=== PATIENT | female | born 1960 | race Caucasian/White ===

== ENCOUNTER 2021-04-21 05:10 | Observation (INO) | payer OTHER, SELFPAY ==
[2021-04-21] VITALS (18 sets, daily range): BP systolic 93–129; BP diastolic 54–92; PULSE 52–100; RESP 9–22; TEMP 36.4–37; O2SAT 72–100; BMI 26.4
--- NOTE | ~2021-04-21 | CT_ITS ---
EXAMINATION: CT brain wo con DATE: 04/21/2021 06:59 INDICATION: Confusion. TECHNIQUE: Computed tomography (CT) of the head was performed without intravenous contrast. The mA wa s adjusted according to patient size. Iterative reconstruction technique was employed. The dose-lengt h product was 605.33 mGy-cm. COMPARISON: None FINDINGS: There is no intracranial hemorrhage, acute infarction, or abnormal intracranial mass lesion . The ventricles are normal in size. There is mild mucosal thickening in the paranasal sinuses. The o rbits are normal. There is a trace left mastoid effusion. C1 ring is ununited posteriorly, which is a normal variant. IMPRESSION: 1. Normal brain. Reviewed, dictated and finalized at location A. ERIZER IMPRESSION: 1. Normal brain.
--- NOTE | ~2021-04-21 | XR_ITS ---
EXAMINATION: XR chest 1V DATE: 04/21/2021 07:01 INDICATION: Confusion. TECHNIQUE: A single frontal view of the chest was obtained. COMPARISON: None. FINDINGS: There is no pneumonia, pleural effusion, or pneumothorax. Cardiomegaly is noted. There is a left chest wall pacer with leads in the right atrium and right ventricle. There is a right subclavia n port with tip in right atrium. IMPRESSION: 1. Cardiomegaly. Reviewed, dictated and finalized at location A. [employer] IMPRESSION: 1. Cardiomegaly.
--- NOTE | 2021-04-21 06:39 | ECG_ITS ---
Rate 69 MD 281 QRSd 125 QT 467 QTc 502 --[place]-- P -81 QRS 53 T 50 ELECTRONIC ATRIAL PACEMAKER BORDERLINE ST ABNORMALITY- ANTERIOR LEADS PROLONGED QT INTERVAL BASELINE WANDER- AVR, AVL, AVF, V5-V6 ABNORMAL ECG Electronically Signed On 04-21-2021 16:16:51 CHILD SUPPORT OFFICER by [place]
[2021-04-21 06:57] LABS: Hematocrit 32.7 % (37.0-47.0); Hemoglobin 10.9 g/dL (12.0-15.0); Mean Corpuscular HGB Conc 33.3 g/dl (32-36); Mean Corpuscular Hemoglobin 33.9 pg (26-34); Mean Corpuscular Volume 101.6 fl (80-100); Platelet Count Result 152 k/mm3 (150-375); Red Blood Count 3.22 M/mm3 (4.2-5.4); Red Cell Distribution Width 12.3 % (11.5-14.5)
[2021-04-21] MEDS: SODIUM CHLORIDE 0.9% IV 1,000 ML 999 ML IV CONT ×2 (07:05→09:08)
--- NOTE | 2021-04-21 07:07 | ED.AMS ---
HPI - Altered Mental Status General Chief Complaint: Altered Mental Status <Rosi Curry MD - Last Filed: 04/21/21 08:27> Stated Complaint: AMS <Rosi Curry MD - Last Filed: 04/21/21 08:27> Time Seen by Provider: 04/21/21 07:03 <Rosi Curry MD - Last Filed: 04/21/21 08:27> Source: patient and family <Rosi Curry MD - Last Filed: 04/21/21 08:27> Mode of arrival: wheelchair <Rosi Curry MD - Last Filed: 04/21/21 08:27> Limitations: altered mental status <Rosi Curry MD - Last Filed: 04/21/21 08:27> History of Present Illness HPI narrative: This is a 60 year old female with history of seizure disorder, myasthenia gravis, and lupus who presents for evaluation of altered mental status. Her is at bedside to give history. He states he woke up around midnight to patient mumbling something. He tried to take patient to restroom but she was weak and he had to take her in wheelchair. He states her weakness seemed to improve but patient continued to not act right. He was thinking patient may have had a seizure but she normally only takes 1-2 hours to return to baseline. He also notes patient had her seizure medication clobazam increased 4 days ago . This increased in medication has been making patient weak so they were told to decrease dose. They have not had opportunity to decrease her medication yet. He also states patient had diarrhea a day or two ago. Patient is unable to give history. She knows her name and place. Otherwise she repetitive says yes I am in pain. <Rosi Curry MD - Last Filed: 04/21/21 08:27> Related Data Home Medications: Home Medications Medication Instructions Recorded Confirmed Lopressor 04/21/21 azathioprine 50 mg PO DAILY 04/21/21 baclofen 20 mg PO DAILY 04/21/21 calcitriol 04/21/21 calcium carbonate-vitamin D3 1 tablet PO BID 04/21/21 [Calcium + D] clobazam 20 mg PO DAILY 04/21/21 d-mannose mg PO 04/21/21 doxycycline hyclate 100 mg PO DAILY 04/21/21 eslicarbazepine [Aptiom] 800 mg PO DAILY 04/21/21 furosemide [Lasix] 20 mg PO BID 04/21/21 hydroxychloroquine [Plaquenil] 200 mg PO BID 04/21/21 levetiracetam [Keppra] 1,000 mg PO BID 04/21/21 lorazepam [Ativan] 1 mg PO BID PRN 04/21/21 magnesium carb,citrate,oxide mg PO 04/21/21 [Magnesium Complex] pantoprazole [Protonix] 40 mg PO HS 04/21/21 potassium mg PO 04/21/21 pravastatin 04/21/21 prednisone 5 mg PO DAILY 04/21/21 promethazine 25 mg PO TID 04/21/21 pyridostigmine bromide [Mestinon] 04/21/21 vitamin B complex [B Complex 1 tablet PO DAILY 04/21/21 Vitamin] <Rosi Curry MD - Last Filed: 04/21/21 08:27> Allergies/Adverse Reactions: Allergies Allergy/AdvReac Type Severity Reaction Status Date / Time carbamazepine Allergy Unknown Verified 04/21/21 06:05 ciprofloxacin Allergy Unknown Verified 04/21/21 06:05 erythromycin base Allergy Rash Verified 04/21/21 06:05 nitrofurantoin Allergy Hives Verified 04/21/21 06:05 Penicillins Allergy Anaphylaxis Verified 04/21/21 06:05 phenytoin Allergy Unknown Verified 04/21/21 06:05 Sulfa (Sulfonamide Allergy Rash Verified 04/21/21 05:55 Antibiotics) codeine AdvReac Nausea Verified 04/21/21 06:05 levodropropizine AdvReac Other Verified 04/21/21 06:05 pregabalin AdvReac Dizziness Verified 04/21/21 06:05 zolpidem AdvReac Other Verified 04/21/21 06:05 <Rosi Curry MD - Last Filed: 04/21/21 08:27> Review of Systems Review of Systems: ROS unobtainable: Yes unobtainable due to mental status <Rosi Curry MD - Last Filed: 04/21/21 08:27> [facility] Past Medical History Medical History: Medical History (Updated 04/21/21 @ 13:04 by Austin Starkey MD) Lupus Myasthenia gravis Port-A-Cath in place Seizure disorder <Rosi Curry MD - Last Filed: 04/21/21 08:27> Social History Social History: Social History (Updated
[2021-04-21 07:11] LABS: Alanine Aminotransferase 16 U/L (4-35); Albumin Level 3.5 g/dL (3.5-5.1); Alkaline Phosphatase 78 U/L (38-126); Anion Gap 1 mmol/L (8-16); Aspartate Amino Transferase 36 U/L (14-36); Bilirubin,Total 0.4 mg/dL (0.2-1.3); Blood Urea Nitrogen 49 mg/dL (7-17); Calcium 8.5 mg/dL (8.4-10.2); Carbon Dioxide 27 mmol/L (22-30); Chloride 108 mmol/L (98-107); Estimated CRCL calculation 28 ml/min; Estimated Glomerular Filt Rate 30; Glucose 118 mg/dL (65-110); Lactic Acid Reflex 0.8 mmol/L (0.7-2.1); Potassium 3.3 mmol/L (3.4-5.0); Sodium 136 mmol/L (137-145)
[2021-04-21 07:23] LABS: Troponin I < 0.012 ng/mL (0.000-0.034)
[2021-04-21 07:30] LABS: Ammonia < 9 umol/L (9-30); Ethanol < 10 mg/dL (<10)
[2021-04-21 07:43] LABS: Basophils Absolute Manual 0.08 K/mm3 (0.0-0.1); Basophils Percent Manual 1 % (0-1); Eosinophils Absolute Manual 0.08 K/mm3 (0.02-0.5); Eosinophils Percent Manual 1 % (0-4); Lymphocytes Absolute Manual 2.72 K/mm3 (1.1-4.5); Lymphocytes Percent Manual 34 % (18-44); Monocytes Percent Manual 10 % (3-9); Neutrophils Percent Manual 54 % (46-73); Total Cells Counted 100
[2021-04-21 07:44] LABS: Platelet Estimate Adequate (Adequate)
[2021-04-21 08:04] LABS: Amphetamine Screen Urine Negative (Negative); Barbiturate Screen Urine Negative (Negative); Benzodiazepines Screen Urine Positive (Negative); Cannabinoid Screen Urine Negative (Negative); Cocaine Screen Urine Negative (Negative); Methadone Screen Urine Negative (Negative); Opiate Screen Urine Negative (Negative); Phencyclidine Screen Urine Negative (Negative)
[2021-04-21 08:43] LABS: Add Urine Microscopic? NO; Appearance Urine Clear (Clear); Bilirubin Urine Negative (Negative); Blood Urine Negative (Negative); Color Urine Yellow (Yellow); Glucose Urine UA Negative (Negative); Ketones Urine Negative (Negative); Leukocyte Esterase Ur Negative LEU/UL (Negative); Nitrate Urine Negative (Negative); Protein Urine Negative (Negative); Specific Grav Ur 1.017 (1.001-1.035); Urobilinogen Urine Negative mg/dL (<2.0)
--- NOTE | 2021-04-21 14:15 | PM.IMHP ---
H&P: HPI History of Present Illness Date/Time: 04/21/21 14:15 Chief Complaint: Altered mental status. Narrative: This is a 60-year-old female with multiple medical problems including epilepsy, myasthenia gravis, systemic lupus erythematosus, chronic kidney disease, and sick sinus syndrome status post permanent pacemaker insertion who presented to the emergency department earlier today from home for evaluation of altered mental status. She is alert and oriented and at her baseline at the time of my evaluation but she does not really recall exactly what happened this morning and as such some of the following is supplemented via a review of her electronic medical records as well as from her . She was in her usual state of health last night when she went to bed and sometime around midnight the patient's heard her mumbling incoherently. He assumes that perhaps she had to go to the bathroom and he attempted to help her however she was extraordinarily weak so he had to take her there in her wheelchair. Once he got her back in bed she seemed a little confused but her weakness had improved and he thought that perhaps she had had a seizure as this is similar to her postictal state. This morning she remained a bit ?out of it?, not steady on her feet and seemingly staring off with repetitive conversation. Her workup in the ER was pretty unremarkable aside from chronic findings and her brain CT was normal. With further questioning she did have an increase in her clobazam within the last for 5 days however the patient her felt that she seemed to be more weak on that drug and she was instructed to decrease the dose. Currently she has no complaints and specifically denies headache, neck ache, diplopia, dysarthria, dysphagia, shortness of breath, chest pain, palpitations, and paresthesias. Review of Systems Review of Systems: Twelve systems were reviewed. No fever, chills, or sweats. No recent cold or flu symptoms. She occasionally has dysphagia, mainly with pills. No recent issues or concerns for aspiration. With her myasthenia it is not uncommon for her to have intermittent diplopia throughout the day and she also has weakness on her right side which fluctuates in severity. Additionally she will have occasional slurred speech as well. She has not required intubation for myasthenia crises though she was hospitalized as within the past 1 year with respiratory failure on BiPAP. In fact she used to trilogy unit for several months thereafter but she has not needed at recently and it was sent back approximately 3 months ago. She also suffers from gastroparesis and neurogenic bladder. Except as documented, all other systems were reviewed and are negative. [facility] Past Medical History Medical History (Updated 04/21/21 @ 23:00 by Eileen Nuñez PA-C) Adrenal insufficiency On low-dose prednisone. Cardiomegaly A chronic finding per patient report. Followed by a interstate planner associated with [facility]. Chronic renal failure Frequent urinary tract infections Gastroparesis Hypertension Myasthenia gravis Neurogenic bladder Seizure disorder Sick sinus syndrome Systemic lupus erythematosus Surgical History Surgical History (Updated 04/21/21 @ 22:50 by Eileen Nuñez PA-C) History of 2 sections History of appendectomy History of hysterectomy History of laparoscopic cholecystectomy History of partial colectomy Secondary to obstruction from adhesions. History of permanent cardiac pacemaker placement Port-A-Cath in place Family History Family History (Updated 04/21/21 @ 22:50 by Eileen Nuñez PA-C) Other Hypertension Social History Social History (Updated 04/21/21 @ 23:15 by Eileen Nuñez PA-C) Social History: Surrogate decision maker: Dann Anderson, spouse. Code status: Full code. Smoking status: Never smoker Alcohol intake: current Drinks per week: 1 Substance use: never Additional living arrangements comments:
[2021-04-21] MEDS: SODIUM CHLORIDE 0.9% IV 1,000 ML 125 ML IV CONT (15:29)
--- NOTE | 2021-04-21 17:30 | ADMGEN ---
This patient, Aysha Anderson, was admitted to Medical Room 347-. Patient/family oriented to hospital policies and general routines including ID bracelet, bed and alarms, visiting hours, pain management, procedures, bathroom and other care routines, personal items, smoking policy, room service/diet, and visiting hours. Information on how to activate the Rapid Response Team has been discussed. Patient/Family are encouraged to report perceived risks to care and to ask questions if they do not understand what they are told or what they should do.
[2021-04-21 21:24] LABS: Glucose Point of Care 93 mg/dl (65-105)
[2021-04-21] MEDS: SODIUM CHLORIDE 0.9% IV 1,000 ML 75 ML IV CONT (23:31)
[2021-04-22] VITALS: PULSE 70
[2021-04-22] MEDS: LORazepam (*CRX) 1 MG TABLET PO ×2 (00:42→08:56)
[2021-04-22] MEDS: TOPIRAMATE 25 MG TABLET 50 MG PO ×2 (00:43→08:51)
[2021-04-22] MEDS: PYRIDOSTIGMINE BROMIDE 60 MG TABLET PO ×3 (00:44→11:28)
[2021-04-22] MEDS: levETIRAcetam ORAL SOL 500 MG/5 ML UDC 2000 MG PO ×2 (00:44→08:52)
[2021-04-22 01:28] LABS: Anion Gap 2 mmol/L (8-16); Blood Urea Nitrogen 26 mg/dL (7-17); Calcium 6.9 mg/dL (8.4-10.2); Carbon Dioxide 20 mmol/L (22-30); Chloride 113 mmol/L (98-107); Estimated CRCL calculation 42 ml/min; Estimated Glomerular Filt Rate 50; Glucose 89 mg/dL (65-110); Magnesium 2.1 mg/dL (1.6-2.3); Potassium 3.4 mmol/L (3.4-5.0); Sodium 135 mmol/L (137-145)
[2021-04-22 01:36] LABS: Iron 94 ug/dL (37-170)
[2021-04-22 01:46] LABS: Percent Iron Saturation 48 % (20-50)
[2021-04-22 04:09] VITALS: PULSE 70
[2021-04-22 05:17] VITALS: BP 112/68; PULSE 70; RESP 18; TEMP 36.6; O2SAT 96
[2021-04-22 05:34] LABS: Hematocrit 31.2 % (37.0-47.0); Hemoglobin 10.4 g/dL (12.0-15.0); Mean Corpuscular HGB Conc 33.3 g/dl (32-36); Mean Platelet Volume 11.9 fl (7.4-10.4); Platelet Count Result 131 k/mm3 (150-375); Red Blood Count 3.15 M/mm3 (4.2-5.4); Red Cell Distribution Width 12.4 % (11.5-14.5); White Blood Count 5.8 K/mm3 (4.5-10.0)
[2021-04-22 05:48] LABS: Alanine Aminotransferase 14 U/L (4-35); Albumin Level 2.8 g/dL (3.5-5.1); Alkaline Phosphatase 75 U/L (38-126); Anion Gap 0 mmol/L (8-16); Aspartate Amino Transferase 35 U/L (14-36); Bilirubin,Total 0.3 mg/dL (0.2-1.3); Blood Urea Nitrogen 22 mg/dL (7-17); Calcium 6.9 mg/dL (8.4-10.2); Carbon Dioxide 21 mmol/L (22-30); Chloride 117 mmol/L (98-107); Estimated CRCL calculation 50 ml/min; Estimated Glomerular Filt Rate 50; Glucose 86 mg/dL (65-110); Magnesium 2.2 mg/dL (1.6-2.3); Phosphorus 1.9 mg/dL (2.5-4.5); Potassium 3.4 mmol/L (3.4-5.0); Sodium 138 mmol/L (137-145)
[2021-04-22 06:45] LABS: Cortisol Random 4.61 ug/dL
[2021-04-22 08:00] VITALS: PULSE 93
[2021-04-22] MEDS: DOXYCYCLINE HYCLATE 100 MG TABLET PO (08:49)
[2021-04-22] MEDS: predniSONE 5 MG TABLET PO (08:49)
[2021-04-22] MEDS: calcitrioL 0.25 MCG CAPSULE PO (08:50)
[2021-04-22] MEDS: POTASSIUM CHLORIDE 20 MEQ TABLET.ER PO (08:50)
[2021-04-22] MEDS: PRAVASTATIN SODIUM 10 MG TABLET PO (08:50)
[2021-04-22] MEDS: FERROUS SULFATE DRIED 142 MG TABCR PO (08:51)
[2021-04-22] MEDS: VITAMIN B COMPLEX CAPSULE 1 CAP PO (08:51)
[2021-04-22] MEDS: HYDROXYCHLOROQUINE SULFATE 200 MG TABLET PO (08:51)
[2021-04-22] MEDS: SUMAtriptan SUCCINATE 25 MG TABLET 100 MG PO (08:51)
[2021-04-22] MEDS: azaTHIOprine 50 MG TABLET PO (08:51)
[2021-04-22] MEDS: PANTOPRAZOLE 40 MG TABLET PO (11:29)
[2021-04-22] MEDS: MAGNESIUM OXIDE 200 MG TABLET PO (11:29)
[2021-04-22 12:00] VITALS: PULSE 72
[2021-04-22 12:32] LABS: Vitamin B12 > 1000.0 pg/mL (239-931)
--- NOTE | 2021-04-22 13:27 | PM.DS ---
DS: Admitting Diagnosis Discharge Date 04/22/2021 Admitting Diagnosis AMS DS: Discharge Diagnosis Discharge Diagnosis (1) Altered mental status: Code(s): R41.82 - Altered mental status, unspecified Status: Acute Assessment and Plan: Resolved. Etiology not entirely clear but given her history I suspect she may very well have had a seizure. Could be related to increase in clobazam dose although the patient does not think is related to that. There are no significant lab abnormalities from her reported baseline and imaging was unremarkable. (2) Macrocytic anemia: Code(s): D53.9 - Nutritional anemia, unspecified Status: Acute Assessment and Plan: Check iron studies as well as B12 and folates. (3) Chronic renal failure: Code(s): N18.9 - Chronic kidney disease, unspecified Status: Acute Assessment and Plan: Patient does have chronic renal failure for which she is seen by a physician/internist associated with [facility]. She is being cautiously hydrated given her soft blood pressures and increase in BUN. (4) Myasthenia gravis: Code(s): G70.00 - Myasthenia gravis without (acute) exacerbation Status: Inactive Assessment and Plan: No acute issues. Patient frequently has episodes of intermittent diplopia, slurred speech, and weakness, especially on the right side. Continue Mestinon. (5) Hypokalemia: Code(s): E87.6 - Hypokalemia Status: Acute Assessment and Plan: Potassium will be replaced and monitored. (6) Epilepsy: Code(s): G40.909 - Epilepsy, unspecified, not intractable, without status epilepticus Status: Acute Assessment and Plan: Continue anti seizure medication. (7) Cardiomegaly: Code(s): I51.7 - Cardiomegaly Status: Acute Assessment and Plan: A known finding per patient report. She is followed by a shipping and receiving clerk at [facility]. (8) Hypertension: Code(s): I10 - Essential (primary) hypertension Status: Acute Assessment and Plan: Blood pressures were reviewed and they have been on the softer side of normal. She has received IV fluid rehydration with improvement. Continue to hold metoprolol and furosemide for now. (9) Adrenal insufficiency: Code(s): E27.40 - Unspecified adrenocortical insufficiency Status: Acute Assessment and Plan: She has mild electrolyte abnormalities with softer blood pressures as detailed above. Blood pressures have improved with IV fluids however thus I do not think we need to stress dose her at this time. Check cortisol level in a.m. and monitor electrolytes and blood pressures closely. DS: Summary Hospital Course Reason for hospitalization: Chief Complaint: Altered mental status. Narrative: This is a 60-year-old female with multiple medical problems including epilepsy, myasthenia gravis, systemic lupus erythematosus, chronic kidney disease, and sick sinus syndrome status post permanent pacemaker insertion who presented to the emergency department earlier today from home for evaluation of altered mental status. She is alert and oriented and at her baseline at the time of my evaluation but she does not really recall exactly what happened this morning and as such some of the following is supplemented via a review of her electronic medical records as well as from her . She was in her usual state of health last night when she went to bed and sometime around midnight the patient's heard her mumbling incoherently. He assumes that perhaps she had to go to the bathroom and he attempted to help her however she was extraordinarily weak so he had to take her there in her wheelchair. Once he got her back in bed she seemed a little confused but her weakness had improved and he thought that perhaps she had had a seizure as this is similar to her postictal state. This morning she remained a bit ?out of it?, not steady on her feet and seem
[2021-04-22] MEDS: HEPARIN SODIUM LOCK FLUSH 500 UNITS/5 ML VIAL IV PUSH (13:45)
[2021-04-29 09:53] LABS: Folic Acid 3.6 ng/mL (2.76->20)
== END 2021-04-22 14:00 | disposition home or self-care (01) ==
LOC: ANHED 08:27 → ANH2MED 13:04 → ANH3MED 04-22 13:27 → ANH2MED 04-25 11:02 → ANH3MED 04-25 11:02
PROVIDERS: General Practice; Physician Assistant; Admitting Provider Internal Medicine; Emergency Provider Emergency Medicine; Visit Provider Family Medicine
DX: R41.82 Altered mental status, unspecified (principal); D53.9 Nutritional anemia, unspecified; M32.9 Systemic lupus erythematosus, unspecified; I12.9 Hypertensive chronic kidney disease with stage 1 through stage 4 chronic kidney disease, or unspecified chronic kidney disease; N18.9 Chronic kidney disease, unspecified; G70.00 Myasthenia gravis without (acute) exacerbation; E87.6 Hypokalemia; E86.0 Dehydration; G40.909 Epilepsy, unspecified, not intractable, without status epilepticus; E27.40 Unspecified adrenocortical insufficiency; K31.84 Gastroparesis; N31.9 Neuromuscular dysfunction of bladder, unspecified; I49.5 Sick sinus syndrome; I51.7 Cardiomegaly; Z79.899 Other long term (current) drug therapy
CPT/HCPCS: 36415; 51701; 70450; 71045; 80048; 80053; 80307; 81003; 82140; 82533; 82607; 82728; 82746; 82948; 83540; 83550; 83605; 83735; 84100; 84443; 84484; 85025; 85027; 93005; 96360; 96361; 97161; 99285; A9270; G0378; J1642; J7030; J7512

== ENCOUNTER 2021-05-10 06:49 | Observation (INO) | payer OTHER, SELFPAY ==
[2021-05-10] VITALS (9 sets, daily range): BP systolic 100–141; BP diastolic 62–92; PULSE 70–121; RESP 12–20; TEMP 36.1–36.6; O2SAT 97–100
--- NOTE | ~2021-05-10 | US_ITS ---
EXAMINATION: US renal BI DATE: 05/11/2021 14:18 INDICATION: Left costovertebral angle tenderness. TECHNIQUE: Multiple ultrasound grayscale images of the kidneys were obtained. COMPARISON: None. FINDINGS: The right kidney measures 10.5 x 4.5 x 4.6 cm. The left kidney measures 9.8 x 4.3 x 5.5 cm. The kidne ys demonstrate normal parenchymal echogenicity. There is no hydronephrosis. The bladder is normal. IMPRESSION: 1. Normal kidney sizes. No hydronephrosis. Reviewed, dictated and finalized at location B. MACHINE OPERATOR
--- NOTE | ~2021-05-10 | CT_ITS ---
EXAMINATION: CT brain wo [facility] EXAM DATE: 05/10/2021 08:09 INDICATION: Altered mental status , weakness. Kidney infection. History of epilepsy. TECHNIQUE: Spiral CT of the head was performed without contrast. Axial, coronal and sagittal images were reviewed. The dose-length product (DLP) for this examination was 681.00 mGy-cm. The exposure w as tailored according to patient size, and iterative reconstruction (ASIR) was used as additional dos e reduction technique. Comparison is made to prior examination from 04/21/2021. FINDINGS: There is no acute intraparenchymal hemorrhage. No evidence of intraparenchymal brain mass lesion. No evidence of acute infarction. Mild microangiopathy and atrophy. There is no mass effect o r midline shift. The ventricles are normal in size. There are no extra-axial collections. There ar e no acute calvarial fractures. The orbits are unremarkable. Soft tissue is unremarkable. The visua lized sinuses and mastoid air cells are well aerated. IMPRESSION: 1. No acute intracranial findings. 2. Mild age-related intracranial findings. Reviewed, dictated and finalized at location A. GIOUS EDUCATION COORDINATOR
--- NOTE | ~2021-05-10 | XR_ITS ---
EXAMINATION: XR chest 1V portable EXAM DATE: 05/10/2021 10:06 INDICATION: Mid chest pain. TECHNIQUE: Portable AP frontal chest x-ray was obtained. Comparison is made to prior examination from 04/21/2021. FINDINGS: The lungs are clear. There are no pleural effusions. There is a dual lead pacemaker/AICD seen with leads projecting over the expected locations of the right atrial appendage and right ventri chadd. The cardiomediastinal silhouette is prominent but magnified on this AP technique. Right-sided po rtacatheter. There is no pneumothorax suspected. The bones and soft tissues are unremarkable. IMPRESSION: No acute cardiopulmonary findings. Reviewed, dictated and finalized at location A. SHING AREA OPERATOR
--- NOTE | 2021-05-10 07:05 | ECG_ITS ---
Measurements Intervals [place] Rate: 70 P: 265 MT: 259 QRS: -14 QRSD: 97 T: 29 QT: 439 QTc: 474 Interpretive Statements ELECTRONIC ATRIAL PACEMAKER BASELINE ARTIFACT- II, III, AVR, AVF, V1, V3-V6 ATYPICAL ECG Electronically Signed On 05-10-2021 7:28:48 CONDOMINIUM ASSOCIATION MANAGER by [place] D.O.
--- NOTE | 2021-05-10 07:21 | ED.GENADULT ---
HPI - General Adult General Chief complaint: Unspecified Stated complaint: weakness Time Seen by Provider: 05/10/21 07:08 Source: family Limitations: altered mental status History of Present Illness HPI narrative: Patient is a 58-year-old female brought in by due to altered mental status, described as somnolent, difficult to arouse. states that she usually is in the morning groggy and usually takes her 30 minutes until she fully wakes up but this morning she continued to be sleepy . states that patient supposed to have an IgG infusion this morning. Patient has history of seizure, lupus and myasthenia gravis. states that the patient is currently being treated for urinary tract infection, taking Cipro. states that patient had a couple bouts of nausea and vomiting last night. Denies any diarrhea, fever or chills. Related Data Home Medications Medication Instructions Recorded Confirmed Aptiom 800 mg PO DAILY 04/21/21 04/21/21 Lopressor 12.5 mg PO BID 04/21/21 04/21/21 Magnesium Complex 250 mg PO DAILY 04/21/21 04/21/21 azathioprine 50 mg PO DAILY 04/21/21 04/21/21 baclofen 20 mg PO TID 04/21/21 04/21/21 calcitriol 0.25 mcg PO DAILY 04/21/21 04/21/21 calcium carbonate-vitamin D3 1 tablet PO BID 04/21/21 04/21/21 clobazam 40 mg PO HS 04/21/21 04/21/21 d-mannose 1,000 mg PO DAILY 04/21/21 04/21/21 doxycycline hyclate 100 mg PO DAILY 04/21/21 04/21/21 ferrous sulfate 143 mg PO DAILY 04/21/21 04/21/21 furosemide [Lasix] 20 mg PO BID 04/21/21 04/21/21 hydroxychloroquine [Plaquenil] 200 mg PO BID 04/21/21 04/21/21 levetiracetam 2,000 mg PO BID 04/21/21 04/21/21 lorazepam [Ativan] 1 mg PO BID 04/21/21 04/21/21 pantoprazole [Protonix] 40 mg PO DAILY 04/21/21 04/21/21 potassium chloride 20 meq PO DAILY 04/21/21 04/21/21 pravastatin 10 mg PO DAILY 04/21/21 04/21/21 prednisone 5 mg PO DAILY 04/21/21 04/21/21 promethazine 25 mg PO Q6H PRN 04/21/21 04/21/21 pyridostigmine bromide 60 mg PO HS 04/21/21 04/21/21 pyridostigmine bromide 60 mg PO QACDINNER 04/21/21 04/21/21 pyridostigmine bromide 90 mg PO QAM 04/21/21 04/21/21 pyridostigmine bromide 90 mg PO QNOON 04/21/21 04/21/21 sumatriptan succinate 100 mg PO Q2H PRN 04/21/21 04/21/21 topiramate 50 mg PO BID 04/21/21 04/21/21 vitamin B complex 1 tablet PO DAILY 04/21/21 04/21/21 Allergies Allergy/AdvReac Type Severity Reaction Status Date / Time carbamazepine Allergy Unknown Verified 04/21/21 17:57 ciprofloxacin Allergy Unknown Verified 04/21/21 17:57 erythromycin base Allergy Rash Verified 04/21/21 17:57 nitrofurantoin Allergy Hives Verified 04/21/21 17:57 Penicillins Allergy Anaphylaxis Verified 04/21/21 17:57 phenytoin Allergy Unknown Verified 04/21/21 17:57 Sulfa (Sulfonamide Allergy Rash Verified 04/21/21 17:57 Antibiotics) codeine AdvReac Nausea Verified 04/21/21 17:57 levodropropizine AdvReac Other Verified 04/21/21 17:57 pregabalin AdvReac Dizziness Verified 04/21/21 17:57 zolpidem AdvReac Other Verified 04/21/21 17:57 Review of Systems Review of Systems: ROS unobtainable: Yes unobtainable due to mental status PMFSH Past Medical History Medical History Adrenal insufficiency On low-dose prednisone. Cardiomegaly A chronic finding per patient report. Followed by a industrial pipefitter journeyman associated with [facility]. Chronic renal failure Frequent urinary tract infections Gastroparesis Hypertension Myasthenia gravis Neurogenic bladder Seizure disorder Sick sinus syndrome Systemic lupus erythematosus Surgical History Surgical History History of 2 sections History of appendectomy History of hysterectomy History of laparoscopic cholecystectomy History of partial colectomy Secondary to obstruction from adhesions. History of permanent cardiac pacemaker placement Port-A-Cath in place Family History Family History (Review
[2021-05-10 08:07] LABS: Basophils Absolute Auto 0.1 K/mm3 (0.0-0.1); Basophils Percent Auto 1.8 % (0.2-1.2); Eosinophils Absolute Auto 0.3 K/mm3 (0-0.3); Eosinophils Percent Auto 3.7 % (0-4.4); Hematocrit 39.6 % (37.0-47.0); Hemoglobin 12.9 g/dL (12.0-15.0); Immature Granulocyte Absolute 0.02 K/mm3 (0.00-0.031); Immature Granulocyte Percent A 0.3 % (0-0.5); Lymphocytes Absolute Auto 1.44 K/mm3 (0.9-3.2); Lymphocytes Percent Auto 20.2 % (18.3-44.2); Mean Corpuscular HGB Conc 32.6 g/dl (32-36); Mean Corpuscular Hemoglobin 33.4 pg (26-34); Mean Corpuscular Volume 102.6 fl (80-100); Mean Platelet Volume 11.3 fl (7.4-10.4); Monocytes Absolute Auto 0.5 K/mm3 (0.1-0.6); Monocytes Percent Auto 6.6 % (2.6-8.5); Neutrophils Absolute Auto 4.8 K/mm3 (1.3-6.7); Neutrophils Percent Auto 67.4 % (45.5-73.1); Platelet Count Result 265 k/mm3 (150-375); Red Blood Count 3.86 M/mm3 (4.2-5.4); Red Cell Distribution Width 13.2 % (11.5-14.5); White Blood Count 7.1 K/mm3 (4.5-10.0)
[2021-05-10 08:16] LABS: Add Urine Microscopic? NO; Appearance Urine Clear (Clear); Bilirubin Urine Negative (Negative); Blood Urine Negative (Negative); Color Urine Yellow (Yellow); Glucose Urine UA Negative (Negative); Ketones Urine Negative (Negative); Leukocyte Esterase Ur Negative LEU/UL (Negative); Nitrate Urine Negative (Negative); Protein Urine Negative (Negative); Specific Grav Ur 1.019 (1.001-1.035); Urobilinogen Urine Negative mg/dL (<2.0)
[2021-05-10 08:20] LABS: Alanine Aminotransferase 36 U/L (4-35); Alkaline Phosphatase 80 U/L (38-126); Anion Gap 6 mmol/L (8-16); Aspartate Amino Transferase 83 U/L (14-36); Bilirubin,Total 0.7 mg/dL (0.2-1.3); Blood Urea Nitrogen 32 mg/dL (7-17); Carbon Dioxide 23 mmol/L (22-30); Chloride 111 mmol/L (98-107); Estimated CRCL calculation 28 ml/min; Estimated Glomerular Filt Rate 29; Glucose 107 mg/dL (65-110); Potassium 4.9 mmol/L (3.4-5.0); Sodium 140 mmol/L (137-145)
[2021-05-10 08:21] LABS: Lactic Acid Reflex 1.1 mmol/L (0.7-2.1)
[2021-05-10] MEDS: SODIUM CHLORIDE 0.9% IV 1,000 ML 999 ML IV CONT (08:24)
[2021-05-10 08:39] LABS: Prothrombin Time 13.3 Seconds (11.1-14.7)
[2021-05-10 08:40] LABS: Partial Thromboplastin Time 29.3 SECONDS (22.3-36.8)
[2021-05-10] MEDS: LACTATED RINGERS 1,000 ML 125 ML IV CONT ×2 (12:21→17:29)
--- NOTE | 2021-05-10 13:00 | PM.IMHP ---
H&P: HPI History of Present Illness Date/Time: 05/10/21 13:00 <Eileen Nuñez PA-C - Last Filed: 05/10/21 23:01> Chief Complaint: Altered mental status. <Eileen Nuñez PA-C - Last Filed: 05/10/21 23:01> Narrative: This is a pleasant 60-year-old female with multiple medical problems including epilepsy, myasthenia gravis, lupus, chronic kidney disease, hypogammaglobulinemia, sick sinus syndrome status post permanent pacemaker insertion, and other comorbidities who presented to the emergency department earlier today from home for evaluation of altered mental status. The patient and her agree that she is typically ?groggy? in the morning for approximately 30 minutes until she is fully awake. The patient goes on to say that she suffers from insomnia is unusual for her to wake up for a couple of hours between sleeping in our here or there overnight thus it seems like she is very sleepy in the morning times when it is time to get up due to lack of sleep. She takes duplicated benzodiazepine therapy and a muscle relaxer before going to bed but tells me that her doses have not changed for many years and she does not believe that this is the cause. With further questioning she does admit that sometimes she wakes up at night with shortness of breath and in fact she used a trilogy unit for several months earlier this year due to diaphragmatic weakness related to her myasthenia gravis. She does not think that she had a seizure overnight. She gives no history to suggest active infection although recently finished ciprofloxacin for urinary tract infection. At the time my evaluation she is at baseline and has no complaints. Of note, I admitted the patient under similar circumstances on 04/21/2021 at which time it was thought that perhaps she had had a seizure or her symptoms may have been due to an increase in clobazam. She returned to baseline later on day of admission she was discharged home the following day. <Eileen Nuñez PA-C - Last Filed: 05/10/21 23:01> Review of Systems Review of Systems: Twelve systems were reviewed. It sounds like she has frequent symptoms from her myasthenia including intermittent diplopia throughout today and occasional dysarthria. She has not had any recent dysphagia. No fever, chills, or sweats. No cold or flu symptoms. She denies chest pain and pleuritic pain. No cough. No nausea, vomiting, or diarrhea. No dysuria. Except as documented, all other systems were reviewed and are negative. <Eileen Nuñez PA-C - Last Filed: 05/10/21 23:01> [facility] Past Medical History Medical History: Medical History (Updated 05/11/21 @ 14:51 by Josue Soto MD) Adrenal insufficiency On low-dose prednisone. Cardiomegaly A chronic finding per patient report. Followed by a network/telecom engineer associated with [facility]. Chronic renal failure Frequent urinary tract infections Gastroparesis Hypertension Hypogammaglobulinemia Myasthenia gravis Neurogenic bladder Seizure Seizure disorder Sick sinus syndrome Systemic lupus erythematosus <Eileen Nuñez PA-C - Last Filed: 05/10/21 23:01> Surgical History Surgical History: Surgical History History of 2 sections History of appendectomy History of hysterectomy History of laparoscopic cholecystectomy History of partial colectomy Secondary to obstruction from adhesions. History of permanent cardiac pacemaker placement Port-A-Cath in place <Eileen Nuñez PA-C - Last Filed: 05/10/21 23:01> Family History Family History: Family History Other Hypertension <Eileen Nuñez PA-C - Last Filed: 05/10/21 23:01> Social History Social History: Social History Social History: Surrogate decision maker: Dann Anderson, spouse. Code status: Full code.
--- NOTE | 2021-05-10 13:24 | ADMGEN ---
This patient, Aysha Anderson, was admitted to Medical Room 343-01. Patient/family oriented to hospital policies and general routines including ID bracelet, bed and alarms, visiting hours, pain management, procedures, bathroom and other care routines, personal items, smoking policy, room service/diet, and visiting hours. Information on how to activate the Rapid Response Team has been discussed. Patient/Family are encouraged to report perceived risks to care and to ask questions if they do not understand what they are told or what they should do.
--- NOTE | 2021-05-10 16:16 | WPDNEURCNPN ---
Consult date: 05/10/21 HPI: Aysha Anderson is a 60 year old female Admitted to the hospital through the emergency room where she was brought by for the complaints of change in the mental status with difficulties in arousing ,as per the information available from the , she is usually in the morning groggy and takes about 30 minutes until she fully wakes but today she continued to be sleepy she was supposed to have an IgG infusion additionally she has ongoing history of 1. Seizure disorder 2. Lupus 3. Myasthenia gravis 4. Urinary tract infection for which she was taking Cipro her other medications were multiple but that included aptiom, 800 mg daily clobazam am 40 mg at night, levetiracetam 2000 mg twice a day, lorazepam 1 mg b.i.d.,prednisone 5 mg daily, [id number] mg at night 60 mg at dinner and 90 mg in the morning and 90 mg at noon in addition to topiramate 50 mg b.i.d. she is reportedly allergic to multiple medications as outlined and a past history is consistent with the adrenal insufficiency, cardiomegaly, chronic renal failure, and as mentioned above myasthenia gravis, seizure disorder, and sick sinus disorder, systemic lupus erythematosus, evaluation up until now includes the MCV of 102.6 chemistry with BUN 32 and creatinine 1.80 and GFR 29 normal UA, negative chest x-ray, active CT scan of the head PMFSH Past Medical History Medical History Adrenal insufficiency On low-dose prednisone. Cardiomegaly A chronic finding per patient report. Followed by a college teacher associated with [facility]. Chronic renal failure Frequent urinary tract infections Gastroparesis Hypertension Myasthenia gravis Neurogenic bladder Seizure disorder Sick sinus syndrome Systemic lupus erythematosus Surgical History Surgical History History of 2 sections History of appendectomy History of hysterectomy History of laparoscopic cholecystectomy History of partial colectomy Secondary to obstruction from adhesions. History of permanent cardiac pacemaker placement Port-A-Cath in place Family History Family History Other Hypertension Social History Social History Social History: Surrogate decision maker: Dann Anderson, spouse. Code status: Full code. Smoking status: Never smoker Alcohol intake: current Drinks per week: 1 Substance use: never Additional living arrangements comments: The patient lives with her in [place]. She has a cane, walker, and wheelchair available to her for use when needed. 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 Spiritual care concerns: No Meds Home Medications and Allergies Home Medications Medication Instructions Recorded Confirmed Type Aptiom 800 mg PO DAILY 04/21/21 05/10/21 History Magnesium Complex 250 mg PO DAILY 04/21/21 05/10/21 History azathioprine 50 mg PO DAILY 04/21/21 05/10/21 History baclofen 20 mg PO TID 04/21/21 05/10/21 History calcitriol 0.25 mcg PO DAILY 04/21/21 05/10/21 History calcium carbonate-vitamin D3 1 tablet PO BID 04/21/21 05/10/21 History clobazam 40 mg PO HS 04/21/21 05/10/21 History d-mannose 1,000 mg PO DAILY 04/21/21 05/10/21 History doxycycline hyclate 100 mg PO DAILY 04/21/21 05/10/21 History ferrous sulfate 143 mg PO DAILY 04/21/21 05/10/21 History furosemide [Lasix] 20 mg PO BID 04/21/21 05/10/21 History hydroxychloroquine [Plaquenil] 200 mg PO BID 04/21/21 05/10/21 History levetiracetam 2,000 mg PO BID 04/21/21 05/10/21 History lorazepam [Ativan] 1 mg PO BID 04/21/21 05/10/21 History potassium chloride 20 meq PO DAILY 04/21/21 05/10/21 History pravastatin 10 mg PO DAILY 04/21/21 05/10/21 History prednisone 5 mg PO DAILY 04/21/21 05/10/21 History promethazine 25 mg PO Q6H PRN 04/21/21 05/10/21 History pyridostigmine bromi
[2021-05-10] MEDS: BACLOFEN 10 MG TABLET PO (17:30)
[2021-05-10] MEDS: HYDROXYCHLOROQUINE SULFATE 200 MG TABLET PO (17:35)
[2021-05-10] MEDS: PYRIDOSTIGMINE BROMIDE 60 MG TABLET PO ×2 (17:36→21:12)
[2021-05-10] MEDS: levETIRAcetam ORAL SOL 500 MG/5 ML UDC 2000 MG PO (21:12)
[2021-05-10] MEDS: TOPIRAMATE 25 MG TABLET 50 MG PO (21:13)
--- NOTE | 2021-05-11 00:09 | PC.NURSE ---
NOTIFIED RESPIRATORY OF [facility] LINK ORDER. STATES WILL BE UNABLE TTO COMPLETE THIS EVENING DUE TO ALL LINKS ARE CURRENTLY IN USE.
[2021-05-11 06:00] VITALS: BP 124/76; PULSE 70; RESP 20; TEMP 35.8; O2SAT 99
[2021-05-11 06:24] LABS: Hematocrit 33.3 % (37.0-47.0); Hemoglobin 10.7 g/dL (12.0-15.0); Mean Corpuscular HGB Conc 32.1 g/dl (32-36); Mean Corpuscular Hemoglobin 32.7 pg (26-34); Mean Corpuscular Volume 101.8 fl (80-100); Mean Platelet Volume 10.9 fl (7.4-10.4); Platelet Count Result 198 k/mm3 (150-375); Red Blood Count 3.27 M/mm3 (4.2-5.4); Red Cell Distribution Width 12.9 % (11.5-14.5); White Blood Count 8.4 K/mm3 (4.5-10.0)
[2021-05-11] MEDS: LACTATED RINGERS 1,000 ML 75 ML IV CONT (06:25)
[2021-05-11 06:40] LABS: Anion Gap 2 mmol/L (8-16); Blood Urea Nitrogen 16 mg/dL (7-17); Calcium 7.8 mg/dL (8.4-10.2); Carbon Dioxide 22 mmol/L (22-30); Chloride 114 mmol/L (98-107); Estimated CRCL calculation 54 ml/min; Estimated Glomerular Filt Rate 56; Glucose 110 mg/dL (65-110); Magnesium 2.5 mg/dL (1.6-2.3); Potassium 3.9 mmol/L (3.4-5.0); Sodium 138 mmol/L (137-145)
[2021-05-11 08:08] LABS: Alveolar/Arterial O2 Gradient 21.4 mmHg; Base Excess ABG -3.6 mEq/l (+/-2.0); Device ROOM AIR; Fractional Inspired Oxygen 21 %; HCO3 ABG 20.5 mEq/l (22.0-26.0); Modified Allen's Test Pass; Oxygen Content ABG 16.1 %vol (16.0-22.0); Oxygen Saturation ABG 96.7 % (95.0-100.0); Oxyhemoglobin 94.9 % THb (90.0-100.0); PO2 ABG 87.6 mmHg (80.0-100.0); PO2 FiO2 Ratio Arterial Blood 4.17 %; Site Drawn LEFT RADIAL; pH ABG 7.398 (7.350-7.450)
[2021-05-11 08:15] VITALS: O2SAT 99
[2021-05-11] MEDS: FERROUS SULFATE DRIED 142 MG TABCR PO (09:50)
[2021-05-11] MEDS: MAGNESIUM OXIDE 400 MG TABLET PO (09:50)
[2021-05-11] MEDS: DOXYCYCLINE HYCLATE 100 MG TABLET PO (09:51)
[2021-05-11] MEDS: HYDROXYCHLOROQUINE SULFATE 200 MG TABLET PO (09:51)
[2021-05-11] MEDS: TOPIRAMATE 25 MG TABLET 50 MG PO (09:51)
[2021-05-11] MEDS: BACLOFEN 10 MG TABLET PO ×2 (09:51→12:39)
[2021-05-11] MEDS: calcitrioL 0.25 MCG CAPSULE PO (09:51)
[2021-05-11] MEDS: predniSONE 5 MG TABLET PO (09:51)
[2021-05-11] MEDS: levETIRAcetam ORAL SOL 500 MG/5 ML UDC 2000 MG PO (09:52)
[2021-05-11] MEDS: azaTHIOprine 50 MG TABLET PO (09:52)
[2021-05-11] MEDS: VITAMIN B COMPLEX CAPSULE 1 CAP PO (09:52)
[2021-05-11] MEDS: PRAVASTATIN SODIUM 10 MG TABLET PO (09:54)
[2021-05-11] MEDS: LORazepam (*CRX) 1 MG TABLET PO (09:54)
[2021-05-11] MEDS: PROMETHAZINE HCL 25 MG TABLET PO (11:23)
[2021-05-11] MEDS: PYRIDOSTIGMINE BROMIDE 60 MG TABLET PO (12:38)
[2021-05-11 14:22] VITALS: BP 116/60; PULSE 73; RESP 22; TEMP 36.5; O2SAT 100
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
[2021-05-11] MEDS: HEPARIN SODIUM LOCK FLUSH 500 UNITS/5 ML VIAL IV PUSH (16:15)
--- NOTE | 2021-05-18 13:10 | PC.NURSE ---
Blood cx are negative. Dr. Brittany bee.
== END 2021-05-11 16:30 | disposition home or self-care (01) ==
LOC: ANHED 09:47 → ANH3MED 12:17
PROVIDERS: Emergency Medicine; Physician Assistant; Admitting Provider Internal Medicine; Emergency Provider Emergency Medicine; PCP Internal Medicine; Visit Provider Internal Medicine
DX: R41.82 Altered mental status, unspecified (principal); E86.0 Dehydration; N17.9 Acute kidney failure, unspecified; R53.1 Weakness; E27.40 Unspecified adrenocortical insufficiency; I12.9 Hypertensive chronic kidney disease with stage 1 through stage 4 chronic kidney disease, or unspecified chronic kidney disease; N18.9 Chronic kidney disease, unspecified; M32.9 Systemic lupus erythematosus, unspecified; G40.909 Epilepsy, unspecified, not intractable, without status epilepticus; K31.84 Gastroparesis; Z95.0 Presence of cardiac pacemaker; Z79.52 Long term (current) use of systemic steroids; D80.1 Nonfamilial hypogammaglobulinemia; G70.00 Myasthenia gravis without (acute) exacerbation; Z79.899 Other long term (current) drug therapy; Z90.49 Acquired absence of other specified parts of digestive tract
CPT/HCPCS: 36415; 36600; 51702; 70450; 71045; 76775; 80048; 80053; 81003; 82805; 83605; 83735; 85025; 85027; 85610; 85730; 87040; 93005; 96360; 96361; 99285; A9270; G0378; J1642; J7030; J7120; J7512

== ENCOUNTER 2021-06-24 10:17 | Inpatient (IN) | payer OTHER, SELFPAY ==
[2021-06-24] VITALS (122 sets, daily range): BP systolic 65–141; BP diastolic 36–110; PULSE 53–105; RESP 5–33; TEMP 33.2–37; O2SAT 88–100; BMI 29.7
--- NOTE | ~2021-06-24 | CT_ITS ---
EXAMINATION: CT brain wo con INDICATION: Right hand weakness, fall COMPARISON: 05/10/2021 TECHNIQUE: Standard unenhanced head CT. The dose-length product (DLP) was 605.33 mGy-cm. The mA was a djusted according to patient size. Iterative reconstruction technique was employed. FINDINGS: There is no acute intraparenchymal hemorrhage. No evidence of mass lesion. No evidence of a cute infarction. There is mild periventricular and subcortical hypodensity probably related to small vessel ischemic disease. There is mild prominence of the sulci and ventricles related to cerebral atr ophy. Intracranial calcified cerebral atherosclerosis is noted. There are no extra-axial collections. There is no mass effect or midline shift. The orbits and soft tissues are unremarkable. The visualiz ed sinuses and mastoid air cells are well aerated. IMPRESSION: 1. No acute intracranial abnormality. 2. Age related findings. Reviewed, dictated and finalized at location A. TAL PHOTOGRAPHER
--- NOTE | ~2021-06-24 | US_ITS ---
EXAMINATION: US renal BI DATE: 06/25/2021 10:41 INDICATION: Acute kidney injury. TECHNIQUE: Multiple ultrasound grayscale images of the kidneys were obtained. COMPARISON: CT abdomen and pelvis 06/24/2021 FINDINGS: The right kidney measures 11.2 x 4.9 x 4.1 cm. The left kidney measures 10.1 x 4.5 x 4.5 cm. The kidn eys demonstrate normal parenchymal echogenicity. There is no hydronephrosis. The bladder is decompres sed by a Krause catheter. IMPRESSION: 1. Normal kidneys. No hydronephrosis. Reviewed, dictated and finalized at location A. RVOIR ENGINEERING CONSULTANT
--- NOTE | ~2021-06-24 | XR_ITS ---
EXAMINATION: XR chest 1V portable INDICATION: Altered mental status TECHNIQUE: Portable AP chest at 1109 hours COMPARISON: 05/10/2021 FINDINGS: The lungs are free of acute opacities. There is no pleural effusion or pneumothorax. Cardio megaly is noted. A dual-lead cardiac pacemaker of the left chest wall ends with leads in expected loc ations. A right subclavian Port-A-Cath ends with its tip in the proximal right atrium. IMPRESSION: 1. Cardiomegaly. Reviewed, dictated and finalized at location A. ECUTTER IMPRESSION: 1. Cardiomegaly.
--- NOTE | ~2021-06-24 | XR_ITS ---
EXAMINATION: XR chest 1V portable DATE: 06/26/2021 03:31 INDICATION: Shortness of breath. TECHNIQUE: A single frontal view of the chest was obtained. COMPARISON: Chest single view 06/24/2021, CT abdomen and pelvis 06/24/2021 FINDINGS: There is a diffuse interstitial pattern in the lungs. There are airspace opacities in right lower lung zone and left mid and lower lung zones. No pleural effusion or pneumothorax. The heart si ze is normal. There is a left chest wall pacer with leads in the right atrium and right ventricle. Th ere is a right subclavian port with tip in right atrium. IMPRESSION: 1. Worsened diffuse lung disease, consistent with pulmonary edema or less likely pneumonia. Reviewed, dictated and finalized at location A. GRATED LOGISTICS SUPPORT MANAGER IMPRESSION: 1. Worsened diffuse lung disease, consistent with pulmonary edema or less likel y pneumonia.
--- NOTE | ~2021-06-24 | CT_ITS ---
EXAMINATION: CT abdomen pelvis wo con DATE: 06/24/2021 12:56 INDICATION: Abdominal pain TECHNIQUE: Computed tomography (CT) of the abdomen and pelvis was performed without intravenous contr ast. The dose-length product (DLP) was 723.47 mGy-cm. Automated exposure control and iterative recons truction technique were employed. COMPARISON: None FINDINGS: Cardiomegaly is noted. There is mild atelectasis of the lung bases. The gallbladder is surg ically absent. There is mild enlargement of the common bile duct and central intrahepatic ducts which is likely due to post cholecystectomy state. The liver, spleen, pancreas, and adrenal glands are nor mal. The kidneys are unremarkable. There is calcified atherosclerosis of the aorta and many of the ot her arteries. No pathologically enlarged abdominal or pelvic lymph nodes are identified. The bladder is nearly completely decompressed by Krause catheter. There are surgical changes of the distal small b owel. IMPRESSION: 1. No CT correlate for the patient's symptoms. Reviewed, dictated and finalized at location A. N RESOURCES BENEFITS COORDINATOR
--- NOTE | ~2021-06-24 | CT_ITS ---
EXAMINATION: CT cervical spine wo con DATE: 06/24/2021 10:52 INDICATION: Right-sided weakness and fall TECHNIQUE: Computed tomography (CT) of the cervical spine was performed without intravenous contrast. The dose-length product (DLP) was 395.43 mGy-cm. Automated exposure control and iterative reconstruc tion technique were employed. COMPARISON: None FINDINGS: There is no fracture. The odontoid is intact. There are 2 mm of retrolisthesis of C4 on C5. There is moderate loss of intervertebral disc space height from C4-5 through C6-7. The vertebral bod y heights are maintained. The prevertebral soft tissues are normal. Small degenerative osteophytes pr oject from the anterior endplates of multiple vertebral bodies. There is fibrous union of the posteri or C1 ring. IMPRESSION: 1. Moderate cervical spondylosis without acute findings. Reviewed, dictated and finalized at location A. INE CERAMIC COATER
--- NOTE | 2021-06-24 10:18 | PC.NURSE ---
PT. Last Known Well [id number]
--- NOTE | 2021-06-24 10:28 | ECG_ITS ---
Measurements Intervals [place] Rate: 59 P: 55 UT: 190 QRS: 20 QRSD: 97 T: 121 QT: 429 QTc: 425 Interpretive Statements ELECTRONIC ATRIAL PACEMAKER PACEMAKER MALFUNCTION: LOSS OF ATRIAL SENSING ST-T WAVE ABNORMALITY IN HIGH LATERAL LEADS- CONSIDER ISCHEMIA BASELINE ARTIFACT- II, III, AVL, AVF, V2 ABNORMAL ECG Electronically Signed On 06-24-2021 16:53:05 SKID WORKER by [place] D.O.
--- NOTE | 2021-06-24 10:33 | ED.WEAKNESS ---
HPI - Weakness General Chief complaint: Weakness Stated complaint: weakness, low bp Source: RN notes reviewed History of Present Illness HPI Narrative: Patient presents emergency department from home via EMS for weakness. History is per the patient as well as was present patient azithromycin gravis she is followed by a neurologist for the myasthenia gravis and a different neurologist for history of seizure disorder family is unsure of name of neurologist see the patient received IV Ig infusion 8 days ago since that time has been having diarrhea patient states he is having approximately 2 bowel movements a day states the patient has been dehydrated at home this morning the patient gotten up after sleeping last night she had walked to the kitchen and back told her she is going back to bed he then had heard a thud in the bathroom he found her she was too weak to get up patient currently is laying in bed with hypotension speech is slurred and she able to tell me her name unable to give any definitive history per spouse other than the diarrhea and weakness since getting IVIG she has had no known fevers no cough or other definitive symptoms patient states she did take all of her morning medicines Related Data Home Medications Medication Instructions Recorded Confirmed Aptiom 800 mg PO DAILY 04/21/21 06/23/21 Magnesium Complex 250 mg PO DAILY 04/21/21 06/23/21 azathioprine 50 mg PO DAILY 04/21/21 06/23/21 baclofen 20 mg PO TID 04/21/21 06/23/21 calcitriol 0.25 mcg PO DAILY 04/21/21 06/23/21 calcium carbonate-vitamin D3 1 tablet PO BID 04/21/21 06/23/21 d-mannose 1,000 mg PO DAILY 04/21/21 06/23/21 doxycycline hyclate 100 mg PO DAILY 04/21/21 06/23/21 ferrous sulfate 143 mg PO DAILY 04/21/21 06/23/21 hydroxychloroquine [Plaquenil] 200 mg PO BID 04/21/21 06/23/21 levetiracetam 2,000 mg PO BID 04/21/21 06/23/21 lorazepam [Ativan] 1 mg PO BID 04/21/21 06/23/21 pravastatin 10 mg PO DAILY #0 04/21/21 06/23/21 prednisone 5 mg PO DAILY 04/21/21 06/23/21 promethazine 25 mg PO Q6H PRN 04/21/21 06/23/21 pyridostigmine bromide 60 mg PO HS 04/21/21 06/23/21 pyridostigmine bromide 60 mg PO QACDINNER 04/21/21 06/23/21 pyridostigmine bromide 90 mg PO QAM 04/21/21 06/23/21 pyridostigmine bromide 90 mg PO QNOON 04/21/21 06/23/21 topiramate 50 mg PO BID 04/21/21 06/23/21 vitamin B complex 1 tablet PO DAILY 04/21/21 06/23/21 Allergies Allergy/AdvReac Type Severity Reaction Status Date / Time carbamazepine Allergy Other Verified 06/19/21 14:49 ciprofloxacin Allergy Other Verified 06/19/21 14:49 erythromycin base Allergy Rash Verified 06/24/21 11:06 nitrofurantoin Allergy Hives Verified 06/24/21 11:06 Penicillins Allergy Swelling Verified 06/24/21 11:06 of Lip/Tongue/Throat phenytoin Allergy Other Verified 06/24/21 11:06 Sulfa (Sulfonamide Allergy Anaphylaxis Verified 06/24/21 11:06 Antibiotics) sulfasalazine Allergy Anaphylaxis Verified 06/24/21 11:06 codeine AdvReac Nausea Verified 06/24/21 11:06 levodropropizine AdvReac Unknown Verified 06/24/21 11:06 pregabalin AdvReac Dizziness Verified 06/24/21 11:06 zolpidem AdvReac Other Verified 06/24/21 11:06 Review of Systems Review of Systems: Gen.: Denies fevers or chills ENT: Denies congestion Respiratory: Denies shortness of breath or cough CV: Denies chest pain or palpitations GI: Denies abdominal pain nausea, emesis. Musculoskeletal: Reports chronic low back pain Neuro: See HPI Skin: Denies rash Except as documented, all other systems reviewed and negative [facility] Past Medical History Medical History Adrenal insufficiency On low-dose prednisone. Cardiomegaly A chronic finding per patient report. Followed by a warp tier associated with [facility]. Chronic renal failure Frequent urinary tract infections Gastroparesis Hypertension Hypogammaglobulinemia Myasthenia gravis Neurogenic bladder Seizure Seizure disor
[2021-06-24 10:35] LABS: Glucose Point of Care 80 mg/dl (65-105)
[2021-06-24] MEDS: SODIUM CHLORIDE 0.9% IV 1,000 ML 999 ML IV CONT ×3 (10:40→11:57)
[2021-06-24 10:55] LABS: Alveolar/Arterial O2 Gradient 23.1 mmHg; Base Excess ABG -6.3 mEq/l (+/-2.0); Fractional Inspired Oxygen 21 %; Oxygen Content ABG 15.2 %vol (16.0-22.0); Oxygen Saturation ABG 95.5 % (95.0-100.0); Oxyhemoglobin 92.6 % THb (90.0-100.0); PO2 ABG 82.3 mmHg (80.0-100.0); PO2 FiO2 Ratio Arterial Blood 3.92 %; Total Hemoglobin 11.6 g/dL (12.0-18.0); pH ABG 7.329 (7.350-7.450)
[2021-06-24 10:55] LABS: Basophils Absolute Auto 0.1 K/mm3 (0.0-0.1); Basophils Percent Auto 1.7 % (0.2-1.2); Eosinophils Absolute Auto 0.2 K/mm3 (0-0.3); Eosinophils Percent Auto 2.1 % (0-4.4); Hematocrit 34.2 % (37.0-47.0); Hemoglobin 11.3 g/dL (12.0-15.0); Immature Granulocyte Absolute 0.01 K/mm3 (0.00-0.031); Immature Granulocyte Percent A 0.1 % (0-0.5); Lymphocytes Absolute Auto 1.49 K/mm3 (0.9-3.2); Lymphocytes Percent Auto 20.7 % (18.3-44.2); Mean Corpuscular Hemoglobin 32.1 pg (26-34); Mean Corpuscular Volume 97.2 fl (80-100); Mean Platelet Volume 11.6 fl (7.4-10.4); Monocytes Absolute Auto 0.5 K/mm3 (0.1-0.6); Monocytes Percent Auto 6.7 % (2.6-8.5); Neutrophils Percent Auto 68.7 % (45.5-73.1); Platelet Count Result 270 k/mm3 (150-375); Red Blood Count 3.52 M/mm3 (4.2-5.4); Red Cell Distribution Width 13.2 % (11.5-14.5); White Blood Count 7.2 K/mm3 (4.5-10.0)
[2021-06-24 10:56] LABS: Device ROOM AIR; Modified Allen's Test Pass; Site Drawn LEFT RADIAL
[2021-06-24 11:07] LABS: Prothrombin Time 13.2 Seconds (11.1-14.7)
[2021-06-24 11:11] LABS: Alanine Aminotransferase 14 U/L (4-35); Albumin Level 3.6 g/dL (3.5-5.1); Alkaline Phosphatase 69 U/L (38-126); Anion Gap 12 mmol/L (8-16); Aspartate Amino Transferase 30 U/L (14-36); Bilirubin,Total 0.4 mg/dL (0.2-1.3); Blood Urea Nitrogen 45 mg/dL (7-17); Calcium 8.5 mg/dL (8.4-10.2); Carbon Dioxide 19 mmol/L (22-30); Chloride 109 mmol/L (98-107); Estimated Glomerular Filt Rate 33; Glucose 86 mg/dL (65-110); Lactic Acid Reflex 5.3 mmol/L (0.7-2.1); Magnesium 2.5 mg/dL (1.6-2.3); Sodium 140 mmol/L (137-145)
[2021-06-24 11:19] LABS: Troponin I 0.025 ng/mL (0.000-0.034)
[2021-06-24 11:37] LABS: Bilirubin Urine 1+ (Negative); Blood Urine Negative (Negative); Color Urine Yellow (Yellow); Glucose Urine UA Negative (Negative); Ketones Urine Negative (Negative); Leukocyte Esterase Ur Negative LEU/UL (Negative); Nitrate Urine Negative (Negative); Protein Urine Negative (Negative); Specific Grav Ur >= 1.030 (1.001-1.035); Urobilinogen Urine 0.2 mg/dL (<2.0)
[2021-06-24 11:39] LABS: Add Urine Microscopic? YES; Appearance Urine Sl Cloudy (Clear)
[2021-06-24 11:48] LABS: Hyaline Casts Urine 50+ /lpf; Mucus Urine Rare /lpf; RBC Urine 0-2 /hpf (0-2); Squamous Epithelial Cell Urine Rare /hpf (Few); WBC Urine 0-3 /hpf
[2021-06-24] MEDS: KCL 40 MEQ/WATER 100 ML 100 ML 25 ML IVPB (11:52)
--- NOTE | 2021-06-24 11:55 | PC.NURSE ---
PT. pacemaker interrogated via [employer].
[2021-06-24 11:57] LABS: Creatine Kinase 131 U/L (30-135)
[2021-06-24] MEDS: NOREPINEPHRINE 8 MG/D5W 250 ML 8 MG/250 ML BAG 9.38 MG IV CONT (12:12)
--- NOTE | 2021-06-24 12:26 | PC.NURSE ---
pt. reports pt. is a full code.
[2021-06-24 13:25] LABS: Ammonia 18 umol/L (9-30)
[2021-06-24 13:51] LABS: SARS-CoV-2 RNA PCR Negative
[2021-06-24 13:56] LABS: Reflex Lactic Acid Yes or No Add Lactic
--- NOTE | 2021-06-24 13:57 | PC.NURSE ---
Report received by PLACIDO Paiz with the E.D. department at [id number]. All questions answered and plan of care reviewed. Patient to go to ICU 7.
--- NOTE | 2021-06-24 14:05 | ADMGEN ---
This patient, Aysha Anderson, was admitted to Intensive Care Unit-7 at 1407. Patient/family oriented to hospital policies and general routines including ID bracelet, bed and alarms, visiting hours, pain management, procedures, bathroom and other care routines, personal items, smoking policy, room service/diet, and visiting hours. Information on how to activate the Rapid Response Team has been discussed. Patient/Family are encouraged to report perceived risks to care and to ask questions if they do not understand what they are told or what they should do.
--- NOTE | 2021-06-24 14:21 | ADMGEN ---
This patient, Aysha Anderson, was admitted to Intensive Care Unit-7 at 1404 from the ED. Patient/family oriented to hospital policies and general routines including ID bracelet, bed and alarms, visiting hours, pain management, procedures, bathroom and other care routines, personal items, smoking policy, room service/diet, and visiting hours. Information on how to activate the Rapid Response Team has been discussed. Patient/Family are encouraged to report perceived risks to care and to ask questions if they do not understand what they are told or what they should do.
--- NOTE | 2021-06-24 14:34 | WPDCNINT ---
Assessment and Plan Assessment and plan (1) Shock: Code(s): R57.9 - Shock, unspecified Status: Acute Assessment and Plan: Patient presented with altered mental status, fall, hypotension with systolic blood pressures in the 70s. -likely source urine, blood stream infection -patient was given 3 L IV fluid bolus in the ER, despite which her blood pressure is low and was started on Levophed -currently on Levophed at 15 mcg/min, continue to maintain MAP > 65 mmHg -continue maintenance IV fluids -patient has been started on vancomycin and ceftriaxone (06/24) -will obtain blood and urine cultures (2) Acute kidney injury: Code(s): N17.9 - Acute kidney failure, unspecified Status: Acute Assessment and Plan: Acute kidney injury likely related to hypovolemia secondary to decreased p.o. intake, patient also on Lasix at home, septic shock -will obtain urine lytes and renal ultrasound -will obtain urine eosinophils and CK level -patient has been adequately fluid-resuscitated -continue to monitor urine output, renal function electrolytes (3) Acute metabolic encephalopathy: Code(s): G93.41 - Metabolic encephalopathy Status: Acute Assessment and Plan: Acute metabolic encephalopathy could be related septic shock, infection, hypovolemia -patient has been admitted previously in April 2021 and February 2021 with similar complaints -polypharmacy could be playing a role in it (4) Systemic lupus erythematosus: Code(s): M32.9 - Systemic lupus erythematosus, unspecified Status: Acute Assessment and Plan: Will hold azathioprine (5) Adrenal insufficiency: Code(s): E27.40 - Unspecified adrenocortical insufficiency Status: Acute Assessment and Plan: Patient on low-dose prednisone at home, -will start stress dose steroids and will patient is able to take p.o. will switch to prednisone (6) Epilepsy: Code(s): G40.909 - Epilepsy, unspecified, not intractable, without status epilepticus Status: Acute Assessment and Plan: Patient on Keppra and Aptiom, will restart (7) DVT prophylaxis: Code(s): Z29.9 - Encounter for prophylactic measures, unspecified Status: Acute Assessment and Plan: Prophylactic lower Additional Plan Stress ulcer prophylaxis: Protonix IV Nutrition: NPO due to encephalopathy Code status: Full code Critical care time spent: 45 minutes This dictation may have been done utilizing a voice recognition system. Attempts have been made to correct errors. However, there may be uncorrected grammatical, spelling, and recognition errors present. Due to a high probability of clinically significant, life threatening deterioration, the patient required my highest level of preparedness to intervene emergently and I personally spent this critical care time directly and personally managing the patient. This critical care time included obtaining a history; examining the patient; pulse oximetry; ordering and review of studies; arranging urgent treatment with development of a management plan; evaluation of patient's response to treatment; frequent reassessment; and discussions with other providers. It was exclusive of separately billable procedures and treating other patients and teaching time. Please see Assessment and Plan section and the rest of the note for further information on patient assessment and treatment Direct Support Worker Consult Note Consult date: 06/24/21 HPI: Aysha Anderson is a 60 year old female with significant past medical history of myasthenia gravis, hypogammaglobinemia, adrenal insufficiency on low-dose prednisone, cardiomegaly, chronic renal failure, gastroparesis, essential hypertension, neurogenic bladder, seizures, history of sick sinus syndrome, status post permanent pacemaker, systemic lupus erythematosus, partial colectomy secondary to obstruction from adhesions presented the ED from home via EMS for weakness. Patient
[2021-06-24 15:02] LABS: Troponin I 0.143 ng/mL (0.000-0.034)
[2021-06-24] MEDS: SODIUM BICARBONATE 8.4% 50 MEQ/50 ML SYRINGE IV PUSH (15:19)
[2021-06-24] MEDS: SODIUM CHLORIDE 0.9% IV 1,000 ML 100 ML IV CONT (15:19)
[2021-06-24] MEDS: NOREPINEPHRINE 8 MG/D5W 250 ML 8 MG/250 ML BAG 26.25 MG IV CONT (15:23)
[2021-06-24 15:43] LABS: Glucose Point of Care 101 mg/dl (65-105)
[2021-06-24 15:50] LABS: Creatine Kinase 169 U/L (30-135)
[2021-06-24] MEDS: hetaSTARCH 6%/NACL 500 ML 250 ML IV CONT (15:58)
[2021-06-24 16:25] LABS: Creatinine Urine 75.5 mg/dL
[2021-06-24 16:26] LABS: Potassium Urine Random 25.7 meq/L; Sodium Urine Random 39 meq/L
[2021-06-24 16:42] LABS: Eosinophil Urine None Seen % (None Seen)
--- NOTE | 2021-06-24 17:11 | PM.IMHP ---
H&P: HPI History of Present Illness Date/Time: 06/24/21 17:11 this is a 60-year-old female patient who has a history of myasthenia gravis and came to the emergency room from home today with complaints of weakness. The patient also has a history of seizure disorder. Patient recently had an IVIG infusion per her neurologist. The patient has not been drinking very much at home and had been having approximately 2 bowel movements a day and feels dehydrated. Today the patient was walking to the bathroom and her heard a thud in the bathroom and found her on the floor and she was too weak to get up. The patient was found to be hypotensive with slurred speech. Now the patient is more active in the ICU. She denies any fever or chills. Her spouse was at the bedside in the emergency room but is no longer here. According to the she is been having diarrhea weakness since she received her IVIG. H&H is 11.3 and 34.2. ABGs pH 7.329. Potassium 3.0. Chloride 109. BUN 45. Creatinine 1.6. GFR 33. Lactic was 5.3 now 3.0. Troponin initial 0.025 and now was 0.143. Total creatinine kinase is 169. COVID was negative and urine was negative. Abdominal pelvis CT no CT correlate for the patient's symptoms. Chest x-ray was read as cardiomegaly. Cervical spine CT was read as moderate cervical spondylosis without acute findings. Head CT was read as no acute intracranial abnormality. Age-related findings. Patient was started on IV fluids, IV potassium, and she was hypotensive and started on Levophed via her Port-A-Cath, vancomycin, and Rocephin. The patient was initially admitted to observation and then changed to inpatient status in the ICU on the date of service 06/24/2021. Chief Complaint: Weakness Review of Systems Review of Systems: ROS unobtainable: Yes unobtainable due to mental status PMFSH Past Medical History Medical History Adrenal insufficiency On low-dose prednisone. Cardiomegaly A chronic finding per patient report. Followed by a short range air defense artillery associated with [facility]. Chronic renal failure Frequent urinary tract infections Gastroparesis Hypertension Hypogammaglobulinemia Myasthenia gravis Neurogenic bladder Seizure Seizure disorder Sick sinus syndrome Systemic lupus erythematosus Surgical History Surgical History History of 2 sections History of appendectomy History of hysterectomy History of laparoscopic cholecystectomy History of partial colectomy Secondary to obstruction from adhesions. History of permanent cardiac pacemaker placement Port-A-Cath in place Family History Family History Other Hypertension Social History Social History Social History: Surrogate decision maker: Dann Anderson, spouse. Code status: Full code. Smoking status: Never smoker Alcohol intake: never Drinks per week: 1 Substance use: never Substance use type: does not use Additional living arrangements comments: The patient lives with her in [place]. She has a cane, walker, and wheelchair available to her for use when needed. 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 Spiritual care concerns: No Meds Home Medications and Allergies Home Medications Medication Instructions Recorded Confirmed Type Aptiom 800 mg PO DAILY 04/21/21 06/23/21 History Magnesium Complex 250 mg PO DAILY 04/21/21 06/23/21 History azathioprine 50 mg PO DAILY 04/21/21 06/23/21 History baclofen 20 mg PO TID 04/21/21 06/23/21 History calcitriol 0.25 mcg PO DAILY 04/21/21 06/23/21 History calcium carbonate-vitamin D3 1 tablet PO BID 04/21/21 06/23/21 History d-mannose 1,000 mg PO DAILY 04/21/21 06/23/21 History doxycycline hyclate 100 mg PO DAILY 04/21/21 06/23/21 History ferrous sulfa
[2021-06-24 20:06] LABS: Troponin I 0.153 ng/mL (0.000-0.034)
[2021-06-24 20:29] LABS: Potassium 3.9 mmol/L (3.4-5.0)
[2021-06-24 20:38] LABS: Glucose Point of Care 105 mg/dl (65-105)
[2021-06-24] MEDS: HYDROCORTISONE SODIUM SUCCINATE 100 MG/2 ML VIAL IV PUSH (21:00)
[2021-06-25] VITALS (38 sets, daily range): BP systolic 76–139; BP diastolic 53–88; PULSE 65–110; RESP 12–31; TEMP 36.4–37.2; O2SAT 89–98
[2021-06-25] MEDS: SODIUM CHLORIDE 0.9% IV 1,000 ML 100 ML IV CONT (03:47)
[2021-06-25 05:06] LABS: Basophils Absolute Auto 0.1 K/mm3 (0.0-0.1); Basophils Percent Auto 0.8 % (0.2-1.2); Hematocrit 29.7 % (37.0-47.0); Hemoglobin 9.9 g/dL (12.0-15.0); Immature Granulocyte Absolute 0.03 K/mm3 (0.00-0.031); Immature Granulocyte Percent A 0.3 % (0-0.5); Lymphocytes Absolute Auto 0.48 K/mm3 (0.9-3.2); Lymphocytes Percent Auto 5.5 % (18.3-44.2); Mean Corpuscular HGB Conc 33.3 g/dl (32-36); Mean Corpuscular Hemoglobin 32.9 pg (26-34); Mean Corpuscular Volume 98.7 fl (80-100); Mean Platelet Volume 11.3 fl (7.4-10.4); Monocytes Absolute Auto 0.3 K/mm3 (0.1-0.6); Neutrophils Absolute Auto 7.8 K/mm3 (1.3-6.7); Neutrophils Percent Auto 90.4 % (45.5-73.1); Platelet Count Result 227 k/mm3 (150-375); Red Blood Count 3.01 M/mm3 (4.2-5.4); Red Cell Distribution Width 13.3 % (11.5-14.5); White Blood Count 8.7 K/mm3 (4.5-10.0)
[2021-06-25 05:34] LABS: Lactic Acid Reflex 0.6 mmol/L (0.7-2.1)
[2021-06-25 05:41] LABS: Alanine Aminotransferase 14 U/L (4-35); Albumin Level 2.5 g/dL (3.5-5.1); Alkaline Phosphatase 55 U/L (38-126); Anion Gap 1 mmol/L (8-16); Aspartate Amino Transferase 31 U/L (14-36); Bilirubin,Total 0.2 mg/dL (0.2-1.3); Blood Urea Nitrogen 32 mg/dL (7-17); CRP 1.3 mg/dL (<1.0); Carbon Dioxide 21 mmol/L (22-30); Chloride 120 mmol/L (98-107); Estimated CRCL calculation 53 ml/min; Estimated Glomerular Filt Rate 56; Glucose 115 mg/dL (65-110); Phosphorus 3.3 mg/dL (2.5-4.5); Potassium 3.5 mmol/L (3.4-5.0); Sodium 142 mmol/L (137-145)
[2021-06-25] MEDS: HYDROCORTISONE SODIUM SUCCINATE 100 MG/2 ML VIAL IV PUSH ×2 (06:30→13:06)
[2021-06-25] MEDS: ENOXAPARIN 40 MG/0.4 ML SYRINGE SUB-Q (08:51)
[2021-06-25] MEDS: PANTOPRAZOLE SODIUM IV 40 MG VIAL IV PUSH (08:51)
--- NOTE | 2021-06-25 09:25 | PCSTNOTE ---
Spoke with treating PLACIDO Dinero regarding the patient's status. Discussed diagnosis of Myasthenia Gravis and currently clear chest x-ray. Nursing agreed to observe for signs and symptoms of dysphagia and aspiration at bedside, and/or changes in chest imaging. Consult ST should concern arise. No evaluation requested to be ordered at this time.
--- NOTE | 2021-06-25 11:20 | WPDINTPN ---
Progress Note: A&P Assessment and Plan (1) Shock: Code(s): R57.9 - Shock, unspecified Status: Acute Assessment and Plan: Resolved: Most likely due to hypovolemia, patient was briefly on Levophed which is currently off Patient presented with altered mental status, fall, hypotension with systolic blood pressures in the 70s. -likely source urine, blood stream infection or hypovolemia secondary to decreased p.o. intake -patient was given 3 L IV fluid bolus in the ER, despite which her blood pressure is low and was started on Levophed - currently OFF -patient started on p.o. diet, turn off IV fluids Continue vancomycin and ceftriaxone (06/24) - blood and urine cultures obtained and pending, will deescalate antibiotics if blood cultures and urine cultures are negative (2) Acute kidney injury: Code(s): N17.9 - Acute kidney failure, unspecified Status: Acute Assessment and Plan: Acute kidney injury likely related to hypovolemia secondary to decreased p.o. intake, patient also on Lasix at home, septic shock -renal ultrasound shows normal kidneys with no hydronephrosis -no urine eosinophils were noted -normal creatinine kinase level of 14 -patient has been adequately fluid-resuscitated -continue to monitor urine output, renal function electrolytes -urine output has improved, creatinine has normalized (3) Acute metabolic encephalopathy: Code(s): G93.41 - Metabolic encephalopathy Status: Acute Assessment and Plan: -RESOLVED Acute metabolic encephalopathy could be related septic shock, infection, hypovolemia -patient has been admitted previously in April 2021 and February 2021 with similar complaints -polypharmacy could be playing a role in it (4) Systemic lupus erythematosus: Code(s): M32.9 - Systemic lupus erythematosus, unspecified Status: Acute Assessment and Plan: Will hold azathioprine (5) Adrenal insufficiency: Code(s): E27.40 - Unspecified adrenocortical insufficiency Status: Acute Assessment and Plan: Patient on low-dose prednisone at home, Continue stress dose steroids and will patient is able to take p.o. will switch to prednisone (6) Epilepsy: Code(s): G40.909 - Epilepsy, unspecified, not intractable, without status epilepticus Status: Acute Assessment and Plan: Patient on Keppra and Aptiom, (7) DVT prophylaxis: Code(s): Z29.9 - Encounter for prophylactic measures, unspecified Status: Acute Assessment and Plan: Prophylactic lower Additional Plan Stress ulcer prophylaxis: Protonix IV Nutrition: Start heart healthy diet Code status: Full code Critical care time spent: 32 minutes This dictation may have been done utilizing a voice recognition system. Attempts have been made to correct errors. However, there may be uncorrected grammatical, spelling, and recognition errors present. Due to a high probability of clinically significant, life threatening deterioration, the patient required my highest level of preparedness to intervene emergently and I personally spent this critical care time directly and personally managing the patient. This critical care time included obtaining a history; examining the patient; pulse oximetry; ordering and review of studies; arranging urgent treatment with development of a management plan; evaluation of patient's response to treatment; frequent reassessment; and discussions with other providers. It was exclusive of separately billable procedures and treating other patients and teaching time. Please see Assessment and Plan section and the rest of the note for further information on patient assessment and treatment Subjective Date/time seen: 06/25/21 11:20 Interval history: 60 year old female with significant past medical history of myasthenia gravis, hypogammaglobinemia, adrenal insufficiency on low-dose prednisone, cardiomegaly, chronic renal failure, gastroparesis
--- NOTE | 2021-06-25 11:41 | PM.CNCAR ---
Assessment and Plan Assessment and plan (1) Pacemaker lead malfunction: Code(s): T82.110A - Breakdown (mechanical) of cardiac electrode, initial encounter Status: Acute Assessment and Plan: On admission the patient's pacemaker showed problems with ventricular lead not sensing; not enough information to determine if there is problems with pacing as well. This may have been because she was acidotic but I have asked [employer] to interrogate the pacemaker to make sure the lead is still functioning normally now that she is no longer acidotic. In addition, the right ventricular lead has had elevated thresholds although this is chronic. Will have to decide whether to do a right ventricular lead revision or not. Probably not since the patient rarely uses the right ventricular lead, and the threshold has been stable. (2) Pacemaker battery depletion: Code(s): Z45.010 - Encounter for checking and testing of cardiac pacemaker pulse generator [battery] Status: Acute Assessment and Plan: Patient's pacemaker went to elective replacement interval last month; we have 90 days to change the pulse generator. This is entirely elective procedure and we do not want to change the pulse generator if there is any possibility of ongoing infection. In view of the patient's recent life-threatening illness and concerned that she may have an underlying infection I think it is prudent to reschedule the generator change for another time. (3) History of permanent cardiac pacemaker placement: Code(s): Z95.0 - Presence of cardiac pacemaker Status: Inactive Assessment and Plan: [employer] dual-chamber place maker implanted in 2012, in [place]. History of sick sinus syndrome. (4) Elevated troponin: Code(s): R77.8 - Other specified abnormalities of plasma proteins Status: Acute Assessment and Plan: Patient has no history of coronary disease but did have elevated troponins up to 0.4 9. Some nonspecific changes on her EKG. I think this was due to nonischemic cardiac injury, due to her shock and acidosis, not and ACS. Repeat EKG in a.m. (5) Shock: Code(s): R57.9 - Shock, unspecified Status: Acute Assessment and Plan: Septic shock versus hypovolemic shock, with lactic acidosis, requiring pressors and fluid resuscitation. improved. Still on antibiotics History of Present Illness History of Present Illness Consult date/time: 06/25/21 11:41 Requesting physician: Jarod Valdovinos MD Consult reason: Other (pacemaker, elevated troponins) Reason For Visit: AMS, Lactic Acid Acidosis, Hypothermia Narrative: Aysha Anderson is a 60-year-old female whom we were asked to see because of her pacemaker pulse generator having reached TUSHAR and elevated troponins. The patient is followed by Dr. Mace for her history of [employer] pacemaker in 2011, history of cardiomyopathy, remote history of endocarditis. She on 05/20/2021. The device changes programming from DDD pacing to VVIR rate 60 which has caused some symptoms. The plan was to replace her pulse generator tomorrow. She paces in the atrium 9% and rarely ventricularly paces. She does have an elevated right ventricular lead threshold. Ms. Anderson was admitted on June 24 with near syncope and found to be hypotensive. She was dehydrated and thought to perhaps have septic shock. She was transiently on Levophed and given IV fluids. She had acute kidney injury and metabolic encephalopathy. She has recovered quickly and has been transferred to IMU. She remains on antibiotics. She is feeling much better. Review of Systems Constitutional: Constitutional: Reports weakness Eyes: Eyes: Reports no additional eye complaints ENT: Denies epistaxis Cardiovascular: Cardiovascular: Denies chest pain, Denies pedal edema, Denies leg edema and Denies lightheadedness Respiratory: Respiratory: Denies cough and Reports dyspnea Gastroi
[2021-06-25 12:19] LABS: Glucose Point of Care 105 mg/dl (65-105)
[2021-06-25] MEDS: LOPERAMIDE HCL 2 MG CAPSULE 4 MG PO (13:06)
[2021-06-25] MEDS: CENTRAL LINE FLUSH 10 ML IV PUSH (13:07)
--- NOTE | 2021-06-25 15:04 | PC.NURSE ---
Report given to PLACIDO Perez at 1503. All questions answered and plan of care reviewed. Patient to go to [facility] jessica [address].
[2021-06-25 16:29] LABS: Glucose Point of Care 120 mg/dl (65-105)
--- NOTE | 2021-06-25 17:27 | PM.IMPN ---
Progress Note: A&P Assessment and Plan (1) Shock: Code(s): R57.9 - Shock, unspecified Status: Acute (2) Acute metabolic encephalopathy: Code(s): G93.41 - Metabolic encephalopathy Status: Acute (3) Acute hypotension: Code(s): I95.9 - Hypotension, unspecified Status: Acute (4) Acute renal insufficiency: Code(s): N28.9 - Disorder of kidney and ureter, unspecified Status: Acute (5) Acute hypokalemia: Code(s): E87.6 - Hypokalemia Status: Acute (6) DVT prophylaxis: Code(s): Z29.9 - Encounter for prophylactic measures, unspecified Status: Acute (7) Shock: Code(s): R57.9 - Shock, unspecified Status: Acute (8) Seizure: Code(s): R56.9 - Unspecified convulsions Status: Acute (9) Polypharmacy: Code(s): Z79.899 - Other longterm (current) drug therapy Status: Acute (10) Mild dehydration: Code(s): E86.0 - Dehydration Status: Acute (11) Acute metabolic encephalopathy: Code(s): G93.41 - Metabolic encephalopathy Status: Acute (12) Acute kidney injury: Code(s): N17.9 - Acute kidney failure, unspecified Status: Acute (13) Adrenal insufficiency: Code(s): E27.40 - Unspecified adrenocortical insufficiency Status: Acute (14) Epilepsy: Code(s): G40.909 - Epilepsy, unspecified, not intractable, without status epilepticus Status: Acute (15) Hypokalemia: Code(s): E87.6 - Hypokalemia Status: Acute (16) Chronic renal failure: Code(s): N18.9 - Chronic kidney disease, unspecified Status: Acute (17) Macrocytic anemia: Code(s): D53.9 - Nutritional anemia, unspecified Status: Acute (18) Altered mental status: Code(s): R41.82 - Altered mental status, unspecified Status: Acute (19) Systemic lupus erythematosus: Code(s): M32.9 - Systemic lupus erythematosus, unspecified Status: Acute (20) Hypertension: Code(s): I10 - Essential (primary) hypertension Status: Acute (21) Dehydration: Code(s): E86.0 - Dehydration Status: Acute (22) Delirium: Code(s): R41.0 - Disorientation, unspecified Status: Acute (23) Cardiomegaly: Code(s): I51.7 - Cardiomegaly Status: Acute Assessment and Plan: 06/24/21 The patient is in ICU. The patient was given IV fluids 3 L in the emergency room. The patient was started on Levophed the her Port-A-Cath and admitted to ICU. The patient was started on vancomycin Rocephin. Obtain blood in urine cultures. Recheck labs in the a.m.. Continue with IV fluids. Patient is on a stress dose steroid Continue with home medications when able. The patient is currently on IV Keppra. 06/25/21 pt doing ok off pressors off fluids transferred to step down Continue vancomycin and ceftriaxone (06/24) blood and urine cultures obtained and pending will deescalate antibiotics if blood cultures and urine cultures are negative cardiology following for elevated trop Subjective Date/time seen: 06/25/21 17:27 states that she is feeling better knows where she is and what happened. suspects that she had a seizure denies missing medication doses. Currently not on home meds. requests to see Dr Soto. will ask him to see Aysha in the am Exam Narrative: General: Patient is resting comfortably in bed, in no acute distress, sitting in bed watching superbowl and knitting HEENT: Moist mucous membranes, sclera is clear Neck: Supple, no lymphadenopathy Respiratory: Clear to auscultation bilaterally. Right-sided Port-A-Cath Lungs: CTL b/l Abdomen: Soft, nontender, nondistended Extremities: Trace edema Neuro: Patient is awake, alert, oriented x3. no focal acute neuro deficits appreciated Skin: Intact, warm Psych: Mentation is intact, normal affect Objective Data Vital Signs Vital Signs: Vital Signs - 24 hr 06/24/21 17:30 02
[2021-06-25 20:19] LABS: Glucose Point of Care 138 mg/dl (65-105)
[2021-06-25] MEDS: BACLOFEN 10 MG TABLET 20 MG PO (20:21)
[2021-06-25] MEDS: LORazepam (*CRX) 1 MG TABLET PO (20:21)
[2021-06-25] MEDS: levETIRAcetam ORAL SOL 500 MG/5 ML UDC 2000 MG PO (20:22)
[2021-06-25] MEDS: TOPIRAMATE 25 MG TABLET 50 MG PO (20:23)
[2021-06-26] VITALS (16 sets, daily range): BP systolic 96–130; BP diastolic 67–85; PULSE 90–119; RESP 18–28; TEMP 36.5–38.1; O2SAT 91–99
[2021-06-26] MEDS: PYRIDOSTIGMINE BROMIDE 60 MG TABLET PO ×3 (01:52→20:47)
[2021-06-26] MEDS: CENTRAL LINE FLUSH 10 ML IV PUSH ×4 (01:53→20:47)
[2021-06-26] MEDS: ALBUTEROL SULFATE NEB 2.5 MG/0.5 ML INH INHALATION (03:01)
--- NOTE | 2021-06-26 03:15 | PCRCNOTE ---
Pt reported feeling short of breath and wheezy. Pt was audibly wheezing, tachypneic, and was now requiring supplemental O2. A PRN albuterol treatment was given with slight improvement in symptoms. Discussed with nurse the possibility that the pt might be fluid overloaded. Pt is following up with physician.
[2021-06-26] MEDS: FUROSEMIDE INJ 40 MG/4 ML VIAL 20 MG IV PUSH (04:12)
[2021-06-26 05:07] LABS: Basophils Absolute Auto 0.1 K/mm3 (0.0-0.1); Basophils Percent Auto 0.7 % (0.2-1.2); Eosinophils Percent Auto 0.2 % (0-4.4); Hematocrit 34.6 % (37.0-47.0); Hemoglobin 11.3 g/dL (12.0-15.0); Immature Granulocyte Absolute 0.04 K/mm3 (0.00-0.031); Immature Granulocyte Percent A 0.4 % (0-0.5); Lymphocytes Absolute Auto 1.64 K/mm3 (0.9-3.2); Lymphocytes Percent Auto 14.4 % (18.3-44.2); Mean Corpuscular HGB Conc 32.7 g/dl (32-36); Mean Platelet Volume 12.3 fl (7.4-10.4); Monocytes Absolute Auto 0.7 K/mm3 (0.1-0.6); Neutrophils Percent Auto 78.3 % (45.5-73.1); Platelet Count Result 275 k/mm3 (150-375); Red Blood Count 3.53 M/mm3 (4.2-5.4); Red Cell Distribution Width 13.9 % (11.5-14.5); White Blood Count 11.4 K/mm3 (4.5-10.0)
[2021-06-26 05:31] LABS: Alanine Aminotransferase 16 U/L (4-35); Albumin Level 3.1 g/dL (3.5-5.1); Alkaline Phosphatase 71 U/L (38-126); Anion Gap 6 mmol/L (8-16); Aspartate Amino Transferase 38 U/L (14-36); Bilirubin,Total 0.4 mg/dL (0.2-1.3); Blood Urea Nitrogen 18 mg/dL (7-17); Calcium 7.1 mg/dL (8.4-10.2); Carbon Dioxide 19 mmol/L (22-30); Chloride 114 mmol/L (98-107); Estimated CRCL calculation 66 ml/min; Estimated Glomerular Filt Rate > 60; Glucose 141 mg/dL (65-110); Magnesium 2.1 mg/dL (1.6-2.3); Phosphorus 1.7 mg/dL (2.5-4.5); Sodium 139 mmol/L (137-145)
[2021-06-26] MEDS: POTASSIUM CHLORIDE 20 MEQ TABLET 40 MEQ PO (06:31)
[2021-06-26] MEDS: POTASSIUM PHOS/SODIUM PHOS 250 MG TABLET PO (06:48)
--- NOTE | 2021-06-26 07:51 | ECHO_ITS ---
Patient Info Name: Aysha Anderson Age: 60 years : 1960 Gender: Female Ht: 65 in Wt: 171 lbs BSA: 1.91 m2 HR: 117 bpm BP: 130 / 85 mmHg Heart Rhythm: Sinus Rhythm Technical Quality: Fair Exam Date: 06/26/2021 7:21 AM Exam Location: [facility] Pulmonary Patient Status: Inpatient Admit Date: 06/24/2021 Staff Ordering Physician: Jarod Valdovinos MD Combination Saw Operator: Damari Driscoll RDCS Attending Provider: Jess Santana MD Referring Physician: Aruna PATHAK; Exam Type: CA echo doppler color flow Study Info Indications - cardiac function and elevated troponin Complete two-dimensional, color flow and Doppler transthoracic echocardiogram is performed. Summary 1. Complete two-dimensional, color flow and Doppler transthoracic echocardiogram is performed. 2. Left ventricular chamber dimension is moderately enlarged. 3. Left ventricular systolic function is severely reduced, estimated at 25-30%. 4. Linear artifact in right ventricle suggestive of catheter(s), pacemaker lead(s), or ICD lead(s). 5. Left atrial chamber dimension is mildly enlarged. 6. There is mild aortic valve sclerosis. 7. The mitral valve has normal leaflets. 8. The basal segments of the LV contract better consider takotsubo cardiomyopathy. Left Ventricle Left ventricular chamber dimension is moderately enlarged. Left ventricular systolic function is severely reduced, estimated at 25-30%. The left ventricular diastolic function is grade I diastolic dysfunction. Right Ventricle Right ventricular chamber dimension is normal. Linear artifact in right ventricle suggestive of catheter(s), pacemaker lead(s), or ICD lead(s). Left Atria Left atrial chamber dimension is mildly enlarged. Right Atria Right atrial chamber dimension is normal. Aortic Valve The aortic valve is trileaflet. There is mild aortic valve sclerosis. Pulmonic Valve The pulmonic valve is not well visualized. Mitral Valve The mitral valve has normal leaflets. Tricuspid Valve The tricuspid valve leaflets are normal. There is trace tricuspid valve regurgitation. Pericardium/Pleural The pericardium appears normal. Aorta The aortic root size at the sinus of Valsalva is normal. Left Ventricular Outflow Tract Name Value Normal LVOT 2D LVOT Diameter 2.0 cm LVOT Doppler LVOT Peak Gradient 3 mmHg LVOT Mean Gradient 1 mmHg LVOT VTI 12 cm LVOT VTI/AV VTI Ratio 0.8 LVOT Stroke Volume 38 ml LVOT CO 3.9 l/min LVOT CI 2.0 l/min/m2 Pulmonic Valve Name Value Normal PV Doppler PV Peak Gradient 2 mmHg Mitral Valve
[2021-06-26 08:40] LABS: Glucose Point of Care 133 mg/dl (65-105)
--- NOTE | 2021-06-26 08:40 | ECG_ITS ---
Measurements Intervals [place] Rate: 96 P: 40 MS: 146 QRS: 15 QRSD: 82 T: 179 QT: 447 QTc: 568 Interpretive Statements SINUS RHYTHM LOW QRS VOLTAGE- DIFFUSE LEADS ST-T WAVE ABNORMALITY IN ANTEROLAT/HIGH LAT LEADS- CONSIDER ISCHEMIA BASELINE ARTIFACT- I, II, III, AVR, AVF, V1 ABNORMAL ECG Electronically Signed On 06-26-2021 13:35:43 MARKET RESEARCH INTERVIEWER by [place] D.O.
[2021-06-26] MEDS: levETIRAcetam ORAL SOL 500 MG/5 ML UDC 2000 MG PO ×2 (08:52→20:43)
[2021-06-26] MEDS: LORazepam (*CRX) 1 MG TABLET PO ×2 (08:52→17:59)
[2021-06-26] MEDS: BACLOFEN 10 MG TABLET 20 MG PO ×3 (08:52→17:59)
[2021-06-26] MEDS: ENOXAPARIN 40 MG/0.4 ML SYRINGE SUB-Q (08:53)
[2021-06-26] MEDS: VITAMIN B COMPLEX CAPSULE 1 CAP PO (08:53)
[2021-06-26] MEDS: PRAVASTATIN SODIUM 10 MG TABLET PO (08:53)
[2021-06-26] MEDS: predniSONE 5 MG TABLET PO (08:53)
[2021-06-26] MEDS: PANTOPRAZOLE 40 MG TABLET PO (08:53)
[2021-06-26] MEDS: METOPROLOL TARTRATE 25 MG TABLET PO (08:54)
[2021-06-26] MEDS: TOPIRAMATE 25 MG TABLET 50 MG PO ×2 (08:54→18:00)
[2021-06-26] MEDS: calcitrioL 0.25 MCG CAPSULE PO (08:55)
--- NOTE | 2021-06-26 10:19 | PM.PNCARD ---
Progress Note: A&P Additional Plan 60-year-old lady with: Sick sinus syndrome with chronically implanted dual-chamber Medtronic pacemaker. Detailed review of records today indicate that the ventricular lead threshold was elevated at the time of implant. The ventricular lead is in a mid septal position indicating that the recovery unit operator was probably testing several spots in the ventricle for optimal electrical performance. Fortunately the patient does not ventricularly paced as she has sick sinus syndrome with normal AV node conduction. For that reason she really does not need a ventricular lead revision. It is her preference not to stay in the hospital and have this done on Saturday. For some reason she has a personal scheduling preference to go home from the hospital and reschedule this on another date. I will have my office take care of that. Ben Yeung MD [facility] Subjective Date/time seen: Date of service: 06/26/21 10:19 Interval history: Follow-up visit in this 60-year-old woman with: Sick sinus syndrome and chronically implanted dual-chamber pacemaker. Device was sedated 9 years ago in [facility] and is at [facility]. She has a chronically elevated ventricular lead threshold and ventricular lead has been placed in the mid septal position. Fortunately she does not ventricularly pace. Her intrinsic rhythm is sinus with inhibition of her pacemaker and when her device is functioning normally her predominant rhythm is atrial pacing with ventricular sensing. She has not had a syncopal episode since the device was placed in 9 years ago. Patient was scheduled for pacemaker generator change today as an outpatient. She came in over the weekend problematically hypotensive. The likely diagnosis of this is volume depletion with dehydration and diarrhea. The possibility of septic shock is been entertained and she has had blood in urine cultures obtained. The patient feels fine today and offers no cardiovascular complaints of any kind. The pacemaker generator change has been taken off the schedule for today and discussed with the patient that when her cultures are finalized and negative we can get it back on the schedule. Soonest I could do that myself would be on Saturday. The patient does not wish to stay in the hospital and have this done on Saturday because she said this is the day that is not convenient for her to have a procedure. Of course the other option is to allow her to go home when she is stable from the primary team point of view and reschedule this generator change procedure on another date. This is what she would prefer. Exam Narrative: Pleasant middle-aged female crocheting a scarf, NAD Const: General: comfortable and no acute distress; No confusion Orientation/consciousness: No confusion HENMT: General nose exam: no epistaxis Eyes: EOM: EOMs intact bilaterally Neck: Neck: supple Thyroid: thyroid normal Lymphatic: lymphadenopathy not noted Resp: Effort & Inspection: normal respiratory effort Auscultation: clear to auscultation bilaterally Cardio: Rate: regular rate Rhythm: regular rhythm Heart sounds: no murmurs GI: Inspection: non-distended Skin: General skin exam: no rashes or lesions noted Other: Pacer incisin well-healed Neuro: General: No confusion Cognition (Neuro): normal cognition Speech: normal speech Motor exam (neuro): Normal motor muscle tone present throughout Extrem: General: no edema and no pedal edema Psych: Mental Status: mental status grossly normal Affect: normal affect Objective Data Vital Signs Vital Signs: Vital Signs - 24 hr 06/25/21 12:00 06/25/21 14:00 06/25/21 16:00 Temperature 37.1 C 36.8 C Pulse Rate 82 82 88 Respiratory Rate 20 14 Blood Pressure 112/87 123/67 Pulse Oximetry 97 98 06/25/21 20:00 06/25/21 20:09 06/25/21 23:28 Temperature 36.6 C 36.6 C Pulse Rate 101 H 101 H 110 H Respiratory Rate 18 20 Blood Pressure 111/80 139/88 Pulse Oximetry
--- NOTE | 2021-06-26 11:27 | PM.IMPN ---
Progress Note: A&P Assessment and Plan (1) Shock: Code(s): R57.9 - Shock, unspecified Status: Acute (2) Acute metabolic encephalopathy: Code(s): G93.41 - Metabolic encephalopathy Status: Acute (3) Acute hypotension: Code(s): I95.9 - Hypotension, unspecified Status: Acute (4) Acute renal insufficiency: Code(s): N28.9 - Disorder of kidney and ureter, unspecified Status: Acute (5) Acute hypokalemia: Code(s): E87.6 - Hypokalemia Status: Acute (6) DVT prophylaxis: Code(s): Z29.9 - Encounter for prophylactic measures, unspecified Status: Acute (7) Seizure: Code(s): R56.9 - Unspecified convulsions Status: Acute (8) Polypharmacy: Code(s): Z79.899 - Other intermediate (current) drug therapy Status: Acute (9) Mild dehydration: Code(s): E86.0 - Dehydration Status: Acute (10) Acute kidney injury: Code(s): N17.9 - Acute kidney failure, unspecified Status: Acute (11) Adrenal insufficiency: Code(s): E27.40 - Unspecified adrenocortical insufficiency Status: Acute (12) Epilepsy: Code(s): G40.909 - Epilepsy, unspecified, not intractable, without status epilepticus Status: Acute (13) Hypokalemia: Code(s): E87.6 - Hypokalemia Status: Acute (14) Chronic renal failure: Code(s): N18.9 - Chronic kidney disease, unspecified Status: Acute (15) Macrocytic anemia: Code(s): D53.9 - Nutritional anemia, unspecified Status: Acute (16) Altered mental status: Code(s): R41.82 - Altered mental status, unspecified Status: Acute (17) Systemic lupus erythematosus: Code(s): M32.9 - Systemic lupus erythematosus, unspecified Status: Acute (18) Hypertension: Code(s): I10 - Essential (primary) hypertension Status: Acute (19) Dehydration: Code(s): E86.0 - Dehydration Status: Acute (20) Delirium: Code(s): R41.0 - Disorientation, unspecified Status: Acute (21) Cardiomegaly: Code(s): I51.7 - Cardiomegaly Status: Acute Additional Plan 06/24/21 The patient is in ICU. The patient was given IV fluids 3 L in the emergency room. The patient was started on Levophed the her Port-A-Cath and admitted to ICU. The patient was started on vancomycin Rocephin. Obtain blood in urine cultures. Recheck labs in the a.m.. Continue with IV fluids. Patient is on a stress dose steroid Continue with home medications when able. The patient is currently on IV Keppra. 06/25/21 pt doing ok off pressors off fluids transferred to step down Continue vancomycin and ceftriaxone (06/24) blood and urine cultures obtained and pending will deescalate antibiotics if blood cultures and urine cultures are negative cardiology following for elevated trop 06/26/21 leukocytosis may be reactive on home meds will bring 2 q HS antiseizure meds that are not on hospital formulary today cont abx cont supportive care monitor resp status possible dc home tomorrow if remains stable and cultures remain negative Stress ulcer prophylaxis: Protonix IV Nutrition: Start heart healthy diet Subjective Date/time seen: 06/26/21 11:27 Patient reports that felt unwell overnight with audible wheezing she was given Lasix and DuoNebs and improved. She is aware that she had leukocytosis this morning and that we are still pending final cultures. She is in agreement to stay to make sure that she does not have any further issues with her breathing tonight flu tomorrow if her cultures are and she is feeling better she might be discharged. Patient agrees to follow-up with Dr. Yeung outpatient for generator exchange to her pacemaker. Exam Narrative: General: Patient is sitting up in bed, in no acute distress HEENT: Moist mucous membranes, sclera is clear Neck: Supple, no lymphadenopathy Lungs: CTL b/l Right-sided
[2021-06-26] MEDS: PROMETHAZINE HCL 25 MG TABLET PO ×2 (13:11→18:01)
--- NOTE | 2021-06-26 14:33 | PHAR ---
HOME MEDS VERIFIED APTIOM 800MG TABLET 1 TABLET HS HOME MED CLOBAZAM 20MG TABLET 2 TABLETS HS
[2021-06-26] MEDS: POTASSIUM PHOS,M-BASIC-D-BASIC 15 MMOL in SODIUM CHLORIDE 0.9% IV 250 ML 63.75 MMOL IVPB (14:56)
[2021-06-26 17:59] LABS: Glucose Point of Care 185 mg/dl (65-105)
[2021-06-26 18:00] LABS: Glucose Point of Care 134 mg/dl (65-105)
[2021-06-26 20:23] LABS: Glucose Point of Care 189 mg/dl (65-105)
[2021-06-26] MEDS: carvediloL 3.125 MG TABLET PO (20:45)
[2021-06-26] MEDS: SACUBITRIL/VALSARTAN 24-26 MG TABLET 1 TAB PO (20:47)
--- NOTE | 2021-06-26 21:32 | PC.NURSE ---
patient transferred from IMU as an overflow patient at 2120. report given by nayeli
[2021-06-27] VITALS (19 sets, daily range): BP systolic 92–129; BP diastolic 60–90; PULSE 72–153; RESP 17–28; TEMP 35.9–38.3; O2SAT 90–98
[2021-06-27] MEDS: ACETAMINOPHEN 325 MG TABLET 650 MG PO ×2 (00:28→04:50)
[2021-06-27] MEDS: CENTRAL LINE FLUSH 10 ML IV PUSH ×3 (05:00→21:18)
[2021-06-27 05:14] LABS: Basophils Absolute Auto 0.1 K/mm3 (0.0-0.1); Basophils Percent Auto 0.8 % (0.2-1.2); Eosinophils Percent Auto 0.1 % (0-4.4); Hematocrit 29.6 % (37.0-47.0); Hemoglobin 9.6 g/dL (12.0-15.0); Immature Granulocyte Absolute 0.03 K/mm3 (0.00-0.031); Immature Granulocyte Percent A 0.3 % (0-0.5); Lymphocytes Absolute Auto 1.51 K/mm3 (0.9-3.2); Lymphocytes Percent Auto 16.7 % (18.3-44.2); Mean Corpuscular HGB Conc 32.4 g/dl (32-36); Mean Corpuscular Hemoglobin 32.3 pg (26-34); Mean Corpuscular Volume 99.7 fl (80-100); Mean Platelet Volume 12.1 fl (7.4-10.4); Monocytes Absolute Auto 0.8 K/mm3 (0.1-0.6); Monocytes Percent Auto 8.4 % (2.6-8.5); Neutrophils Absolute Auto 6.7 K/mm3 (1.3-6.7); Neutrophils Percent Auto 73.7 % (45.5-73.1); Platelet Count Result 205 k/mm3 (150-375); Red Blood Count 2.97 M/mm3 (4.2-5.4); Red Cell Distribution Width 14.1 % (11.5-14.5); White Blood Count 9.1 K/mm3 (4.5-10.0)
[2021-06-27 05:41] LABS: Alanine Aminotransferase 13 U/L (4-35); Albumin Level 2.7 g/dL (3.5-5.1); Alkaline Phosphatase 58 U/L (38-126); Anion Gap 2 mmol/L (8-16); Aspartate Amino Transferase 23 U/L (14-36); Bilirubin,Total 0.5 mg/dL (0.2-1.3); Blood Urea Nitrogen 16 mg/dL (7-17); Calcium 7.1 mg/dL (8.4-10.2); Carbon Dioxide 23 mmol/L (22-30); Chloride 116 mmol/L (98-107); Creatine Kinase 158 U/L (30-135); Estimated CRCL calculation 66 ml/min; Estimated Glomerular Filt Rate > 60; Glucose 119 mg/dL (65-110); Magnesium 2.1 mg/dL (1.6-2.3); Potassium 3.5 mmol/L (3.4-5.0); Sodium 141 mmol/L (137-145)
[2021-06-27 08:07] LABS: Glucose Point of Care 130 mg/dl (65-105)
[2021-06-27] MEDS: BACLOFEN 10 MG TABLET 20 MG PO ×3 (08:45→17:15)
[2021-06-27] MEDS: ENOXAPARIN 40 MG/0.4 ML SYRINGE SUB-Q (08:46)
[2021-06-27] MEDS: LORazepam (*CRX) 1 MG TABLET PO ×2 (08:46→17:15)
[2021-06-27] MEDS: levETIRAcetam ORAL SOL 500 MG/5 ML UDC 2000 MG PO ×2 (08:46→21:14)
[2021-06-27] MEDS: VITAMIN B COMPLEX CAPSULE 1 CAP PO (08:47)
[2021-06-27] MEDS: SPIRONOLACTONE 25 MG TABLET PO (08:47)
[2021-06-27] MEDS: TOPIRAMATE 25 MG TABLET 50 MG PO ×2 (08:47→17:16)
[2021-06-27] MEDS: predniSONE 5 MG TABLET PO (08:47)
[2021-06-27] MEDS: PANTOPRAZOLE 40 MG TABLET PO (08:47)
[2021-06-27] MEDS: PRAVASTATIN SODIUM 10 MG TABLET PO (08:47)
[2021-06-27] MEDS: SACUBITRIL/VALSARTAN 24-26 MG TABLET 1 TAB PO ×2 (08:47→21:14)
[2021-06-27] MEDS: calcitrioL 0.25 MCG CAPSULE PO (08:55)
--- NOTE | 2021-06-27 12:09 | P.PNIM_ITS ---
Progress Note: A&P Assessment and Plan (1) Shock: Code(s): R57.9 - Shock, unspecified Status: Acute (2) Acute metabolic encephalopathy: Code(s): G93.41 - Metabolic encephalopathy Status: Acute (3) Acute hypotension: Code(s): I95.9 - Hypotension, unspecified Status: Acute (4) Acute renal insufficiency: Code(s): N28.9 - Disorder of kidney and ureter, unspecified Status: Acute (5) Acute hypokalemia: Code(s): E87.6 - Hypokalemia Status: Acute (6) DVT prophylaxis: Code(s): Z29.9 - Encounter for prophylactic measures, unspecified Status: Acute (7) Seizure: Code(s): R56.9 - Unspecified convulsions Status: Acute (8) Polypharmacy: Code(s): Z79.899 - Other correction (current) drug therapy Status: Acute (9) Mild dehydration: Code(s): E86.0 - Dehydration Status: Acute (10) Acute kidney injury: Code(s): N17.9 - Acute kidney failure, unspecified Status: Acute (11) Adrenal insufficiency: Code(s): E27.40 - Unspecified adrenocortical insufficiency Status: Acute (12) Epilepsy: Code(s): G40.909 - Epilepsy, unspecified, not intractable, without status epilepticus Status: Acute (13) Hypokalemia: Code(s): E87.6 - Hypokalemia Status: Acute (14) Chronic renal failure: Code(s): N18.9 - Chronic kidney disease, unspecified Status: Acute (15) Macrocytic anemia: Code(s): D53.9 - Nutritional anemia, unspecified Status: Acute (16) Altered mental status: Code(s): R41.82 - Altered mental status, unspecified Status: Acute (17) Systemic lupus erythematosus: Code(s): M32.9 - Systemic lupus erythematosus, unspecified Status: Acute (18) Hypertension: Code(s): I10 - Essential (primary) hypertension Status: Acute (19) Dehydration: Code(s): E86.0 - Dehydration Status: Acute (20) Delirium: Code(s): R41.0 - Disorientation, unspecified Status: Acute (21) Cardiomegaly: Code(s): I51.7 - Cardiomegaly Status: Acute Assessment and Plan: 06/24/21 The patient is in ICU. The patient was given IV fluids 3 L in the emergency room. The patient was started on Levophed the her Port-A-Cath and admitted to ICU. The patient was started on vancomycin Rocephin. Obtain blood in urine cultures. Recheck labs in the a.m.. Continue with IV fluids. Patient is on a stress dose steroid Continue with home medications when able. The patient is currently on IV Keppra. 06/25/21 pt doing ok off pressors off fluids transferred to step down Continue vancomycin and ceftriaxone (06/24) blood and urine cultures obtained and pending will deescalate antibiotics if blood cultures and urine cultures are negative cardiology following for elevated trop Additional Plan 06/24/21 The patient is in ICU. The patient was given IV fluids 3 L in the emergency room. The patient was started on Levophed the her Port-A-Cath and admitted to ICU. The patient was started on vancomycin Rocephin. Obtain blood in urine cultures. Recheck labs in the a.m.. Continue with IV fluids. Patient is on a stress dose steroid Continue with home medications when able. The patient is currently on IV Keppra. 06/25/21 pt doing ok off pressors off fluids transferred to step down Continue vancomycin and ceftriaxone (06/24) blood and urine cultures obtain
--- NOTE | 2021-06-27 12:34 | PM.PNCARD ---
Progress Note: A&P Assessment and Plan (1) Cardiomyopathy: Code(s): I42.9 - Cardiomyopathy, unspecified <PARVIZ Lizarraga - Last Filed: 06/27/21 13:41> Status: Acute <Tasha AbbasiMilagros PARVIZ Fuller - Last Filed: 06/27/21 13:41> Assessment and Plan: Echocardiogram yesterday revealed severe systolic dysfunction with an ejection fraction of 25 to 30%. This is a new diagnosis. GDMT with Entresto, spironolactone, carvedilol. Continue current doses. Plan for left heart catheterization when appropriate to establish if her cardiomyopathy is ischemic in etiology or not Eventual referral to electrophysiology for possible device upgrade to ICD. I did talk to her about the concept of a Life Vest in the interim. She is not interested in pursuing a LifeVest at this time but indicates that she will spend some more time thinking about it prior to discharge. I spent a great deal of time with the patient and her discussing her diagnosis, possible etiologies, plan for ischemic workup. We also discussed her medical therapy and rationale for the medications she has been started on thus far. Discussed heart failure signs and symptoms and self monitoring as an outpatient. Answered all questions to their satisfaction. <PARVIZ Lizarraga - Last Filed: 06/27/21 13:41> (2) Pacemaker lead malfunction: Code(s): T82.110A - Breakdown (mechanical) of cardiac electrode, initial encounter <PARVIZ Lizarraga - Last Filed: 06/27/21 13:41> Status: Acute <PARVIZ Lizarraga - Last Filed: 06/27/21 13:41> Assessment and Plan: On admission the patient's pacemaker showed problems with ventricular lead not sensing; not enough information to determine if there is problems with pacing as well. Chronic ventricular lead threshold elevation, present since time of implant. Patient does not ventricularly pace because she has sick sinus syndrome with normal AV node conduction. Therefore, she does not need a ventricular lead revision. <PARVIZ Lizarraga - Last Filed: 06/27/21 13:41> (3) Pacemaker battery depletion: Code(s): Z45.010 - Encounter for checking and testing of cardiac pacemaker pulse generator [battery] <PARVIZ Lizarraga - Last Filed: 06/27/21 13:41> Status: Acute <Tasha AbbasiMilagros PARVIZ Fuller - Last Filed: 06/27/21 13:41> Assessment and Plan: Patient's pacemaker went to elective replacement interval last month; we have 90 days to change the pulse generator. This is entirely elective procedure and we do not want to change the pulse generator if there is any possibility of ongoing infection. In view of the patient's recent life-threatening illness and concerned that she may have an underlying infection I think it is prudent to reschedule the generator change for another time. <PARVIZ Lizarraga - Last Filed: 06/27/21 13:41> (4) History of permanent cardiac pacemaker placement: Code(s): Z95.0 - Presence of cardiac pacemaker <PARVIZ Lizarraga - Last Filed: 06/27/21 13:41> Status: Inactive <PARVIZ Lizarraga - Last Filed: 06/27/21 13:41> Assessment and Plan: Medtronic dual-chamber place maker implanted in 2012, in [place]. History of sick sinus syndrome. <PARVIZ Lizarraga - Last Filed: 06/27/21 13:41> (5) Elevated troponin: Code(s): R77.8 - Other specified abnormalities of plasma proteins <PARVIZ Lizarraga - Last Filed: 06/27/21 13:41> Status: Acute <PARVIZ Lizarraga - Last Filed: 06/27/21 13:41> Assessment and Plan: Patient has no history of coronary disease but did have elevated troponins up to 0.4 9. Some nonspecific changes on her EKG. Probably due to nonischemic cardiac injury, due to her shock and acidosis, not and ACS. <PARVIZ Lizarraga - Last Filed: 06/27/21 13:41> (6) Shock: Code(s): R57.9 - Shock, unspecified <Tasha Abbasi
[2021-06-27 12:47] LABS: Vancomycin Trough 7.8 ug/mL (10.0-20.0)
[2021-06-27 13:02] LABS: Glucose Point of Care 114 mg/dl (65-105)
[2021-06-27] MEDS: PYRIDOSTIGMINE BROMIDE 60 MG TABLET PO ×2 (17:14→21:17)
[2021-06-27 17:23] LABS: Glucose Point of Care 138 mg/dl (65-105)
[2021-06-27] MEDS: carvediloL 3.125 MG TABLET PO (21:15)
[2021-06-27] MEDS: PROMETHAZINE HCL 25 MG TABLET PO (21:20)
[2021-06-27] MEDS: DIGOXIN INJ 250 MCG/ML 2 ML AMP (*BKC) 125 MCG IV PUSH (23:16)
[2021-06-28] VITALS (22 sets, daily range): BP systolic 94–116; BP diastolic 67–76; PULSE 67–82; RESP 13–27; TEMP 35.9–37.2; O2SAT 94–98
[2021-06-28] MEDS: ACETAMINOPHEN 325 MG TABLET 650 MG PO (05:05)
[2021-06-28] MEDS: ALBUTEROL SULFATE NEB 2.5 MG/0.5 ML INH INHALATION ×2 (05:09→22:35)
[2021-06-28] MEDS: CENTRAL LINE FLUSH 10 ML IV PUSH ×3 (06:07→21:35)
[2021-06-28 08:03] LABS: Glucose Point of Care 118 mg/dl (65-105)
[2021-06-28] MEDS: levETIRAcetam ORAL SOL 500 MG/5 ML UDC 2000 MG PO ×2 (10:31→21:21)
[2021-06-28] MEDS: PRAVASTATIN SODIUM 10 MG TABLET PO (10:32)
[2021-06-28] MEDS: SACUBITRIL/VALSARTAN 24-26 MG TABLET 1 TAB PO ×2 (10:32→21:23)
[2021-06-28] MEDS: SPIRONOLACTONE 25 MG TABLET PO (10:32)
[2021-06-28] MEDS: VITAMIN B COMPLEX CAPSULE 1 CAP PO (10:32)
[2021-06-28] MEDS: ENOXAPARIN 40 MG/0.4 ML SYRINGE SUB-Q (10:32)
[2021-06-28] MEDS: PROMETHAZINE HCL 25 MG TABLET PO (10:33)
[2021-06-28] MEDS: TOPIRAMATE 25 MG TABLET 50 MG PO ×2 (10:33→18:26)
[2021-06-28] MEDS: PANTOPRAZOLE 40 MG TABLET PO (10:33)
[2021-06-28] MEDS: predniSONE 5 MG TABLET PO (10:33)
[2021-06-28] MEDS: carvediloL 3.125 MG TABLET PO ×2 (10:34→21:23)
[2021-06-28] MEDS: calcitrioL 0.25 MCG CAPSULE PO (10:34)
[2021-06-28] MEDS: BACLOFEN 10 MG TABLET 20 MG PO ×3 (10:34→18:26)
[2021-06-28] MEDS: LORazepam (*CRX) 1 MG TABLET PO ×2 (11:00→18:27)
--- NOTE | 2021-06-28 11:07 | PM.PNCARD ---
Progress Note: A&P Assessment and Plan (1) Cardiomyopathy: Code(s): I42.9 - Cardiomyopathy, unspecified Status: Acute Assessment and Plan: Echocardiogram yesterday revealed severe systolic dysfunction with an ejection fraction of 25 to 30%. This is a new diagnosis. GDMT with Entresto, spironolactone. Continue current doses. Plan for left heart catheterization when appropriate to establish if her cardiomyopathy is ischemic in etiology or not possibly as an outpatient given underlying infection concerns. Discussed possibility of ischemic versus nonischemic etiology. Eventual referral to electrophysiology for possible device upgrade to ICD. We can talk to great length about life vest reduction sudden cardiac given EF less than 35%. She is now in agreement. I also discussed benefit of upgrade to ICD which she is also interested. Life vest order placed. All questions answered to her satisfaction. She must receive life vest prior to discharge. She understands and agrees. Spent 39 minutes in the care of this patient at bedside with extensive discussion, examination, chart review and medical decision making. (2) Atrial fibrillation and flutter: Code(s): I48.91 - Unspecified atrial fibrillation; I48.92 - Unspecified atrial flutter Status: Acute Assessment and Plan: This is a new problem not previously documented. We discussed the comorbidities length. Very rapid, symptomatic atrial fibrillation and intermittent atrial flutter. Given acute renal failure presentation and patient is concerned with regards to risk in the future will try to avoid digoxin if possible. Avoid calcium channel alex given LV dysfunction. Discussed alternative antiarrhythmic therapy such as amiodarone given her history she would also like to avoid as I feel would also be prudent. Discussed option of sotalol with regards to risks and benefits. Patient wished not to initiate this therapy at present. Given the options and the fact that she is maintaining sinus rhythm I will discontinue carvedilol in favor Toprol XL 50 mg daily for support of her cardiomyopathy and tachyarrhythmia to begin tomorrow morning. We discussed at length embolic stroke risk and bleeding risk with systemic anticoagulation. Need to monitor her anemia given decline in hemoglobin yesterday however I suspect partially artifactual. Repeat hemoglobin today 10.4 which return later after our interview this morning. Discussed options, will pursue Xarelto 20 mg at bedtime. CHADS2 Vasc score 3. All questions answered to her satisfaction. We discussed medical management rhythm control versus rate control. Rhythm management most appropriate given severe LV dysfunction and symptomatic status. (3) Pacemaker lead malfunction: Code(s): T82.110A - Breakdown (mechanical) of cardiac electrode, initial encounter Status: Acute Assessment and Plan: On admission the patient's pacemaker showed problems with ventricular lead not sensing; not enough information to determine if there is problems with pacing as well. Chronic ventricular lead threshold elevation, present since time of implant. Patient does not ventricularly pace because she has sick sinus syndrome with normal AV node conduction. However, given ICD she will require RV lead revision but will defer to EP in this regard. (4) Pacemaker battery depletion: Code(s): Z45.010 - Encounter for checking and testing of cardiac pacemaker pulse generator [battery] Status: Acute Assessment and Plan: Patient's pacemaker went to elective replacement interval last month; we have 90 days to change the pulse generator. This is entirely elective procedure and we do not want to change the pulse generator if there is any possibility of ongoing infection. In view of the patient's recent life-threatening illness and concerned that she may have an underlying infection unable to proceed with generator rashid
[2021-06-28 12:10] LABS: Glucose Point of Care 138 mg/dl (65-105)
--- NOTE | 2021-06-28 13:51 | PM.IMPN ---
Progress Note: A&P Assessment and Plan (1) Shock: Code(s): R57.9 - Shock, unspecified Status: Acute (2) Acute metabolic encephalopathy: Code(s): G93.41 - Metabolic encephalopathy Status: Acute (3) Acute hypotension: Code(s): I95.9 - Hypotension, unspecified Status: Acute (4) Acute renal insufficiency: Code(s): N28.9 - Disorder of kidney and ureter, unspecified Status: Acute (5) Acute hypokalemia: Code(s): E87.6 - Hypokalemia Status: Acute (6) DVT prophylaxis: Code(s): Z29.9 - Encounter for prophylactic measures, unspecified Status: Acute (7) Seizure: Code(s): R56.9 - Unspecified convulsions Status: Acute (8) Polypharmacy: Code(s): Z79.899 - Other long-term (current) drug therapy Status: Acute (9) Mild dehydration: Code(s): E86.0 - Dehydration Status: Acute (10) Acute kidney injury: Code(s): N17.9 - Acute kidney failure, unspecified Status: Acute (11) Adrenal insufficiency: Code(s): E27.40 - Unspecified adrenocortical insufficiency Status: Acute (12) Epilepsy: Code(s): G40.909 - Epilepsy, unspecified, not intractable, without status epilepticus Status: Acute (13) Hypokalemia: Code(s): E87.6 - Hypokalemia Status: Acute (14) Chronic renal failure: Code(s): N18.9 - Chronic kidney disease, unspecified Status: Acute (15) Macrocytic anemia: Code(s): D53.9 - Nutritional anemia, unspecified Status: Acute (16) Altered mental status: Code(s): R41.82 - Altered mental status, unspecified Status: Acute (17) Systemic lupus erythematosus: Code(s): M32.9 - Systemic lupus erythematosus, unspecified Status: Acute (18) Hypertension: Code(s): I10 - Essential (primary) hypertension Status: Acute (19) Dehydration: Code(s): E86.0 - Dehydration Status: Acute (20) Delirium: Code(s): R41.0 - Disorientation, unspecified Status: Acute (21) Cardiomegaly: Code(s): I51.7 - Cardiomegaly Status: Acute Assessment and Plan: 06/24/21 The patient is in ICU. The patient was given IV fluids 3 L in the emergency room. The patient was started on Levophed the her Port-A-Cath and admitted to ICU. The patient was started on vancomycin Rocephin. Obtain blood in urine cultures. Recheck labs in the a.m.. Continue with IV fluids. Patient is on a stress dose steroid Continue with home medications when able. The patient is currently on IV Keppra. 06/25/21 pt doing ok off pressors off fluids transferred to step down Continue vancomycin and ceftriaxone (06/24) blood and urine cultures obtained and pending will deescalate antibiotics if blood cultures and urine cultures are negative cardiology following for elevated trop Additional Plan 06/24/21 The patient is in ICU. The patient was given IV fluids 3 L in the emergency room. The patient was started on Levophed the her Port-A-Cath and admitted to ICU. The patient was started on vancomycin Rocephin. Obtain blood in urine cultures. Recheck labs in the a.m.. Continue with IV fluids. Patient is on a stress dose steroid Continue with home medications when able. The patient is currently on IV Keppra. 06/25/21 pt doing ok off pressors off fluids transferred to step down Continue vancomycin and ceftriaxone (06/24) blood and urine cultures obtained and pending will deescalate antibiotics if blood cultures and urine cultures are negative cardiology following for elevated trop 06/26/21 leukocytosis may be reactive on home meds will bring 2 q HS antiseizure meds that are not on hospital formulary today cont abx cont supportive care monitor resp status possible dc home tomorrow if remains stable and cultures remain negative 06/27/2021 Pt had spike of fever last night, pt can use tylenol for fever Dc cathete
[2021-06-28 13:52] LABS: Basophils Absolute Auto 0.1 K/mm3 (0.0-0.1); Basophils Percent Auto 0.9 % (0.2-1.2); Eosinophils Absolute Auto 0.4 K/mm3 (0-0.3); Eosinophils Percent Auto 5.2 % (0-4.4); Hematocrit 32.7 % (37.0-47.0); Hemoglobin 10.4 g/dL (12.0-15.0); Immature Granulocyte Absolute 0.02 K/mm3 (0.00-0.031); Immature Granulocyte Percent A 0.3 % (0-0.5); Lymphocytes Absolute Auto 1.37 K/mm3 (0.9-3.2); Lymphocytes Percent Auto 19.6 % (18.3-44.2); Mean Corpuscular HGB Conc 31.8 g/dl (32-36); Mean Corpuscular Hemoglobin 31.9 pg (26-34); Mean Corpuscular Volume 100.3 fl (80-100); Mean Platelet Volume 12.6 fl (7.4-10.4); Monocytes Absolute Auto 0.7 K/mm3 (0.1-0.6); Monocytes Percent Auto 9.3 % (2.6-8.5); Neutrophils Absolute Auto 4.5 K/mm3 (1.3-6.7); Neutrophils Percent Auto 64.7 % (45.5-73.1); Platelet Count Result 214 k/mm3 (150-375); Red Blood Count 3.26 M/mm3 (4.2-5.4); Red Cell Distribution Width 13.8 % (11.5-14.5)
[2021-06-28 16:40] LABS: Glucose Point of Care 145 mg/dl (65-105)
[2021-06-28] MEDS: RIVAROXABAN 20 MG TABLET PO (18:27)
[2021-06-28] MEDS: PYRIDOSTIGMINE BROMIDE 60 MG TABLET PO ×2 (18:32→21:35)
[2021-06-28 21:40] LABS: Glucose Point of Care 111 mg/dl (65-105)
[2021-06-29] VITALS (10 sets, daily range): BP systolic 86–113; BP diastolic 53–88; PULSE 65–75; RESP 16–18; TEMP 36.2–36.8; O2SAT 94–98
[2021-06-29 05:53] LABS: Hematocrit 28.4 % (37.0-47.0); Hemoglobin 9.3 g/dL (12.0-15.0); Mean Corpuscular HGB Conc 32.7 g/dl (32-36); Mean Corpuscular Hemoglobin 31.8 pg (26-34); Mean Corpuscular Volume 97.3 fl (80-100); Mean Platelet Volume 12.3 fl (7.4-10.4); Platelet Count Result 208 k/mm3 (150-375); Red Blood Count 2.92 M/mm3 (4.2-5.4); Red Cell Distribution Width 13.5 % (11.5-14.5); White Blood Count 6.4 K/mm3 (4.5-10.0)
[2021-06-29 06:20] LABS: Anion Gap -1 mmol/L (8-16); Blood Urea Nitrogen 11 mg/dL (7-17); Calcium 7.7 mg/dL (8.4-10.2); Carbon Dioxide 22 mmol/L (22-30); Chloride 113 mmol/L (98-107); Estimated CRCL calculation 67 ml/min; Estimated Glomerular Filt Rate > 60; Glucose 100 mg/dL (65-110); Potassium 3.1 mmol/L (3.4-5.0); Sodium 134 mmol/L (137-145)
[2021-06-29] MEDS: CENTRAL LINE FLUSH 10 ML IV PUSH ×3 (06:50→20:36)
--- NOTE | 2021-06-29 09:34 | PM.PNCARD ---
Progress Note: A&P Assessment and Plan (1) Cardiomyopathy: Code(s): I42.9 - Cardiomyopathy, unspecified Status: Acute Assessment and Plan: Echocardiogram yesterday revealed severe systolic dysfunction with an ejection fraction of 25 to 30%. This is a new diagnosis. GDMT with Entresto, spironolactone. Continue current doses. Plan for left heart catheterization when appropriate to establish if her cardiomyopathy is ischemic in etiology or not possibly as an outpatient given underlying infection concerns. Discussed possibility of ischemic versus nonischemic etiology. Outpatient referral to electrophysiology for upgrade to ICD. LifeVest fitted today. Provided potassium is replete she is stable from a cardiovascular perspective. Disposition per hospitalist service. IV antibiotics needs to be sorted out prior to discharge. Would like her to follow-up in the office within the next week or so and would anticipate proceeding with coronary angiography prior to ICD implantation. (2) Atrial fibrillation and flutter: Code(s): I48.91 - Unspecified atrial fibrillation; I48.92 - Unspecified atrial flutter Status: Acute Assessment and Plan: This is a new problem not previously documented. Maintaining sinus rhythm overnight. Toprol XL 50 mg to continue. Xarelto 20 mg began last night. Follow H&H stable thus far. No bleeding. He potassium 4.0. Check BMP as outpatient within the next week. CHADS2 Vasc score 3. All questions answered to her satisfaction. (3) Pacemaker lead malfunction: Code(s): T82.110A - Breakdown (mechanical) of cardiac electrode, initial encounter Status: Acute Assessment and Plan: On admission the patient's pacemaker showed problems with ventricular lead not sensing; not enough information to determine if there is problems with pacing as well. Chronic ventricular lead threshold elevation, present since time of implant. Patient does not ventricularly pace because she has sick sinus syndrome with normal AV node conduction. However, given ICD she will require RV lead revision but will defer to EP in this regard. (4) Pacemaker battery depletion: Code(s): Z45.010 - Encounter for checking and testing of cardiac pacemaker pulse generator [battery] Status: Acute Assessment and Plan: Patient's pacemaker went to elective replacement interval last month; we have 90 days to change the pulse generator. This is entirely elective procedure and we do not want to change the pulse generator if there is any possibility of ongoing infection. In view of the patient's recent life-threatening illness and concerned that she may have an underlying infection unable to proceed with generator change and now given new diagnosis cardiomyopathy ICD most appropriate which is not performed at this institution. Prompt outpatient referral to electrophysiology for ICD consideration. (5) History of permanent cardiac pacemaker placement: Code(s): Z95.0 - Presence of cardiac pacemaker Status: Inactive Assessment and Plan: Medtronic dual-chamber place maker implanted in 2012, in [place]. History of sick sinus syndrome. (6) Elevated troponin: Code(s): R77.8 - Other specified abnormalities of plasma proteins Status: Acute Assessment and Plan: Patient has no history of coronary disease but did have elevated troponins up to 0.4 9. Some nonspecific changes on her EKG. Probably due to nonischemic cardiac injury, due to her shock and acidosis, not and ACS. (7) Shock: Code(s): R57.9 - Shock, unspecified Status: Acute Assessment and Plan: Resolved. (8) Hypokalemia: Code(s): E87.6 - Hypokalemia Status: Acute Assessment and Plan: Replete potassium to keep around 4.0. 40 mEq p.o. x1 given. Caution with administration chronically due to new initiation of Entresto and spironolactone. However, given rec
[2021-06-29] MEDS: POTASSIUM CHLORIDE 20 MEQ TABLET 40 MEQ PO (10:11)
[2021-06-29] MEDS: levETIRAcetam ORAL SOL 500 MG/5 ML UDC 2000 MG PO ×2 (10:11→20:35)
[2021-06-29] MEDS: METOPROLOL SUCCINATE EXT REL 50 MG TABCR PO (10:12)
[2021-06-29] MEDS: VITAMIN B COMPLEX CAPSULE 1 CAP PO (10:12)
[2021-06-29] MEDS: LORazepam (*CRX) 1 MG TABLET PO ×2 (10:13→16:47)
[2021-06-29] MEDS: PANTOPRAZOLE 40 MG TABLET PO (10:13)
[2021-06-29] MEDS: ENOXAPARIN 40 MG/0.4 ML SYRINGE SUB-Q (10:13)
[2021-06-29] MEDS: PRAVASTATIN SODIUM 10 MG TABLET PO (10:13)
[2021-06-29] MEDS: calcitrioL 0.25 MCG CAPSULE PO (10:15)
[2021-06-29] MEDS: PROMETHAZINE HCL 25 MG TABLET PO (10:15)
[2021-06-29] MEDS: predniSONE 5 MG TABLET PO (10:16)
[2021-06-29] MEDS: BACLOFEN 10 MG TABLET 20 MG PO ×3 (10:16→16:48)
[2021-06-29] MEDS: SPIRONOLACTONE 25 MG TABLET PO (10:17)
[2021-06-29] MEDS: TOPIRAMATE 25 MG TABLET 50 MG PO ×2 (10:17→16:49)
[2021-06-29] MEDS: SACUBITRIL/VALSARTAN 24-26 MG TABLET 1 TAB PO ×2 (10:17→20:36)
[2021-06-29 10:28] LABS: Glucose Point of Care 106 mg/dl (65-105)
--- NOTE | 2021-06-29 12:41 | PM.IMPN ---
Progress Note: A&P Assessment and Plan (1) Shock: Code(s): R57.9 - Shock, unspecified Status: Acute (2) Acute metabolic encephalopathy: Code(s): G93.41 - Metabolic encephalopathy Status: Acute (3) Acute hypotension: Code(s): I95.9 - Hypotension, unspecified Status: Acute (4) Acute renal insufficiency: Code(s): N28.9 - Disorder of kidney and ureter, unspecified Status: Acute (5) Acute hypokalemia: Code(s): E87.6 - Hypokalemia Status: Acute (6) DVT prophylaxis: Code(s): Z29.9 - Encounter for prophylactic measures, unspecified Status: Acute (7) Seizure: Code(s): R56.9 - Unspecified convulsions Status: Acute (8) Polypharmacy: Code(s): Z79.899 - Other residential (current) drug therapy Status: Acute (9) Mild dehydration: Code(s): E86.0 - Dehydration Status: Acute (10) Acute kidney injury: Code(s): N17.9 - Acute kidney failure, unspecified Status: Acute (11) Adrenal insufficiency: Code(s): E27.40 - Unspecified adrenocortical insufficiency Status: Acute (12) Epilepsy: Code(s): G40.909 - Epilepsy, unspecified, not intractable, without status epilepticus Status: Acute (13) Hypokalemia: Code(s): E87.6 - Hypokalemia Status: Acute (14) Chronic renal failure: Code(s): N18.9 - Chronic kidney disease, unspecified Status: Acute (15) Macrocytic anemia: Code(s): D53.9 - Nutritional anemia, unspecified Status: Acute (16) Altered mental status: Code(s): R41.82 - Altered mental status, unspecified Status: Acute (17) Systemic lupus erythematosus: Code(s): M32.9 - Systemic lupus erythematosus, unspecified Status: Acute (18) Hypertension: Code(s): I10 - Essential (primary) hypertension Status: Acute (19) Dehydration: Code(s): E86.0 - Dehydration Status: Acute (20) Delirium: Code(s): R41.0 - Disorientation, unspecified Status: Acute (21) Cardiomegaly: Code(s): I51.7 - Cardiomegaly Status: Acute Assessment and Plan: 06/24/21 The patient is in ICU. The patient was given IV fluids 3 L in the emergency room. The patient was started on Levophed the her Port-A-Cath and admitted to ICU. The patient was started on vancomycin Rocephin. Obtain blood in urine cultures. Recheck labs in the a.m.. Continue with IV fluids. Patient is on a stress dose steroid Continue with home medications when able. The patient is currently on IV Keppra. 06/25/21 pt doing ok off pressors off fluids transferred to step down Continue vancomycin and ceftriaxone (06/24) blood and urine cultures obtained and pending will deescalate antibiotics if blood cultures and urine cultures are negative cardiology following for elevated trop Additional Plan 04/28/2022 Patient is getting a LifeVest placed today. Patient potassium is slightly low will replace it and monitor closely. Plan is to continue current treatment, monitor overnight, he stays okay discharge home in the morning with LifeVest. Subjective Date/time seen: 06/29/21 12:41 Interval history: 06/29/2001 Patient was seen during the morning rounds today. Patient is feeling much better. No shortness of breath or chest pain. No abdominal pain, nausea, vomiting. Mood stable. No overnight issues. Review of Systems Review of Systems: All systems reviewed & are unremarkable except as noted in HPI and below ROS unobtainable: Yes unobtainable due to mental status Exam Narrative: General: Patient is sitting up in bed alert awake talkative HEENT: Moist mucous membranes, sclera is clear Neck: Supple, no lymphadenopathy Lungs: CTL b/l Right-sided Port-A-Cath symmetric chest rise Extremities: no edema Neuro: Patient is awake, alert, oriented x3. no focal acute neuro deficits appreciated Skin: Intact, warm Psych: Good
[2021-06-29 12:49] LABS: Glucose Point of Care 138 mg/dl (65-105)
--- NOTE | 2021-06-29 13:43 | PCOTNOTE ---
Attempted to see patient, patient refused as she is too tired. Patient up in room Independently. Per patient, patient does not feel she requires OT. Patient agreeable to d/c.
[2021-06-29 14:38] LABS: Chloride Rand Ur 39 mmol/L (32-290); Chloride/Creatinine Rand Ur 57 (38-318); Creatinine Random Urine 68 mg/dL (20-275)
[2021-06-29] MEDS: POTASSIUM CHLORIDE 20 MEQ TABLET PO (16:47)
[2021-06-29] MEDS: PYRIDOSTIGMINE BROMIDE 60 MG TABLET PO ×2 (16:49→20:35)
[2021-06-29] MEDS: RIVAROXABAN 20 MG TABLET PO (16:50)
[2021-06-29 16:54] LABS: Glucose Point of Care 138 mg/dl (65-105)
[2021-06-29 18:52] LABS: Vancomycin Trough 12.3 ug/mL (10.0-20.0)
[2021-06-29] MEDS: PROMETHAZINE HCL 25 MG TABLET 50 MG PO (20:43)
[2021-06-30] VITALS: PULSE 73
[2021-06-30] MEDS: ACETAMINOPHEN 325 MG TABLET 650 MG PO (00:44)
[2021-06-30 04:00] VITALS: BP 95/76; PULSE 68; RESP 18; TEMP 36.4; O2SAT 98
[2021-06-30 05:36] LABS: Anion Gap 0 mmol/L (8-16); Blood Urea Nitrogen 9 mg/dL (7-17); Calcium 8.2 mg/dL (8.4-10.2); Carbon Dioxide 22 mmol/L (22-30); Chloride 117 mmol/L (98-107); Estimated CRCL calculation 67 ml/min; Estimated Glomerular Filt Rate > 60; Glucose 111 mg/dL (65-110); Potassium 3.6 mmol/L (3.4-5.0); Sodium 139 mmol/L (137-145)
[2021-06-30 08:00] VITALS: BP 96/55; PULSE 65; RESP 20; TEMP 36.7; O2SAT 99
[2021-06-30] MEDS: CENTRAL LINE FLUSH 10 ML IV PUSH ×2 (08:07→13:49)
[2021-06-30] MEDS: LORazepam (*CRX) 1 MG TABLET PO (08:07)
[2021-06-30] MEDS: BACLOFEN 10 MG TABLET 20 MG PO ×2 (08:07→12:17)
[2021-06-30] MEDS: SPIRONOLACTONE 25 MG TABLET PO (08:08)
[2021-06-30] MEDS: PANTOPRAZOLE 40 MG TABLET PO (08:08)
[2021-06-30] MEDS: PRAVASTATIN SODIUM 10 MG TABLET PO (08:09)
[2021-06-30] MEDS: VITAMIN B COMPLEX CAPSULE 1 CAP PO (08:09)
[2021-06-30] MEDS: calcitrioL 0.25 MCG CAPSULE PO (08:09)
[2021-06-30] MEDS: predniSONE 5 MG TABLET PO (08:09)
[2021-06-30] MEDS: TOPIRAMATE 25 MG TABLET 50 MG PO (08:09)
[2021-06-30] MEDS: SACUBITRIL/VALSARTAN 24-26 MG TABLET 1 TAB PO (08:10)
[2021-06-30] MEDS: levETIRAcetam ORAL SOL 500 MG/5 ML UDC 2000 MG PO (08:11)
[2021-06-30] MEDS: LOPERAMIDE HCL 2 MG CAPSULE 4 MG PO (09:02)
--- NOTE | 2021-06-30 09:30 | PM.DS ---
DS: Admitting Diagnosis Discharge Date 06/30/2021 Admitting Diagnosis Hypotension Shock DS: Discharge Diagnosis Discharge Diagnosis (1) Shock: Code(s): R57.9 - Shock, unspecified Status: Acute (2) Acute metabolic encephalopathy: Code(s): G93.41 - Metabolic encephalopathy Status: Acute (3) Acute hypotension: Code(s): I95.9 - Hypotension, unspecified Status: Acute (4) Acute renal insufficiency: Code(s): N28.9 - Disorder of kidney and ureter, unspecified Status: Acute (5) Acute hypokalemia: Code(s): E87.6 - Hypokalemia Status: Acute (6) DVT prophylaxis: Code(s): Z29.9 - Encounter for prophylactic measures, unspecified Status: Acute (7) Seizure: Code(s): R56.9 - Unspecified convulsions Status: Acute (8) Polypharmacy: Code(s): Z79.899 - Other intermediate (current) drug therapy Status: Acute (9) Mild dehydration: Code(s): E86.0 - Dehydration Status: Acute (10) Acute kidney injury: Code(s): N17.9 - Acute kidney failure, unspecified Status: Acute (11) Adrenal insufficiency: Code(s): E27.40 - Unspecified adrenocortical insufficiency Status: Acute (12) Epilepsy: Code(s): G40.909 - Epilepsy, unspecified, not intractable, without status epilepticus Status: Acute (13) Hypokalemia: Code(s): E87.6 - Hypokalemia Status: Acute (14) Chronic renal failure: Code(s): N18.9 - Chronic kidney disease, unspecified Status: Acute (15) Macrocytic anemia: Code(s): D53.9 - Nutritional anemia, unspecified Status: Acute (16) Altered mental status: Code(s): R41.82 - Altered mental status, unspecified Status: Acute (17) Systemic lupus erythematosus: Code(s): M32.9 - Systemic lupus erythematosus, unspecified Status: Acute (18) Hypertension: Code(s): I10 - Essential (primary) hypertension Status: Acute (19) Dehydration: Code(s): E86.0 - Dehydration Status: Acute (20) Delirium: Code(s): R41.0 - Disorientation, unspecified Status: Acute (21) Cardiomegaly: Code(s): I51.7 - Cardiomegaly Status: Acute Assessment and Plan: 06/24/21 The patient is in ICU. The patient was given IV fluids 3 L in the emergency room. The patient was started on Levophed the her Port-A-Cath and admitted to ICU. The patient was started on vancomycin Rocephin. Obtain blood in urine cultures. Recheck labs in the a.m.. Continue with IV fluids. Patient is on a stress dose steroid Continue with home medications when able. The patient is currently on IV Keppra. 06/25/21 pt doing ok off pressors off fluids transferred to step down Continue vancomycin and ceftriaxone (06/24) blood and urine cultures obtained and pending will deescalate antibiotics if blood cultures and urine cultures are negative cardiology following for elevated trop DS: Summary Hospital Course Reason for hospitalization: Hypotension, shock Hospital Course: 60 years old female was admitted with complaint of having generalized weakness. Patient is stable post. Patient was severely hypotensive and was in shock. Patient was found to have atrial fibrillation and severe systolic acute heart failure. Cardiology was consulted patient was stabilized. Patient did not have any complicating stay in the hospital. Patient also have UTI and antibiotics were given but culture was negative. Today patient is feeling better and patient discharged home stable condition no on p.o. medication and LifeVest. Patient is advised to follow with cardiology and primary care physician outpatient next week. Status at Discharge Cognitive/behavioral status at discharge: Stable Functional status at discharge: independent ambulation Overall status at discharge: patient is back to baseline Time Spent with Patient Time attestation: Total time spent providi
[2021-06-30 11:40] VITALS: BP 98/58
[2021-06-30 11:41] VITALS: PULSE 67
[2021-06-30] MEDS: METOPROLOL SUCCINATE EXT REL 50 MG TABCR PO (11:41)
[2021-06-30 11:48] LABS: Glucose Point of Care 117 mg/dl (65-105)
[2021-06-30] MEDS: HEPARIN SODIUM LOCK FLUSH 500 UNITS/5 ML VIAL IV PUSH (13:57)
== END 2021-06-30 14:25 | disposition home or self-care (01) | DRG 871 ==
LOC: ANHED 10:36 → ANHICU 13:21 → ANHIMU 06-26 11:03 → ANHCPC 06-28 15:48 → ANHICU 07-03 13:55 → ANHIMU 07-03 13:55
PROVIDERS: Family Medicine; Internal Medicine; Internal Medicine Cardiovascular Disease; Nurse Practitioner; Admitting Provider Hospitalist; Emergency Provider Emergency Medicine; PCP Internal Medicine; Visit Provider Internal Medicine
DX: R57.1 Hypovolemic shock (principal); G93.41 Metabolic encephalopathy; I50.21 Acute systolic (congestive) heart failure; N17.9 Acute kidney failure, unspecified; E27.40 Unspecified adrenocortical insufficiency; I42.9 Cardiomyopathy, unspecified; T82.110A Breakdown (mechanical) of cardiac electrode, initial encounter; E87.2 Acidosis; I48.92 Unspecified atrial flutter; I5A Non-ischemic myocardial injury (non-traumatic); I95.9 Hypotension, unspecified; Z20.822 Contact with and (suspected) exposure to COVID-19; M32.9 Systemic lupus erythematosus, unspecified; G40.909 Epilepsy, unspecified, not intractable, without status epilepticus; G70.00 Myasthenia gravis without (acute) exacerbation; I12.9 Hypertensive chronic kidney disease with stage 1 through stage 4 chronic kidney disease, or unspecified chronic kidney disease; N18.9 Chronic kidney disease, unspecified; I49.5 Sick sinus syndrome; D72.829 Elevated white blood cell count, unspecified; N31.9 Neuromuscular dysfunction of bladder, unspecified; E87.6 Hypokalemia; E86.0 Dehydration; I51.7 Cardiomegaly; I48.91 Unspecified atrial fibrillation; D53.9 Nutritional anemia, unspecified; Z95.0 Presence of cardiac pacemaker; Z90.49 Acquired absence of other specified parts of digestive tract; Z90.710 Acquired absence of both cervix and uterus
CPT/HCPCS: 36415; 36600; 51702; 70450; 71045; 72125; 74176; 76775; 80048; 80053; 80202; 81001; 82140; 82436; 82550; 82570; 82805; 82948; 83605; 83735; 84100; 84132; 84133; 84300; 84484; 85025; 85027; 85610; 85730; 85999; 86140; 87040; 87086; 93005; 93306; 94640; 96361; 96365; 96366; 96367; 96375; 97110; 97116; 97161; 97165; 97530; 97535; 99285; A9270; C9113; C9803; G0378; J0696; J1160; J1642; J1650; J1720; J1940; J1953; J3370; J3480; J7030; J7050; J7512; U0003; U0005

== ENCOUNTER 2021-07-26 00:18 | Day surgery (SDC) | payer OTHER, SELFPAY ==
[2021-06-23 17:04] VITALS: BMI 27.1
[2021-07-25 11:45] VITALS: BMI 29.5
[2021-07-25 13:24] VITALS: BMI 29.5
[2021-07-26 09:30] VITALS: BP 95/68; PULSE 63; RESP 12; TEMP 36.6; O2SAT 100; BMI 28.5
[2021-07-26 09:44] LABS: Basophils Absolute Auto 0.1 K/mm3 (0.0-0.1); Basophils Percent Auto 1.5 % (0.2-1.2); Eosinophils Absolute Auto 0.1 K/mm3 (0-0.3); Hematocrit 32.3 % (37.0-47.0); Hemoglobin 10.4 g/dL (12.0-15.0); Immature Granulocyte Absolute 0.01 K/mm3 (0.00-0.031); Immature Granulocyte Percent A 0.2 % (0-0.5); Lymphocytes Absolute Auto 1.31 K/mm3 (0.9-3.2); Lymphocytes Percent Auto 24.2 % (18.3-44.2); Mean Corpuscular HGB Conc 32.2 g/dl (32-36); Mean Corpuscular Volume 96.4 fl (80-100); Mean Platelet Volume 11.4 fl (7.4-10.4); Monocytes Absolute Auto 0.5 K/mm3 (0.1-0.6); Monocytes Percent Auto 8.3 % (2.6-8.5); Neutrophils Absolute Auto 3.5 K/mm3 (1.3-6.7); Neutrophils Percent Auto 63.8 % (45.5-73.1); Platelet Count Result 190 k/mm3 (150-375); Red Blood Count 3.35 M/mm3 (4.2-5.4); Red Cell Distribution Width 13.1 % (11.5-14.5); White Blood Count 5.4 K/mm3 (4.5-10.0)
--- NOTE | 2021-07-26 09:49 | SUR.PREOP ---
SUNI FROM [employer] HERE TO BEDSIDE TO EVALUATE PT'S PACEMAKER FUNCTION.
[2021-07-26 09:53] LABS: Prothrombin Time 13.2 Seconds (11.1-14.7)
[2021-07-26 09:54] LABS: Anion Gap 3 mmol/L (8-16); Blood Urea Nitrogen 25 mg/dL (7-17); Calcium 8.9 mg/dL (8.4-10.2); Carbon Dioxide 24 mmol/L (22-30); Chloride 110 mmol/L (98-107); Estimated CRCL calculation 41 ml/min; Estimated Glomerular Filt Rate 42; Glucose 95 mg/dL (65-110); Potassium 3.9 mmol/L (3.4-5.0); Sodium 137 mmol/L (137-145)
--- NOTE | 2021-07-26 10:25 | SUR.PREOP ---
PRE OP CHEST PREP COMPLETED.
--- NOTE | 2021-07-26 10:54 | SUR.PREOP ---
DR. ORELLANA AT BEDSIDE TO SPEAK TO PT PRE OP. AWARE OF ALLERGIES AND PREVIOUS EXPERIENCE WITH INADEQUATE ANXIOLYSIS DURING A PROCEDURE.
--- NOTE | 2021-07-26 10:58 | P.HPUP_ITS ---
History and Physical Update Update Date/Time: 07/26/21 10:58 Patient with a history of dual chamber Medtronic pacemaker placed in [place] and 2012 here for generator change as a device reached [facility] in May.. She has a complex history as noted in prior H&Ps Comment was hospitalized here for Shock in June.. she had a stress-induced cardiomyopathy, and paroxysmal atrial fibrillation. She has history of remote endocarditis, myasthenia gravis, epilepsy, lupus, CKD stage 3, immuno deficiency, depression, Ruben's disease and asthma. She recently was found have a cardiomyopathy, although echocardiogram done last week showed normalization of left ventricular function. She has a chronically elevated right ventricular threshold which has been stable. She rarely ventricularly paces. Our plan is to simply do a generator change. She notes that she has chronic low blood pressure and when she had a recent cardiac catheterization On July 11 which showed no coronary diseaseshe felt she was not sedated adequately because of concerns about her low blood pressure. She has multiple allergies. Last dose of Xarelto was Saturday. she is feeling well today, no cough or fevers, no evidence of infection. History and Physical has been reviewed, including an updated exam of the patient. Except as described above,There are NO changes in the patient's condition. Risks, benefits, and alternatives have been discussed and questions answered. risk include problems with sedation and breathing, low blood pressure, bleeding, infections, unanticipated but possibile lead revision and other issues. Patient agrees to proceed with procedure.
--- NOTE | 2021-07-26 11:04 | WPDMODSED ---
Moderate Sedation Note-Pt Data Patient Data Diagnosis: Medtronic dual-chamber pacemaker at [place] stress-induced cardiomyopathy, chronic low blood pressure, remote endocarditis, Medtronic pacemaker 2011, myasthenia gravis, epilepsy, lupus, CKD stage 3, immuno deficiency, depression, [place]'s disease on prednisone, asthma, multiple allergies. Recent cardiac catheterization showed no coronary disease and recent echo showed normalization of left ventricular function. History of paroxysmal AFib last doses Xarelto Saturday. chronically elevated right ventricular lead which has been stable. Rarely RV pace is. Planning to do a simple generator change and not proceed with RV lead revision. The RV lead is located on the septum sort may have been that there was difficulty finding a good area with low thresholds at the time of lead and pacemaker implantation in 2011; however we have not been able to receive findings records. The patient takes chronic benzodiazepines and is concerned that she may be habituated and have has a high threshold, and may need higher dose of medications. Present Complaint: Pulse generator at [place] Procedure to be performed/Plan: conscious sedation Generator change Allergies Allergy/AdvReac Type Severity Reaction Status Date / Time carbamazepine Allergy Other Verified 07/26/21 09:43 erythromycin base Allergy Rash Verified 07/26/21 09:43 nitrofurantoin Allergy Hives Verified 07/26/21 09:43 Penicillins Allergy Swelling Verified 07/26/21 09:43 of Lip/Tongue/Throat phenytoin Allergy Other Verified 07/26/21 09:43 Sulfa (Sulfonamide Allergy Anaphylaxis Verified 07/26/21 09:43 Antibiotics) sulfasalazine Allergy Anaphylaxis Verified 07/26/21 09:43 ciprofloxacin AdvReac counter Verified 07/26/21 09:43 indicaticated with MG - use cautiously per pt. codeine AdvReac Nausea Verified 07/26/21 09:43 levodropropizine AdvReac Unknown Verified 07/26/21 09:43 pregabalin AdvReac Dizziness Verified 07/26/21 09:43 zolpidem AdvReac Other Verified 07/26/21 09:43 Home Medications Medication Instructions Recorded Confirmed Type Aptiom 800 mg PO HS 04/21/21 07/26/21 History baclofen 20 mg PO TID 04/21/21 07/26/21 History calcitriol 0.25 mcg PO DAILY 04/21/21 07/26/21 History calcium carbonate-vitamin D3 1 tablet PO BID 04/21/21 07/25/21 History d-mannose 1,000 mg PO BID 04/21/21 07/25/21 History ferrous sulfate 45 mg PO DAILY 04/21/21 07/25/21 History hydroxychloroquine [Plaquenil] 200 mg PO BID 04/21/21 07/26/21 History levetiracetam [Keppra] 2,000 mg PO BID 04/21/21 07/26/21 History lorazepam [Ativan] 1 mg PO BID 04/21/21 07/25/21 History pravastatin 10 mg PO DAILY #0 04/21/21 07/25/21 History prednisone 5 mg PO DAILY 04/21/21 07/26/21 History promethazine 25 mg PO TID PRN 04/21/21 07/26/21 History pyridostigmine bromide 60 mg PO HS 04/21/21 07/25/21 History pyridostigmine bromide 60 mg PO QACDINNER 04/21/21 07/25/21 History pyridostigmine bromide 90 mg PO QAM 04/21/21 07/26/21 History pyridostigmine bromide 90 mg PO QNOON 04/21/21 07/25/21 History topiramate [Topamax] 50 mg PO BID 04/21/21 07/26/21 History vitamin B complex 1 tablet PO DAILY 04/21/21 07/25/21 History pantoprazole [Protonix] 40 mg PO DAILY 06/24/21 07/26/21 History albuterol sulfate 2.5 mg INHALATION Q6H PRN 06/26/21 07/26/21 History doxycycline hyclate 100 mg PO DAILY #7 cap 06/30/21 07/25/21 Rx clobazam [Onfi] 20 mg PO HS 07/25/21 07/25/21 History metoprolol succinate [Toprol XL] 50 mg PO QAM 07/25/21 07/26/21 History rivaroxaban [Xarelto] 20 mg PO DAILY 07/25/21 07/25/21 History sacubitril-valsartan [Entresto] 1 tablet PO BID 07/25/21 07/26/21 History spironolactone [Aldactone] 25 mg PO QAM 07/25/21 07/25/21 History Sedation/Anesthesia: No previous sedation/anesthesia problems (including family history). [facility] Past Medical History Medical History Adrenal insuff
--- NOTE | 2021-07-26 12:15 | P.OPB_ITS ---
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
--- NOTE | 2021-07-26 12:16 | W.PM.PROC2 ---
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 Recent cardiac catheterization showed no coronary disease and recent echo showed normalization of left ventricular function. History of paroxysmal AFib last dose of Xarelto Saturday. Chronically elevated right ventricular lead which has been stable. Rarely RV paces. I plan to do a simple generator change and not proceed with RV lead revision. The RV lead is located on the septum suggesting there may have been difficulty finding a good area with low thresholds at the time pacemaker implantation in 2011; however we have not been able to receive findings records. The patient takes chronic benzodiazepines and is concerned that she may be habituated and have has a high threshold, and may need higher dose of medications. Tends to run a low BP. Description of Procedure PROCEDURE: Conscious sedation Generator change UNDERLYING RHYTHM: CONSCIOUS SEDATION: Assessment: The patient has no history of anesthesia problems. The oropharynx is clear. The patient was deemed to be a good candidate for conscious sedation. The patient had continuous hemodynamic and oximetric monitoring during the procedure. Start time: 1132 Completion time: 12 10 Total conscious sedation time: 42 minutes Medications: Versed 4 mg, fentanyl 100 mcg IV push Trained observer: Bill Chris RN Outcome: The patient tolerated the procedure well with no complications. PROCEDURE: After informed consent, the patient is brought to the manager cardiac cath and the left prepectoral area was prepped and draped in usual fashion. The patient was given a prophylactic antibiotic intravenously. After conscious sedation as described above, the area was anesthetized with 1% lidocaine. A skin incision is made with the Plasma Blade and carried down to the pacing capsule which was also incised. Hemostasis is obtained using the Plasma Blade. The lead/s was/were freed from the underlying capsule and inspected and were found to be intact. The pulse generator was delivered from the pocket. The lead/s was/were disconnected from the existing device and reconnected to the new device. A gentle tug could not remove it/them. The device and lead/s was/were interrogated and found to be functioning appropriately. The area was copiously irrigated with antibiotic-containing solution. The device was replaced in the pocket. The subcutaneous tissues were closed in a two-layer fashion with interrupted 2 0 Vicryl sutures and the skin was closed in a continuous fashion using 4 0 Vicryl. The area was cleansed, an Aquacel dressing applied. The patient tolerated the procedure well with no complications. Estimated blood loss was negligible. DEVICE INFORMATION: New pulse generator: [id number] Nataly XT MRI, serial RNB [id number] Existing right atrial lead: Medtronic model 5086 MRI 45, serial LFP [id number] be implanted 07/05/2011 Existing right ventricular lead Medtronic 5086 MRI 52, serial LFP [id number], implanted 07/05/2011 new line explanted pulse generator: Medtronic [id number] 1, serial PT an [id number], implanted 07/05/2011 THRESHOLD INFORMATION: Right atrium: P-wave sensing 2.0 mV, impedance 380 Ohms, threshold 0.5 volts at 0.4 milliseconds Right ventricle: R-wave sensing 11.3 mV, impedance 589 Oh
[2021-07-26 12:25] VITALS: BP 89/56; PULSE 61; RESP 13; TEMP 36.2; O2SAT 98
[2021-07-26 12:40] VITALS: BP 92/54; PULSE 60; RESP 13; O2SAT 98
[2021-07-26 12:55] VITALS: BP 101/61; PULSE 60; RESP 15; O2SAT 100
[2021-07-26 13:15] VITALS: BP 122/68; PULSE 60; RESP 13; O2SAT 100
[2021-07-26 13:30] VITALS: BP 123/71; PULSE 60; RESP 19; O2SAT 100
[2021-07-26] MEDS: HEPARIN SODIUM LOCK FLUSH 500 UNITS/5 ML VIAL (13:35)
== END 2021-07-26 14:10 | disposition home or self-care (01) ==
PROVIDERS: Visit Provider Internal Medicine Cardiovascular Disease
PROC: 0JPT0PZ Removal of Cardiac Rhythm Related Device from Trunk Subcutaneous Tissue and Fascia, Open Approach (ICD-10-PCS; CPT 33228; principal; 2021-07-26 10:30)
DX: Z45.010 Encounter for checking and testing of cardiac pacemaker pulse generator [battery] (principal); I42.8 Other cardiomyopathies; I38 Endocarditis, valve unspecified; I95.9 Hypotension, unspecified; G40.909 Epilepsy, unspecified, not intractable, without status epilepticus; M32.9 Systemic lupus erythematosus, unspecified; E27.1 Primary adrenocortical insufficiency; J45.909 Unspecified asthma, uncomplicated; N18.30 Chronic kidney disease, stage 3 unspecified; Z79.51 Long term (current) use of inhaled steroids; Z79.01 Long term (current) use of anticoagulants; Z79.52 Long term (current) use of systemic steroids; Z90.49 Acquired absence of other specified parts of digestive tract; F17.210 Nicotine dependence, cigarettes, uncomplicated
CPT/HCPCS: 33228; 36415; 80048; 85025; 85610; C1785; J1642; J2250; J3010; J3370; J7040

== ENCOUNTER → 2021-08-02 14:43 | Outpatient (CLI) | payer OTHER, SELFPAY ==
--- NOTE | ~2021-08-02 | CT_ITS ---
EXAMINATION: CT chest high resolution wo tn DATE: 08/02/2021 15:12 INDICATION: Dyspnea on exertion TECHNIQUE: Computed tomography (CT) of the chest was performed without intravenous contrast. The dose -length product (DLP) was 222.35 mGy-cm. Automated exposure control and iterative reconstruction tech nique were employed. COMPARISON: None FINDINGS: A right subclavian Port-A-Cath ends with its tip in the distal superior vena cava. There is a dual-lead pacemaker of the left chest wall with its leads in expected positions. There is mild dep endent atelectasis. There is no pleural effusion or pneumothorax. No pathologically enlarged thoracic lymph nodes are identified. The heart size is normal. There is a trace pericardial effusion. The gal lbladder is surgically absent. There is moderate thoracic spondylosis. An unchanged L1 compression fr acture is noted. IMPRESSION: 1. No CT correlate for the patient's symptoms. Reviewed, dictated and finalized at location B.
== END ==
PROVIDERS: Visit Provider Internal Medicine Cardiovascular Disease
DX: R06.00 Dyspnea, unspecified (principal)
CPT/HCPCS: 71250

== ENCOUNTER 2021-08-11 04:30 | Emergency (ER) | payer OTHER, SELFPAY ==
--- NOTE | ~2021-08-11 | XR_ITS ---
EXAMINATION: XR chest 2V DATE: 08/11/2021 05:11 INDICATION: Weakness. Feels cold. TECHNIQUE: frontal and lateral views of the chest were obtained. COMPARISON: Chest radiograph dated 06/26/[address] dated 08/02/2021 FINDINGS: The lungs are now clear with no focal airspace opacities, pulmonary edema, pleural effusion or pneumo thorax. The cardiomediastinal silhouette is normal. Dual lead pacemaker seen with leads projecting ov er the expected locations of the right atrium and right ventricle. Right subclavian central venous po rt catheter with distal tip at the superior cavoatrial junction. Cholecystectomy clips in the right u pper quadrant. IMPRESSION: 1. No acute cardiopulmonary disease. Reviewed, dictated and finalized at location A.
[2021-08-11 04:39] VITALS: BP 102/61; PULSE 130; RESP 20; TEMP 36.5; O2SAT 95
--- NOTE | 2021-08-11 04:44 | ECG_ITS ---
Measurements Intervals [place] Rate: 60 P: -88 CA: 224 QRS: 25 QRSD: 91 T: 52 QT: 425 QTc: 425 Interpretive Statements ELECTRONIC ATRIAL PACEMAKER NONSPECIFIC T-WAVE ABNORMALITY ABNORMAL ECG COMPARED TO ECG 06/26/2021 10:01:02 ELECTRONIC ATRIAL PACED RHYTHM NOTED. Electronically Signed On 08-11-2021 17:10:46 CDT by Sean Silva M.D.
[2021-08-11 05:13] LABS: Basophils Absolute Auto 0.1 K/mm3 (0.0-0.1); Basophils Percent Auto 1.7 % (0.2-1.2); Eosinophils Absolute Auto 0.2 K/mm3 (0-0.3); Eosinophils Percent Auto 3.7 % (0-4.4); Hemoglobin 10.9 g/dL (12.0-15.0); Immature Granulocyte Absolute 0.01 K/mm3 (0.00-0.031); Immature Granulocyte Percent A 0.2 % (0-0.5); Lymphocytes Percent Auto 40.5 % (18.3-44.2); Mean Corpuscular Hemoglobin 31.4 pg (26-34); Mean Corpuscular Volume 95.1 fl (80-100); Mean Platelet Volume 11.6 fl (7.4-10.4); Monocytes Absolute Auto 0.4 K/mm3 (0.1-0.6); Monocytes Percent Auto 7.4 % (2.6-8.5); Neutrophils Absolute Auto 2.8 K/mm3 (1.3-6.7); Neutrophils Percent Auto 46.5 % (45.5-73.1); Platelet Count Result 206 k/mm3 (150-375); Red Blood Count 3.47 M/mm3 (4.2-5.4); Red Cell Distribution Width 12.9 % (11.5-14.5); White Blood Count 5.9 K/mm3 (4.5-10.0)
[2021-08-11 05:24] LABS: Alanine Aminotransferase 16 U/L (4-35); Albumin Level 3.7 g/dL (3.5-5.1); Alkaline Phosphatase 74 U/L (38-126); Anion Gap 4 mmol/L (8-16); Aspartate Amino Transferase 27 U/L (14-36); Bilirubin,Total 0.2 mg/dL (0.2-1.3); Blood Urea Nitrogen 35 mg/dL (7-17); Carbon Dioxide 21 mmol/L (22-30); Chloride 113 mmol/L (98-107); Estimated CRCL calculation 43 ml/min; Estimated Glomerular Filt Rate 45; Glucose 83 mg/dL (65-110); Potassium 4.2 mmol/L (3.4-5.0); Sodium 138 mmol/L (137-145)
--- NOTE | 2021-08-11 05:44 | ED.WEAKNESS ---
HPI - Weakness General Chief complaint: Weakness Stated complaint: cold , generalized weakness Time Seen by Provider: 08/11/21 05:43 Source: patient and family Mode of arrival: ambulatory Limitations: no limitations History of Present Illness HPI Narrative: Patient is a 61-year-old female with a history of lupus, myasthenia gravis, Raynaud's phenomenon, sick sinus syndrome, hypogammaglobulinemia, adrenal insufficiency, hypertension, chronic renal failure, pacemaker, presenting for evaluation of cold feeling in her hands. Patient states she awakened in the middle of the night with her hands feeling very cold. Patient states that her hands were painful at that time. She denies any numbness or tingling. Patient states that she felt slightly weak all over but denies any focal weakness. Patient was ambulatory at that time. Patient denied any concurrent headache, dizziness, vision changes, neck pain, chest pain, palpitations, shortness of breath, nausea, vomiting. No recent illness. No recent medication changes. Patient states with her Raynaud's she occasionally has the symptoms occur but states that this time both hands were painful hence why she decided to come to the ER. Patient denies any symptoms at this time. States that her hands now feel warm and normal. Related Data Home Medications Medication Instructions Recorded Confirmed Aptiom 800 mg PO HS 04/21/21 07/26/21 baclofen 20 mg PO TID 04/21/21 07/26/21 calcitriol 0.25 mcg PO DAILY 04/21/21 07/26/21 calcium carbonate-vitamin D3 1 tablet PO BID 04/21/21 07/25/21 d-mannose 1,000 mg PO BID 04/21/21 07/25/21 ferrous sulfate 45 mg PO DAILY 04/21/21 07/25/21 hydroxychloroquine [Plaquenil] 200 mg PO BID 04/21/21 07/26/21 levetiracetam [Keppra] 2,000 mg PO BID 04/21/21 07/26/21 lorazepam [Ativan] 1 mg PO BID 04/21/21 07/25/21 pravastatin 10 mg PO DAILY #0 04/21/21 07/25/21 prednisone 5 mg PO DAILY 04/21/21 07/26/21 promethazine 25 mg PO TID PRN 04/21/21 07/26/21 pyridostigmine bromide 60 mg PO HS 04/21/21 07/25/21 pyridostigmine bromide 60 mg PO QACDINNER 04/21/21 07/25/21 pyridostigmine bromide 90 mg PO QAM 04/21/21 07/26/21 pyridostigmine bromide 90 mg PO QNOON 04/21/21 07/25/21 topiramate [Topamax] 50 mg PO BID 04/21/21 07/26/21 vitamin B complex 1 tablet PO DAILY 04/21/21 07/25/21 pantoprazole [Protonix] 40 mg PO DAILY 06/24/21 07/26/21 albuterol sulfate 2.5 mg INHALATION Q6H PRN 06/26/21 07/26/21 Entresto 1 tablet PO BID 07/25/21 07/26/21 clobazam [Onfi] 20 mg PO HS 07/25/21 07/25/21 metoprolol succinate [Toprol XL] 50 mg PO QAM 07/25/21 07/26/21 spironolactone [Aldactone] 25 mg PO QAM 07/25/21 07/25/21 Allergies Allergy/AdvReac Type Severity Reaction Status Date / Time carbamazepine Allergy Other Verified 08/11/21 04:54 erythromycin base Allergy Rash Verified 08/11/21 04:54 nitrofurantoin Allergy Hives Verified 08/11/21 04:54 Penicillins Allergy Swelling Verified 08/11/21 04:54 of Lip/Tongue/Throat phenytoin Allergy Other Verified 08/11/21 04:54 Sulfa (Sulfonamide Allergy Anaphylaxis Verified 08/11/21 04:54 Antibiotics) sulfasalazine Allergy Anaphylaxis Verified 08/11/21 04:54 ciprofloxacin AdvReac counter Verified 08/11/21 04:54 indicaticated with MG - use cautiously per pt. codeine AdvReac Nausea Verified 08/11/21 04:54 levodropropizine AdvReac Unknown Verified 08/11/21 04:54 pregabalin AdvReac Dizziness Verified 08/11/21 04:54 zolpidem AdvReac Other Verified 08/11/21 04:54 Review of Systems Review of Systems: CONSTITUTIONAL: Denies fever, chills, or sweats. EYES: Denies visual changes, redness, or discharge. ENT: Denies rhinorrhea, congestion, sore throat, or otalgia. CARDIOVASCULAR: Denies chest pain, palpitations, or edema. RESPIRATORY: Denies cough or dyspnea. GASTROINTESTINAL: Denies abdominal pain, nausea, vomiting, or diarrhea. GENITOURINARY: Denies dysuria or hematuria. SKIN: Denies rash or itching. MUSCULOSKE
[2021-08-11 07:00] VITALS: BP 102/60; PULSE 60; RESP 14; O2SAT 99
[2021-08-11] MEDS: HEPARIN SODIUM LOCK FLUSH 500 UNITS/5 ML VIAL (07:03)
== END 2021-08-11 07:00 | disposition home or self-care (01) ==
PROVIDERS: Emergency Provider Emergency Medicine; PCP Internal Medicine
DX: R20.8 Other disturbances of skin sensation (principal); I73.00 Raynaud's syndrome without gangrene; G70.00 Myasthenia gravis without (acute) exacerbation; D80.1 Nonfamilial hypogammaglobulinemia; E27.40 Unspecified adrenocortical insufficiency; Z95.0 Presence of cardiac pacemaker; I12.9 Hypertensive chronic kidney disease with stage 1 through stage 4 chronic kidney disease, or unspecified chronic kidney disease; N18.9 Chronic kidney disease, unspecified; N31.9 Neuromuscular dysfunction of bladder, unspecified; G40.909 Epilepsy, unspecified, not intractable, without status epilepticus; M32.9 Systemic lupus erythematosus, unspecified; Z87.442 Personal history of urinary calculi; Z90.49 Acquired absence of other specified parts of digestive tract; F17.210 Nicotine dependence, cigarettes, uncomplicated; R94.31 Abnormal electrocardiogram [ECG] [EKG]
CPT/HCPCS: 36415; 71046; 80053; 85025; 93005; 99283; J1642

== ENCOUNTER 2021-08-18 06:59 | Observation (INO) | payer OTHER, SELFPAY ==
[2021-08-18] VITALS (10 sets, daily range): BP systolic 106–123; BP diastolic 42–83; PULSE 60–94; RESP 11–18; TEMP 36.1–37.1; O2SAT 92–100; BMI 27.6
--- NOTE | ~2021-08-18 | XR_ITS ---
EXAMINATION: XR chest 1V DATE: 08/18/2021 08:06 INDICATION: Transient alteration of awareness. TECHNIQUE: A single frontal view of the chest was obtained. COMPARISON: Chest 2 views 08/11/2021, chest CT 08/02/2021 FINDINGS: There is no pneumonia, pleural effusion, or pneumothorax. The heart size is normal. There i s a left chest wall pacer with leads in the right atrium and right ventricle. There is a right subcla vian port with tip in right atrium. IMPRESSION: 1. No acute cardiopulmonary disease. Reviewed, dictated and finalized at location A.
--- NOTE | ~2021-08-18 | CT_ITS ---
EXAMINATION: CT brain wo con DATE: 08/18/2021 08:03 INDICATION: Altered mental status. TECHNIQUE: Computed tomography (CT) of the head was performed without intravenous contrast. The mA wa s adjusted according to patient size. Iterative reconstruction technique was employed. The dose-lengt h product was 605.33 mGy-cm. COMPARISON: Head CT 06/24/2021 FINDINGS: There is no intracranial hemorrhage, acute infarction, or abnormal intracranial mass lesion . The ventricles are normal in size. The orbits are normal. There is minimal mucosal thickening in th e paranasal sinuses. The mastoid air cells are normal. IMPRESSION: 1. Normal brain. Reviewed, dictated and finalized at location A. IMPRESSION: 1. Normal brain.
--- NOTE | 2021-08-18 07:09 | ECG_ITS ---
Measurements Intervals [place] Rate: 73 P: -79 UT: 251 QRS: 63 QRSD: 98 T: 73 QT: 408 QTc: 451 Interpretive Statements ELECTRONIC ATRIAL PACEMAKER NONSPECIFIC T-WAVE ABNORMALITY ABNORMAL RHYTHM ECG COMPARED TO ECG 08/11/2021 04:51:07 NO SIGNIFICANT CHANGE Electronically Signed On 08-18-2021 11:15:00 CDT by Ben Yeung M.D.
--- NOTE | 2021-08-18 07:09 | PC.NURSE ---
Pt very restless on the bed at this time. Pt has a port which is being accessed at this time. Krause catheter also being initiated due to pt self catheterizes at home.
--- NOTE | 2021-08-18 07:18 | ED.AMS ---
HPI - Altered Mental Status General Chief Complaint: Altered Mental Status Stated Complaint: altered mental status Time Seen by Provider: 08/18/21 07:02 Source: RN notes reviewed History of Present Illness HPI narrative: Patient presents emergency department from home via EMS for altered mental status. History is per the as patient is unable to give any history patient is more sleepy yesterday and has been sleeping for most of the day she got up and taken a shower at approximately 8 PM last night and then went to bed he had gone to wake up this morning as she was scheduled to have an IVIG infusion this morning and the patient would only open her eyes but was not responsive and at that time he called EMS for further evaluation. does state the patient was recently diagnosed with pneumonia and is currently on 2 antibiotics that was started earlier this week. Denies the patient any fevers nausea vomiting or diarrhea. Per the patient's she is still on baclofen as well as tramadol as needed Related Data Home Medications Medication Instructions Recorded Confirmed Aptiom 800 mg PO HS 04/21/21 08/18/21 baclofen 20 mg PO TID 04/21/21 08/18/21 calcitriol 0.25 mcg PO DAILY 04/21/21 08/18/21 calcium carbonate-vitamin D3 1 tablet PO BID 04/21/21 08/18/21 d-mannose 1,000 mg PO BID 04/21/21 08/18/21 ferrous sulfate 45 mg PO DAILY 04/21/21 08/18/21 hydroxychloroquine [Plaquenil] 200 mg PO BID 04/21/21 08/18/21 levetiracetam [Keppra] 2,000 mg PO BID 04/21/21 08/18/21 lorazepam [Ativan] 1 mg PO BID 04/21/21 08/18/21 pravastatin 10 mg PO DAILY #0 04/21/21 08/18/21 prednisone 5 mg PO DAILY 04/21/21 08/18/21 promethazine 25 mg PO TID PRN 04/21/21 08/18/21 pyridostigmine bromide 60 mg PO HS 04/21/21 08/18/21 pyridostigmine bromide 60 mg PO QACDINNER 04/21/21 08/18/21 pyridostigmine bromide 90 mg PO QAM 04/21/21 08/18/21 pyridostigmine bromide 90 mg PO QNOON 04/21/21 08/18/21 topiramate [Topamax] 50 mg PO BID 04/21/21 08/18/21 vitamin B complex 1 tablet PO DAILY 04/21/21 08/18/21 pantoprazole [Protonix] 40 mg PO DAILY 06/24/21 08/18/21 albuterol sulfate 2.5 mg INHALATION Q6H PRN 06/26/21 08/18/21 Entresto 1 tablet PO BID 07/25/21 08/18/21 clobazam [Onfi] 20 mg PO HS 07/25/21 08/18/21 metoprolol succinate [Toprol XL] 50 mg PO QAM 07/25/21 08/18/21 spironolactone [Aldactone] 25 mg PO QAM 07/25/21 08/18/21 azathioprine 50 mg PO DAILY 08/18/21 08/18/21 furosemide 40 mg DAILY 08/18/21 08/18/21 potassium chloride [Klor-Con M20] 20 meq PO DAILY 08/18/21 08/18/21 tramadol 50 mg PO DAILY PRN 08/18/21 08/18/21 Allergies Allergy/AdvReac Type Severity Reaction Status Date / Time carbamazepine Allergy Other Verified 08/18/21 07:17 erythromycin base Allergy Rash Verified 08/18/21 07:17 nitrofurantoin Allergy Hives Verified 08/18/21 07:17 Penicillins Allergy Swelling Verified 08/18/21 07:17 of Lip/Tongue/Throat phenytoin Allergy Other Verified 08/18/21 07:17 Sulfa (Sulfonamide Allergy Anaphylaxis Verified 08/18/21 07:17 Antibiotics) sulfasalazine Allergy Anaphylaxis Verified 08/18/21 07:17 ciprofloxacin AdvReac counter Verified 08/18/21 07:17 indicaticated with MG - use cautiously per pt. codeine AdvReac Nausea Verified 08/18/21 07:17 levodropropizine AdvReac Unknown Verified 08/18/21 07:17 pregabalin AdvReac Dizziness Verified 08/18/21 07:17 zolpidem AdvReac Other Verified 08/18/21 07:17 Review of Systems Review of Systems: ROS unobtainable: Yes unobtainable due to medical condition (Patient with altered mental status) PMFSH Past Medical History Medical History Adrenal insufficiency On low-dose prednisone. Cardiomegaly A chronic finding per patient report. Followed by a manager service desk associated with [facility]. Chronic renal failure Frequent urinary tract infections Gastroparesis Hypertension Hypogammaglobulinemia Myasthenia gravis Ne
[2021-08-18 07:34] LABS: Add Urine Microscopic? NO; Appearance Urine Clear (Clear); Bilirubin Urine Negative (Negative); Blood Urine Negative (Negative); Color Urine Straw (Yellow); Glucose Urine UA Negative (Negative); Ketones Urine Negative (Negative); Leukocyte Esterase Ur Negative LEU/UL (Negative); Nitrate Urine Negative (Negative); Protein Urine Negative (Negative); Urobilinogen Urine Negative mg/dL (<2.0)
[2021-08-18 07:37] LABS: Alveolar/Arterial O2 Gradient 18.7 mmHg; Base Excess ABG -1.4 mEq/l (+/-2.0); Fractional Inspired Oxygen 21 %; HCO3 ABG 23.8 mEq/l (22.0-26.0); Oxygen Content ABG 15.9 %vol (16.0-22.0); Oxygen Saturation ABG 95.7 % (95.0-100.0); Oxyhemoglobin 93.7 % THb (90.0-100.0); PCO2 ABG 41.9 mmHg (35.0-45.0); PO2 ABG 80.9 mmHg (80.0-100.0); PO2 FiO2 Ratio Arterial Blood 3.85 %; pH ABG 7.373 (7.350-7.450)
[2021-08-18 07:38] LABS: Basophils Absolute Auto 0.1 K/mm3 (0.0-0.1); Basophils Percent Auto 1.2 % (0.2-1.2); Eosinophils Absolute Auto 0.3 K/mm3 (0-0.3); Eosinophils Percent Auto 3.8 % (0-4.4); Hematocrit 33.6 % (37.0-47.0); Hemoglobin 10.9 g/dL (12.0-15.0); Immature Granulocyte Absolute 0.01 K/mm3 (0.00-0.031); Immature Granulocyte Percent A 0.2 % (0-0.5); Lymphocytes Absolute Auto 1.64 K/mm3 (0.9-3.2); Lymphocytes Percent Auto 24.8 % (18.3-44.2); Mean Corpuscular HGB Conc 32.4 g/dl (32-36); Mean Corpuscular Hemoglobin 31.1 pg (26-34); Mean Platelet Volume 11.8 fl (7.4-10.4); Monocytes Absolute Auto 0.5 K/mm3 (0.1-0.6); Monocytes Percent Auto 7.9 % (2.6-8.5); Neutrophils Absolute Auto 4.1 K/mm3 (1.3-6.7); Neutrophils Percent Auto 62.1 % (45.5-73.1); Platelet Count Result 198 k/mm3 (150-375); Red Cell Distribution Width 13.1 % (11.5-14.5); White Blood Count 6.6 K/mm3 (4.5-10.0)
[2021-08-18 07:38] LABS: Device ROOM AIR; Site Drawn LEFT BRACHIAL
[2021-08-18 07:48] LABS: Lactic Acid Reflex 0.5 mmol/L (0.7-2.1)
[2021-08-18 07:49] LABS: Alanine Aminotransferase 24 U/L (4-35); Albumin Level 3.9 g/dL (3.5-5.1); Alkaline Phosphatase 88 U/L (38-126); Anion Gap 2 mmol/L (8-16); Aspartate Amino Transferase 36 U/L (14-36); Bilirubin,Total 0.3 mg/dL (0.2-1.3); Blood Urea Nitrogen 42 mg/dL (7-17); Carbon Dioxide 24 mmol/L (22-30); Chloride 114 mmol/L (98-107); Estimated CRCL calculation 25 ml/min; Estimated Glomerular Filt Rate 25; Glucose 98 mg/dL (65-110); Lipase 60 U/L (23-300); Magnesium 2.2 mg/dL (1.6-2.3); Potassium 4.1 mmol/L (3.4-5.0); Sodium 140 mmol/L (137-145)
[2021-08-18 07:55] LABS: Partial Thromboplastin Time 32.7 SECONDS (22.3-36.8)
[2021-08-18 08:00] LABS: INR 1.1; Prothrombin Time 14.1 Seconds (11.1-14.7); Troponin I < 0.012 ng/mL (0.000-0.034)
[2021-08-18 08:06] LABS: Influenza A QL RT-PCR Negative (Negative); Influenza B QL RT-PCR Negative (Negative); SARS-CoV-2 RNA PCR Negative
[2021-08-18] MEDS: SODIUM CHLORIDE 0.9% IV 500 ML 999 ML IV CONT (08:34)
--- NOTE | 2021-08-18 08:44 | PC.NURSE ---
Pt awake and looks at nurse but answers every question with either yes or juan francisco . At this time she is clenching her hands close to her chest. Not following direct commands.
[2021-08-18] MEDS: SODIUM CHLORIDE 0.9% IV 1,000 ML 100 ML IV CONT ×2 (09:08→19:47)
--- NOTE | 2021-08-18 10:09 | PC.NURSE ---
Called 3rd floor for report. RN in another room and will call me back.
--- NOTE | 2021-08-18 10:39 | ADMGEN ---
This patient, Aysha Anderson, was admitted to [facility] Surg Room 322-01 at 1030. Patient/family oriented to hospital policies and general routines including ID bracelet, bed and alarms, visiting hours, pain management, procedures, bathroom and other care routines, personal items, smoking policy, room service/diet, and visiting hours. Information on how to activate the Rapid Response Team has been discussed. Patient/Family are encouraged to report perceived risks to care and to ask questions if they do not understand what they are told or what they should do.
--- NOTE | 2021-08-18 16:14 | PM.IMHP ---
H&P: HPI History of Present Illness Date/Time: Patient was placed observation status for expected length of stay less than 23 hours for management, will plan to re-evaluate tomorrow for improvement. 08/18/21 16:14 Chief Complaint: Altered mental status Narrative: Ms. Anderson is a 61-year-old female who was brought to the emergency room for altered mental status. Patient remains confused and oriented to self only. There is no one at bedside so all history is coming from previous medical records and emergency room visit. Per emergency room physician patient's was not able to give much of a history for the patient. Per emergency records patient had been sleeping more than normal yesterday and at approximately 8:00 p.m. last evening she got up to take a shower and went to bed. Patient's spouse stated that patient got up this morning and was very confused and would not respond to him at times. Patient's spouse state he was attempting to wake her up so she can go have her IVIG infusion but she would not open her eyes and her called EMS for transportation to the emergency room. Upon evaluation in emergency room patient was noted to be altered alert oriented to self only. Patient's spouse did states the patient had recently been placed on 2 antibiotics for pneumonia that had been started earlier this week. Wound ask patient if she is having any pain she states no. When patient is asked how she is feeling she states fine. Patient is unable to tell me where she is at, what year it is, or who the president is. Patient will answer to her name and states that she is Aysha. Per emergency room records patient and spouse deny any fevers, nausea, vomiting, or diarrhea. Upon evaluation in emergency room patient had a urinalysis that was within normal limits, a CT of the head that showed normal CT of the head, and a chest x-ray that showed no cardiopulmonary process. Patient was noted to have an elevated BUN and creatinine. Patient has been admitted for this issue in the past. Patient typically has been placed on IV fluids and all pain medication and baclofen is held and patient begins to improve. Patient has also had multiple episodes of acute kidney injury on her chronic kidney disease. Review of Systems Review of Systems: Unable to obtain review of systems secondary to patient's clinical condition. [facility] Past Medical History Medical History Adrenal insufficiency On low-dose prednisone. Cardiomegaly A chronic finding per patient report. Followed by a product marketing manager associated with [facility]. Chronic renal failure Frequent urinary tract infections Gastroparesis Hypertension Hypogammaglobulinemia Myasthenia gravis Neurogenic bladder Seizure Seizure disorder Sick sinus syndrome Systemic lupus erythematosus Surgical History Surgical History History of 2 sections History of appendectomy History of hysterectomy History of laparoscopic cholecystectomy History of partial colectomy Secondary to obstruction from adhesions. History of permanent cardiac pacemaker placement Medtronic DDD pacemaker 07/05/11 in [place] in place Family History Family History Other Hypertension Social History Social History Social History: Surrogate decision maker: Dann Anderson, spouse. Code status: Full code. Smoking status: Never smoker Tobacco type: cigarettes Second hand tobacco smoke exposure: No Alcohol intake: never Drinks per week: 1 Substance use: never Substance use type: does not use Additional living arrangements comments: The patient lives with her in [place]. She has a cane, walker, and wheelchair available to her for use when needed. Additional occupation/education comments: [employer]
[2021-08-18 16:43] LABS: Amphetamine Screen Urine Negative (Negative); Barbiturate Screen Urine Negative (Negative); Benzodiazepines Screen Urine Positive (Negative); Cannabinoid Screen Urine Positive (Negative); Cocaine Screen Urine Negative (Negative); Methadone Screen Urine Negative (Negative); Opiate Screen Urine Negative (Negative); Phencyclidine Screen Urine Negative (Negative)
--- NOTE | 2021-08-18 17:21 | PHAR ---
HOME MEDS VERIFIED BY PHARMACY APTIOM (ESLICARBAZEPINE ACETATE) TABLETS 800MG 1 TABLET PO HS CLOBAZAM 20MG TABLET 2 TABLETS PO AT BEDTIME
[2021-08-18 17:23] LABS: Ammonia < 9 umol/L (9-30)
[2021-08-18] MEDS: levETIRAcetam ORAL SOL 500 MG/5 ML UDC 2000 MG PO (17:49)
[2021-08-18] MEDS: SACUBITRIL/VALSARTAN 24-26 MG TABLET 1 TAB PO (17:50)
[2021-08-18] MEDS: HYDROXYCHLOROQUINE SULFATE 200 MG TABLET PO (17:50)
[2021-08-18] MEDS: CEFUROXIME AXETIL 250 MG TABLET PO (17:50)
[2021-08-18] MEDS: TOPIRAMATE 25 MG TABLET 50 MG PO (17:50)
[2021-08-18] MEDS: PYRIDOSTIGMINE BROMIDE 60 MG TABLET PO ×2 (17:55→20:25)
[2021-08-18] MEDS: PROMETHAZINE HCL 25 MG TABLET PO (20:32)
[2021-08-19] VITALS: PULSE 71
[2021-08-19 04:00] VITALS: PULSE 71
[2021-08-19 05:48] VITALS: BP 118/53; PULSE 65; RESP 16; TEMP 36.3; O2SAT 99
[2021-08-19] MEDS: SODIUM CHLORIDE 0.9% IV 1,000 ML 100 ML IV CONT (05:57)
[2021-08-19 06:13] LABS: Basophils Absolute Auto 0.1 K/mm3 (0.0-0.1); Basophils Percent Auto 0.9 % (0.2-1.2); Eosinophils Absolute Auto 0.2 K/mm3 (0-0.3); Eosinophils Percent Auto 3.2 % (0-4.4); Hematocrit 28.8 % (37.0-47.0); Hemoglobin 9.6 g/dL (12.0-15.0); Immature Granulocyte Absolute 0.01 K/mm3 (0.00-0.031); Immature Granulocyte Percent A 0.2 % (0-0.5); Lymphocytes Absolute Auto 2.11 K/mm3 (0.9-3.2); Lymphocytes Percent Auto 38.1 % (18.3-44.2); Mean Corpuscular HGB Conc 33.3 g/dl (32-36); Mean Corpuscular Hemoglobin 31.3 pg (26-34); Mean Corpuscular Volume 93.8 fl (80-100); Mean Platelet Volume 11.5 fl (7.4-10.4); Monocytes Absolute Auto 0.4 K/mm3 (0.1-0.6); Monocytes Percent Auto 7.4 % (2.6-8.5); Neutrophils Absolute Auto 2.8 K/mm3 (1.3-6.7); Neutrophils Percent Auto 50.2 % (45.5-73.1); Platelet Count Result 173 k/mm3 (150-375); Red Blood Count 3.07 M/mm3 (4.2-5.4); Red Cell Distribution Width 12.8 % (11.5-14.5); White Blood Count 5.5 K/mm3 (4.5-10.0)
[2021-08-19 06:25] LABS: Anion Gap 1 mmol/L (8-16); Blood Urea Nitrogen 32 mg/dL (7-17); Calcium 8.7 mg/dL (8.4-10.2); Carbon Dioxide 24 mmol/L (22-30); Chloride 112 mmol/L (98-107); Estimated CRCL calculation 40 ml/min; Estimated Glomerular Filt Rate 41; Glucose 89 mg/dL (65-110); Sodium 137 mmol/L (137-145)
[2021-08-19 08:00] VITALS: PULSE 82
[2021-08-19] MEDS: levETIRAcetam ORAL SOL 500 MG/5 ML UDC 2000 MG PO (08:09)
[2021-08-19] MEDS: PANTOPRAZOLE 40 MG TABLET PO (08:09)
[2021-08-19] MEDS: PRAVASTATIN SODIUM 10 MG TABLET PO (08:10)
[2021-08-19] MEDS: VITAMIN B COMPLEX CAPSULE 1 CAP PO (08:10)
[2021-08-19] MEDS: TOPIRAMATE 25 MG TABLET 50 MG PO (08:10)
[2021-08-19] MEDS: CEFUROXIME AXETIL 250 MG TABLET PO (08:10)
[2021-08-19] MEDS: SACUBITRIL/VALSARTAN 24-26 MG TABLET 1 TAB PO (08:10)
[2021-08-19] MEDS: FERROUS SULFATE DRIED 142 MG TABCR PO (08:10)
[2021-08-19 08:11] VITALS: PULSE 68
[2021-08-19] MEDS: METOPROLOL SUCCINATE EXT REL 50 MG TABCR PO (08:11)
[2021-08-19] MEDS: SPIRONOLACTONE 25 MG TABLET PO (08:11)
[2021-08-19] MEDS: azaTHIOprine 50 MG TABLET PO (08:11)
[2021-08-19] MEDS: calcitrioL 0.25 MCG CAPSULE PO (08:11)
[2021-08-19] MEDS: HYDROXYCHLOROQUINE SULFATE 200 MG TABLET PO (08:11)
[2021-08-19] MEDS: DOXYCYCLINE HYCLATE 100 MG TABLET PO (08:11)
[2021-08-19] MEDS: predniSONE 5 MG TABLET PO (08:11)
--- NOTE | 2021-08-19 10:42 | PM.DS ---
DS: Admitting Diagnosis Discharge Date August 19, 2021 Admitting Diagnosis Altered mental status DS: Discharge Diagnosis Discharge Diagnosis (1) Acute metabolic encephalopathy: Code(s): G93.41 - Metabolic encephalopathy Status: Acute Assessment and Plan: Likely related to increase in creatinine from dehydration. Also complicated by polypharmacy and multiple sedated medications. Her kidney function has improved and is back to baseline. Her medicines have been continued with the exception of her tramadol. Patient reports she rarely takes this anyway. I discussed the patient in detail about the possibility of this returning if she gets dehydrated and develops renal insufficiency. She is going to follow up with her primary care physician and her specialists to discuss medications that might be contributing to this in the future. (2) Acute kidney injury superimposed on chronic kidney disease: Code(s): N17.9 - Acute kidney failure, unspecified; N18.9 - Chronic kidney disease, unspecified Status: Acute Assessment and Plan: Resolved, secondary dehydration. Follow-up primary care physician (3) Polypharmacy: Code(s): Z79.899 - Other fci (current) drug therapy Status: Acute Assessment and Plan: See plan above DS: Summary Hospital Course Hospital Course: C diagnosis and plan Time Spent with Patient Time attestation: Total time spent providing and/or coordinating discharge services: Exam Narrative: Constitutional: Patient is well-nourished in no acute distress. Patient is alert and oriented to self only HEENT: Moist mucous membranes. No scleral icterus. No lymphadenopathy. Neck: No carotid bruits noted no JVD noted Lungs: Lung sounds are clear to auscultation bilaterally. No accessory muscle use. No rhonchi, rales, or wheezes noted. Cardiovascular: Apical pulse is regular rate and rhythm. S1-S2 noted, no S3 or S4 noted. No gallops, murmurs, or rubs noted. Abdomen: Soft, round, and nontender. No palpable masses. Extremities: No edema. Nontender. Skin: No rashes or lesions. Warm and dry. Skin is intact. Neurological: No focal neurological deficits. Cranial nerves II-XII grossly intact. Psychiatric: Cooperative, appropriate mood, and affect DS: Data Data Completed and Pending Labs on day of discharge: Labs from last 24 hours 08/19/21 08/19/21 08/18/21 06:05 06:05 17:07 WBC 5.5 RBC 3.07 L Hgb 9.6 L Hct 28.8 L MCV 93.8 MCH 31.3 MCHC 33.3 RDW 12.8 Plt Count 173 MPV 11.5 H Immature Gran % (Auto) 0.2 Neut % (Auto) 50.2 Lymph % (Auto) 38.1 [place] % (Auto) 7.4 Eos % (Auto) 3.2 Baso % (Auto) 0.9 Lymph # (Auto) 2.11 [place] # (Auto) 0.4 Eos # (Auto) 0.2 Baso # (Auto) 0.1 Abs Immat Gran (auto) 0.01 Absolute Neuts (auto) 2.8 Absolute Nucleated RBC 0.0 Nucleated RBC % 0.0 Sodium 137 Potassium 4.0 Chloride 112 H Carbon Dioxide 24 Anion Gap 1 L BUN 32 H D Creatinine 1.30 H Estim Creat Clear Calc 40 Estimated GFR 41 L Glucose 89 Calcium 8.7 Ammonia < 9 L Urine Opiates Screen Urine Methadone Screen Ur Barbiturates Screen Ur Phencyclidine Scrn Ur Amphetamine Screen U Benzodiazepines Scrn Urine Cocaine Screen U Cannabinoids Screen 08/18/21 16:18 WBC RBC Hgb Hct MCV MCH MCHC RDW Plt Count MPV Immature Gran % (Auto) Neut % (Auto) Lymph % (Auto) [place] % (Auto) Eos % (Auto) Baso % (Auto) Lymph # (Auto) [place] # (Auto) Eos # (Auto) Baso # (Auto) Abs Immat Gran (auto) Absolute Neuts (auto) Absolute Nucleated RBC Nucleated RBC % Sodium Potassium Chloride Carbon Dioxide Anion Gap BUN Creatinine Estim Creat Clear Calc Estimated GFR Glucose Calcium Ammonia Urine Opiates Screen Negative Urine Methadone Screen Negative Ur Barbiturates Screen Negative Ur Phencycli
== END 2021-08-19 11:30 | disposition home or self-care (01) ==
LOC: ANHED 07:07 → ANH3MEDSUR 12:05
PROVIDERS: Nurse Practitioner Adult Health; Admitting Provider Hospitalist; Emergency Provider Emergency Medicine; PCP Internal Medicine; Visit Provider Chiropractor
DX: G93.41 Metabolic encephalopathy (principal); N17.9 Acute kidney failure, unspecified; J18.9 Pneumonia, unspecified organism; E27.40 Unspecified adrenocortical insufficiency; I12.9 Hypertensive chronic kidney disease with stage 1 through stage 4 chronic kidney disease, or unspecified chronic kidney disease; N18.9 Chronic kidney disease, unspecified; K31.84 Gastroparesis; D80.1 Nonfamilial hypogammaglobulinemia; G40.909 Epilepsy, unspecified, not intractable, without status epilepticus; M32.9 Systemic lupus erythematosus, unspecified; N31.9 Neuromuscular dysfunction of bladder, unspecified; I51.7 Cardiomegaly; Z90.49 Acquired absence of other specified parts of digestive tract; Z95.0 Presence of cardiac pacemaker; Z79.51 Long term (current) use of inhaled steroids; Z79.52 Long term (current) use of systemic steroids; Z79.899 Other long term (current) drug therapy; Z79.891 Long term (current) use of opiate analgesic
CPT/HCPCS: 36415; 36600; 51702; 70450; 71045; 80048; 80053; 80307; 81003; 82140; 82805; 83605; 83690; 83735; 84484; 85025; 85610; 85730; 87040; 87502; 93005; 96360; 96361; 99285; A9270; C9803; G0378; J7030; J7040; J7512; U0003; U0005

== ENCOUNTER 2021-09-08 14:33 | Inpatient (IN) | payer OTHER, SELFPAY ==
[2021-09-08] VITALS (32 sets, daily range): BP systolic 70–121; BP diastolic 31–77; PULSE 60–89; RESP 7–19; TEMP 36.4; O2SAT 94–100; BMI 25.7
--- NOTE | ~2021-09-08 | CT_ITS ---
EXAMINATION: CT brain wo con DATE: 09/08/2021 15:41 INDICATION: Confusion. History of seizures. TECHNIQUE: Computed tomography (CT) of the head was performed without intravenous contrast. The mA wa s adjusted according to patient size. Iterative reconstruction technique was employed. Exam dose: 60 5.33 mGy-cm total exam DLP. COMPARISON: 08/18/[address] brain FINDINGS: No intracranial mass lesion or hemorrhage or cerebrovascular accident. No midline shift or mass effect. Bilateral carotid siphon internal carotid artery calcifications are noted. There is mild nonspecific diminished attenuation cerebral white matter, likely due to chronic small vessel ischemic changes. Mi ld cerebral volume loss consistent with patient age. No subdural or epidural hematoma. No fracture or bone destruction of the cranial vault. IMPRESSION: Cerebral atherosclerosis and chronic small vessel ischemic changes of the cerebral white matter No acute intracranial finding Reviewed, dictated and finalized at [facility]. Reviewed, dictated and finalized at [facility].
--- NOTE | ~2021-09-08 | CT_ITS ---
EXAMINATION: CTA BRAIN/CAROTID DATE: 09/18/2021 16:56 INDICATION: Vasculitis with mental status changes. TECHNIQUE: Computed tomographic angiography (CTA) of the head and neck was performed with 100 mL Omni paque-300 intravenous contrast. Multiplanar reconstructions and maximum intensity projection 3D-recon structions of the carotid arteries and of the intracranial arteries were created by the technologist on a separate workstation. Precontrast CT of the head was also obtained. Automated exposure control and iterative reconstruction technique were employed.The dose-length product was 1639.94 mGy-cm. COMPARISON: Head CT dated 09/08/2021 FINDINGS: Carotid arteries: There is 0% stenosis of the right carotid bulb relative to normal distal artery lumen diameter (NASCE T criteria) with no evident atherosclerotic plaque. There is minimal atherosclerotic plaque with 0% s tenosis of the left carotid bulb relative to normal distal artery lumen diameter. Visualized aortic a rch and origin of the great vessels are unremarkable. The upper lungs are clear. Likely benign bilate ral subcentimeter thyroid nodules. Cervical soft tissues are otherwise unremarkable. Moderate cervica l spondylosis. Head: No acute intracranial hemorrhage, acute infarction or abnormal extra axial fluid collection. There is minimal scattered white matter hypoattenuation consistent with chronic small vessel ischemic disease . Ventricles are normal and symmetric. No mass/mass effect. No abnormally enhancing brain lesions. T he orbits, paranasal sinuses and mastoid air cells are normal. Intracranial arteries Small amount of nonhemodynamically significant atherosclerotic plaque at the bilateral carotid siphon s. There is no hemodynamically significant stenosis in the vertebral, basilar and internal carotid ar teries. Left vertebral artery is dominant. There is more prominent asymmetric decrease in caliber of the distal right vertebral artery between the takeoff of the right anterior inferior cerebellar arter y and its confluence with the distal left vertebral artery. There are similar asymmetry between the d iminutive right anterior inferior cerebellar artery and its branches in the contralateral left anteri or inferior cerebellar artery. There are no aneurysms identified. Bilateral A1 segments are patent. T he right A1 segment appears diminutive with likely collateral flow supplied via an anterior communica ting artery. Bilateral P1 segments are patent and symmetric. Cerebral arterial arborization appears s ymmetric. IMPRESSION: 1. 0% stenosis of the left and right carotid bulbs relative to normal distal artery lumen diameter (N ASCET criteria). 2. Segmental asymmetric decrease in caliber of the distalmost right vertebral artery as well as of th e right anterior inferior cerebellar artery relative to the contralateral left vertebral and anteroin ferior cerebellar arteries. This could be developmental but could also be related to reported history of vasculitis. 3. Stable appearance of minimal scattered white matter hypoattenuation consistent with chronic small vessel ischemic disease. Reviewed, dictated and finalized at location [facility]. IMPRESSION: 1. 0% stenosis of the left and right carotid bulbs relative to normal distal ar kathleen lumen diameter (NASCET criteria). 2. Segmental asymmetric decrease in caliber of the distalmost right vertebral a rtery as well as of the right anterior inferior cerebellar artery relative to t he contralateral left vertebral and anteroinferior cerebellar arteries. This co uld be developmental but could also be related to reported history of vasculiti s. 3. Stable appearance of minimal scattered white matter hypoattenuation consiste nt with chronic small vessel ischemic disease.
--- NOTE | 2021-09-08 14:39 | ECG_ITS ---
Measurements Intervals [place] Rate: 73 P: -78 MS: 272 QRS: 26 QRSD: 94 T: 43 QT: 399 QTc: 443 Interpretive Statements ELECTRONIC ATRIAL PACEMAKER LOW QRS VOLTAGE IN PRECORDIAL LEADS [QRS DEFLECTION < 1.0 mV IN CHEST LEADS] NONSPECIFIC T-WAVE ABNORMALITY ABNORMAL RHYTHM ECG COMPARED TO ECG 08/18/2021 07:06:17 NO SIGNIFICANT CHANGES Electronically Signed On 09-09-2021 13:36:25 CDT by Brianne Lynch M.D.
--- NOTE | 2021-09-08 15:18 | ED.AMS ---
HPI - Altered Mental Status General Chief Complaint: Altered Mental Status Stated Complaint: AMS Time Seen by Provider: 09/08/21 14:59 Source: family, EMS and RN notes reviewed Mode of arrival: EMS Limitations: altered mental status History of Present Illness HPI narrative: Patient 61 years old white female brought to the emergency room by ambulance with her who is telling me that patient usually wake up at 5:30 AM daily. Today had trouble to get up from bed because she was so sleepy, at 7 AM was able to get up and was confused, trying to put her cloths and her shoes backward.. Patient was a scheduled for IgG infusion for myasthenia gravis at [facility] today, after the told the infusion center that patient does not look good and probably have seizure, was told to reschedule her for next week. Then was not able to manage to bring the patient to the ED then called 911 to bring patient to our emergency room. Currently patient is awake, severely confused, answering Aysha to any question. Related Data Home Medications Medication Instructions Recorded Confirmed Aptiom 800 mg PO HS 04/21/21 08/18/21 baclofen 20 mg PO TID 04/21/21 08/18/21 calcitriol 0.25 mcg PO DAILY 04/21/21 08/18/21 calcium carbonate-vitamin D3 1 tablet PO BID 04/21/21 08/18/21 d-mannose 1,000 mg PO BID 04/21/21 08/18/21 ferrous sulfate 45 mg PO DAILY 04/21/21 08/18/21 hydroxychloroquine [Plaquenil] 200 mg PO BID 04/21/21 08/18/21 levetiracetam [Keppra] 2,000 mg PO BID 04/21/21 08/18/21 lorazepam [Ativan] 1 mg PO BID 04/21/21 08/18/21 pravastatin 10 mg PO DAILY #0 04/21/21 08/18/21 prednisone 5 mg PO DAILY 04/21/21 08/18/21 promethazine 25 mg PO TID PRN 04/21/21 08/18/21 pyridostigmine bromide 60 mg PO HS 04/21/21 08/18/21 pyridostigmine bromide 60 mg PO QACDINNER 04/21/21 08/18/21 pyridostigmine bromide 90 mg PO QAM 04/21/21 08/18/21 pyridostigmine bromide 90 mg PO QNOON 04/21/21 08/18/21 topiramate [Topamax] 50 mg PO BID 04/21/21 08/18/21 vitamin B complex 1 tablet PO DAILY 04/21/21 08/18/21 pantoprazole [Protonix] 40 mg PO DAILY 06/24/21 08/18/21 albuterol sulfate 2.5 mg INHALATION Q6H PRN 06/26/21 08/18/21 Entresto 1 tablet PO BID 07/25/21 08/18/21 clobazam [Onfi] 20 mg PO HS 07/25/21 08/18/21 metoprolol succinate [Toprol XL] 50 mg PO QAM 07/25/21 08/18/21 spironolactone [Aldactone] 25 mg PO QAM 07/25/21 08/18/21 azathioprine 50 mg PO DAILY 08/18/21 08/18/21 furosemide 40 mg DAILY 08/18/21 08/18/21 potassium chloride [Klor-Con M20] 20 meq PO DAILY 08/18/21 08/18/21 Allergies Allergy/AdvReac Type Severity Reaction Status Date / Time carbamazepine Allergy Other Verified 08/18/21 07:17 erythromycin base Allergy Rash Verified 08/18/21 07:17 nitrofurantoin Allergy Hives Verified 08/18/21 07:17 Penicillins Allergy Swelling Verified 08/18/21 07:17 of Lip/Tongue/Throat phenytoin Allergy Other Verified 08/18/21 07:17 Sulfa (Sulfonamide Allergy Anaphylaxis Verified 08/18/21 07:17 Antibiotics) sulfasalazine Allergy Anaphylaxis Verified 08/18/21 07:17 ciprofloxacin AdvReac counter Verified 08/18/21 07:17 indicaticated with MG - use cautiously per pt. codeine AdvReac Nausea Verified 08/18/21 07:17 levodropropizine AdvReac Unknown Verified 08/18/21 07:17 pregabalin AdvReac Dizziness Verified 08/18/21 07:17 zolpidem AdvReac Other Verified 08/18/21 07:17 Review of Systems Review of Systems: ROS unobtainable: Yes unobtainable due to mental status PMFSH Past Medical History Medical History Adrenal insufficiency On low-dose prednisone. Cardiomegaly A chronic finding per patient report. Followed by a camera supervisor associated with [facility]. Chronic renal failure Frequent urinary tract infections Gastroparesis Hypertension Hypogammaglobulinemia Myasthenia gravis Neurogenic bladder Seizure Seizure disorder Sick sinus syndrome Systemic lupus shannon
[2021-09-08] MEDS: SODIUM CHLORIDE 0.9% IV 1,000 ML 999 ML IV CONT ×2 (16:04→17:08)
[2021-09-08 16:13] LABS: Basophils Absolute Auto 0.1 K/mm3 (0.0-0.1); Basophils Percent Auto 0.9 % (0.2-1.2); Eosinophils Absolute Auto 0.2 K/mm3 (0-0.3); Eosinophils Percent Auto 1.9 % (0-4.4); Hematocrit 28.8 % (37.0-47.0); Hemoglobin 9.3 g/dL (12.0-15.0); Immature Granulocyte Absolute 0.02 K/mm3 (0.00-0.031); Immature Granulocyte Percent A 0.2 % (0-0.5); Lymphocytes Absolute Auto 1.49 K/mm3 (0.9-3.2); Lymphocytes Percent Auto 16.6 % (18.3-44.2); Mean Corpuscular HGB Conc 32.3 g/dl (32-36); Mean Corpuscular Hemoglobin 30.8 pg (26-34); Mean Corpuscular Volume 95.4 fl (80-100); Mean Platelet Volume 11.1 fl (7.4-10.4); Monocytes Absolute Auto 0.5 K/mm3 (0.1-0.6); Monocytes Percent Auto 5.2 % (2.6-8.5); Neutrophils Absolute Auto 6.8 K/mm3 (1.3-6.7); Neutrophils Percent Auto 75.2 % (45.5-73.1); Platelet Count Result 221 k/mm3 (150-375); Red Blood Count 3.02 M/mm3 (4.2-5.4)
[2021-09-08 16:20] LABS: INR 1.1; Prothrombin Time 13.8 Seconds (11.1-14.7)
[2021-09-08 16:21] LABS: Alanine Aminotransferase 17 U/L (4-35); Albumin Level 3.9 g/dL (3.5-5.1); Alkaline Phosphatase 79 U/L (38-126); Anion Gap 5 mmol/L (8-16); Aspartate Amino Transferase 33 U/L (14-36); Bilirubin,Total 0.3 mg/dL (0.2-1.3); Blood Urea Nitrogen 67 mg/dL (7-17); Calcium 9.1 mg/dL (8.4-10.2); Carbon Dioxide 26 mmol/L (22-30); Chloride 107 mmol/L (98-107); Estimated CRCL calculation 14 ml/min; Estimated Glomerular Filt Rate 14; Glucose 101 mg/dL (65-110); Sodium 138 mmol/L (137-145)
[2021-09-08 16:22] LABS: Partial Thromboplastin Time 50.2 SECONDS (22.3-36.8)
[2021-09-08 16:31] LABS: Amphetamine Screen Urine Negative (Negative); Barbiturate Screen Urine Negative (Negative); Benzodiazepines Screen Urine Positive (Negative); Cannabinoid Screen Urine Negative (Negative); Cocaine Screen Urine Negative (Negative); Methadone Screen Urine Negative (Negative); Opiate Screen Urine Negative (Negative); Phencyclidine Screen Urine Negative (Negative)
[2021-09-08 16:33] LABS: Add Urine Microscopic? YES; Appearance Urine Cloudy (Clear); Bacteria Urine Trace /hpf; Bilirubin Urine Negative (Negative); Blood Urine Negative (Negative); Color Urine Yellow (Yellow); Glucose Urine UA Negative (Negative); Ketones Urine Negative (Negative); Leukocyte Esterase Ur 2+ LEU/UL (Negative); Mucus Urine Rare /lpf; Nitrate Urine Positive (Negative); Protein Urine Negative (Negative); Specific Grav Ur 1.011 (1.001-1.035); Squamous Epithelial Cell Urine Many /hpf (Few); Urobilinogen Urine Negative mg/dL (<2.0)
--- NOTE | 2021-09-08 18:27 | PC.NURSE ---
per phone call with : pt is FULL CODE at this time.
--- NOTE | 2021-09-08 18:31 | PC.NURSE ---
Hospitalist coming to the ED to reassess the pt per dry house attendant request for possible admission for a higher acuity bed. charge nurse made aware of situation.
--- NOTE | 2021-09-08 19:00 | PM.IMHP ---
H&P: HPI History of Present Illness Date/Time: 09/08/21 19:00 Chief Complaint: Altered mental status. Narrative: This is a 61-year-old female with multiple medical problems including epilepsy, myasthenia gravis, lupus, chronic kidney disease, adrenal insufficiency, hypogammaglobulinemia, sick sinus syndrome status post permanent pacemaker insertion, and several other comorbidities who presented to the emergency department earlier today from home for evaluation of altered mental status. At the time of my evaluation she will open her eyes to stimuli and she attempts to answer questions though she is mumbling and is difficult to understand. As such some of the following history is supplemented via a review of her electronic medical records as well as discussions with her . The patient has been seen emergency department and admitted to the hospital under similar circumstances on several occasions. Most recently she was admitted overnight on 08/18/2021 for metabolic encephalopathy which was felt to be related to increasing creatinine from dehydration in addition to polypharmacy. With hydration she improved rapidly overnight and she was discharged home. In any event, the patient's had difficulties waking her from sleep at 05:30 this morning and she remained groggy and confused throughout the morning. She was supposed to have an IVIG infusion at [facility] this morning and while she was getting ready she was increasingly confused, for example she was attempting to put her clothes and shoes on backwards and after he called the infusion clinic who told him that she should probably go to the ER instead. On arrival to the emergency department she was alert but very confused and she consistently repeated her name ?Aysha? with every questioned ask of her. Blood pressures were soft on arrival to the emergency department however they have improved with IV fluid rehydration and an appropriate blood pressure cuff size. She was found to have an acute on chronic kidney injury with a BUN of 67 and creatinine of 3.30. She was unable to urinate and a Krause catheter was inserted which yielded nearly 1500 cc of yellow urine. Urine drug screen was positive for benzodiazepines though she is on those chronically. Brain CT did not show any acute findings. Due to her continued altered mental status, she is being admitted for further care. At the time my evaluation she has no complaints but she falls asleep quite quickly after being stimulated. Review of Systems Review of Systems: Review of systems was unable to be obtained accurately from the patient. She has not had any recent fever, cold, or flu symptoms according to the . [facility] Past Medical History Medical History (Updated 09/08/21 @ 21:45 by Eileen Nuñez PA-C) Adrenal insufficiency On low-dose prednisone. Cardiomyopathy Ejection fraction was 25 to 30% on echocardiogram in June 2021. Chronic renal failure Frequent urinary tract infections Gastroparesis Hypertension Hypogammaglobulinemia Myasthenia gravis Patient uses a trilogy unit at nighttime. Neurogenic bladder Paroxysmal atrial fibrillation Seizure disorder Sick sinus syndrome Systemic lupus erythematosus Surgical History Surgical History History of 2 sections History of appendectomy History of hysterectomy History of laparoscopic cholecystectomy History of partial colectomy Secondary to obstruction from adhesions. History of permanent cardiac pacemaker placement Medtronic DDD pacemaker 07/05/11 in [place] Port-A-Cath in place Family History Family History Other Hypertension Social History Social History Social History: Surrogate decision maker: Dann Anderson, spouse. Code status: Full code. Smoking status: Never smoker Tobacco type: ciga
[2021-09-08] MEDS: SODIUM CHLORIDE 0.9% IV 1,000 ML 150 ML IV CONT (19:29)
--- NOTE | 2021-09-08 20:03 | PC.NURSE ---
Eileen came down and stated that her BP is always low and she is not concerned. just send her to the floor. 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
--- NOTE | 2021-09-08 21:45 | PC.NURSE ---
This patient, Aysha Anderson, was admitted to [facility] Surg Room 332-01. Patient/family oriented to hospital policies and general routines including ID bracelet, bed and alarms, visiting hours, pain management, procedures, bathroom and other care routines, personal items, smoking policy, room service/diet, and visiting hours. Information on how to activate the Rapid Response Team has been discussed. Patient/Family are encouraged to report perceived risks to care and to ask questions if they do not understand what they are told or what they should do.
[2021-09-08] MEDS: CENTRAL LINE FLUSH 10 ML IV PUSH (22:16)
[2021-09-08 22:27] LABS: Alveolar/Arterial O2 Gradient 18.4 mmHg; Base Excess ABG -3.2 mEq/l (+/-2.0); Carboxyhemoglobin 0.3 % THb (0-2.0); Device ROOM AIR; Fractional Inspired Oxygen 21 %; HCO3 ABG 21.5 mEq/l (22.0-26.0); Methemoglobin ABG 0.1 %THb (0-1.5); Modified Allen's Test Pass; Oxygen Content ABG 19.6 %vol (16.0-22.0); Oxygen Saturation ABG 96.4 % (95.0-100.0); Oxyhemoglobin 94.5 % THb (90.0-100.0); PCO2 ABG 37.7 mmHg (35.0-45.0); PO2 ABG 86.2 mmHg (80.0-100.0); Reduced Hemoglobin 5.1 %THb (0-5.0); Site Drawn LEFT RADIAL; Total Hemoglobin 14.7 g/dL (12.0-18.0); pH ABG 7.374 (7.350-7.450)
[2021-09-09] VITALS (14 sets, daily range): BP systolic 101–120; BP diastolic 54–57; PULSE 60–84; RESP 14–20; TEMP 36.6–37.2; O2SAT 95–99
[2021-09-09] MEDS: levETIRAcetam ORAL SOL 500 MG/5 ML UDC 2000 MG PO ×3 (00:44→21:08)
[2021-09-09] MEDS: PYRIDOSTIGMINE BROMIDE 60 MG TABLET PO ×3 (00:45→21:10)
[2021-09-09] MEDS: TOPIRAMATE 25 MG TABLET 50 MG PO ×2 (00:45→08:17)
[2021-09-09] MEDS: SODIUM CHLORIDE 0.9% IV 1,000 ML 75 ML IV CONT ×2 (02:12→13:59)
[2021-09-09 04:52] LABS: Ammonia < 9 umol/L (9-30)
[2021-09-09 05:01] LABS: Alanine Aminotransferase 15 U/L (4-35); Albumin Level 3.1 g/dL (3.5-5.1); Alkaline Phosphatase 70 U/L (38-126); Anion Gap 1 mmol/L (8-16); Aspartate Amino Transferase 31 U/L (14-36); Bilirubin,Total 0.2 mg/dL (0.2-1.3); Blood Urea Nitrogen 46 mg/dL (7-17); Calcium 8.1 mg/dL (8.4-10.2); Carbon Dioxide 23 mmol/L (22-30); Chloride 116 mmol/L (98-107); Estimated CRCL calculation 25 ml/min; Estimated Glomerular Filt Rate 28; Glucose 99 mg/dL (65-110); Magnesium 2.3 mg/dL (1.6-2.3); Potassium 3.7 mmol/L (3.4-5.0); Sodium 140 mmol/L (137-145)
[2021-09-09] MEDS: CENTRAL LINE FLUSH 10 ML IV PUSH ×3 (05:59→21:10)
[2021-09-09] MEDS: PANTOPRAZOLE 40 MG TABLET PO (08:16)
[2021-09-09] MEDS: predniSONE 5 MG TABLET PO (08:16)
[2021-09-09] MEDS: HYDROXYCHLOROQUINE SULFATE 200 MG TABLET PO ×2 (08:16→16:25)
[2021-09-09] MEDS: DOXYCYCLINE HYCLATE 100 MG TABLET PO (08:16)
[2021-09-09] MEDS: METOPROLOL SUCCINATE EXT REL 50 MG TABCR PO (08:16)
[2021-09-09] MEDS: calcitrioL 0.25 MCG CAPSULE PO (08:16)
[2021-09-09] MEDS: azaTHIOprine 50 MG TABLET PO (08:16)
[2021-09-09] MEDS: PRAVASTATIN SODIUM 10 MG TABLET PO (08:17)
--- NOTE | 2021-09-09 08:56 | PC.NURSE ---
clarified with pharmacy if eslicarbazepine 800 mg Po Hs is available, pt home medication, is not available pt will have to bring from home. Informed pt this morning.
--- NOTE | 2021-09-09 10:17 | PC.NURSE ---
pharmacy communication ordered placed, pt to bring in medication from home, please hold until verified by pharmacy.
--- NOTE | 2021-09-09 10:35 | PCCCNOTE ---
On 09/09/21, the student, [Flower Chino], provided care and completed [facility] documentation on this patient. I have reviewed the student's documentation and agree with the findings.
[2021-09-09] MEDS: MAGNESIUM OXIDE 400 MG TABLET PO (12:47)
[2021-09-09] MEDS: FERROUS SULFATE DRIED 142 MG TABCR PO (12:47)
--- NOTE | 2021-09-09 13:20 | PC.NURSE ---
called MD Vásquez to clarify pt medication, pt states take clobazam for sz. On pt home medication list, but wasn't restarted, brought in from home. Pharmacy to verify if MD Vásquez ok's medication for pt. Eslincarbazepine 800 mg brought in from home pharmacy to verify medication. Eslicarbazepine 800 mg tablets = 38 tablets counted with Montserrat Gonzalez charge nurse, and clobazam 20 mg tablets counted with Montserrat Gonzalez =210 tablets.
--- NOTE | 2021-09-09 13:39 | PC.NURSE ---
MD Vásquez ok'd eslicarbazepine 800 mg po HS and clobazam 20 mg po hs, will bring down of pharmacy to verify, pt brought in from home
--- NOTE | 2021-09-09 13:59 | PHAR ---
HOME MEDICATIONS VERIFIED BY PHARMACY APTIOM 800MG TABLETS 1 TAB QHS [id number] CLOBAZAM 20MG TABLET TAKE 2 TABLETS PO AT BEDTIME RX#[id number]
[2021-09-09] MEDS: PHARMACIST COMMUNICATION ORDER 1 EACH XX (14:03)
--- NOTE | 2021-09-09 15:12 | PC.NURSE ---
imodium ordered for diarrhea this shift via MD Vásquez
[2021-09-09] MEDS: LOPERAMIDE HCL 2 MG CAPSULE PO (15:19)
--- NOTE | 2021-09-09 16:57 | PM.IMPN ---
Progress Note: A&P Assessment and Plan (1) Myasthenia gravis: Code(s): G70.00 - Myasthenia gravis without (acute) exacerbation Status: Acute Assessment and Plan: Stable, continue BiPAP support overnight (2) Paroxysmal atrial fibrillation: Code(s): I48.0 - Paroxysmal atrial fibrillation Status: Acute Assessment and Plan: Normal sinus rhythm at this time, continue Xarelto (3) Cardiomyopathy: Code(s): I42.9 - Cardiomyopathy, unspecified Status: Acute Assessment and Plan: Appears euvolemic, stable (4) Seizure disorder: Code(s): G40.909 - Epilepsy, unspecified, not intractable, without status epilepticus Status: Chronic Assessment and Plan: Continue AED, due to rapid resolution of symptoms, EEG canceled (5) Acute kidney injury: Code(s): N17.9 - Acute kidney failure, unspecified Status: Acute Assessment and Plan: Creatinine significantly improved down to 1.8 from 3.3 yesterday (6) Metabolic encephalopathy: Code(s): G93.41 - Metabolic encephalopathy Status: Acute Assessment and Plan: Appears completely resolved (7) Neurogenic bladder: Code(s): N31.9 - Neuromuscular dysfunction of bladder, unspecified Status: Acute Assessment and Plan: Discontinue Krause today, monitor urine output, patient does straight cath occasionally at home Subjective Date/time seen: 09/09/21 14:57 Patient states she is doing well, no complaints. No events noted overnight. She denies any confusion, headaches or vision changes. No chest pain or shortness of breath. No fevers or chills. She does admit to a little diarrhea, but attributes this to being on antibiotic and states this always seems to happen to her. She states she has had couple different UTIs over the years and she will occasionally get confused with them, but never this bad. Review of Systems Review of Systems: All systems reviewed & are unremarkable except as noted in HPI and below Constitutional: Constitutional: Reports as per HPI and Reports no additional constitutional complaints Exam Const: General: no acute distress HENMT: Mouth: Yes moist mucous membranes Eyes: General: appearance normal, both eyes and all related structures Neck: Neck: no JVD Carotids: no bruits Resp: Auscultation: clear to auscultation bilaterally and no wheezes Cardio: Rate: regular rate Rhythm: regular rhythm GI: Inspection: non-distended GI Palp: Yes Soft to palpation and No Tenderness to palpation present (GI) Urinary Catheter: Urinary Catheter: patent and draining Skin: General skin exam: no rashes or lesions noted Neuro: Cognition (Neuro): normal cognition Speech: normal speech Psych: Mental Status: mental status grossly normal Thought content: Yes Normal thought content present Objective Data Vital Signs Vital Signs: Vital Signs - 24 hr 09/08/21 18:05 09/08/21 18:08 09/08/21 18:23 Temperature Pulse Rate 67 61 60 Respiratory Rate 12 14 13 Blood Pressure 96/53 L Pulse Oximetry 100 96 09/08/21 18:30 09/08/21 18:38 09/08/21 18:45 Temperature Pulse Rate 60 60 60 Respiratory Rate 10 L 7 L 16 Blood Pressure 82/50 L Pulse Oximetry 100 100 97 09/08/21 18:46 09/08/21 18:51 09/08/21 18:52 Temperature Pulse Rate 60 89 85 Respiratory Rate 10 L 14 16 Blood Pressure 71/41 L 93/31 L 85/50 L Pulse Oximetry 94 09/08/21 19:00 09/08/21 19:01 09/08/21 19:15 Temperature Pulse Rate 61 60 60 Respiratory Rate 9 L 11 L 15 Blood Pressure 86/50 L Pulse Oximetry 100 09/08/21 19:16 09/08/21 19:29 09/08/21 19:30 Temperature Pulse Rate 60 61 61 Respiratory Rate 19 12 11 L Blood Pressure 98/39 L 98/77 L 121/68 Pulse Oximetry 100 100 100 09/08/21 19:31 09/08/21 19:45 09/08/21 19:46 Temperature Pulse Rate 61 60 60 Respiratory Rate 15 10 L 12 Blood Pressure 82/52 L Pulse Oximetry 97 97
[2021-09-09] MEDS: SACCHAROMYCES BOULARDII 250 MG CAPSULE PO (17:45)
[2021-09-09] MEDS: RIVAROXABAN 20 MG TABLET PO (21:10)
[2021-09-10] VITALS (14 sets, daily range): BP systolic 109–128; BP diastolic 43–59; PULSE 66–90; RESP 16–20; TEMP 36.1–36.8; O2SAT 97–100
[2021-09-10] MEDS: SODIUM CHLORIDE 0.9% IV 1,000 ML 75 ML IV CONT ×2 (01:39→15:02)
[2021-09-10] MEDS: CENTRAL LINE FLUSH 10 ML IV PUSH ×2 (06:38→14:39)
[2021-09-10] MEDS: FERROUS SULFATE DRIED 142 MG TABCR PO (07:33)
[2021-09-10] MEDS: MAGNESIUM OXIDE 400 MG TABLET PO (07:34)
--- NOTE | 2021-09-10 09:18 | PM.IMPN ---
Progress Note: A&P Assessment and Plan (1) Myasthenia gravis: Code(s): G70.00 - Myasthenia gravis without (acute) exacerbation Status: Acute Assessment and Plan: Stable, continue BiPAP support overnight (2) Paroxysmal atrial fibrillation: Code(s): I48.0 - Paroxysmal atrial fibrillation Status: Acute Assessment and Plan: Normal sinus rhythm at this time, continue Xarelto (3) Cardiomyopathy: Code(s): I42.9 - Cardiomyopathy, unspecified Status: Acute Assessment and Plan: Appears euvolemic, stable (4) Seizure disorder: Code(s): G40.909 - Epilepsy, unspecified, not intractable, without status epilepticus Status: Chronic Assessment and Plan: Continue AED, due to rapid resolution of symptoms, EEG canceled (5) Acute kidney injury: Code(s): N17.9 - Acute kidney failure, unspecified Status: Acute Assessment and Plan: Creatinine significantly improved down to 1.8 from 3.3 yesterday, will restart the patient's Entresto, if blood pressure continues to stabilize, we will restart Lasix and Aldactone tomorrow, consider discharge later in the day (6) Metabolic encephalopathy: Code(s): G93.41 - Metabolic encephalopathy Status: Acute Assessment and Plan: Appears completely resolved (7) Neurogenic bladder: Code(s): N31.9 - Neuromuscular dysfunction of bladder, unspecified Status: Acute Assessment and Plan: Discontinue Krause today, monitor urine output, patient does straight cath occasionally at home Subjective Date/time seen: 09/10/21 09:18 Patient states she feels well today, no complaints. No seizure activity, no nausea vomiting or diarrhea. No fevers or chills or other events noted. She states she is quite tired and sleeps well, but otherwise has no symptoms. Review of Systems Review of Systems: All systems reviewed & are unremarkable except as noted in HPI and below Constitutional: Constitutional: Reports as per HPI and Reports no additional constitutional complaints Exam Narrative: General: Chronically ill-appearing female HEENT: Normocephalic, atraumatic. Wearing glasses. Pupils are 2 to 3 mm and are reactive. Sclerae anicteric. Conjunctiva injected. Tacky mucous membranes. Oropharynx poorly visualized. Neck: Supple. No JVD, lymphadenopathy, or obvious thyromegaly. Respiratory: Respirations are even and nonlabored and lungs are clear to auscultation. Cardiovascular: Regular rate and rhythm with normal S1-S2. Pacemaker in left anterior chest per Gastrointestinal: Abdomen is slightly firm with a distended bladder. She is mildly tender to palpation over the bladder. Positive bowel sounds. No guarding or rebound tenderness. Skin: Warm and dry. Generalized pallor. Extremities: No cyanosis, clubbing, or edema. Radial and pedal pulses intact. Neurological: Somnolent though she will arouse to stimuli. She does track somewhat with her eyes. She follows basic commands but does not participate fully in the neurologic exam as she is somnolent falls asleep easily. Cranial nerves 2-12 are grossly intact. She mumbles when attempting to answer questions. Toes are downgoing bilaterally. Psychiatric: Somnolent and confused. Const: General: no acute distress HENMT: Mouth: Yes moist mucous membranes Eyes: General: appearance normal, both eyes and all related structures Neck: Neck: no JVD Carotids: no bruits Resp: Auscultation: clear to auscultation bilaterally and no wheezes Cardio: Rate: regular rate Rhythm: regular rhythm GI: Inspection: non-distended Urinary Catheter: Urinary Catheter: patent and draining Skin: General skin exam: no rashes or lesions noted Neuro: Cognition (Neuro): normal cognition Speech: normal speech Psych: Mental Status: mental status grossly normal Objective Data Vital Signs Vital Signs: Vital Signs - 24 hr 09/09/21 12:00 09/09/21 14:00 09/09/21 14:40 Temper
[2021-09-10] MEDS: levETIRAcetam ORAL SOL 500 MG/5 ML UDC 2000 MG PO ×2 (09:39→21:02)
[2021-09-10] MEDS: azaTHIOprine 50 MG TABLET PO (09:40)
[2021-09-10] MEDS: calcitrioL 0.25 MCG CAPSULE PO (09:40)
[2021-09-10] MEDS: PRAVASTATIN SODIUM 10 MG TABLET PO (09:41)
[2021-09-10] MEDS: TOPIRAMATE 25 MG TABLET 50 MG PO ×2 (09:41→21:02)
[2021-09-10] MEDS: SACUBITRIL/VALSARTAN 24-26 MG TABLET 1 TAB PO ×2 (09:41→17:21)
[2021-09-10] MEDS: predniSONE 5 MG TABLET PO (09:41)
[2021-09-10] MEDS: HYDROXYCHLOROQUINE SULFATE 200 MG TABLET PO ×2 (09:42→17:20)
[2021-09-10] MEDS: DOXYCYCLINE HYCLATE 100 MG TABLET PO (09:42)
[2021-09-10] MEDS: METOPROLOL SUCCINATE EXT REL 50 MG TABCR PO (09:43)
[2021-09-10] MEDS: PANTOPRAZOLE 40 MG TABLET PO (09:43)
[2021-09-10] MEDS: SACCHAROMYCES BOULARDII 250 MG CAPSULE PO ×2 (09:43→17:21)
[2021-09-10] MEDS: PYRIDOSTIGMINE BROMIDE 60 MG TABLET PO ×2 (17:21→21:02)
[2021-09-10] MEDS: RIVAROXABAN 20 MG TABLET PO (21:02)
[2021-09-10] MEDS: HOME MEDICATION 0.5 EACH PO (21:03)
[2021-09-11] VITALS (15 sets, daily range): BP systolic 120–130; BP diastolic 59–67; PULSE 62–90; RESP 14–20; TEMP 36.2–37; O2SAT 96–100
[2021-09-11] MEDS: SODIUM CHLORIDE 0.9% IV 1,000 ML 75 ML IV CONT (05:39)
[2021-09-11] MEDS: levETIRAcetam ORAL SOL 500 MG/5 ML UDC 2000 MG PO ×2 (08:56→20:47)
[2021-09-11] MEDS: SACUBITRIL/VALSARTAN 24-26 MG TABLET 1 TAB PO ×2 (08:58→17:17)
[2021-09-11] MEDS: HYDROXYCHLOROQUINE SULFATE 200 MG TABLET PO ×2 (08:58→17:17)
[2021-09-11] MEDS: calcitrioL 0.25 MCG CAPSULE PO (08:58)
[2021-09-11] MEDS: METOPROLOL SUCCINATE EXT REL 50 MG TABCR PO (08:58)
[2021-09-11] MEDS: TOPIRAMATE 25 MG TABLET 50 MG PO (08:59)
[2021-09-11] MEDS: predniSONE 5 MG TABLET PO (08:59)
[2021-09-11] MEDS: SACCHAROMYCES BOULARDII 250 MG CAPSULE PO ×2 (08:59→17:17)
[2021-09-11] MEDS: azaTHIOprine 50 MG TABLET PO (09:00)
[2021-09-11] MEDS: PANTOPRAZOLE 40 MG TABLET PO (09:00)
[2021-09-11] MEDS: PRAVASTATIN SODIUM 10 MG TABLET PO (09:00)
[2021-09-11 09:28] LABS: Hematocrit 28.5 % (37.0-47.0); Hemoglobin 9.3 g/dL (12.0-15.0); Mean Corpuscular HGB Conc 32.6 g/dl (32-36); Mean Corpuscular Hemoglobin 31.5 pg (26-34); Mean Corpuscular Volume 96.6 fl (80-100); Mean Platelet Volume 10.4 fl (7.4-10.4); Platelet Count Result 194 k/mm3 (150-375); Red Blood Count 2.95 M/mm3 (4.2-5.4); Red Cell Distribution Width 14.3 % (11.5-14.5); White Blood Count 5.2 K/mm3 (4.5-10.0)
[2021-09-11 09:41] LABS: Anion Gap 2 mmol/L (8-16); Blood Urea Nitrogen 10 mg/dL (7-17); Calcium 8.6 mg/dL (8.4-10.2); Carbon Dioxide 20 mmol/L (22-30); Chloride 114 mmol/L (98-107); Estimated CRCL calculation 64 ml/min; Estimated Glomerular Filt Rate > 60; Glucose 140 mg/dL (65-110); Potassium 3.7 mmol/L (3.4-5.0); Sodium 136 mmol/L (137-145)
[2021-09-11] MEDS: HYDROCORTISONE SODIUM SUCCINATE 100 MG/2 ML VIAL IV PUSH (10:42)
[2021-09-11] MEDS: FUROSEMIDE 40 MG TABLET PO (10:42)
[2021-09-11] MEDS: SPIRONOLACTONE 25 MG TABLET PO (10:42)
[2021-09-11] MEDS: FERROUS SULFATE DRIED 142 MG TABCR PO (10:44)
[2021-09-11] MEDS: MAGNESIUM OXIDE 400 MG TABLET PO (10:45)
--- NOTE | 2021-09-11 13:26 | PM.IMPN ---
Progress Note: A&P Assessment and Plan (1) Myasthenia gravis: Code(s): G70.00 - Myasthenia gravis without (acute) exacerbation Status: Acute Assessment and Plan: Stable, continue BiPAP support overnight (2) Paroxysmal atrial fibrillation: Code(s): I48.0 - Paroxysmal atrial fibrillation Status: Acute Assessment and Plan: Normal sinus rhythm at this time, continue Xarelto (3) Seizure disorder: Code(s): G40.909 - Epilepsy, unspecified, not intractable, without status epilepticus Status: Chronic Assessment and Plan: Continue AED, due to rapid resolution of symptoms, EEG canceled (4) Acute kidney injury: Code(s): N17.9 - Acute kidney failure, unspecified Status: Acute Assessment and Plan: Creatinine improved, all home meds restarted, including Lasix, Entresto and Aldactone (5) Metabolic encephalopathy: Code(s): G93.41 - Metabolic encephalopathy Status: Acute Assessment and Plan: Appears mostly improved, but not completely resolved (6) Neurogenic bladder: Code(s): N31.9 - Neuromuscular dysfunction of bladder, unspecified Status: Acute Assessment and Plan: Krause discontinued, monitor urination (7) 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 Spoke to the at length regarding the recurrent episodes of confusion. She has had several admissions for this and the differential included polypharmacy, postictal state, dehydration and UTI. No events noted overnight. No fevers or chills. No nausea vomiting or diarrhea. No chest pain or shortness of breath. Review of Systems Review of Systems: All systems reviewed & are unremarkable except as noted in HPI and below Exam Const: General: no acute distress HENMT: Mouth: Yes moist mucous membranes Eyes: General: appearance normal, both eyes and all related structures Neck: Neck: no JVD Resp: Auscultation: clear to auscultation bilaterally Cardio: Rate: regular rate Rhythm: regular rhythm GI: Inspection: non-distended GI Palp: Yes Soft to palpation and No Tenderness to palpation present (GI) Skin: General skin exam: no rashes or lesions noted Neuro: General: CN's II-XI intact bilaterally Psych: Speech and movement: Slowed speech present (Psych) Affect: Blunted affect present Attitude: cooperative Thought content: Yes Normal thought content present Insight: Fair insight present (Psych) Judgement: Fair judgement present (Psych) Objective Data Vital Signs Vital Signs: Vital Signs - 24 hr 09/10/21 13:50 09/10/21 14:00 09/10/21 16:00 Temperature 98.3 F Pulse Rate 84 81 90 Respiratory Rate 16 18 Blood Pressure 128/57 L Pulse Oximetry 97 100 09/10/21 20:00 09/10/21 21:43 09/10/21 23:17 Temperature 96.9 F L Pulse Rate 68 72 79 Respiratory Rate 16 20 Blood Pressure 125/59 L Pulse Oximetry 99 100 09/11/21 00:00 09/11/21 02:45 09/11/21 04:00 Temperature Pulse Rate 62 71 84 Respiratory Rate 14 Blood Pressure Pulse Oximetry 99 09/11/21 05:09 09/11/21 05:53 09/11/21 08:00 Temperature 97.1 F L Pulse Rate 76 80 80 Respiratory Rate 20 16 Blood Pressure 129/59 L Pulse Oximetry 99 100 09/11/21 08:58 Temperature Pulse Rate 74 Respiratory Rate Blood Pressure Pulse Oximetry Intake/Output Intake/Output: Intake & Output 09/08/21 09/09/21 09/10/21 09/11/21 23:59 23:59 23:59 23:59 Intake Total 7616 [id number]
[2021-09-11] MEDS: CENTRAL LINE FLUSH 10 ML IV PUSH ×2 (13:37→20:50)
[2021-09-11] MEDS: PYRIDOSTIGMINE BROMIDE 60 MG TABLET PO ×2 (17:17→20:47)
[2021-09-11] MEDS: TOPIRAMATE 25 MG TABLET PO (20:47)
[2021-09-11] MEDS: RIVAROXABAN 20 MG TABLET PO (20:47)
[2021-09-11] MEDS: HOME MEDICATION 0.5 EACH PO (20:50)
[2021-09-12] VITALS (13 sets, daily range): BP systolic 116–123; BP diastolic 50–64; PULSE 63–121; RESP 13–18; TEMP 36.4–37.9; O2SAT 97–99
[2021-09-12] MEDS: SACCHAROMYCES BOULARDII 250 MG CAPSULE PO ×2 (08:52→17:35)
[2021-09-12] MEDS: METOPROLOL SUCCINATE EXT REL 50 MG TABCR PO (08:53)
[2021-09-12] MEDS: levETIRAcetam ORAL SOL 500 MG/5 ML UDC 2000 MG PO ×2 (08:53→20:42)
[2021-09-12] MEDS: SPIRONOLACTONE 25 MG TABLET PO (08:53)
[2021-09-12] MEDS: TOPIRAMATE 25 MG TABLET PO ×2 (08:54→20:42)
[2021-09-12] MEDS: calcitrioL 0.25 MCG CAPSULE PO (08:54)
[2021-09-12] MEDS: predniSONE 5 MG TABLET PO (08:54)
[2021-09-12] MEDS: SACUBITRIL/VALSARTAN 24-26 MG TABLET 1 TAB PO ×2 (08:54→17:35)
[2021-09-12] MEDS: PANTOPRAZOLE 40 MG TABLET PO (08:55)
[2021-09-12] MEDS: PRAVASTATIN SODIUM 10 MG TABLET PO (08:55)
[2021-09-12] MEDS: azaTHIOprine 50 MG TABLET PO (08:55)
[2021-09-12] MEDS: HYDROXYCHLOROQUINE SULFATE 200 MG TABLET PO ×2 (08:55→17:36)
[2021-09-12] MEDS: FUROSEMIDE 40 MG TABLET PO (10:22)
[2021-09-12 10:26] LABS: Hematocrit 26.9 % (37.0-47.0); Hemoglobin 8.8 g/dL (12.0-15.0); Mean Corpuscular HGB Conc 32.7 g/dl (32-36); Mean Corpuscular Hemoglobin 31.2 pg (26-34); Mean Corpuscular Volume 95.4 fl (80-100); Mean Platelet Volume 10.4 fl (7.4-10.4); Platelet Count Result 214 k/mm3 (150-375); Red Blood Count 2.82 M/mm3 (4.2-5.4); Red Cell Distribution Width 14.4 % (11.5-14.5); White Blood Count 6.2 K/mm3 (4.5-10.0)
[2021-09-12 10:35] LABS: Anion Gap 2 mmol/L (8-16); Blood Urea Nitrogen 9 mg/dL (7-17); Calcium 8.5 mg/dL (8.4-10.2); Carbon Dioxide 22 mmol/L (22-30); Chloride 111 mmol/L (98-107); Estimated CRCL calculation 57 ml/min; Estimated Glomerular Filt Rate > 60; Glucose 115 mg/dL (65-110); Potassium 2.9 mmol/L (3.4-5.0); Sodium 135 mmol/L (137-145)
--- NOTE | 2021-09-12 10:53 | WPDNEUROLOGY ---
Neurology EEG Report General Information Date of Study: 09/11/21 TEST eeg DIAGNOSIS altered mental status CONDITION OF RECORDING awake drowsy and sleep EEG NUMBER [id number] CLINICAL HISTORY patient has been having intermittent confusion for the last couple of months EEG DESCRIPTION old record consists of low-voltage 15 to 21 hertz per 2nd beta activity during wakefulness. Bilateral symmetrical sleep activity seen during sleep. Hyperventilation not done. Photic stimulation not done. Non paroxysmal. Nonfocal. Nonlateralizing. IMPRESSION No significant abnormalities noted
--- NOTE | 2021-09-12 11:40 | PM.IMPN ---
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 Status: Acute (2) Neurogenic bladder: Code(s): N31.9 - Neuromuscular dysfunction of bladder, unspecified Status: Acute (3) Myasthenia gravis: Code(s): G70.00 - Myasthenia gravis without (acute) exacerbation Status: Acute (4) Paroxysmal atrial fibrillation: Code(s): I48.0 - Paroxysmal atrial fibrillation Status: Acute (5) Seizure disorder: Code(s): G40.909 - Epilepsy, unspecified, not intractable, without status epilepticus Status: Chronic (6) Hx of systemic lupus erythematosus (SLE): Code(s): M32.9 - Systemic lupus erythematosus, unspecified Status: Acute (7) Cardiomyopathy: Code(s): I42.9 - Cardiomyopathy, unspecified Status: Acute (8) Hypertension: Code(s): I10 - Essential (primary) hypertension Status: Acute (9) Acute hypokalemia: Code(s): E87.6 - Hypokalemia Status: Acute Assessment and Plan: 09/12/21 RE resolved 40mEq x 1 BP at goal (10) Acute kidney injury superimposed on chronic kidney disease: Code(s): N17.9 - Acute kidney failure, unspecified; N18.9 - Chronic kidney disease, unspecified Status: Acute (11) Acute metabolic encephalopathy: Code(s): G93.41 - Metabolic encephalopathy Status: Acute Additional Plan 09/09/21 The patient has been hospitalized under similar circumstances on several occasions, most recently just a few weeks ago. Most likely this is related to toxic metabolic encephalopathy with acute on chronic kidney injury and uremia. Cannot rule out some component of polypharmacy however has accounted for her medications and he does not think that she has overmedicated. Seizure is considered but denies obvious seizure activity however I am wondering if she may be having subclinical seizures thus an EEG may be prudent. She will be monitor on telemetry overnight with frequent neurologic checks. Secondary to urinary retention and probably some component of dehydration. Krause catheter has been inserted and that has yielded 1500 cc of urine thus far. She will be cautiously hydrated with close monitoring of volume status and renal function. For now we will hold her furosemide, spironolactone, and Entresto. Patient has history of neurogenic bladder and it is unclear if or how often she straight caths at home. While she is still a bit altered, we will bladder scan every 4 to 6 hours and straight catheterize as needed. Patient was started on ceftriaxone in the emergency department which we will continue though urine looks contaminated, pending urine culture. Continue antiseizure medications. EEG ordered for tomorrow. Monitor volume status closely while cautiously hydrating. Blood pressures were soft on arrival but have improved with IV fluids and appropriate cuff size. Continue low-dose prednisone. Currently in a sinus rhythm. Continue metoprolol and Xarelto for stroke prophylaxis. No acute issues. She reportedly uses a trilogy unit at nighttime thus will order BiPAP for use while hospitalized. Continue hydroxychloroquine. 09/12/21 40mEq BID x 2 doses BP at goal RE resolved cont home meds c/s Neuro (pt w multiple admissions for confusion) Subjective Date/time seen: 09/12/21 11:40 pt speaking to herself,tyring to understand what is happening, pt reassured Exam Narrative: General: Chronically ill-appearing female HEENT: Normocephalic, atraumatic. Wearing glasses. Sclerae anicteric. Neck: Supple. No JVD, lymphadenopathy Respiratory: Respirations are even and nonlabored and lungs are clear to auscultation. Cardiovascular: Regular rate and rhythm S1-S2. Pacemaker in left anterior chest Gastrointestinal: soft nontender No guarding or rebound tenderness. Skin: Warm and dry. Generalized pallor. Extremities: No cyanosis, clubbing, or edema.
[2021-09-12] MEDS: FERROUS SULFATE DRIED 142 MG TABCR PO (13:50)
[2021-09-12] MEDS: MAGNESIUM OXIDE 400 MG TABLET PO (13:50)
[2021-09-12] MEDS: CENTRAL LINE FLUSH 10 ML IV PUSH (13:51)
--- NOTE | 2021-09-12 14:40 | PCPTNOTE ---
Patient refused treatment this session. Patient reported I do not need therapy and that she wants to go home. Educated patient on the importance and benefits of therapy, patient continued to refuse and stated I'm ready to go home. RN notified.
[2021-09-12] MEDS: POTASSIUM CHLORIDE 20 MEQ TABLET 40 MEQ PO (15:44)
[2021-09-12] MEDS: PYRIDOSTIGMINE BROMIDE 60 MG TABLET PO ×2 (17:07→20:42)
[2021-09-12] MEDS: RIVAROXABAN 20 MG TABLET PO (20:42)
[2021-09-12] MEDS: HOME MEDICATION 0.5 EACH PO (20:45)
[2021-09-13] VITALS (14 sets, daily range): BP systolic 113–132; BP diastolic 56–78; PULSE 70–97; RESP 12–18; TEMP 36.2–37.3; O2SAT 97–100
[2021-09-13 04:39] LABS: Basophils Absolute Auto 0.1 K/mm3 (0.0-0.1); Basophils Percent Auto 1.2 % (0.2-1.2); Eosinophils Absolute Auto 0.2 K/mm3 (0-0.3); Eosinophils Percent Auto 3.1 % (0-4.4); Hematocrit 29.1 % (37.0-47.0); Hemoglobin 9.4 g/dL (12.0-15.0); Immature Granulocyte Absolute 0.02 K/mm3 (0.00-0.031); Immature Granulocyte Percent A 0.3 % (0-0.5); Lymphocytes Absolute Auto 1.59 K/mm3 (0.9-3.2); Lymphocytes Percent Auto 26.2 % (18.3-44.2); Mean Corpuscular HGB Conc 32.3 g/dl (32-36); Mean Corpuscular Hemoglobin 31.2 pg (26-34); Mean Corpuscular Volume 96.7 fl (80-100); Mean Platelet Volume 10.7 fl (7.4-10.4); Monocytes Absolute Auto 0.6 K/mm3 (0.1-0.6); Monocytes Percent Auto 9.1 % (2.6-8.5); Neutrophils Absolute Auto 3.6 K/mm3 (1.3-6.7); Neutrophils Percent Auto 60.1 % (45.5-73.1); Platelet Count Result 222 k/mm3 (150-375); Red Blood Count 3.01 M/mm3 (4.2-5.4); Red Cell Distribution Width 14.6 % (11.5-14.5); White Blood Count 6.1 K/mm3 (4.5-10.0)
[2021-09-13] MEDS: CENTRAL LINE FLUSH 10 ML IV PUSH ×3 (04:48→22:32)
[2021-09-13 04:52] LABS: Lactic Acid Reflex 0.6 mmol/L (0.7-2.0)
[2021-09-13 04:53] LABS: Alanine Aminotransferase 16 U/L (4-35); Albumin Level 3.9 g/dL (3.5-5.1); Alkaline Phosphatase 75 U/L (38-126); Anion Gap 0 mmol/L (8-16); Aspartate Amino Transferase 30 U/L (14-36); Bilirubin,Total 0.3 mg/dL (0.2-1.3); Blood Urea Nitrogen 10 mg/dL (7-17); CRP < 0.5 mg/dL (<1.0); Carbon Dioxide 24 mmol/L (22-30); Chloride 113 mmol/L (98-107); Creatine Kinase 215 U/L (30-135); Estimated CRCL calculation 57 ml/min; Estimated Glomerular Filt Rate > 60; Glucose 97 mg/dL (65-110); Lactate Dehydrogenase 566 U/L (313-618); Lipase 98 U/L (23-300); Potassium 3.4 mmol/L (3.4-5.0); Sodium 137 mmol/L (137-145)
[2021-09-13 04:56] LABS: D Dimer 0.61 ug/mL (<0.48)
[2021-09-13 05:15] LABS: SARS-CoV-2 RNA PCR Negative
[2021-09-13] MEDS: METOPROLOL SUCCINATE EXT REL 50 MG TABCR PO (08:58)
[2021-09-13] MEDS: SACUBITRIL/VALSARTAN 24-26 MG TABLET 1 TAB PO ×2 (08:59→17:47)
[2021-09-13] MEDS: SACCHAROMYCES BOULARDII 250 MG CAPSULE PO ×2 (08:59→17:46)
[2021-09-13] MEDS: PRAVASTATIN SODIUM 10 MG TABLET PO (08:59)
[2021-09-13] MEDS: TOPIRAMATE 25 MG TABLET PO ×2 (08:59→22:31)
[2021-09-13] MEDS: azaTHIOprine 50 MG TABLET PO (08:59)
[2021-09-13] MEDS: HYDROXYCHLOROQUINE SULFATE 200 MG TABLET PO ×2 (08:59→17:48)
[2021-09-13] MEDS: PANTOPRAZOLE 40 MG TABLET PO (08:59)
[2021-09-13] MEDS: predniSONE 5 MG TABLET PO (09:00)
[2021-09-13] MEDS: FUROSEMIDE 40 MG TABLET PO (09:00)
[2021-09-13] MEDS: SPIRONOLACTONE 25 MG TABLET PO (09:00)
[2021-09-13] MEDS: calcitrioL 0.25 MCG CAPSULE PO (09:00)
[2021-09-13] MEDS: levETIRAcetam ORAL SOL 500 MG/5 ML UDC 2000 MG PO ×2 (09:04→22:32)
--- NOTE | 2021-09-13 09:49 | PM.IMPN ---
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 Status: Acute (2) Neurogenic bladder: Code(s): N31.9 - Neuromuscular dysfunction of bladder, unspecified Status: Acute (3) Myasthenia gravis: Code(s): G70.00 - Myasthenia gravis without (acute) exacerbation Status: Acute (4) Paroxysmal atrial fibrillation: Code(s): I48.0 - Paroxysmal atrial fibrillation Status: Acute (5) Seizure disorder: Code(s): G40.909 - Epilepsy, unspecified, not intractable, without status epilepticus Status: Chronic (6) Hx of systemic lupus erythematosus (SLE): Code(s): M32.9 - Systemic lupus erythematosus, unspecified Status: Acute (7) Cardiomyopathy: Code(s): I42.9 - Cardiomyopathy, unspecified Status: Acute (8) Hypertension: Code(s): I10 - Essential (primary) hypertension Status: Acute (9) Acute hypokalemia: Code(s): E87.6 - Hypokalemia Status: Acute (10) Acute kidney injury superimposed on chronic kidney disease: Code(s): N17.9 - Acute kidney failure, unspecified; N18.9 - Chronic kidney disease, unspecified Status: Acute (11) Acute metabolic encephalopathy: Code(s): G93.41 - Metabolic encephalopathy Status: Acute Additional Plan 09/09/21 The patient has been hospitalized under similar circumstances on several occasions, most recently just a few weeks ago. Most likely this is related to toxic metabolic encephalopathy with acute on chronic kidney injury and uremia. Cannot rule out some component of polypharmacy however has accounted for her medications and he does not think that she has overmedicated. Seizure is considered but denies obvious seizure activity however I am wondering if she may be having subclinical seizures thus an EEG may be prudent. She will be monitor on telemetry overnight with frequent neurologic checks. Secondary to urinary retention and probably some component of dehydration. Krause catheter has been inserted and that has yielded 1500 cc of urine thus far. She will be cautiously hydrated with close monitoring of volume status and renal function. For now we will hold her furosemide, spironolactone, and Entresto. Patient has history of neurogenic bladder and it is unclear if or how often she straight caths at home. While she is still a bit altered, we will bladder scan every 4 to 6 hours and straight catheterize as needed. Patient was started on ceftriaxone in the emergency department which we will continue though urine looks contaminated, pending urine culture. Continue antiseizure medications. EEG ordered for tomorrow. Monitor volume status closely while cautiously hydrating. Blood pressures were soft on arrival but have improved with IV fluids and appropriate cuff size. Continue low-dose prednisone. Currently in a sinus rhythm. Continue metoprolol and Xarelto for stroke prophylaxis. No acute issues. She reportedly uses a trilogy unit at nighttime thus will order BiPAP for use while hospitalized. Continue hydroxychloroquine. 09/12/21 40mEq BID x 2 doses BP at goal RE resolved cont home meds c/s Neuro (pt w multiple admissions for confusion) 09/13/21 K < 4, 40mEq ordered consult w neuro appreciated AMS improving cont current care Subjective Date/time seen: 09/13/21 09:49 improving per but only minimally neurology present during my visit today recs appreciated Exam Narrative: General: Chronically ill-appearing confused HEENT: Normocephalic, atraumatic. Wearing glasses. Sclerae anicteric. Neck: Supple. No JVD Respiratory: Respirations are even and nonlabored Cardiovascular: Regular rate and rhythm S1-S2. Pacemaker in left anterior chest Gastrointestinal: soft nontender No guarding or rebound tenderness. Skin: Warm and dry. Generalized pallor. Extremities: No cyanosis, clubbing, or edema. Radi
[2021-09-13] MEDS: MAGNESIUM OXIDE 400 MG TABLET PO (12:00)
[2021-09-13] MEDS: POTASSIUM CHLORIDE 20 MEQ TABLET.ER 40 MEQ PO (12:00)
[2021-09-13] MEDS: FERROUS SULFATE DRIED 142 MG TABCR PO (12:00)
[2021-09-13] MEDS: PYRIDOSTIGMINE BROMIDE 60 MG TABLET PO ×2 (17:48→22:31)
[2021-09-13] MEDS: ONDANSETRON INJ 4 MG/2 ML VIAL IV PUSH (18:28)
[2021-09-13] MEDS: RIVAROXABAN 20 MG TABLET PO (22:31)
[2021-09-13] MEDS: HOME MEDICATION 0.5 EACH PO (22:32)
[2021-09-14] VITALS (12 sets, daily range): BP systolic 100–126; BP diastolic 57–78; PULSE 67–94; RESP 12–20; TEMP 36.9–37.4; O2SAT 96–100
[2021-09-14] MEDS: CENTRAL LINE FLUSH 10 ML IV PUSH ×3 (06:08→22:15)
[2021-09-14 06:34] LABS: Basophils Absolute Auto 0.1 K/mm3 (0.0-0.1); Basophils Percent Auto 1.5 % (0.2-1.2); Eosinophils Absolute Auto 0.3 K/mm3 (0-0.3); Eosinophils Percent Auto 4.1 % (0-4.4); Hematocrit 29.3 % (37.0-47.0); Hemoglobin 9.9 g/dL (12.0-15.0); Immature Granulocyte Absolute 0.01 K/mm3 (0.00-0.031); Immature Granulocyte Percent A 0.2 % (0-0.5); Lymphocytes Absolute Auto 1.72 K/mm3 (0.9-3.2); Lymphocytes Percent Auto 26.4 % (18.3-44.2); Mean Corpuscular HGB Conc 33.8 g/dl (32-36); Mean Corpuscular Hemoglobin 31.7 pg (26-34); Mean Corpuscular Volume 93.9 fl (80-100); Mean Platelet Volume 10.8 fl (7.4-10.4); Monocytes Absolute Auto 0.7 K/mm3 (0.1-0.6); Monocytes Percent Auto 10.9 % (2.6-8.5); Neutrophils Absolute Auto 3.7 K/mm3 (1.3-6.7); Neutrophils Percent Auto 56.9 % (45.5-73.1); Platelet Count Result 281 k/mm3 (150-375); Red Blood Count 3.12 M/mm3 (4.2-5.4); White Blood Count 6.5 K/mm3 (4.5-10.0)
[2021-09-14 06:51] LABS: Alanine Aminotransferase 18 U/L (4-35); Alkaline Phosphatase 71 U/L (38-126); Anion Gap 5 mmol/L (8-16); Aspartate Amino Transferase 30 U/L (14-36); Bilirubin,Total 0.2 mg/dL (0.2-1.3); Blood Urea Nitrogen 14 mg/dL (7-17); Calcium 9.2 mg/dL (8.4-10.2); Carbon Dioxide 26 mmol/L (22-30); Chloride 109 mmol/L (98-107); Estimated CRCL calculation 50 ml/min; Estimated Glomerular Filt Rate 56; Glucose 121 mg/dL (65-110); Lipase 108 U/L (23-300); Potassium 3.4 mmol/L (3.4-5.0); Sodium 140 mmol/L (137-145)
[2021-09-14] MEDS: azaTHIOprine 50 MG TABLET PO (09:57)
[2021-09-14] MEDS: POTASSIUM CHLORIDE 20 MEQ TABLET.ER 40 MEQ PO (09:57)
[2021-09-14] MEDS: SACUBITRIL/VALSARTAN 24-26 MG TABLET 1 TAB PO ×2 (09:57→16:20)
[2021-09-14] MEDS: predniSONE 5 MG TABLET PO (09:58)
[2021-09-14] MEDS: SACCHAROMYCES BOULARDII 250 MG CAPSULE PO ×2 (09:58→16:20)
[2021-09-14] MEDS: HYDROXYCHLOROQUINE SULFATE 200 MG TABLET PO ×2 (09:58→16:20)
[2021-09-14] MEDS: PANTOPRAZOLE 40 MG TABLET PO (09:58)
[2021-09-14] MEDS: calcitrioL 0.25 MCG CAPSULE PO (09:59)
[2021-09-14] MEDS: SPIRONOLACTONE 25 MG TABLET PO (09:59)
[2021-09-14] MEDS: FUROSEMIDE 40 MG TABLET PO (09:59)
[2021-09-14] MEDS: PRAVASTATIN SODIUM 10 MG TABLET PO (09:59)
[2021-09-14] MEDS: TOPIRAMATE 25 MG TABLET PO ×2 (09:59→22:13)
[2021-09-14] MEDS: METOPROLOL SUCCINATE EXT REL 50 MG TABCR PO (09:59)
[2021-09-14] MEDS: levETIRAcetam ORAL SOL 500 MG/5 ML UDC 2000 MG PO ×2 (10:00→22:12)
[2021-09-14 11:23] LABS: Vitamin D 1,25 (OH)2 Total 20 pg/mL (18-72); Vitamin D2 1,25 (OH)2 <8 pg/mL; Vitamin D3 1,25 (OH)2 20 pg/mL
[2021-09-14] MEDS: MAGNESIUM OXIDE 400 MG TABLET PO (12:35)
[2021-09-14] MEDS: FERROUS SULFATE DRIED 142 MG TABCR PO (12:35)
[2021-09-14] MEDS: PYRIDOSTIGMINE BROMIDE 60 MG TABLET PO ×2 (16:20→22:15)
--- NOTE | 2021-09-14 18:02 | PM.IMPN ---
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 Status: Acute (2) Neurogenic bladder: Code(s): N31.9 - Neuromuscular dysfunction of bladder, unspecified Status: Acute (3) Myasthenia gravis: Code(s): G70.00 - Myasthenia gravis without (acute) exacerbation Status: Acute (4) Paroxysmal atrial fibrillation: Code(s): I48.0 - Paroxysmal atrial fibrillation Status: Acute (5) Seizure disorder: Code(s): G40.909 - Epilepsy, unspecified, not intractable, without status epilepticus Status: Chronic (6) Hx of systemic lupus erythematosus (SLE): Code(s): M32.9 - Systemic lupus erythematosus, unspecified Status: Acute (7) Cardiomyopathy: Code(s): I42.9 - Cardiomyopathy, unspecified Status: Acute (8) Hypertension: Code(s): I10 - Essential (primary) hypertension Status: Acute (9) Acute hypokalemia: Code(s): E87.6 - Hypokalemia Status: Acute Assessment and Plan: 09/12/21 RE resolved 40mEq x 1 BP at goal (10) Acute kidney injury superimposed on chronic kidney disease: Code(s): N17.9 - Acute kidney failure, unspecified; N18.9 - Chronic kidney disease, unspecified Status: Acute (11) Acute metabolic encephalopathy: Code(s): G93.41 - Metabolic encephalopathy Status: Acute Additional Plan 09/09/21 The patient has been hospitalized under similar circumstances on several occasions, most recently just a few weeks ago. Most likely this is related to toxic metabolic encephalopathy with acute on chronic kidney injury and uremia. Cannot rule out some component of polypharmacy however has accounted for her medications and he does not think that she has overmedicated. Seizure is considered but denies obvious seizure activity however I am wondering if she may be having subclinical seizures thus an EEG may be prudent. She will be monitor on telemetry overnight with frequent neurologic checks. Secondary to urinary retention and probably some component of dehydration. Krause catheter has been inserted and that has yielded 1500 cc of urine thus far. She will be cautiously hydrated with close monitoring of volume status and renal function. For now we will hold her furosemide, spironolactone, and Entresto. Patient has history of neurogenic bladder and it is unclear if or how often she straight caths at home. While she is still a bit altered, we will bladder scan every 4 to 6 hours and straight catheterize as needed. Patient was started on ceftriaxone in the emergency department which we will continue though urine looks contaminated, pending urine culture. Continue antiseizure medications. EEG ordered for tomorrow. Monitor volume status closely while cautiously hydrating. Blood pressures were soft on arrival but have improved with IV fluids and appropriate cuff size. Continue low-dose prednisone. Currently in a sinus rhythm. Continue metoprolol and Xarelto for stroke prophylaxis. No acute issues. She reportedly uses a trilogy unit at nighttime thus will order BiPAP for use while hospitalized. Continue hydroxychloroquine. 09/12/21 40mEq BID x 2 doses BP at goal RE resolved cont home meds c/s Neuro (pt w multiple admissions for confusion) 09/13/21 K < 4, 40mEq ordered consult w neuro appreciated AMS improving cont current care 09/14/21 cont current meds cont supportive care will cont to monitor for improvement of met encephalopathy Subjective Date/time seen: 09/14/21 18:02 pt doing ok no significant improvement Exam Narrative: General: Chronically ill-appearing confused HEENT: Normocephalic, atraumatic. Wearing glasses. Sclerae anicteric. Neck: Supple. No JVD Respiratory: Respirations are even and nonlabored Cardiovascular: Regular rate and rhythm S1-S2. Pacemaker in left anterior chest Skin: Warm and dry. intact Extremi
[2021-09-14] MEDS: RIVAROXABAN 20 MG TABLET PO (22:13)
[2021-09-14] MEDS: HOME MEDICATION 0.5 EACH PO (22:13)
[2021-09-15] VITALS (12 sets, daily range): BP systolic 101–131; BP diastolic 59–72; PULSE 70–92; RESP 12–21; TEMP 36.1–36.9; O2SAT 96–98
[2021-09-15] MEDS: CENTRAL LINE FLUSH 10 ML IV PUSH ×3 (05:19→21:05)
[2021-09-15] MEDS: SACUBITRIL/VALSARTAN 24-26 MG TABLET 1 TAB PO ×2 (08:28→17:50)
[2021-09-15] MEDS: POTASSIUM CHLORIDE 20 MEQ TABLET.ER 40 MEQ PO (08:29)
[2021-09-15] MEDS: PANTOPRAZOLE 40 MG TABLET PO (08:29)
[2021-09-15] MEDS: FUROSEMIDE 40 MG TABLET PO (08:30)
[2021-09-15] MEDS: TOPIRAMATE 25 MG TABLET PO ×2 (08:30→21:04)
[2021-09-15] MEDS: predniSONE 5 MG TABLET PO (08:30)
[2021-09-15] MEDS: azaTHIOprine 50 MG TABLET PO (08:30)
[2021-09-15] MEDS: HYDROXYCHLOROQUINE SULFATE 200 MG TABLET PO ×2 (08:30→17:50)
[2021-09-15] MEDS: METOPROLOL SUCCINATE EXT REL 50 MG TABCR PO (08:30)
[2021-09-15] MEDS: SACCHAROMYCES BOULARDII 250 MG CAPSULE PO ×2 (08:31→17:48)
[2021-09-15] MEDS: levETIRAcetam ORAL SOL 500 MG/5 ML UDC 2000 MG PO ×2 (08:31→21:04)
[2021-09-15] MEDS: SPIRONOLACTONE 25 MG TABLET PO (08:31)
[2021-09-15] MEDS: PRAVASTATIN SODIUM 10 MG TABLET PO (08:31)
[2021-09-15] MEDS: calcitrioL 0.25 MCG CAPSULE PO (08:32)
[2021-09-15] MEDS: FERROUS SULFATE DRIED 142 MG TABCR PO (13:12)
[2021-09-15] MEDS: MAGNESIUM OXIDE 400 MG TABLET PO (13:12)
--- NOTE | 2021-09-15 16:39 | PM.IMPN ---
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 Status: Acute (2) Neurogenic bladder: Code(s): N31.9 - Neuromuscular dysfunction of bladder, unspecified Status: Acute (3) Myasthenia gravis: Code(s): G70.00 - Myasthenia gravis without (acute) exacerbation Status: Acute (4) Paroxysmal atrial fibrillation: Code(s): I48.0 - Paroxysmal atrial fibrillation Status: Acute (5) Seizure disorder: Code(s): G40.909 - Epilepsy, unspecified, not intractable, without status epilepticus Status: Chronic (6) Hx of systemic lupus erythematosus (SLE): Code(s): M32.9 - Systemic lupus erythematosus, unspecified Status: Acute (7) Cardiomyopathy: Code(s): I42.9 - Cardiomyopathy, unspecified Status: Acute (8) Hypertension: Code(s): I10 - Essential (primary) hypertension Status: Acute (9) Acute hypokalemia: Code(s): E87.6 - Hypokalemia Status: Acute Assessment and Plan: 09/12/21 RE resolved 40mEq x 1 BP at goal (10) Acute kidney injury superimposed on chronic kidney disease: Code(s): N17.9 - Acute kidney failure, unspecified; N18.9 - Chronic kidney disease, unspecified Status: Acute (11) Acute metabolic encephalopathy: Code(s): G93.41 - Metabolic encephalopathy Status: Acute Additional Plan 09/09/21 The patient has been hospitalized under similar circumstances on several occasions, most recently just a few weeks ago. Most likely this is related to toxic metabolic encephalopathy with acute on chronic kidney injury and uremia. Cannot rule out some component of polypharmacy however has accounted for her medications and he does not think that she has overmedicated. Seizure is considered but denies obvious seizure activity however I am wondering if she may be having subclinical seizures thus an EEG may be prudent. She will be monitor on telemetry overnight with frequent neurologic checks. Secondary to urinary retention and probably some component of dehydration. Krause catheter has been inserted and that has yielded 1500 cc of urine thus far. She will be cautiously hydrated with close monitoring of volume status and renal function. For now we will hold her furosemide, spironolactone, and Entresto. Patient has history of neurogenic bladder and it is unclear if or how often she straight caths at home. While she is still a bit altered, we will bladder scan every 4 to 6 hours and straight catheterize as needed. Patient was started on ceftriaxone in the emergency department which we will continue though urine looks contaminated, pending urine culture. Continue antiseizure medications. EEG ordered for tomorrow. Monitor volume status closely while cautiously hydrating. Blood pressures were soft on arrival but have improved with IV fluids and appropriate cuff size. Continue low-dose prednisone. Currently in a sinus rhythm. Continue metoprolol and Xarelto for stroke prophylaxis. No acute issues. She reportedly uses a trilogy unit at nighttime thus will order BiPAP for use while hospitalized. Continue hydroxychloroquine. 09/12/21 40mEq BID x 2 doses BP at goal RE resolved cont home meds c/s Neuro (pt w multiple admissions for confusion) 09/13/21 K < 4, 40mEq ordered consult w neuro appreciated AMS improving cont current care 09/14/21 cont current meds cont supportive care will cont to monitor for improvement of met encephalopathy 09/15/21 plan is to dc pt back to established specialists when confusion improves cont current care seen by neuro and rec is to continue supportive care pt anticipated to clear am labs Subjective Date/time seen: 09/15/21 16:39 pt remains confused reports awareness that she is imaging things that she confuses w reality. Additionally, she reports night terrors. She is oriented to self only at the time of my i
[2021-09-15] MEDS: PYRIDOSTIGMINE BROMIDE 60 MG TABLET PO ×2 (17:51→21:05)
[2021-09-15] MEDS: RIVAROXABAN 20 MG TABLET PO (21:04)
[2021-09-15] MEDS: HOME MEDICATION 0.5 EACH PO (21:05)
[2021-09-16] VITALS (11 sets, daily range): BP systolic 100–113; BP diastolic 50–66; PULSE 68–84; RESP 16–20; TEMP 36.6–36.9; O2SAT 98–100
[2021-09-16] MEDS: CENTRAL LINE FLUSH 10 ML IV PUSH ×3 (05:36→20:56)
[2021-09-16 06:28] LABS: Basophils Absolute Auto 0.1 K/mm3 (0.0-0.1); Basophils Percent Auto 1.1 % (0.2-1.2); Eosinophils Absolute Auto 0.2 K/mm3 (0-0.3); Eosinophils Percent Auto 2.4 % (0-4.4); Hematocrit 29.6 % (37.0-47.0); Hemoglobin 9.7 g/dL (12.0-15.0); Immature Granulocyte Absolute 0.01 K/mm3 (0.00-0.031); Immature Granulocyte Percent A 0.2 % (0-0.5); Lymphocytes Percent Auto 26.9 % (18.3-44.2); Mean Corpuscular HGB Conc 32.8 g/dl (32-36); Mean Corpuscular Hemoglobin 32.1 pg (26-34); Mean Platelet Volume 10.9 fl (7.4-10.4); Monocytes Absolute Auto 0.6 K/mm3 (0.1-0.6); Monocytes Percent Auto 9.6 % (2.6-8.5); Neutrophils Absolute Auto 3.8 K/mm3 (1.3-6.7); Neutrophils Percent Auto 59.8 % (45.5-73.1); Platelet Count Result 277 k/mm3 (150-375); Red Blood Count 3.02 M/mm3 (4.2-5.4); Red Cell Distribution Width 15.6 % (11.5-14.5); White Blood Count 6.3 K/mm3 (4.5-10.0)
[2021-09-16 06:40] LABS: Anion Gap 1 mmol/L (8-16); Blood Urea Nitrogen 26 mg/dL (7-17); CRP < 0.5 mg/dL (<1.0); Carbon Dioxide 27 mmol/L (22-30); Chloride 108 mmol/L (98-107); Estimated CRCL calculation 36 ml/min; Estimated Glomerular Filt Rate 38; Glucose 103 mg/dL (65-110); Magnesium 2.1 mg/dL (1.6-2.3); Potassium 3.4 mmol/L (3.4-5.0); Sodium 136 mmol/L (137-145)
[2021-09-16] MEDS: levETIRAcetam ORAL SOL 500 MG/5 ML UDC 2000 MG PO ×2 (08:49→20:55)
[2021-09-16] MEDS: METOPROLOL SUCCINATE EXT REL 50 MG TABCR PO (08:49)
[2021-09-16] MEDS: FUROSEMIDE 40 MG TABLET PO (08:50)
[2021-09-16] MEDS: HYDROXYCHLOROQUINE SULFATE 200 MG TABLET PO ×2 (08:50→17:11)
[2021-09-16] MEDS: predniSONE 5 MG TABLET PO (08:50)
[2021-09-16] MEDS: SPIRONOLACTONE 25 MG TABLET PO (08:50)
[2021-09-16] MEDS: TOPIRAMATE 25 MG TABLET PO ×2 (08:50→20:55)
[2021-09-16] MEDS: PANTOPRAZOLE 40 MG TABLET PO (08:50)
[2021-09-16] MEDS: SACCHAROMYCES BOULARDII 250 MG CAPSULE PO ×2 (08:50→17:11)
[2021-09-16] MEDS: PRAVASTATIN SODIUM 10 MG TABLET PO (08:50)
[2021-09-16] MEDS: azaTHIOprine 50 MG TABLET PO (08:51)
[2021-09-16] MEDS: calcitrioL 0.25 MCG CAPSULE PO (08:51)
[2021-09-16] MEDS: POTASSIUM CHLORIDE 20 MEQ TABLET.ER 40 MEQ PO (08:51)
[2021-09-16] MEDS: SACUBITRIL/VALSARTAN 24-26 MG TABLET 1 TAB PO ×2 (08:51→17:12)
--- NOTE | 2021-09-16 09:31 | PM.IMPN ---
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 Status: Acute (2) Neurogenic bladder: Code(s): N31.9 - Neuromuscular dysfunction of bladder, unspecified Status: Acute (3) Myasthenia gravis: Code(s): G70.00 - Myasthenia gravis without (acute) exacerbation Status: Acute (4) Paroxysmal atrial fibrillation: Code(s): I48.0 - Paroxysmal atrial fibrillation Status: Acute (5) Seizure disorder: Code(s): G40.909 - Epilepsy, unspecified, not intractable, without status epilepticus Status: Chronic (6) Hx of systemic lupus erythematosus (SLE): Code(s): M32.9 - Systemic lupus erythematosus, unspecified Status: Acute (7) Cardiomyopathy: Code(s): I42.9 - Cardiomyopathy, unspecified Status: Acute (8) Hypertension: Code(s): I10 - Essential (primary) hypertension Status: Acute (9) Acute hypokalemia: Code(s): E87.6 - Hypokalemia Status: Acute (10) Acute kidney injury superimposed on chronic kidney disease: Code(s): N17.9 - Acute kidney failure, unspecified; N18.9 - Chronic kidney disease, unspecified Status: Acute (11) Acute metabolic encephalopathy: Code(s): G93.41 - Metabolic encephalopathy Status: Acute Additional Plan 09/09/21 The patient has been hospitalized under similar circumstances on several occasions, most recently just a few weeks ago. Most likely this is related to toxic metabolic encephalopathy with acute on chronic kidney injury and uremia. Cannot rule out some component of polypharmacy however has accounted for her medications and he does not think that she has overmedicated. Seizure is considered but denies obvious seizure activity however I am wondering if she may be having subclinical seizures thus an EEG may be prudent. She will be monitor on telemetry overnight with frequent neurologic checks. Secondary to urinary retention and probably some component of dehydration. Krause catheter has been inserted and that has yielded 1500 cc of urine thus far. She will be cautiously hydrated with close monitoring of volume status and renal function. For now we will hold her furosemide, spironolactone, and Entresto. Patient has history of neurogenic bladder and it is unclear if or how often she straight caths at home. While she is still a bit altered, we will bladder scan every 4 to 6 hours and straight catheterize as needed. Patient was started on ceftriaxone in the emergency department which we will continue though urine looks contaminated, pending urine culture. Continue antiseizure medications. EEG ordered for tomorrow. Monitor volume status closely while cautiously hydrating. Blood pressures were soft on arrival but have improved with IV fluids and appropriate cuff size. Continue low-dose prednisone. Currently in a sinus rhythm. Continue metoprolol and Xarelto for stroke prophylaxis. No acute issues. She reportedly uses a trilogy unit at nighttime thus will order BiPAP for use while hospitalized. Continue hydroxychloroquine. 09/12/21 40mEq BID x 2 doses BP at goal RE resolved cont home meds c/s Neuro (pt w multiple admissions for confusion) 09/13/21 K < 4, 40mEq ordered consult w neuro appreciated AMS improving cont current care 09/14/21 cont current meds cont supportive care will cont to monitor for improvement of met encephalopathy 09/15/21 plan is to dc pt back to established specialists when confusion improves cont current care seen by neuro and rec is to continue supportive care pt anticipated to clear am labs 09/16/21 cont to have ongoing confusion w visual and auditory hallucinations pt is able to recognize she is hallucinating when she tries to touch visitors and her hand touches the wall temporal lobe involvement? unable to perform MRI d/t PPM may need transfer to tertiary care center will speak w D
--- NOTE | 2021-09-16 11:19 | PC.NURSE ---
Dr. Santana told the pt (who is A&O 1) and pt's that they could keep the bed alarm/chair alarm off so long as he was in the room with her. The alarms were then turned off by Dr. Santana/pt's .
[2021-09-16 11:59] LABS: Erythrocyte Sedimentation Rate 97 mm/hr (0-20)
[2021-09-16] MEDS: FERROUS SULFATE DRIED 142 MG TABCR PO (12:04)
[2021-09-16] MEDS: MAGNESIUM OXIDE 400 MG TABLET PO (12:04)
[2021-09-16 15:20] LABS: Erythrocyte Sedimentation Rate 126 mm/hr (0-20)
[2021-09-16] MEDS: PYRIDOSTIGMINE BROMIDE 60 MG TABLET PO ×2 (17:11→20:55)
[2021-09-16] MEDS: RIVAROXABAN 20 MG TABLET PO (20:55)
[2021-09-16] MEDS: HOME MEDICATION 0.5 EACH PO (20:56)
[2021-09-16] MEDS: ONDANSETRON INJ 4 MG/2 ML VIAL IV PUSH (22:34)
[2021-09-17] VITALS (10 sets, daily range): BP systolic 87–102; BP diastolic 49–56; PULSE 69–102; RESP 17–18; TEMP 36.5–37.2; O2SAT 96–100
[2021-09-17] MEDS: CENTRAL LINE FLUSH 10 ML IV PUSH ×3 (06:27→22:26)
[2021-09-17] MEDS: levETIRAcetam ORAL SOL 500 MG/5 ML UDC 2000 MG PO ×2 (07:49→20:56)
[2021-09-17] MEDS: SACCHAROMYCES BOULARDII 250 MG CAPSULE PO ×2 (07:50→17:08)
[2021-09-17] MEDS: POTASSIUM CHLORIDE 20 MEQ TABLET.ER 40 MEQ PO (07:50)
[2021-09-17] MEDS: calcitrioL 0.25 MCG CAPSULE PO (07:52)
[2021-09-17] MEDS: azaTHIOprine 50 MG TABLET PO (07:52)
[2021-09-17] MEDS: HYDROXYCHLOROQUINE SULFATE 200 MG TABLET PO ×2 (07:53→17:08)
[2021-09-17] MEDS: FUROSEMIDE 40 MG TABLET PO (07:53)
[2021-09-17] MEDS: METOPROLOL SUCCINATE EXT REL 50 MG TABCR PO (07:57)
[2021-09-17] MEDS: TOPIRAMATE 25 MG TABLET PO ×2 (07:58→22:24)
[2021-09-17] MEDS: PANTOPRAZOLE 40 MG TABLET PO (07:58)
[2021-09-17] MEDS: PRAVASTATIN SODIUM 10 MG TABLET PO (07:58)
[2021-09-17] MEDS: SPIRONOLACTONE 25 MG TABLET PO (07:58)
[2021-09-17] MEDS: predniSONE 5 MG TABLET PO (07:58)
[2021-09-17] MEDS: SACUBITRIL/VALSARTAN 24-26 MG TABLET 1 TAB PO ×2 (07:58→17:08)
--- NOTE | 2021-09-17 09:28 | PC.NURSE ---
Pt was have ongoing severe hallucinations since early this morning before shift change. Shortly before shift change, pt had exited the bed, grabbed her walker, and was eloping down the hallway before staff were able to catch up with her and return her to her room. After shift change, pt's hallucinations had increased in number and severity resulting in pt being quite agitated. Pt is fixated on leaving claiming the doctor told her this morning that she was discharged and everyone else including Jaqueline and the people behind the glass wall were conspiring to keep her here. I attempted to reorient pt but to no avail. During my efforts, pt called her brother (who lives in [place]) on her personal cell phone given to her by her . Pt's motioned for me to take the cell phone from her and talk to her brother (at this point I had no idea who she had called). Pt's brother introduced himself and then proceed to sternly inform me that I should be calling her and not him. I attempted to explain to him repeatedly that I did not call him, I did not give pt the cell phone from which he was called, the had been called every day of her 10 day admission, and that she was hallucinating. Pt's brother informed me that he was aware of her condition and situation but I should be calling her and not him to which I reiterated that I did not call him and the had been called. During all of this, pt was increasing in agitation, refusing to take her meds, attempting to leave her room again, and continually stating, You all think this is funny but it is not. I am leaving here! I will continue to monitor.
[2021-09-17] MEDS: FERROUS SULFATE DRIED 142 MG TABCR PO (11:47)
[2021-09-17] MEDS: MAGNESIUM OXIDE 400 MG TABLET PO (11:47)
[2021-09-17] MEDS: PYRIDOSTIGMINE BROMIDE 60 MG TABLET PO ×2 (17:08→22:29)
--- NOTE | 2021-09-17 18:21 | PM.IMPN ---
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 Status: Acute (2) Neurogenic bladder: Code(s): N31.9 - Neuromuscular dysfunction of bladder, unspecified Status: Acute (3) Myasthenia gravis: Code(s): G70.00 - Myasthenia gravis without (acute) exacerbation Status: Acute (4) Paroxysmal atrial fibrillation: Code(s): I48.0 - Paroxysmal atrial fibrillation Status: Acute (5) Seizure disorder: Code(s): G40.909 - Epilepsy, unspecified, not intractable, without status epilepticus Status: Chronic (6) Hx of systemic lupus erythematosus (SLE): Code(s): M32.9 - Systemic lupus erythematosus, unspecified Status: Acute (7) Cardiomyopathy: Code(s): I42.9 - Cardiomyopathy, unspecified Status: Acute (8) Hypertension: Code(s): I10 - Essential (primary) hypertension Status: Acute (9) Acute kidney injury superimposed on chronic kidney disease: Code(s): N17.9 - Acute kidney failure, unspecified; N18.9 - Chronic kidney disease, unspecified Status: Acute (10) Acute metabolic encephalopathy: Code(s): G93.41 - Metabolic encephalopathy Status: Acute (11) Acute hypokalemia: Code(s): E87.6 - Hypokalemia Status: Acute Additional Plan 09/09/21 The patient has been hospitalized under similar circumstances on several occasions, most recently just a few weeks ago. Most likely this is related to toxic metabolic encephalopathy with acute on chronic kidney injury and uremia. Cannot rule out some component of polypharmacy however has accounted for her medications and he does not think that she has overmedicated. Seizure is considered but denies obvious seizure activity however I am wondering if she may be having subclinical seizures thus an EEG may be prudent. She will be monitor on telemetry overnight with frequent neurologic checks. Secondary to urinary retention and probably some component of dehydration. Krause catheter has been inserted and that has yielded 1500 cc of urine thus far. She will be cautiously hydrated with close monitoring of volume status and renal function. For now we will hold her furosemide, spironolactone, and Entresto. Patient has history of neurogenic bladder and it is unclear if or how often she straight caths at home. While she is still a bit altered, we will bladder scan every 4 to 6 hours and straight catheterize as needed. Patient was started on ceftriaxone in the emergency department which we will continue though urine looks contaminated, pending urine culture. Continue antiseizure medications. EEG ordered for tomorrow. Monitor volume status closely while cautiously hydrating. Blood pressures were soft on arrival but have improved with IV fluids and appropriate cuff size. Continue low-dose prednisone. Currently in a sinus rhythm. Continue metoprolol and Xarelto for stroke prophylaxis. No acute issues. She reportedly uses a trilogy unit at nighttime thus will order BiPAP for use while hospitalized. Continue hydroxychloroquine. 09/12/21 40mEq BID x 2 doses BP at goal RE resolved cont home meds c/s Neuro (pt w multiple admissions for confusion) 09/13/21 K < 4, 40mEq ordered consult w neuro appreciated AMS improving cont current care 09/14/21 cont current meds cont supportive care will cont to monitor for improvement of met encephalopathy 09/15/21 plan is to dc pt back to established specialists when confusion improves cont current care seen by neuro and rec is to continue supportive care pt anticipated to clear am labs 09/16/21 cont to have ongoing confusion w visual and auditory hallucinations pt is able to recognize she is hallucinating when she tries to touch visitors and her hand touches the wall temporal lobe involvement? unable to perform MRI d/t PPM may need transfer to tertiary care center will speak w D
[2021-09-17] MEDS: RIVAROXABAN 20 MG TABLET PO (22:28)
[2021-09-18] VITALS (7 sets, daily range): BP systolic 102–118; BP diastolic 65–73; PULSE 69–83; RESP 17–22; TEMP 36.6–36.7; O2SAT 96–100; BMI 26.0
[2021-09-18] MEDS: CENTRAL LINE FLUSH 10 ML IV PUSH ×2 (05:42→11:49)
[2021-09-18 07:22] LABS: Basophils Absolute Auto 0.1 K/mm3 (0.0-0.1); Basophils Percent Auto 1.6 % (0.2-1.2); Eosinophils Absolute Auto 0.2 K/mm3 (0-0.3); Hematocrit 34.8 % (37.0-47.0); Hemoglobin 11.3 g/dL (12.0-15.0); Immature Granulocyte Absolute 0.01 K/mm3 (0.00-0.031); Immature Granulocyte Percent A 0.2 % (0-0.5); Lymphocytes Percent Auto 20.5 % (18.3-44.2); Mean Corpuscular HGB Conc 32.5 g/dl (32-36); Mean Corpuscular Hemoglobin 31.7 pg (26-34); Mean Corpuscular Volume 97.5 fl (80-100); Mean Platelet Volume 10.9 fl (7.4-10.4); Monocytes Absolute Auto 0.6 K/mm3 (0.1-0.6); Monocytes Percent Auto 9.1 % (2.6-8.5); Neutrophils Absolute Auto 4.2 K/mm3 (1.3-6.7); Neutrophils Percent Auto 65.6 % (45.5-73.1); Platelet Count Result 315 k/mm3 (150-375); Red Blood Count 3.57 M/mm3 (4.2-5.4); Red Cell Distribution Width 15.3 % (11.5-14.5); White Blood Count 6.3 K/mm3 (4.5-10.0)
[2021-09-18 07:44] LABS: Alanine Aminotransferase 17 U/L (6-35); Albumin Level 4.4 g/dL (3.5-5.1); Alkaline Phosphatase 79 U/L (38-126); Anion Gap 7 mmol/L (8-16); Aspartate Amino Transferase 34 U/L (14-36); Bilirubin,Total 0.3 mg/dL (0.2-1.3); Blood Urea Nitrogen 26 mg/dL (7-17); Calcium 9.5 mg/dL (8.4-10.2); Carbon Dioxide 22 mmol/L (22-30); Chloride 104 mmol/L (98-107); Estimated CRCL calculation 37 ml/min; Estimated Glomerular Filt Rate 45; Glucose 105 mg/dL (65-110); Magnesium 2.2 mg/dL (1.6-2.3); Sodium 133 mmol/L (137-145)
[2021-09-18] MEDS: levETIRAcetam ORAL SOL 500 MG/5 ML UDC 2000 MG PO (08:03)
[2021-09-18] MEDS: POTASSIUM CHLORIDE 20 MEQ TABLET.ER 40 MEQ PO (08:04)
[2021-09-18] MEDS: SACCHAROMYCES BOULARDII 250 MG CAPSULE PO ×2 (08:05→17:12)
[2021-09-18] MEDS: FUROSEMIDE 40 MG TABLET PO (08:05)
[2021-09-18] MEDS: azaTHIOprine 50 MG TABLET PO (08:05)
[2021-09-18] MEDS: SACUBITRIL/VALSARTAN 24-26 MG TABLET 1 TAB PO ×2 (08:05→17:13)
[2021-09-18] MEDS: PANTOPRAZOLE 40 MG TABLET PO (08:05)
[2021-09-18] MEDS: TOPIRAMATE 25 MG TABLET PO (08:05)
[2021-09-18] MEDS: calcitrioL 0.25 MCG CAPSULE PO (08:06)
[2021-09-18] MEDS: HYDROXYCHLOROQUINE SULFATE 200 MG TABLET PO ×2 (08:06→17:12)
[2021-09-18] MEDS: METOPROLOL SUCCINATE EXT REL 50 MG TABCR PO (08:06)
[2021-09-18] MEDS: predniSONE 5 MG TABLET PO (08:07)
[2021-09-18] MEDS: SPIRONOLACTONE 25 MG TABLET PO (08:07)
[2021-09-18] MEDS: PRAVASTATIN SODIUM 10 MG TABLET PO (08:07)
[2021-09-18] MEDS: FERROUS SULFATE DRIED 142 MG TABCR PO (11:48)
[2021-09-18] MEDS: MAGNESIUM OXIDE 400 MG TABLET PO (11:49)
--- NOTE | 2021-09-18 12:44 | WPDNEURCNPN ---
Assessment and Plan Additional Plan considering the fluctuating mental status and also the elevated sed rate we obtained a CTA to rule out the possibility of vasculopathy Consult date: 09/18/21 HPI: Aysha Anderson is a 61 year old female admitted to the hospital through the emergency room for the ongoing diagnosis of multiple medical problems but including 1. Epilepsy 2. Myasthenia gravis 3. Lupus 4. Chronic kidney disease 5 adrenal insufficiency 6. Hypogammaglobulinemia 7. Sick sinus syndrome status post permanent pacemaker insertion and most recent change in the mental status I saw her initially on 09/10 subsequently an EEG was obtained which is completely normal since that time a CT scan of the head has revealed chronic small vessel ischemic changes of the cerebral white matter but no acute intracranial finding and the routine lab does not show any leukocytosis WBCs are 6.3 hemoglobin 11.3 with platelet count of 315 and sed rate is definitely 97 initially elevated to 126 GFR 45 with BUN 26 creatinine 1.2 Review of Systems Review of Systems: All systems reviewed & are unremarkable except as noted in HPI and below PMFSH Past Medical History Medical History Cardiomyopathy Ejection fraction was 25 to 30% on echocardiogram in June 2021. Frequent urinary tract infections Gastroparesis History of myasthenia gravis Hypertension Hypogammaglobulinemia Myasthenia gravis Patient uses a trilogy unit at nighttime. Neurogenic bladder Pacemaker battery depletion Pacemaker lead malfunction Paroxysmal atrial fibrillation Seizure disorder Shock Sick sinus syndrome Surgical History Surgical History History of 2 sections History of appendectomy History of hysterectomy History of laparoscopic cholecystectomy History of partial colectomy Secondary to obstruction from adhesions. History of permanent cardiac pacemaker placement Medtronic DDD pacemaker 07/05/11 in [place] Port-A-Cath in place Family History Family History Other Hypertension Social History Social History Social History: Surrogate decision maker: Dann Justin, spouse. Code status: Full code. Smoking status: Never smoker Second hand tobacco smoke exposure: No Alcohol intake: never Substance use: never Substance use type: does not use Additional living arrangements comments: The patient lives with her in [place]. She has a cane, walker, and wheelchair available to her for use when needed. 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 Spiritual care concerns: No Meds Home Medications and Allergies Home Medications Medication Instructions Recorded Confirmed Type Aptiom 800 mg PO HS 04/21/21 09/08/21 History baclofen 20 mg PO TID 04/21/21 09/08/21 History calcitriol 0.25 mcg PO DAILY 04/21/21 09/08/21 History calcium carbonate-vitamin D3 1 tablet PO BID 04/21/21 09/08/21 History d-mannose 1,000 mg PO BID 04/21/21 09/08/21 History ferrous sulfate 45 mg PO DAILY 04/21/21 09/08/21 History hydroxychloroquine [Plaquenil] 200 mg PO BID 04/21/21 09/08/21 History levetiracetam [Keppra] 2,000 mg PO BID 04/21/21 09/08/21 History lorazepam [Ativan] 1 mg PO BID 04/21/21 09/08/21 History pravastatin 10 mg PO DAILY #0 04/21/21 09/08/21 History prednisone 5 mg PO DAILY 04/21/21 09/08/21 History promethazine 25 mg PO TID PRN 04/21/21 09/08/21 History pyridostigmine bromide 60 mg PO HS 04/21/21 09/08/21 History pyridostigmine bromide 60 mg PO QACDINNER 04/21/21 09/08/21 History pyridostigmine bromide 90 mg PO QAM 04/21/21 09/08/21 History pyridostigmine bromide 90 mg PO QNOON 04/21/21 09/08/21 History topiramate [Topamax] 50 mg PO BID 04/21/21 09/08/21 History vitamin B complex 1 tablet PO DAILY 04/21/21 09/08/21 History panto
[2021-09-18] MEDS: PYRIDOSTIGMINE BROMIDE 60 MG TABLET PO (17:12)
--- NOTE | 2021-09-18 17:48 | PM.DS ---
DS: Admitting Diagnosis Discharge Date 09/18/21 Admitting Diagnosis (1) Metabolic encephalopathy: Code(s): G93.41 - Metabolic encephalopathy Status: Acute (2) Acute kidney injury: Code(s): N17.9 - Acute kidney failure, unspecified Status: Acute (3) Urinary retention: Code(s): R33.9 - Retention of urine, unspecified Status: Acute (4) Abnormal urinalysis: Code(s): R82.90 - Unspecified abnormal findings in urine Status: Acute (5) Seizure disorder: Code(s): G40.909 - Epilepsy, unspecified, not intractable, without status epilepticus Status: Chronic (6) Cardiomyopathy: Code(s): I42.9 - Cardiomyopathy, unspecified Status: Acute (7) Adrenal insufficiency: Code(s): E27.40 - Unspecified adrenocortical insufficiency Status: Acute (8) Paroxysmal atrial fibrillation: Code(s): I48.0 - Paroxysmal atrial fibrillation Status: Acute (9) Myasthenia gravis: Code(s): G70.00 - Myasthenia gravis without (acute) exacerbation Status: Acute (10) Systemic lupus erythematosus: Code(s): M32.9 - Systemic lupus erythematosus, unspecified Status: Acute DS: Discharge Diagnosis Discharge Diagnosis (1) Addisons disease: Code(s): E27.1 - Primary adrenocortical insufficiency Status: Acute (2) Neurogenic bladder: Code(s): N31.9 - Neuromuscular dysfunction of bladder, unspecified Status: Acute (3) Myasthenia gravis: Code(s): G70.00 - Myasthenia gravis without (acute) exacerbation Status: Acute (4) Paroxysmal atrial fibrillation: Code(s): I48.0 - Paroxysmal atrial fibrillation Status: Acute (5) Seizure disorder: Code(s): G40.909 - Epilepsy, unspecified, not intractable, without status epilepticus Status: Chronic (6) Hx of systemic lupus erythematosus (SLE): Code(s): M32.9 - Systemic lupus erythematosus, unspecified Status: Acute (7) Cardiomyopathy: Code(s): I42.9 - Cardiomyopathy, unspecified Status: Acute (8) Hypertension: Code(s): I10 - Essential (primary) hypertension Status: Acute (9) Acute kidney injury superimposed on chronic kidney disease: Code(s): N17.9 - Acute kidney failure, unspecified; N18.9 - Chronic kidney disease, unspecified Status: Acute (10) Acute metabolic encephalopathy: Code(s): G93.41 - Metabolic encephalopathy Status: Acute (11) Acute hypokalemia: Code(s): E87.6 - Hypokalemia Status: Acute DS: Summary Hospital Course Reason for hospitalization: [facility] Hospital Course: 09/09/21 The patient has been hospitalized under similar circumstances on several occasions, most recently just a few weeks ago. Most likely this is related to toxic metabolic encephalopathy with acute on chronic kidney injury and uremia. Cannot rule out some component of polypharmacy however has accounted for her medications and he does not think that she has overmedicated. Seizure is considered but denies obvious seizure activity however I am wondering if she may be having subclinical seizures thus an EEG may be prudent. She will be monitor on telemetry overnight with frequent neurologic checks. Secondary to urinary retention and probably some component of dehydration. Krause catheter has been inserted and that has yielded 1500 cc of urine thus far. She will be cautiously hydrated with close monitoring of volume status and renal function. For now we will hold her furosemide, spironolactone, and Entresto. Patient has history of neurogenic bladder and it is unclear if or how often she straight caths at home. While she is still a bit altered, we will bladder scan every 4 to 6 hours and straight catheterize as needed. Patient was started on ceftriaxone in the emergency department which we will continue though urine looks contaminated, pending urine
--- NOTE | 2021-09-18 18:11 | PC.NURSE ---
home meds returned and shanell deaccessed prior to discharge
[2021-09-18] MEDS: HEPARIN SODIUM LOCK FLUSH 500 UNITS/5 ML VIAL IV PUSH (18:21)
== END 2021-09-18 18:35 | disposition home health service (06) | DRG 682 ==
LOC: ANHED 17:03 → ANH3MEDSUR 17:41
PROVIDERS: Physician Assistant; Student in an Organized Health Care Education/Training Program; Admitting Provider Family Medicine; Emergency Provider Emergency Medicine; PCP Internal Medicine; Visit Provider Hospitalist
DX: N17.9 Acute kidney failure, unspecified (principal); G93.41 Metabolic encephalopathy; I42.9 Cardiomyopathy, unspecified; E27.1 Primary adrenocortical insufficiency; Z20.822 Contact with and (suspected) exposure to COVID-19; G70.00 Myasthenia gravis without (acute) exacerbation; I51.7 Cardiomegaly; G40.909 Epilepsy, unspecified, not intractable, without status epilepticus; I12.9 Hypertensive chronic kidney disease with stage 1 through stage 4 chronic kidney disease, or unspecified chronic kidney disease; N18.9 Chronic kidney disease, unspecified; N31.9 Neuromuscular dysfunction of bladder, unspecified; I49.5 Sick sinus syndrome; M32.9 Systemic lupus erythematosus, unspecified; Z95.0 Presence of cardiac pacemaker; E86.0 Dehydration; R33.9 Retention of urine, unspecified; I48.0 Paroxysmal atrial fibrillation; E87.6 Hypokalemia
CPT/HCPCS: 36415; 36600; 51701; 70450; 70496; 70498; 80048; 80053; 80076; 80307; 81001; 82140; 82306; 82375; 82550; 82652; 82728; 82805; 83050; 83605; 83615; 83690; 83735; 84443; 85025; 85027; 85380; 85610; 85652; 85730; 86140; 87040; 87077; 87086; 87186; 93005; 94002; 94003; 96361; 96365; 96374; 97110; 97116; 97161; 97165; 97530; 99285; A9270; C9803; G0378; J0696; J1642; J1720; J2405; J7030; J7512; Q9967; U0003; U0005

== ENCOUNTER 2024-06-29 10:19 | Outpatient (CLI) | payer MEDICARE, SELFPAY ==
--- NOTE | ~2024-06-29 | DEXA_ITS ---
Bone Density Report Name: TAMMY DURANT Age: 63 Sex: Female Ethnicity: White Date of : 1960 Indication: postmenopausal; screening for osteoporosis; history of glucocorticoids; seizure disorder; Referring Provider: TREVA, IDALMIS Castelan Study: Bone densitometry was performed. Exam Date: June 29, 2024 Accession number: [id number] Bone Density: Region BMD T-score Z-score Classification AP Spine(L1-L4) 0.830 -2.0 -0.1 Osteopenia Femoral Neck (Left) 0.606 -2.2 -0.6 Osteopenia Total Hip (Left) 0.758 -1.5 -0.2 Osteopenia Femoral Neck (Right) 0.679 -1.5 0.0 Osteopenia Total Hip (Right) 0.734 -1.7 -0.4 Osteopenia Femoral Neck Mean 0.642 -1.9 -0.3 Osteopenia Total Hip Mean 0.746 -1.6 -0.3 Osteopenia World Health Organization criteria for BMD impression classify patients as: Normal (T-score at or above -1.0), Osteopenia (T-score between -1.0 and -2.5), or Osteoporosis (T-score at or below -2.5). 10-year Fracture Risk(1): Major Osteoporotic Fracture 18% Hip Fracture 3.5% Reported Risk Factors: [place] (), Neck BMD=0.606, BMI=27.3, glucocorticoids (1) FRAX(R) Version 3.08. Fracture probability calculated for an untreated patient. Fracture probability may be lower if the patient has received treatment. Clinical Information Provided by Patient: Has taken Glucocorticoids Has used the following medications: Prolia (i.e. denosumab), Vitamin D, Calcium Has the following medical conditions: Any Seizure Disorders Patient maximum height was 54 Menopause Age: 48 Drinks caffeinated beverages Onset of menses at age 10 Number of children 2 Missed period for more than 6 months in a row Impression: The patient has low bone mass, based on the Left Femoral Neck T-score. The patient has risk factors, including: history of glucocorticoid therapy. Discussion: BONE DENSITY IS LOW AT ONE OR MORE SKELETAL SITES. This patient's lowest T-score is low at one or more skeletal sites. It meets the World Health Organization's (WHO) criteria for ?low bone mass? (T-score between -1.0 and -2.5). The patient's 10-year risk of fracture as calculated by FRAX is less than the threshold where pharmacological therapy is recommended by the National Osteoporosis Foundation (NOF). However, all treatment decisions require clinical judgment and consideration of individual patient factors, including patient preferences, comorbidities, previous drug use, risk factors not captured in the FRAX model (e.g., frailty, falls, vitamin D deficiency, increased bone turnover, interval significant decline in bone density) and possible under or overestimation of fracture risk by FRAX. The patient should follow a healthful lifestyle (good nutrition with adequate calcium and vitamin D, and appropriate weight-bearing exercise). Follow-Up: Consider repeating this study in 2 to 3 years to reassess this patient's status, or sooner if there is some new clinical indication. Reported by: MYLA on 06/29/2024 10:51:00 AM. Reviewed, dictated and finalized at location A.
--- OUTSIDE RECORDS SUMMARY | 2024-06-29 13:24 | XMS_ITS | Encounter Summary ---
Author Organization [facility] Address [address] [place] [id number] Phone Care Team Providers Care Data Transcriber Name Role Phone Celio Cosby Primary Care Provider [phone] Reason for Visit * Reason Comments Med Refill Encounter Details Date Type Department Care Team (Late st Contact Info) Description 01/26/2023 Refill [facility] [address] [address] Laury King MD [address] [place] [address] Social History Tobacco Use Types Packs/Day Years Used Date Smoking Tobacco: Never Alcohol Use Standard Drinks/Week Comments Yes 0 (1 standard drink = 0.6 oz pure alcohol) Alcoholic Drinks/day: Occasional social drink Comments Unknown Sex and Gender Information Value Date Recorded Sex Assigned at Not on file Legal Sex Female 2:53 PM EDT Gender Identity Not on file Sexual Orientation Not on file documented as of this encounter Plan of Treatment Upcoming Encounters Date Type Department Care Team (Late st Contact Info) Description 12/16/2024 9:30 AM CDT Office Visit [facility] [address] [place] [address] Irving Saucedo MD [address] [facility] [address] [place], [place] [id number] documented as of this encounter Visit Diagnoses Not on filedocumented in this encounter Care Teams Data Transcriber Relationship Specialty Start Date End Date Isela Cosbyig [address] [place] [address] PCP - General Internal Medicine 12/19/21 documented as of this encounter
--- OUTSIDE RECORDS SUMMARY | 2024-06-29 13:24 | XMS_ITS | Patient Health Record ---
Author Organization [facility] Billing Info Address [address] [place] [address] [place] [address] Support Name Relationship Address Phone BHARGAV DULCE Emergency Contact [address] [place] [id number] Aysha Anderson Guarantor Unknown [phone] Allergies Allergen (clinical drug ingredient) Drug/Non Drug Allergy documented on EMR Reaction Allergy Type Onset Date Status Migrated Allergy (uncoded) TORADOL Allergy Inactive zolpidem Ambien Unknown Drug Allergy Active phenytoin Dilantin Unknown Drug Allergy Active erythromycin Erythromycin rash Drug Allergy A ctive Levaquin weakness Drug Allergy Active nitrofurantoin Macrodantin Unknown Drug Allergy Active carbamazepine Tegretol Unknown Drug Allergy Act shola Sulfa Unknown Drug Allergy Active Penicillin Unknown Drug Allergy Active Reason For Referral No Information Medications Medication SIG (Take, Route, Frequency, Duration) Notes Start Date End Date Status Lorazepam 1 MG 1 tab(s) Orally BID Active Tramadol HCl 50 MG 1 tablet as needed Orally QID Active Baclofen 20 MG 1 tab(s) Orally BID for 30 Active Pravastatin Sodium 10 MG 1 tablet Orally Once a day Active Prolia 60 MG/ML as directed Subcutaneous 04/02/2019 Active Lasix 20 MG 1 tablet Orally BID Active Promethazine HCl 25 MG 1-2 tablet as nee ded Orally TID Active Albuterol Sulfate (2.5 MG/3ML) 0.083% Inhalation for 12 Not-Taki ng Pyridostigmine [place] 60 MG 1.5 tablet Orally QAM, 1.5 tab noon, 1 tab QPM for 90 day(s) Active LevETIRAcetam ER 500 MG 4 tabs Orally BID Active PredniSONE 5 MG 1 tablet Orally Once a day Active Clobazam 20 MG 1.5 tablet Orally once daily PM Active Vitamin B12 1000 MCG 2.5 tablet Orally Once a day Active Potassium Chloride Purvi ER 20 MEQ 1 tablet with food Orally Once a day Active Calcium + D 500-1000-40 MG-UNT-MCG 1 tab(s) Orally BID Active Hydroxychloroquine Sulfate 200 MG 1 tab(s) Orally BID Active Aptiom 600 MG 2 tablet Orally Once a day at bedtime Active Magnesium 500 MG 1 tablet with a meal Orally Once a day for 30 day(s) Active Keflex 250 MG 1 capsule Orally onc e day Active Metoprolol Tartrate 25 MG Half a tablet with food Orally once daily Active Escitalopram Oxalate 20 MG 1 tablet Oral ly Once a day PM Active Xcopri 100 MG 1 tablet Orally once daily PM Active Topiramate 50 MG 2 tablet Orally QHS Active Immunizations Vaccine Route Administration Date Status Comme nts FLU (Past vaccine of unknown type) Unknown 02/21/2015 Administered Migrated Immuni zations on 10/17/2018 Problems Problem Type SNOMED Code ICD Code Onset Dates Problem Status W/U Status Risk Notes Problem 902070183 Long-term use of high-risk medication (Z79.899) Active confirmed Problem 622344318 Lupus (M32.9) Active confirmed Problem 038462134 Hypogammaglobuli nemi a (D80.1) Active confirmed Problem 51601692 Bilateral occipi negin neuralgia (M54.81) Active confirmed Problem 022847259 Partial epilepsy (G40.109) Active confirmed Problem 369362195 History of weakn ess (Z87.898) Active confirmed Problem Unspecified drug dependence (304.9) Active confirmed Problem Herpes zoster withou t complication (720912740) Zoster without complications (B02.9) 2000 Active confirmed Problem Hypogammaglobulinemi a (308796302) Nonfamilial hypogammaglobulinemi a (D80.1) 2017 Active confirmed Problem Anxiety disorder (558761260) Other specified anxiety disorders (F41.8) Active confirmed Problem Polyneuropathy (35320327) Inflammatory polyneuropathy, 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 Active confirmed Problem Myasthenia gravis (16141207) Myasthenia gravis without (acute) exacerbation (G70.00) 2015 Active confirmed Problem Diplopia (27651449) Diplopia (H53.2) 09/11 Active confirmed Problem Postural orthostatic tachycardia syndrome (423442069) Tachycardia, unspecified (R00.0) Active confirmed Problem Palpitations (20104641) Palpitations (R00.2) Active confirmed Problem Chest pain (39998905) Other ches t pain (R07.89) Active confirmed Problem Large liver (90529762) Hepatomeg adri, not elsewhere classified (R16.0) 2002 Active confirmed Problem Abnormal gait (55702249) Unspecified abnormalities of gait and mobility (R26.9) 2015 Active confirmed Problem Dizziness and giddiness (642947229) Dizziness and giddiness (R42) 2003 Active confirmed Problem Malaise (421862079) Other malais e (R53.81) Active confirmed Problem Syncope and collapse (570674914) Syncope and collapse (R55) Active confirmed Problem Seizure disorder (156748268) Unspecified convulsions (R56.9) 2015 Active confirmed Problem 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) 2002 Active confirmed Problem H/O: Disorder (423893808) Personal history of diseases of the blood and blood-forming organs and certain disorders involving the immune mechanism (Z86.2) 2002 Active confirmed Problem H/O: Disorder (076463980) Personal history of other endocrine, nutritional and metabolic disease (Z86.39) 2002 Active confirmed Plan Of Treatment No Information Insurance Providers Payer Name Payer Address Payer Phone Subscriber Number Group Number Insured Name Patient Relationship to Insured Coverage Start Date Coverage End Date [employer] P[employer] [address] [address] [place], [place] [id number] Dann Anderson Spouse - patient is the spouse of the insured 9 9 Medical (General) History Medical History History ICD Code Handedness: right-handed Unspecified convulsions R56.9 Personal history of other endocrine, nut ritional and metabolic disease Z86.39 Dizziness and giddiness R42 jail (current) use of anticoagulant s Z79.01 Other malaise R53.81 Diplopia H53.2 Inflammatory polyneuropathy, unspecified G61.9 Unspecified abnormalities of gait and mo bility R26.9 Myasthenia gravis without (acute) exacer bation G70.00 Other chest pain R07.89 Nonfamilial hypogammaglobulinemia D80.1 Other specified anxiety disorders F41.8 Palpitations R00.2 Syncope and collapse R55 Surgical History Surgery Date(Month/Year) Hysterectomy 1990 Cholecystectomy 1988 Appendectomy 1992 PortaCath 1989- 2014 C Section x2 1989, 1985 Small bowel resection 2005 Left knee meniscal repair 2008 Pacemaker placement 2011
--- OUTSIDE RECORDS SUMMARY | 2024-06-29 13:24 | XMS_ITS | Encounter Summary ---
Author Organization [facility] Address [address] [place] [address] Care Team Providers Care Chief Warden Name Role Phone Alexander Martinez MD Primary Care Provider [phone] Ita Stanley MD Unavailable [phone] Kris Spain MD Unavailable [phone] Sameer Beasley MD Unavailable Celio Cosby MD Primary Care Provider [phone] Viki Gomez RN Unavailable [phone] Encounter Details Date Type Department Care Team (Late st Contact Info) Description 12/02/2020 E-Visit [facility] MyChart [address] [place] [address] Mychart, [facility] Provider [address] [place], [place] [phone] E-Visit for Urinary Tract Infection Social History Tobacco Use Types Packs/Day Years Used Date Smoking Tobacco: Never Smokeless Tobacco: Never Alcohol Use Standard Drinks/Week Comments Not Currently 0 (1 standard drink = 0.6 oz pur e alcohol) AUDIT-C Answer Date Recorded Q1: How often do you have a drink containing alc ohol? 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 Gender Identity Female 09/13/2020 9:35 AM CDT Sexual Orientation Straight 09/13/2020 9: 35 AM CDT documented as of this encounter Plan of Treatment Upcoming Encounters Date Type Department Care Team (Late st Contact Info) Description 11/17/2024 8:25 AM CDT Hospital Encounter [address] [address] Ita Stanley MD [address] [facility] [address] [place] [address] 11/17/2024 8:25 AM CDT - 11/17/2024 8:55 AM CDT Surgery [address] [address] Ita Stanley MD [address] [facility] [address] [place] [id number] COLONOSCOPY Scheduled Procedures Name Priority Associated Diagnoses Date/Ti me COLONOSCOPY Colon cancer screening 11/17/2024 8:25 AM CDT documented as of this encounter Visit Diagnoses Not on filedocumented in this encounter Additional Health Concerns Infection Onset Date Last Indicated Resolved Time COVID: Suspected 02/13/2022 02/13/2022 02/13/2022 12:11 PM CDT COVID: Suspected 02/13/2022 02/13/2022 02/13/2022 6:57 PM CDT COVID: Suspected 12/28/2022 12/28/2022 12/28/2022 9:53 PM CDT COVID: Suspected 12/28/2022 12/28/2022 12/28/2022 11:30 PM CDT COVID: Suspected 03/01/2023 03/01/2023 03/01/2023 2:33 PM CDT COVID19 03/01/2023 03/01/2023 03/11/2023 3:05 AM CDT COVID: Recovered Comment:Added based on recent COVID infection. 03/11/2023 03/11/2023 06/09/2023 3:[address] documented as of this encounter Care Teams Chief Warden Relationship Specialty Start Date End Date Alexander Martinez MD PCP - General Internal Medicine 06/08/20 11/21/21 Celio Cosby MD [address] [place] [address] PCP - General Family Medicine 11/22/21 Ita Stanley MD Consulting Physician Gastroenterology 11/23/20 Kris Spain MD Consulting Physician Urology 11/23/20 12/11/22 Sameer Beasley MD Pulmonary Disease 12/06/20 12/11/22 Viki Gomez, RN [address] [address] [facility] Outpatient Claim Attorney 01/03/23 01/03/23 documented as of this encounter
--- OUTSIDE RECORDS SUMMARY | 2024-06-29 13:24 | XMS_ITS | Clinical Summary ---
Author Organization [facility] Address [address] [place] [address] Care Team Providers Care Osd Clerk Name Role Phone Celio Cosby Primary Care Provider [phone] Allergies Active Allergy Reactions Criticality Noted Date Comments Carbamazepine Other (see comments) Low 08/27/2003 Other reaction(s): LOWER WHITE COUNT, Lowered WBC, LOWERS WHITE BLOOD CELL COUNT, Sore Throat Codeine Nausea Only Low 03/13/2017 Also severe abdominal bloating Erythromycin Base Other (see comments) 02/10/2021 Levofloxacin 12/25/2016 Other reaction(s): EXACERBATES MYASTHENIA GRAVIS, weakness Nitrofurantoin Hives 08/13/2016 Penicillins Anaphylaxis,Swelli ng High 02/15/2014 Other reaction(s): FACE AND TONGUE SWELLS Phenytoin Sodium Extended 02/18/2017 Pregabalin Other (see comments) Low 08/05/2018 Severe dizziness Sulfa Antibiotics Rash High 08/27/2003 Causes Juve Camilo's syndrome Other reaction(s): ANAPHYLACTIC Valsartan 02/26/2020 Zolpidem Other (see comments) Medium 02/19/2017 Other reaction(s): CONFUSION, Sleep texting Not a true allergy, but patient very clear on not taking Ambien again (episode of texting her friends in her sleep) and is an insomniac and requested that Ambien allergy be recorded to avoid any future dosing. Medications acetaminophen (TYLENOL) 500 MG tablet Take 500 mg by mouth if needed Active albuterol HFA (PROVENTIL HFA;VENTOLIN HFA) 108 (90 Base) MCG/ACT inhaler Inhale 2 puffs every 6 (six) hours if needed Active Calcium Carb-Cholecalci ferol (Caltrate 600+D3 Soft) 600-800 MG-UNIT chewable tablet Chew 1 tablet in the morning and 1 tablet in the evening. Active Cyanocobalamin 1000 MCG capsule Take 1 tablet by mouth in the morning. Active immune globulin, human, infusion Inject as directed 30 grams every 2 weeks Active levETIRAcetam (KEPPRA) 750 MG tablet Take 1 tablet by mouth in the morning and 1 tablet in the evening. Active magnesium oxide (MAG-OX) 400 MG tablet Take 400 mg by mouth daily Active pravastatin (PRAVACHOL) 10 MG tablet Take 1 tablet by mouth 1 (one) time each day 7 Active pyridostigmine (MESTINON) 60 MG tablet Take 60 mg by mouth 5 (five) times a day 1 Active furosemide (LASIX) 20 MG tablet Take 1 tablet (20 mg total) by mouth in the morning and 1 tablet (20 mg total) in the evening. 180 tablet 1 3 Active Additional Information Patient taking differently:20 mg OralAs needed, Reported on 06/17/2024 KLOR-CON 20 MEQ CR tablet TAKE 1 TABLET BY MOUTH EVERY DAY 90 tablet 3 Active calcitriol (ROCALTROL) 0.25 MCG capsule Take 1 capsule (0.25 mcg total) by mouth 1 (one) time each day 90 capsule 2 4 Active LORazepam (ATIVAN) 1 MG tablet Take 1 mg by mouth 1 (one) time each day Active hydroxychloroqu ine (PLAQUENIL) 200 MG tablet Take 200 mg by mouth 3 times weekly on Saturday 2 times daily M,W,F , , Sat and Sun one a day Active azaTHIOprine (IMURAN) 50 MG tablet Take 75 mg by mouth in the morning and 75 mg in the evening. Active Active Problems Problem Noted Date Diagnosed Date Benign essential hypertension 02/10/2021 Chronic kidney disease stage 3B 02/10/2021 Proteinuria 02/10/2021 Systolic dysfunction 09/19/2020 Common variable agammaglobulinemia (CVAgamma) Overview (02/10/2021): Last Assessment & Plan: Follow-up with line and frame poler as they direct. Neurogenic urinary bladder 06/07/2020 Osteoporosis 06/07/2020 Overview (02/10/2021): Last Assessment & Plan: Continue calcium, vitamin-D, weight-bearing exercise and has had Prolia given by her media technician in the past and will request this when establishig care there in the near future. Hypokalemia 12/22/2019 Discoid lupus erythematosus 07/16/2017 Overview (02/10/2021): Last Assessment & Plan: Follow-up with media technician as they direct. Mixed hyperlipidemia 08/10/2015 Overview (02/10/2021): Last Assessment & Plan: Continue her pravastatin and check lipids and LFTs before next visit. Recurrent urinary tract infection 10/14/2014 Focal onset impaired awareness epileptic seizure 01/12/2014 Overview (02/10/2021): Mri BRAIN [place] 2013. Managed by Dr. Price. Immunodeficiency disorder 05/01/2013 Overview (02/10/2021): Hypogammaglobulinemia, treated with immunoglobulins Rx by Dr Fisher Last Assessment & Plan: Will request records and orders from her previous managing physician and order immunoglobulins through our infusion center until she can establish with a new line and frame poler. Referral placed today. Hypogammaglobulinemia, treated with immunoglobulins Rx by Dr Fisher Gastroparesis 03/31/2013 Overview (02/10/2021): Managed by Dr. Monson, last note recommended Botox. Managed by Dr. Monson, last note recommended Botox. 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 Last Assessment & Plan: Dr Bedoya Encounters Date Type Department Care Team Description 06/17/2024 4:00 PM JOURNEYMAN PIPE FITTER Office Visit [address] [place] [phone] Irving Saucedo MD Chronic kidney disease stage 3A (HCC) (Primary Dx) 06/16/2024 Travel 05/19/2024 Documentation Only [facility], [address] [phone] Irving Saucedo MD 05/15/2024 Documentation Only [address] [phone] Irving Saucedo MD from Last 3 Months Immunizations Name Administration Dates Next Due Influenza (IM) Preservative Free 04/01/2013,08/2009 Influenza TIV (IM) 02/10/2014,05/23/2012 Influenza, Quadrivalent, Wit h Preservative 03/25/2018,02/22/2016,02/10/2015,02/10 Influenza, Recombinant, Quad rivalent, Pf 02/03/2020,03/03/2019 Cee SARS-COV-2 07/21/2020 Meningococcal MCV4P 05/01/2013 Pneumococcal Conjugate 13-Valent 05/01/2013,05/13 Pneumococcal Polysaccharide 03/22/2015 Family History Medical History Relation Comments Hypertension Child Cancer Father Cancer Mother Hypertension Mother Hypertension Sibling 1 Cancer Sibling 2 Relation Status Comments Child Father Mother Sibling 1 Sibling 2 Social History Tobacco Use Types Packs/Day Years Used Date Smoking Tobacco: Never Tobacco Cessation:Counseling Given: Not Answered Alcohol Use Standard Drinks/Week Comments Yes 0 (1 standard drink = 0.6 oz pure alcohol) Alcoholic Drinks/day: Occasional social drink Comments Unknown Sex and Gender Information Value Date Recorded Sex Assigned at Not on file Legal Sex Female 2:53 PM EDT Gender Identity Not on file Sexual Orientation Not on file Last Filed Vital Signs Vital Sign Reading Time Taken Comments Blood Pressure 131/82 06/17/2024 3:26 PM JOURNEYMAN PIPE FITTER Pulse 85 06/17/2024 3:26 PM JOURNEYMAN PIPE FITTER Temperature 36.7 C (98 F) 06/17/2024 3:26 PM JOURNEYMAN PIPE FITTER Respiratory Rate 18 06/17/2024 3:26 PM JOURNEYMAN PIPE FITTER Oxygen Saturation 95% 06/17/2024 3:26 PM JOURNEYMAN PIPE FITTER Inhaled Oxygen Concentration - - Weight 72.6 kg (160 lb) 06/17/2024 3:26 PM JOURNEYMAN PIPE FITTER Height 160 cm (5' 3 ) 11/13/2023 2:08 PM CDT Body Mass Index 28.34 11/13/2023 2:08 PM CDT Plan of Treatment Upcoming Encounters Date Type Department Care Team (Late st Contact Info) Description 12/16/2024 9:30 AM CDT Office Visit [facility], [facility] [address] [facility] [address] [place] [address] Irving Saucedo MD [address] [facility] [address] [place] [address] Health Maintenance Due Date Last Done Comments Breast Cancer Screening 1960 Colorectal Cancer Screening: Annual FOBT 08/09/2007 Colorectal Cancer Screening: Colonoscopy 08/09/2007 Colorectal Cancer Screening: Sigmoidoscopy 08/09/2007 Pneumococcal Vaccine: 65+ Years (3 of 3 - PPSV23 or PCV20) 03/22/2020 03/22/2015, 05/01/2013, 05/23/2012 Pneumococcal Vaccine: Pediatrics (0 to 5 Years) and At-Risk Patients (6 to 64 Years) (3 of 3 - PPSV23 or PCV20) 03/22/2020 03/22/2015, 05/01/2013, 05/23/2012 Influenza Vaccine (#1) 2024 3, 03/05/2022, 01/06/2021, Additional history exists Hepatitis B Vaccine Aged Out No longe r eligible based on patient's age to complete this topic Procedures Procedure Name Priority Date/Time Associated Diagnosis Comments EXT RESULT ENTRY Routine 05/14/2024 from Last 3 Months Results * (ABNORMAL) EXT RESULT ENTRY (05/14/2024) WBC 3.5(L) 3.3 - 10.0 10*3/ML Red Blood Cell Count 3.37(L) Hemoglobin 12.6 12.0 - 16.0 Hematocrit 36.6 36.0 - 46.0 Platelets 246 150 - 399 10*3/UL MCV 108.6(H) 82.0 - 108.0 Neutrophils Absolute 2.30 1.30 - 8.30 10*3/UL Lymphocytes Absolute 0.70(L) 1.40 - 2.90 10*3/UL Monocytes Absolute 0.30 0.20 - 0.80 10*3/UL Eosinophils Absolute 0.10 0.20 - 0.70 10*3/UL Iron 161(H) UG/DL TIBC 310 ug/dL TRANSFERRIN (MG/DL) IN SER/PLAS (EXTERNAL RESULT ENTRY) 52(H) Calcitriol(1,25 di-OH Vit D) 26 PTH 27 PG/ML MPV 10.9 MCH 37.4(H) MCHC 34.4 RDW-CV 15.3(H) RDW-SD 61.6(H) Color Urine yellow Clarity clear Specific [place] 1.026 PH Urine 7 Protein, Ur 1+ Glucose Urine, Ql negative Ketones, Urine negative Bilirubin, Urine negative Blood, Urine negative Urobilinogen Urine 2.0 Normal, 0.2 mg/dL Nitrite Urine negative WBC, UA negative Neutrophils Relative 67 46 - 78 % Immature Granulocytes, Comment 0.3 Lymphocytes 21 Monocytes 9 % Eosinophil % 1.7 % Basophil % 1.4 % WBC, Urine 0-5 RBC, Urine 3-5 05/14/2024 Historical Provider LAB BLOOD ORDERABLES Chen l Result from Last 3 Months Insurance MEDICARE [facility] [place] Care Teams Osd Clerk Relationship Specialty Start Date End Date Celio Cosby [address] [place] [address] PCP - General Internal Medicine 12/19/21
--- OUTSIDE RECORDS SUMMARY | 2024-06-29 13:24 | XMS_ITS | Encounter Summary ---
Author Organization [facility] Address [address] [place] [address] Phone Care Team Providers Care Cigarette Making Machine Catcher Name Role Phone Celio Cosby Primary Care Provider [phone] Reason for Visit * Reason Comments Med Change Request Encounter Details Date Type Department Care Team (Late st Contact Info) Description 02/01/2023 Refill [facility] [address] [phone] Irving Saucedo MD 2 [facility] [address] [place] [address] Social History Tobacco Use Types Packs/Day Years [...] Description 12/16/2024 9:30 AM CDT Office Visit [facility] [address] [facility] [address] [place] [address] Irving Saucedo MD 2 [facility] [address] [place] [address] documented as of this encounter Visit Diagnoses Not on filedocumented in this encounter Care Teams Cigarette Making Machine Catcher Relationship Specialty Start Date End Date Celio Cosby [address] [place] [address] PCP - General Internal Medicine 12/19/21 documented as of this encounter
--- OUTSIDE RECORDS SUMMARY | 2024-06-29 13:25 | XMS_ITS | Encounter Summary ---
Author Organization [facility] Address [address] [place] [phone] Phone Care Team Providers Care Air Route Traffic Controller Name Role Phone Keisha Roach MD Primary Care Provider [phone] Encounter Details Date Type Department Care Team (Late st Contact Info) Description 07/18/2017 Clinical Support [facility] Historical [address] [place] [address] ProviderHolly MD [address] [place], [place] [id number] Social History Tobacco Use Types Packs/Day Years Used Date Smoking Tobacco: Never Assessed Sex and Gender Information Value Date Recorded Sex Assigned at Not on file Gender Identity Not on file Sexual Orientation Not on file documented as of this encounter Plan of Treatment Not on file documented as of this encounter Visit Diagnoses Not on filedocumented in this encounter Care Teams Air Route Traffic Controller Relationship Specialty Start Date End Date Keisha Roach MD [address] [place] [address] PCP - General 09/18/23 documented as of this encounter
--- OUTSIDE RECORDS SUMMARY | 2024-06-29 13:25 | XMS_ITS | Encounter Summary ---
Author Organization [facility] Address [address] [place] [address] Phone Care Team Providers Care Steel Hanger Name Role Phone Keisha Roach MD Primary Care Provider [phone] Encounter Details Date Type Department Care Team (Late st Contact Info) Description 07/08/2017 Abstract [email or web address] Historical [address] [place] [address] ProviderHolly MD [address] [place], [place] [phone] Social History Tobacco Use Types Packs/Day Years Used Date Smoking Tobacco: Never Assessed Sex and Gender Information Value Date Recorded Sex Assigned at Not on file Gender Identity Not on file Sexual Orientation Not on file documented as of this encounter Plan of Treatment Not on file documented as of this encounter Visit Diagnoses Not on filedocumented in this encounter Care Teams Steel Hanger Relationship Specialty Start Date End Date Keisha Roach MD [address] [place] [address] PCP - General 09/18/23 documented as of this encounter
--- OUTSIDE RECORDS SUMMARY | 2024-06-29 13:25 | XMS_ITS | Encounter Summary ---
Author Organization [facility] Address [address] [place] [address] Phone Care Team Providers Care Senior Marketing Analyst Name Role Phone Keisha Roach MD Primary Care Provider [phone] Encounter Details Date Type Department Care Team (Late st Contact Info) Description 07/08/2017 Abstract [id number] Historical [address] [place] [address] ProviderHolly MD [address] [place], [place] [phone] Social History Tobacco Use Types Packs/Day Years Used Date Smoking Tobacco: Never Assessed Sex and Gender Information Value Date Recorded Sex Assigned at Not on file Gender Identity Not on file Sexual Orientation Not on file documented as of this encounter Plan of Treatment Not on file documented as of this encounter Visit Diagnoses Not on filedocumented in this encounter Care Teams Senior Marketing Analyst Relationship Specialty Start Date End Date Keisha Roach MD [address] [place] [address] PCP - General 09/18/23 documented as of this encounter
--- OUTSIDE RECORDS SUMMARY | 2024-06-29 13:25 | XMS_ITS | Referral Summary ---
Author Organization [facility] Address [address] [place] [address] Phone Care Team Providers Care Cemetery Counselor Name Role Phone Ita Stanley MD Unavailable [phone] Celio Cosby MD Primary Care Provider [phone] Encounters Date Type Department Care Team Description 06/25/2024 Orders Only [facility] All[facility] and Immunology [address] [place] [address] [place] [phone] Mary Argueta RN 06/25/2024 8:00 AM [employer] REPAIRER Infusion [address] [place] [phone] CVID (common variable immunodeficiency) (HCC) (Primary Dx) 06/19/2024 Orders Only [facility] [id number] [place] [address] [address] [phone] Lawrence Coker MD Age-related osteoporosis without current pathological fracture (Primary Dx) 06/11/2024 8:00 AM [employer]QUE[employer]ATTLE [employer] LEAK REPAIRER Infusion [address] [place] [address] CVID (common variable immunodeficiency) (HCC) (Primary Dx); Encounter for adjustment and management of vascular access device 05/29/2024 Orders Only [facility] All[facility] Immunology [address] [place] [address] [address] [place] [address] Mary Argueta RN 05/29/2024 Telephone [facility] [address] [place] [phone] Mary Argueta RN 05/28/[address] [place] [phone] Elena Dickson RN 05/28/2024 Orders Only [facility]ology [address] [place] [address] Xander Bernal MD 05/28/2024 8:00 AM [employer] LEAK REPAIRER Infusion [address] [phone] CVID (common variable immunodeficiency) (HCC) (Primary Dx) 05/15/2024 Orders Only [facility] [address] [place] [address] [place] [phone] Chetna Mace MD Paroxysmal atrial fibrillation (CMS/HCC) (HCC) (Primary Dx); Sinus node dysfunction (CMS/HCC) (HCC); Presence of cardiac pacemaker 05/14/2024 8:30 AM [employer] LEAK REPAIRER - 05/14/2024 11:59 PM [employer] REPAIRER Hospital Encounter [address] Discharge Disposition: Discharge to home or self care 05/14/2024 8:00 AM S[employer] LEAK REPAIRER Infusion [address] [phone] CVID (common variable immunodeficiency) (HCC) (Primary Dx) 04/29/2024 8:00 AM S[employer] LEAK REPAIRER Infusion [address] [phone] CVID (common variable immunodeficiency) (HCC) (Primary Dx); High risk medication use; Systemic lupus erythematosus, unspecified SLE type, unspecified organ involvement status (HCC); Leukopenia, unspecified type 04/28/2024 7:00 AM S[employer] LEAK REPAIRER Ancillary Procedure [facility] [place] [phone] Paroxysmal atrial fibrillation (CMS/HCC) (HCC); Presence of cardiac pacemaker; Sinus node dysfunction (CMS/HCC) (HCC) 04/28/2024 10:00 AM SQUEAK RATTLE [employer] LEAK REPAIRER Office Visit [facility] Rheumatology [address] 5[address] [place] [address] [place] [address] Nicole Menendez MD High risk medication use (Primary Dx); Systemic lupus erythematosus, unspecified SLE type, unspecified organ involvement status (HCC) 04/23/2024 Telephone [facility] [id number] [place] [address] [address] [place] [address] Lawrence Coker MD 04/15/2024 8:40 AM S[employer] LEAK REPAIRER - 04/15/2024 11:59 PM SQUE[employer] LEAK REPAIRER Hospital Encounter [address] High risk medication use Discharge Disposition: Discharge to home or self care 04/15/2024 8:30 AM SQUEAK RATTLE AND LEAK REPAIRER Infusion [address] [place] [phone] CVID (common variable immunodeficiency) (HCC) (Primary Dx) 04/01/2024 8:00 AM SQUEAK RATTLE AND LEAK REPAIRER Infusion [address] [place] [phone] CVID (common variable immunodeficiency) (HCC) (Primary Dx) from Last 3 Months Allergies Active Allergy Reactions Criticality Noted Date Comments Carbamazepine Other (See comments) Low 08/27/2003 Other reaction(s): LOWER WHITE COUNT, Lowered WBC, LOWERS WHITE BLOOD CELL COUNT, Sore Throat Codeine Nausea only Low 03/13/2017 Also severe abdominal bloating Also severe abdominal bloating Erythromycin Ethylsuccinate Rash Medium 06/07/2020 Fentanyl Mental status changes,Agitation Low 01/09/2023 Nitrofurantoin Macrocrystal Hives Medium 08/27/2003 Other reaction(s): Hives Penicillins Anaphylaxis,Swelli ng High 02/15/2014 Other reaction(s): FACE AND TONGUE SWELLS Phenytoin Other (See comments) Low 02/15/2014 Other reaction(s): Lowered WBC, LOWERS WHITE BLOOD CELL COUNT Pregabalin Dizziness Low 08/05/2018 Sulfa (Sulfonamide Antibiotics) Rash High 08/27/2003 Causes Juve Camilo's syndrome Other reaction(s): ANAPHYLACTIC Sulfasalazine Other (See comments) High 02/12/2019 Causes Juve Camilo's syndrome Other reaction(s): ANAPHYLACTIC Zolpidem Delusions Medium 02/19/2017 Other reaction(s): CONFUSION, Sleep texting Not a true allergy, but patient very clear on not taking Ambien again (episode of texting her friends in her sleep) and is an insomniac and requested that Ambien allergy be recorded to avoid any future dosing. Medications magnesium oxide (MAG-OX) 400 mg (241.3 mg elemental magnesium) tablet Take 1 tablet (400 mg total) by mouth daily Active cyanocobalamin (Vitamin B-12) 1,000 mcg tablet Take 1 tablet (1,000 mcg total) by mouth daily 10 am Active calcium carbonate-vitamin D3 1,500 mg (600 mg elemental)-1,000 unit capsule Take 1 tablet by mouth 2 (two) times a day 10 am and 5 pm Active acetaminophen (TYLENOL) 500 mg tablet Take 1 tablet (500 mg total) by mouth every 6 (six) hours as needed for pain Active albuterol 2.5 mg /3 mL (0.083 %) nebulizer solutionIndicatio ns:Chronic respiratory failure, unspecified whether with hypoxia or hypercapnia (HCC) INHALE CONTENTS OF 1 VIAL VIA NEBULIZER 4 TIMES A DAY NEEDED FOR SHORTNESS OF BREATH OR WHEEZING 375 mL 3 09/27/19 22 Active immune globulin (GAMUNEX-C,GAMMAK ED) infusion Infuse 250 mL (25 g total) into a venous catheter every 2 (two) weeks 250 mL 11 12/29/19 22 Active omeprazole (PriLOSEC) 20 mg capsule Take 1 capsule (20 mg total) by mouth daily 90 capsule 3 07/17/19 24 Active folic acid (FOLVITE) 1 mg tablet Take 1 tablet (1 mg total) by mouth daily 90 tablet 3 07/24/19 24 025 Active promethazine (PHENERGAN) 25 mg tablet Take 1 tablet (25 mg total) by mouth every 6 (six) hours as needed for nausea or vomiting 360 tablet 3 10/16/19 24 Active hydroxychloroquin e (PLAQUENIL) 200 mg tablet Take 1 tab/day on Mon, Wed, Fri. Take 2 pills/day on other days of the week 135 tablet 1 01/28/20 24 Active valACYclovir (VALTREX) 500 mg tablet Take 1 tablet (500 mg total) by mouth 2 (two) times a day 180 tablet 3 02/04/20 24 025 Active pyRIDostigmine (MESTINON) 60 mg tabletIndications :Myasthenia gravis (HCC) TAKE 1 AND 1/2 TABLETS BY MOUTH AT 7AM, 1 AND 1/2 TABLETS AT NOON AND 1 TABLET AT 4PM AND 1 TABLET AT 9PM 450 tablet 3 03/18/20 24 Active clonazePAM (KlonoPIN) 0.5 mg disintegrating tabletIndications :Partial epilepsy with impairment of consciousness, intractable (HCC) Take 1 tablet (0.5 mg total) by mouth 2 (two) times a day as needed for seizures 20 tablet 3 03/26/20 24 025 Active levETIRAcetam (KEPPRA) 750 mg tabletIndications :Partial epilepsy with impairment of consciousness, intractable (HCC) Take 1 tablet (750 mg total) by mouth every 12 (twelve) hours 180 tablet 3 03/26/20 24 025 Active zonisamide (ZONEGRAN) 100 mg capsuleIndication s:Partial epilepsy with impairment of consciousness, intractable (HCC) Take 2 capsules (200 mg total) by mouth nightly 180 capsule 3 03/26/20 24 025 Active predniSONE (DELTASONE) 5 mg tabletIndications :Adrenal Cortical Insufficiency Take 1 tablet (5 mg) by mouth daily 90 tablet 3 04/23/20 24 025 Active pravastatin (PRAVACHOL) 10 mg tablet TAKE 1 TABLET BY MOUTH EVERY DAY 90 tablet 3 04/24/20 24 Active cyclobenzaprine (FLEXERIL) 5 mg tablet Take 1 tablet (5 mg total) by mouth every other day 15 tablet 1 05/02/20 24 Active azaTHIOprine (IMURAN) 50 mg tablet Take 1.5 tablets (75 mg total) by mouth 2 (two) times a day 270 tablet 1 05/25/19 25 Active LORazepam (ATIVAN) 1 mg tablet TAKE 1 TABLET BY MOUTH EVERY NIGHT 30 tablet 06/29/19 25 Active LORazepam (ATIVAN) 1 mg tablet TAKE 1 TABLET BY MOUTH EVERY NIGHT 30 tablet 1 04/01/20 24 025 Discontinued levoFLOXacin (LEVAQUIN) 750 mg tablet Take 1 tablet (750 mg total) by mouth daily for 10 days 10 tablet 05/28/19 25 025 LORazepam (ATIVAN) 1 mg tablet TAKE 1 TABLET BY MOUTH EVERY NIGHT 30 tablet 06/01/19 25 025 Discontinued Active Problems Problem Noted Date Diagnosed Date Stage 3b chronic kidney disease 01/21/2024 Assessment & Plan (01/21/2024 11:52 AM CDT): As above. Hyperlipidemia 01/21/2024 Assessment & Plan (01/21/2024 11:52 AM CDT): Stable onravastint . BMI 26.0-26.9,adult 01/21/2024 Assessment & Plan (01/21/2024 11:52 AM CDT): NOt an active clinical issue. Gastroesophageal reflux disease without esophagi tis 07/17/2023 Assessment & Plan (01/21/2024 11:52 AM CDT): Stable on omerpazoel. No dysphagia. Systemic lupus erythematosus , organ or system involvement unspecified 07/17/2023 Assessment & Plan (01/21/2024 11:52 AM CDT): Dual agent for SLE with imuran and plaquenil. NO acute changes. Colon cancer screening 07/17/2023 Urine retention 12/28/2022 Burning sensation of feet 07/26/2022 Gastroesophageal reflux dise ase with esophagitis without hemorrhage 07/24/2022 Fitting and adjustment of cardiac pacemaker 10/2021 Rotator cuff injury 12/25/2021 Hypotensive episode 09/29/2021 Assessment & Plan (10/16/2021 12:52 AM CDT): Blood pressures currently improved. Agree with holding antihypertensives. May need to decrease or hold furosemide as well. Push plenty of fluids. May need new blood pressure monitor at home. Recommend against any narcotic pain medications due to episodes of hypotension as well as repeated episodes of altered mental status requiring hospitalization. Follow-up with her software test engineer as they direct. Call back if blood pressures dropped again. Assessment & Plan (09/29/2021 1:40 PM CDT): Strongly recommended going to the ER for IV fluids Pt refused Pt will go home, drink fluids, hold bp medications, and monitor bp at home If no improvement and/or worsening bp, she will go to the ER. F/u on Saturday with pcp Dyspnea on exertion 07/17/2021 Hospital discharge follow-up 07/07/2021 Paroxysmal atrial fibrillation (CMS/HCC) 022 Assessment & Plan (07/07/2021 4:41 PM SQUEAK RATTLE AND LEAK REPAIRER): Continue current medication regimen follow up with software test engineer as they direct. Encounter for adjustment and management of vascular access device 07/07/2021 Elevated liver enzymes 12/04/2020 Elevated alkaline phosphatase level 12/04/2020 S/P cholecystectomy 12/04/2020 Dysphagia 12/04/2020 Upper abdominal pain 12/01/2020 Nausea and vomiting 12/01/2020 Gastritis, bile acid reflux 12/01/2020 Confusion 11/21/2020 Assessment & Plan (11/21/2020 10:22 PM CDT): Patient states she is feeling back at baseline however speech is slow which patient states is deliberate. She thinks she is at [facility] but no she is in [place]. She is aware of year and president. Will check cosyntropin test to rule out adrenal crisis as the causes patient also having abdominal pain with nausea and vomiting. Blood pressures are low normal but appears to be at patient's baseline. Will hold prednisone pending cosyntropin test as patient may need Solu-Cortef instead. Sinus node dysfunction (CMS/HCC) 11/02/2020 Overview (11/02/2020): Last Assessment & Plan: Status post pacemaker Normal function per EP History of endocarditis 09/26/2020 Systolic dysfunction 09/19/2020 Assessment & Plan (07/07/2021 4:41 PM SQUEAK RATTLE AND LEAK REPAIRER): Continue current medication regimen follow up with software test engineer as they direct. Osteopenia of lumbar spine 06/30/2020 Assessment & Plan (09/04/2022 2:48 PM CDT): Patient with history of multiple bone fractures in last 5 years which happened when she had seizures. Bone density on 02/13/19 -2.4 on the spine -1.9 on the hip Patient was on Prolia in 2019- till the end of 2020 Then denied by insurance bone density on 03/23/22 Spine -2.2 Hip -2.0 Plan : Continue calcium with vitamin D Assessment & Plan (02/23/2022 2:28 PM CDT): Patient with history of multiple bone fractures in last 5 years which happened when she had seizures. Bone density on 02/13/19 -2.4 on the spine -1.9 on the hip Patient was on Prolia in 2019- till the end of 2020 Then denied by insurance Plan : Continue calcium with vitamin D Check Bone density and consider active treatment based on results Assessment & Plan (08/14/2021 11:07 AM CDT): Patient with history of multiple bone fractures in last 5 years which happened when she had seizures. Bone density on 02/13/19 -2.4 on the spine -1.9 on the hip Patient started Prolia in 2019- Plan : Continue calcium with vitamin D continue Prolia every 6 month. Bone density later this year Assessment & Plan (02/13/2021 12:02 PM CDT): Patient with history of multiple bone fractures in last 5 years which happened when she had seizures. Bone density on 02/13/19 -2.4 on the spine -1.9 on the hip Patient started Prolia in 2019- had 2 doses so far Plan : Continue calcium with vitamin D continue Prolia every 6 month. Assessment & Plan (06/30/2020 12:21 PM SQUEAK RATTLE AND LEAK REPAIRER): Patient with history of multiple bone fractures in last 5 years which happened when she had seizures. Bone density on 02/13/19 -2.4 on the spine -1.9 on the hip Patient started Prolia in 2019- had one dose Plan : We will check labs Continue calcium with vitamin D We will resume Prolia every 6 month. CVID (common variable immunodeficiency) ([facility] ) 06/22/2020 Assessment & Plan (11/21/2020 10:11 PM CDT): Patient receives IVIG every 2 weeks. She last received IVIG on Saturday. Assessment & Plan (09/06/2020 5:19 PM CDT): Follow-up with carroting machine offbearer as they direct. Healthcare maintenance 06/08/2020 Assessment & Plan (07/07/2021 4:41 PM SQUEAK RATTLE AND LEAK REPAIRER): Flu shot each February. COVID vaccine completed. Repeat Pneumovax age 63. Shingrix recommended. Check on status of Tetanus booster. Mammogram yearly. Colonoscopy due 2025 per patient. Will see her back in 6 months with lab sooner if needed. Assessment & Plan (06/08/2020 12:12 PM SQUEAK RATTLE AND LEAK REPAIRER): Flu shot each February. Tetanus booster every 10 years. Shingrix recommended. COVID-19 vaccine recommended when available. Mammogram yearly. Follow-up the salon professional for breast exam and pelvic exam as they direct. She needs a copy of her last colonoscopy and pathology report for recommendations on next evaluation. Will see her back in few months with fasting lab sooner if needed. Neurogenic bladder 06/07/2020 Assessment & Plan (02/08/2021 3:11 PM CDT): Continue intermittent straight catheterization. Assessment & Plan (11/21/2020 10:11 PM CDT): Continue intermittent straight catheterization Osteoporosis 06/07/2020 Assessment & Plan (11/18/2023 12:24 PM CDT): Chronic, unknown status History of L1 compression fraction High-risk for falls due to underlying uncontrolled seizures Patient had 2 injections of Prolia during the year of 9933-1652 Currently not on any osteoporotic medication Continue current calcium plus vitamin-D supplementation Recommend to take at least 2-3 servings of calcium intake in diet Fall precautions Reorder bone density scan March 2024 and further plans based on it Assessment & Plan (06/08/2020 12:08 PM SQUEAK RATTLE AND LEAK REPAIRER): Continue calcium, vitamin-D, weight-bearing exercise and has had Prolia given by her optometric technician in the past and will request this when establishig care there in the near future. Stress-induced cardiomyopathy 03/17/2020 Overview (06/07/2020): Last Assessment & Plan: Patient with a diagnosis of stress induced cardiomyopathy by history. However her recent echocardiogram done 2 weeks ago shows a normal ejection fraction. Suspect it has resolved. She is euvolemic and utilizes Lasix p.r.n. She will eventually need a stress test but can do this in [place] after she has established care there Assessment & Plan (11/21/2020 10:08 PM CDT): Continue beta-alex with hold parameters Fatigue 02/29/2020 Overview (11/02/2020): Last Assessment & Plan: Patient with 3 hospitalizations in the last 3-4 months, for dehydration, renal injury and confusion, and sepsis with fever, most recently in January. She reports increased fatigue since January hospitalization. She also notes c ardiomyopathy was noted on her medical records and she is concerned that no one spoke to her about this. She was seen at [facility], records are not available for review. She does not remember undergoing echocardiogram at [facility]. Additionally, there is no record of an echocardiogram in her chart for review. Will refer per patient for echocardiogram to assess structure and LV function. If indicated will refer to cardiology as needed for follow-up. 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 Assessment & Plan (02/08/2021 3:10 PM CDT): Continue current medications and follow-up with optometric technician as they direct. Assessment & Plan (11/21/2020 10:08 PM CDT): Continue Plaquenil and azathioprine Assessment & Plan (09/06/2020 5:20 PM CDT): Follow-up with optometric technician as they direct. Assessment & Plan (06/08/2020 12:11 PM SQUEAK RATTLE AND LEAK REPAIRER): Continue Plaquenil and get yearly eye exams and follow-up with her new optometric technician as they direct. Port-A-Cath in place 09/27/2016 Mixed hyperlipidemia 08/10/2015 Assessment & Plan (01/21/2024 11:51 AM CDT): Stable on the current regimen and will follow response. NO new myalgias with pravastatin and will continue to follow response. Assessment & Plan (07/07/2021 4:40 PM SQUEAK RATTLE AND LEAK REPAIRER): Well controlled on current therapy and will check a lipid panel and LFTs in 6 months. Assessment & Plan (02/08/2021 3:11 PM CDT): Well controlled on current therapy and will check a lipid panel and LFTs in 6 months. Assessment & Plan (09/06/2020 5:19 PM CDT): Continue her pravastatin and check lipids and LFTs before next visit. Assessment & Plan (06/08/2020 12:08 PM SQUEAK RATTLE AND LEAK REPAIRER): Continue pravastatin and check lipids and LFTs before next visit. Major depression, recurrent, chronic 03/22/2015 Recurrent UTI 10/14/2014 Assessment & Plan (07/07/2021 4:40 PM SQUEAK RATTLE AND LEAK REPAIRER): Continue her D mannose and return to Infectious Disease if continues to be an issue. Presence of cardiac pacemaker 05/04/2014 Overview (11/23/2021): Med[employer]onic Manning Dual Pacemaker. Dx; Sinus Node Dysfunction, PAF. Gen change 07/26/2021-[facility], chronic leads 07/05/2011-[place]. [employer] remote monitoring. Assessment & Plan (01/21/2024 11:51 AM CDT): No afib detected and continues off DOAC. Assessment & Plan (06/08/2020 12:10 PM SQUEAK RATTLE AND LEAK REPAIRER): Sick sinus syndrome status post pacemaker placement and will refer to cardiology for management. Continue metoprolol for now. Urinary retention 02/16/2014 Overview (06/07/2020): Intermittent self-catheterization, Dr. Hernadez Complex partial seizures aguilar lving to generalized tonic-clonic seizures ([facility]) 01/12/2014 Overview (06/07/2020): Mri BRAIN [place] 2013. Managed by Dr. Price. Assessment & Plan (01/21/2024 11:50 AM CDT): COntinue f/u with Dr. Koo. Dual AEDS with keppra and zonegran. Follows with Dr. Koo, neurology. 2 breakthrough seizures in last 6 months. Assessment & Plan (07/07/2021 4:39 PM SQUEAK RATTLE AND LEAK REPAIRER): Continue current medication regimen follow up with her neurologist as they direct. Assessment & Plan (02/08/2021 3:10 PM CDT): Continue current medications and follow up with her neurologist. Assessment & Plan (11/21/2020 10:09 PM CDT): Aptiom and Onfi non formulary, patient will need to bring in home medications to resume. Will continue Keppra and Ativan. Assessment & Plan (09/06/2020 5:20 PM CDT): Referral to epilepsy specialist. Assessment & Plan (06/08/2020 12:11 PM SQUEAK RATTLE AND LEAK REPAIRER): Continue current medication regimen and follow-up with her new neurologist as they direct. Insomnia 06/19/2013 Immune deficiency disorder 05/01/2013 Overview (06/07/2020): Hypogammaglobulinemia, treated with immunoglobulins Rx by Dr Fisher Assessment & Plan (07/07/2021 4:39 PM SQUEAK RATTLE AND LEAK REPAIRER): Follow-up with her carroting machine offbearer as they direct. Assessment & Plan (02/08/2021 3:11 PM CDT): Continue treatment as directed by her carroting machine offbearer. Assessment & Plan (06/08/2020 12:09 PM SQUEAK RATTLE AND LEAK REPAIRER): Will request records and orders from her previous managing physician and order immunoglobulins through our infusion center until she can establish with a new carroting machine offbearer. Referral placed today. Kidney disease, chronic, sta ge III (moderate, EGFR 30-59 ml/min) 05/01/2013 Overview (06/07/2020): Managed by Dr. Haines Assessment & Plan (01/21/2024 11:50 AM CDT): Continues f/u with nephrology. WIll monitor response. Secondary to SLE. Reivewed bp and hydration status while DMARDS for SLE. Assessment & Plan (07/07/2021 4:39 PM SQUEAK RATTLE AND LEAK REPAIRER): Follow-up with her fudge candy maker as they direct. Assessment & Plan (02/08/2021 3:11 PM CDT): Renal function stable and should follow-up with her fudge candy maker as they direct. Assessment & Plan (09/06/2020 5:19 PM CDT): Follow-up with her fudge candy maker as they direct. At this point I am assuming her elevated intact PTH is due to her kidney disease and she should follow-up with her fudge candy maker regarding discussion of this level as well as her hypocalcemia. Myasthenia gravis 05/01/2013 Overview (09/06/2020): DR green Assessment & Plan (01/21/2024 11:51 AM CDT): Mestinon and IVIG. Assessment & Plan (07/07/2021 4:40 PM SQUEAK RATTLE AND LEAK REPAIRER): Follow-up with her neurologist as they direct. Assessment & Plan (02/08/2021 3:11 PM CDT): Follow-up with neurologist and continue current management. Assessment & Plan (11/21/2020 10:10 PM CDT): Continue Mestinon Assessment & Plan (09/06/2020 5:19 PM CDT): Follow-up with her neurologist as he directs. Assessment & Plan (06/08/2020 12:08 PM SQUEAK RATTLE AND LEAK REPAIRER): Continue current medication regimen and refer to neurology for management. Gastroparesis 03/31/2013 Overview (06/07/2020): Managed by Dr. Monson, last note recommended Botox. Anxiety state 09/10/2012 Overview (06/07/2020): Seen by a counselor Floyd golden Assessment & Plan (06/08/2020 12:11 PM SQUEAK RATTLE AND LEAK REPAIRER): Counseling and exercise recommended and use lorazepam only as needed. 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 Patient is clinically stable Labs on 08/21/22 Na 136. K of 4.4 GFR 70 Plan: Continue 5 mg Prednisone /day Discussed use of steroids during sick days. Discussed situations when emergency care is needed , if vomiting or having low blood pressure. Patient confirmed wearing medical alert bracelet. Assessment & Plan (02/23/2022 2:26 PM CDT): Diagnosed years ago after chronic steroid use for different diseases. Patient is clinically stable Labs on 01/12/22 Na 136. K of 402 GFR 60 and normal calcium Plan: Continue 5 mg Prednisone /day Discussed use of steroids during sick days. Discussed situations when emergency care is needed , if vomiting or having low blood pressure. Patient confirmed wearing medical alert bracelet. Assessment & Plan (08/14/2021 11:06 AM CDT): Diagnosed years ago after chronic steroid use for different diseases. Patient had adrenal crisis in June after an infection and was also treated for cardiac dysfunction Plan: Continue 5 mg Prednisone /day Discussed use of steroids during sick days. Discussed situations when emergency care is needed , if vomiting or having low blood pressure. Patient confirmed wearing medical alert bracelet. Assessment & Plan (07/07/2021 4:39 PM SQUEAK RATTLE AND LEAK REPAIRER): Follow-up with her window tinter as they direct. Assessment & Plan (02/13/2021 12:01 PM CDT): Diagnosed years ago after chronic steroid use for different diseases. Patient clinically stable on maintenance dose of prednisone Normal electrolytes on 02/10/21 Na of 135 K of 4.6 GFR 32 followed by Nephrology. Plan: Continue 5 mg Prednisone /day Discussed use of steroids during sick days. Discussed situations when emergency care is needed , if vomiting or having low blood pressure. Patient confirmed wearing medical alert bracelet. Assessment & Plan (02/08/2021 3:10 PM CDT): Follow-up with her window tinter as they direct. Assessment & Plan (11/21/2020 10:11 PM CDT): A concern for adrenal crisis. Cosyntropin test has been ordered. Blood pressures low normal. Patient having nonspecific abdominal pain with nausea and vomiting along with confusion which may be precipitated by UTI. May need stress dose steroids if blood pressures decrease. Will try to hold off until cosyntropin test has been completed. Patient normally on prednisone 5 mg daily and follows with Dr. Argueta. Assessment & Plan (06/30/2020 12:18 PM SQUEAK RATTLE AND LEAK REPAIRER): Diagnosed years ago after chronic steroid use for different diseases. Patient clinically stable on maintenance dose of prednisone Plan: Obtain copy of records from her Nursing Informatics Analyst in [place]. Continue 5 mg Prednisone /day Discussed use of steroids during sick days. Discussed situations when emergency care is needed , if vomiting or having low blood pressure. Patient confirmed wearing medical alert bracelet. Assessment & Plan (06/08/2020 12:10 PM SQUEAK RATTLE AND LEAK REPAIRER): Continue current dose of prednisone and refer to Dr. Argueta for management. Chronic migraine without aur a without status migrainosus, not intractable 09/10/2012 Assessment & Plan (06/08/2020 12:10 PM SQUEAK RATTLE AND LEAK REPAIRER): Stable on current medication regimen and should follow-up with her new neurologist as they direct. Hypertension 09/10/2012 Overview (06/07/2020): Last Assessment & Plan: Controlled Assessment & Plan (07/07/2021 4:39 PM SQUEAK RATTLE AND LEAK REPAIRER): No issues with control currently. Assessment & Plan (02/08/2021 3:10 PM CDT): Well controlled on the current regimen. Avoidance of salt, proper body weight, and routine exercise recommended. Assessment & Plan (11/21/2020 10:10 PM CDT): Patient has had low normal blood pressures. Holding diuretic. Beta-alex was resumed with hold parameters. Assessment & Plan (09/06/2020 5:18 PM CDT): Well controlled on the current regimen. Avoidance of salt, proper body weight, and routine exercise recommended. Assessment & Plan (06/08/2020 12:10 PM SQUEAK RATTLE AND LEAK REPAIRER): Blood pressure currently within her normal range will continue metoprolol for now but consider decreasing if she becomes symptomatic from low blood pressure. Infection due to urethral catheter Resolved Problems Problem Noted Date Diagnosed Date Resolved Date Seizure disorder ([facility]) 10/25/2021 1 05/22/2023 Acute cystitis with hematuria 11/21/2020 12/26/2020 Assessment & Plan (11/21/2020 10:05 PM CDT): Suspected. Patient has hematuria. No other obvious signs of infection. Patient does straight cath at home at baseline. Due to patient's multiple drug allergies, will start patient on aztreonam. Will hold Levaquin due to risk of QT prolongation as patient will also be on p.r.n. Zofran for nausea. Patient has tolerated Cipro in the past. RE (acute kidney injury) 11/21/2020 Assessment & Plan (11/21/2020 10:12 PM CDT): Likely due to poor p.o. intake. Patient's creatinine was as low as 1.06 2 weeks ago. Continue with IV hydration. Hold all nephrotoxins. Will continue to monitor. Chronic respiratory failure 02/16/2014 01/21/2024 Overview (06/07/2020): Secondary to myasthenia gravis, uses Trilogy ventilator for sleep, Dr. Sahw Assessment & Plan (09/06/2020 5:18 PM CDT): Referral to pulmonary as requested for management of her chronic respiratory failure and trilogy ventilator. Immunizations Immunization Administration Dates Next Due Influenza, Quadrivalent, Rec ombinant, Egg Free, Preservative Free, Intramuscular 02/03/2020,03/03/2019 Influenza, Quadrivalent, Spl it, Intramuscular 03/25/2018,02/22/2016,02/10/2015,02/10 Influenza, Quadrivalent, Spl it, Preservative Free, Intramuscular 03/05/2022,01/06/2021 Influenza, Trivalent, IM (MDV) 02/10/2014,2012 Influenza, Trivalent, Preser vative Free, Intramuscular 04/01/2013,06/16/2009 Influenza, Unspecified 01/21/2024(Deferr ed: Patient Refused),05/13/2023(Deferred: Patient Refused),01/16/2023,01/01/2023(Deferre d: Patient Refused),05/13/2022(Deferred: Patient Refused),05/13/2021(Deferred: Patient Refused),12/26/2020(Deferred: Patient Refused) Ruby Ribbon (J&J) SARS-CoV-2 Vaccination 07/21/2020 Meningococcal MCV4P (Menactra) 05/01/2013 Pfizer SARS-CoV-2 Monovalent Vaccination (12+ Yrs) PURPLE 01/31/2022,03/13/2021 Pneumococcal Conjugate PCV 13 05/01/2013, 013 Pneumococcal Polysaccharide PPV23 03/22/2015 Tdap 07/30/2022 Social History Tobacco Use Types Packs/Day Years Used Date Smoking Tobacco: Never Smokeless Tobacco: Never Tobacco Cessation:Counseling Given: Not Answered Alcohol Use Standard Drinks/Week Comments Not Currently 0 (1 standard drink = 0.6 oz pur e alcohol) Social Connection and Isolation Panel [NHANES] A nswer Date Recorded In a typical week, how many times do you talk on the phone with family, friends, or neighbors? Patient declined 01/03/2023 How often do you get togethe r with friends or relatives? Patient declined 01/03/2023 How often do you attend restorationist or methodist serv ices? Patient declined 01/03/2023 Do you belong to any clubs o r organizations such as restorationist groups, unions, fraternal or athletic groups, or school groups? Patient declined 01/03/2023 How often do you attend meet ings of the clubs or organizations you belong to? Patient declined 01/03/2023 Are you , , di vorced, , never , or living with a partner? Patient declined 01/03/2023 AUDIT-C Answer Date Recorded Q1: How often do you have a drink containing alc ohol? Never 07/17/2023 Average Number of Drinks Not on file 024 Frequency of Binge Drinking Not on file 10/2023 Overall Financial Resource Strain (CARDIA) Answe r Date Recorded How hard is it for you to pa y for the very basics like food, housing, medical care, and heating? Patient declined 01/03/2023 PHQ-2 Answer Date Recorded PHQ-2 Total Score (If total score is 3 or more points, staff should administer the PHQ-9) 0 01/21/2024 Hunger Vital Sign Answer Date Recorded Within the past 12 months, y ou worried that your food would run out before you got the money to buy more. Patient declined Within the past 12 months, t he food you bought just didn't last and you didn't have money to get more. Patient declined PRAPARE - Transportation Answer Date Re corded In the past 12 months, has l ack of transportation kept you from medical appointments or from getting medications? Patient declined 01/03/2023 In the past 12 months, has l ack of transportation kept you from meetings, work, or from getting things needed for daily living? Patient declined 01/03/2023 Housing Stability Vital Sign Answer Marcial e Recorded In the last 12 months, was t here a time when you were not able to pay the mortgage or rent on time? Patient refused 01/04/20 23 In the last 12 months, how many places have you lived? 0 01/03/2023 In the last 12 months, was t here a time when you did not have a steady place to sleep or slept in a [facility] (including now)? Patient refused 01/03/2023 Personal Safety Answer Date Recorded Have you ever been in or are you currently in a harmful physical or emotional relationship or is someone making you feel afraid or unsafe? Denies 12/29/2022 Comments No Sex and Gender Information Value Date Recorded Sex Assigned at Not on file Legal Sex Female 3:19 PM SQUEAK RATTLE AND LEAK REPAIRER Gender Identity Female 09/13/2020 9:35 AM CDT Sexual Orientation Straight 09/13/2020 9: 35 AM CDT Last Filed Vital Signs Vital Sign Reading Time Taken Comments Blood Pressure 110/63 06/25/2024 11:45 AM SQUEAK RATTLE AND LEAK REPAIRER Pulse 62 06/25/2024 11:45 AM SQUEAK RATTLE AND LEAK REPAIRER Temperature 36.2 C (97.1 F) 06/25/2024 11:45 AM SQUEAK RATTLE AND LEAK REPAIRER Respiratory Rate 16 06/25/2024 11:4 5 AM SQUEAK RATTLE AND LEAK REPAIRER Oxygen Saturation 100% 06/25/2024 11: 45 AM SQUEAK RATTLE AND LEAK REPAIRER Inhaled Oxygen Concentration - - Weight 73.8 kg (162 lb 12.8 oz) 04/28/2024 9:55 AM SQUEAK RATTLE AND LEAK REPAIRER Height 162.6 cm (5' 4 ) 04/28/2024 9:55 AM SQUEAK RATTLE AND LEAK REPAIRER Body Mass Index 27.94 04/28/2024 9:55 AM SQUEAK RATTLE AND LEAK REPAIRER Plan of Treatment Upcoming Encounters Date Type Department Care Team (Late st Contact Info) Description 11/17/2024 8:25 AM CDT Hospital Encounter [address] [address] Ita Stanley MD [address] [place] [address] DR MORALES [address] [place] [id number] 11/17/2024 8:25 AM CDT - 11/17/2024 8:55 AM CDT Surgery [address] [address] Ita Stanley MD [address] [place] [address] DR MORALES [address] [place] [id number] COLONOSCOPY Scheduled Procedures Name Priority Associated Diagnoses Date/Ti me COLONOSCOPY Colon cancer screening 11/17/2024 8:25 AM CDT Medical Devices Implanted Type Area Section Hand Helper Device Identifier Shelf Expiration Date Model / Serial / Lot Lead (Ra)-07/05/2011 Implanted:06/14 by Chetna Mace MD (Quantity not on file) Lead Heart Medtronic Cardiac Rhythm Mgmt 5086/45 / / Lead (Rv)-07/05/2011 Implanted:06/14 by Chetna Mace MD (Quantity not on file) Lead Heart Medtronic Cardiac Rhythm Mgmt 5086/52 / / Pacemaker-07/26 Implanted:0310/2021 by Chetna Mace MD (Quantity not on file) Pacemaker Chest Medtronic Cardiac Rhythm Mgmt DILSHAD [id number] / / Angio-Seal Vip 6fr Closere Device - [id number] Implanted:Qty: 1 on 07/11/2021 by Chetna Mace MD at [facility] 04/11/2022 [id number] / / [id number] Procedures Procedure Name Priority Date/Time Associated Diagnosis Comments DEVICE CHECK - REMOTE Routine 05/15/2024 12:35 PM SQUEAK RATTLE AND LEAK REPAIRER Paroxysmal atrial fibrillation (CMS/HCC) (HCC) Presence of cardiac pacemaker Sinus node dysfunction (CMS/HCC) (HCC) CALCITRIOL 1,25-DIHYDROXYVITAMI N D Routine 05/14/2024 11:18 AM SQUEAK RATTLE AND LEAK REPAIRER PTH Routine 05/14/2024 11:18 AM SQUEAK RATTLE AND LEAK REPAIRER EGFR Routine 05/14/2024 8:30 AM SQUEAK RATTLE AND LEAK REPAIRER URINALYSIS, MICROSCOPIC ONLY Routine 05/14/2024 8:30 AM SQUEAK RATTLE AND LEAK REPAIRER DIFFERENTIAL AUTO Routine 05/14/2024 8:3 0 AM SQUEAK RATTLE AND LEAK REPAIRER ALBUMIN CREATININE RATIO, URINE Routine 05/14/2024 8:30 AM SQUEAK RATTLE AND LEAK REPAIRER URINALYSIS AND REFLEX TO MICROSCOPIC Routine 05/14/2024 8:30 AM SQUEAK RATTLE AND LEAK REPAIRER IRON PROFILE W/ IBC Routine 05/14/2024 8 :30 AM SQUEAK RATTLE AND LEAK REPAIRER RENAL FUNCTION PANEL Routine 05/14/2024 8:30 AM SQUEAK RATTLE AND LEAK REPAIRER CBC WITH AUTO DIFFERENTIAL Routine 05/14/2024 8:30 AM SQUEAK RATTLE AND LEAK REPAIRER DIFFERENTIAL AUTO Routine 04/29/2024 8:4 0 AM SQUEAK RATTLE AND LEAK REPAIRER Leukopenia, unspecified type CRP (ACUTE PHASE) Routine 04/29/2024 8:4 0 AM SQUEAK RATTLE AND LEAK REPAIRER High risk medication use Systemic lupus erythematosus, unspecified SLE type, unspecified organ involvement status (HCC) CBC WITH AUTO DIFFERENTIAL Routine 04/29/2024 8:40 AM SQUEAK RATTLE AND LEAK REPAIRER Leukopenia, unspecified type ERYTHROCYTE SEDIMENTATION RATE Routine 04/29/2024 8:40 AM SQUEAK RATTLE AND LEAK REPAIRER High risk medication use Systemic lupus erythematosus, unspecified SLE type, unspecified organ involvement status (HCC) EGFR Routine 04/15/2024 8:40 AM SQUEAK RATTLE AND LEAK REPAIRER High risk medication use DIFFERENTIAL AUTO Routine 04/15/2024 8:4 0 AM SQUEAK RATTLE AND LEAK REPAIRER High risk medication use CBC WITH AUTO DIFFERENTIAL Routine 04/15/2024 8:40 AM SQUEAK RATTLE AND LEAK REPAIRER High risk medication use COMPREHENSIVE METABOLIC PANEL Routine 04/15/2024 8:40 AM SQUEAK RATTLE AND LEAK REPAIRER High risk medication use ERYTHROCYTE SEDIMENTATION RATE Routine 04/15/2024 8:40 AM SQUEAK RATTLE AND LEAK REPAIRER High risk medication use CRP (ACUTE PHASE) Routine 04/15/2024 8:4 0 AM SQUEAK RATTLE AND LEAK REPAIRER High risk medication use SCREENING MAMMOGRAM BILATERAL W JEFERSON Schedule Routine, Read Routine (OP Routine) 11/14/2022 3:24 PM CDT Screening mammogram, encounter for DEXA AXIAL SKELETON BONE DENSITY 1 OR MORE SITES Schedule Routine, Read Routine (OP Routine) 03/23/2022 8:26 AM SQUEAK RATTLE AND LEAK REPAIRER Osteopenia of lumbar spine HEPATITIS PANEL, ACUTE Routine 02/10/2021 9:15 AM CDT from Last 3 Months or Most Recently Relevant to Health Maintenance Results * DEVICE CHECK - REMOTE (05/15/2024 12:35 PM SQUEAK RATTLE AND LEAK REPAIRER) Anatomical Region Laterality Modality Other Narrative 06/19/2024 2:21 PM SQUEAK RATTLE AND LEAK REPAIRER Medtronic Manning Dual Pacemaker. Dx; Sinus Node Dysfunction, PAF. Gen change 07/26/2021-[facility], chronic leads 07/05/2011-[place]. [facility] remote monitoring. Routine AAIR <> DDDR Pacemaker Remote. Transmission attached. Battery status: 3.03 V, 11.8 years remaining battery life to TUSHAR. Stable lead impedances, pacing and sensing thresholds. Presenting rhythm: A paced/V sensed AP-38.3%, MAINTENANCE REPRESENTATIVE-< 0.1% No AT/AF episodes noted. 2 Ventricular high rate episodes detected, available IEGM demonstrates NSVT for 1 second. Medications: No anticoagulation or cardiac meds See scanned report. Office pacemaker follow up: 01/27/25 [facility] remote f/u 08/05/24. Manjinder Goldstein RN Chetna Mace MD [facility] PROCEDURES Final Result * Calcitriol 1,25 Dihydroxyvitamin D (05/14/2024 11:18 AM SQUEAK RATTLE AND LEAK REPAIRER) Vit D3 1, 25 26 NO REFERENCE RANGE pg/mL [place] ref Lab Vit D2 1, 25 <8 NO REFERENCE RANGE pg/mL [facility] ([facility]) Comment: This test was developed and its analytical performance characteristics have been determined by [facility] [facility]. It has not been cleared or approved by FDA. This assay has been validated pursuant to the CLIA regulations and is used for clinical purposes. For additional information, please refer to [email or web address] (This link is being provided for informational/educational purposes only.) Test Performed by: [facility]/[place] [address] [place] [address] Vit D 1, 25 total 26 18 - 72 pg/mL [facility] ([facility]) Comment: Reference Ranges for Vitamin D, 1,25 (OH)2, Total pg/mL < 1 Year Not established 1-9 Years 31-87 10-13 Years 30-83 14-17 Years 19-83 > or = 18 Years 18-72 Vitamin D3, 1,25(OH)2 indicates both endogenous production and supplementation. Vitamin D2, 1,25(OH)2 is an indicator of exogenous sources, such as diet or supplementation. Interpretation and therapy are based on measurement of Vitamin D, 1,25 (OH)2, Total. Blood 05/14/2024 11:1 8 AM SQUEAK RATTLE AND LEAK REPAIRER 05/14/2024 1:43 PM SQUEAK RATTLE AND LEAK REPAIRER Narrative [facility] ([facility]) - 05/18/2024 10:28 PM SQUEAK RATTLE AND LEAK REPAIRER fax to 05/14/2024 10:02:23 SQUEAK RATTLE AND LEAK REPAIRER Irving Saucedo MD LAB BLOOD ORDERABLES Fin al Result [facility] ([place]) 1 [facility] [place] [address] [facility] ref [facility] * PTH (05/14/2024 11:18 AM SQUEAK RATTLE AND LEAK REPAIRER) PTH 27 15 - 65 pg/mL Blood 05/14/2024 11:1 8 AM SQUEAK RATTLE AND LEAK REPAIRER 05/14/2024 1:43 PM SQUEAK RATTLE AND LEAK REPAIRER Narrative [facility] ([facility]) - 05/14/2024 2:39 PM SQUEAK RATTLE AND LEAK REPAIRER fax to 05/14/2024 10:02:11 SQUEAK RATTLE AND LEAK REPAIRER Irving Saucedo MD LAB BLOOD ORDERABLES Fin al Result [facility] ([place]) 1 [facility] [place] [address] * eGFR (05/14/2024 8:30 AM SQUEAK RATTLE AND LEAK REPAIRER) eGFR 61 >=60 mL/min/1. 73 m2 Comment: Interpretive Data Reference Interval Normal >/= 90 mL/min/1.73m2 Mildly decreased* 60 - 89 mL/min/1.73m2 Mildly to moderately decreased 45 - 59 mL/min/1.73m2 Moderately to severely decreased 30 - 44 mL/min/1.73m2 Severely decreased 15 - 29 mL/min/1.73m2 Kidney Failure < 15 mL/min/1.73m2 *Relative to young adult level Estimated glomerular filtration rate is determined by the 2020 CKD-EPI equation recommended by the National Kidney Foundation (A Unifying Approach to GFR Estimation: Recommendations of the NKF-ASK Task Force on Reassessing the Inclusion of Race in Diagnosing Kidney Disease, JASN 2020). The CKD-EPI equation should not be used for patients with unstable renal function and has not been validated in children and those over 70. Current interpretive data was last reviewed 2021. Blood 05/14/2024 8:30 AM SQUEAK RATTLE AND LEAK REPAIRER 05/14/2024 1:43 PM SQUEAK RATTLE AND LEAK REPAIRER us Irving Saucedo MD LAB BLOOD ORDERABLES Fin al Result [facility] ([place]) [address] [place] [address] [place] [address] * (ABNORMAL) Differential, auto (05/14/2024 8:30 AM SQUEAK RATTLE AND LEAK REPAIRER) Neutrophil abs 2.3 1.5 - 6.5 K/cumm Imm gran abs 0.0 0.0 - 0.1 K/cumm [facility] ([facility]) Lymphocyte abs 0.7(L) 0.8 - 3.3 K/cumm [facility] ([facility]) Monocyte abs 0.3 0.2 - 0.8 K/cumm [facility] ([facility]) Eosinophil abs 0.1 0.0 - 0.5 K/cumm [facility] ([facility]) Basophil abs 0.1 0.0 - 0.1 K/cumm [facility] ([facility]) Neutrophil pct 66.9 % [facility] ([facility]) Comment: Interpretive Data Percent cell count reference ranges are not reported, since discordance with absolute values may lead to misinterpretation of CBC data. Current Interpretive Data was last revised on 2017. Imm gran pct 0.3 % [facility] ([facility]) Comment: Interpretive Data Percent cell count reference ranges are not reported, since discordance with absolute values may lead to misinterpretation of CBC data. Current Interpretive Data was last revised on 2017. Lymphocyte pct 20.5 % [facility] ([facility]) Comment: Interpretive Data Percent cell count reference ranges are not reported, since discordance with absolute values may lead to misinterpretation of CBC data. Current Interpretive Data was last revised on 2017. Monocyte pct 9.2 % [facility] ([facility]) Comment: Interpretive Data Percent cell count reference ranges are not reported, since discordance with absolute values may lead to misinterpretation of CBC data. Current Interpretive Data was last revised on 2017. Eosinophil pct 1.7 % [facility] ([facility]) Comment: Interpretive Data Percent cell count reference ranges are not reported, since discordance with absolute values may lead to misinterpretation of CBC data. Current Interpretive Data was last revised on 2017. Basophil pct 1.4 % [facility] ([facility]) Comment: Interpretive Data Percent cell count reference ranges are not reported, since discordance with absolute values may lead to misinterpretation of CBC data. Current Interpretive Data was last revised on 2017. Blood 05/14/2024 8:30 AM SQUEAK RATTLE AND LEAK REPAIRER 05/14/2024 1:43 PM SQUEAK RATTLE AND LEAK REPAIRER Irving Saucedo MD LAB BLOOD ORDERABLES Fin al Result Performing Organization Address [facility]/State/ZIP Co de Phone Number [facility] ([place]) 1 [facility] Department [place] [address] * (ABNORMAL) Iron profile w/ IBC (05/14/2024 8:30 AM SQUEAK RATTLE AND LEAK REPAIRER) Iron 161(H) 35 - 145 mcg/dL TIBC 310 250 - 400 mcg/dL [facility] ([facility]) Transferrin saturation 52(H) 20 - 50 % [facility] ([facility]) Blood 05/14/2024 8:30 AM SQUEAK RATTLE AND LEAK REPAIRER 05/14/2024 1:43 PM SQUEAK RATTLE AND LEAK REPAIRER Irving Saucedo MD LAB BLOOD ORDERABLES Fin al Result Performing Organization Address [facility]/ZIP Co de Phone Number [facility] ([place]) 1 [facility] [place] [address] * (ABNORMAL) Urinalysis reflex to microscopic (05/14/2024 8:30 AM SQUEAK RATTLE AND LEAK REPAIRER) Color, ur Yellow Yellow Clarity, ur Clear Clear [facility] ([facility]) Specific gravity, ur 1.026 1.003 - 1.030 [facility] ([facility]) pH, urine 7.0 [facility] ([facility]) Comment: Interpretive Data U rine pH is affected by diet, medications, systemic acid-base disturbances, and renal tubular function. pH may affect urinary stone formation. For example, urine pH below 6.0 may help reduce the tendency for calcium phosphate stones and pH greater than 6.0 may reduce the tendency for uric acid stone formation. Source: [facility] Current Interpretive Data was last revised on 2017 Protein, ur ql 1+(A) Negative [facility] ([facility]) Glucose, ur ql Negative Negative [facility] ([facility]) Ketones, ur Negative Negative [facility] ([facility]) Bilirubin, ur Negative Negative [facility] ([facility]) Blood, ur Negative Negative [facility] ([facility]) Urobilinogen, ur 2.0(A) <2.0 mg/dL [facility] ([facility]) Nitrite, ur Negative Negative [facility] ([facility]) Leukocyte esterase, ur Negative Negative [facility] ([facility]) UA reflex comment Reflex to microscopic UA will be performed. [facility] ([facility]) Urine 05/14/2024 8:30 AM SQUEAK RATTLE AND LEAK REPAIRER 05/14/2024 1:43 PM SQUEAK RATTLE AND LEAK REPAIRER Narrative [facility] ([facility]) - 05/14/2024 1:50 PM SQUEAK RATTLE AND LEAK REPAIRER fax to 05/14/2024 10:02:35 SQUEAK RATTLE AND LEAK REPAIRER us Irving Saucedo MD LAB URINE ORDERABLES Fin al Result Performing Organization Address City/[facility]/ZIP Co de Phone Number [facility] ([place]) 1 [facility] Department [place] [address] * (ABNORMAL) CBC with auto differential (05/14/2024 8:30 AM SQUEAK RATTLE AND LEAK REPAIRER) WBC 3.5(L) 3.8 - 9.9 K/cumm Hgb 12.6 11.9 - 15.5 g/dL [facility] ([facility]) Hct 36.6 35.6 - 45.5 % [facility] ([facility]) Plt 246 150 - 400 K/cumm [facility] ([facility]) MPV 10.9 9.1 - 12.3 fL [facility] ([facility]) RBC 3.37(L) 3.90 - 5.20 M/cumm [facility] ([facility]) MCV 108.6(H) 81.3 - 96.4 fL [facility] ([facility]) MCH 37.4(H) 27.1 - 33.3 pg [facility] ([facility]) MCHC 34.4 32.3 - 35.7 g/dL [facility] ([facility]) RDW CV 15.3(H) 11.1 - 14.9 % [facility] ([facility]) RDW SD 61.6(H) 35.7 - 48.1 fL [facility] ([facility]) NRBC abs 0.00 0.00 - 0.01 K/cumm [facility] ([facility]) Blood 05/14/2024 8:30 AM SQUEAK RATTLE AND LEAK REPAIRER 05/14/2024 1:43 PM SQUEAK RATTLE AND LEAK REPAIRER Narrative [facility] ([facility]) - 05/14/2024 1:49 PM SQUEAK RATTLE AND LEAK REPAIRER fax to 05/14/2024 10:01:58 SQUEAK RATTLE AND LEAK REPAIRER us Irving Saucedo MD LAB BLOOD ORDERABLES Fin al Result [facility] ([facility]) 1 [facility] Department of Laboratories [place], [place] [id number] * Albumin Creatinine Ratio, Urine (05/14/2024 8:30 AM SQUEAK RATTLE AND LEAK REPAIRER) Albumin Ur <12.0 mg/L Comment: Interpretive Data No reference range established. Current interpretive data was last revised 2018. Testing performed by: [facility], [address] [place] [address]., [id number] Creatinine Ur 168.1 mg/dL [place] ([place]) Comment: Interpretive Data No reference range established. Current interpretive data was last revised 2018. Testing performed by: [address] [address] Albumin Creatinine Ratio, Ur <7 1 - 29 mg/g [place] ([place]) Comment:Testing performed by : [address] [address] Urine 05/14/2024 8:30 AM SQUEAK [employer] LEAK REPAIRER 05/14/2024 6:32 PM SQUEAK [employer]ATT[employer] LEAK REPAIRER Narrative [place] ([place]) - 05/14/2024 8:57 PM SQUE[employer] LEAK REPAIRER fax to 05/14/2024 10:02:51 SQUEAK [employer]ATT[employer] LEAK REPAIRER us Irving Saucedo MD LAB URINE ORDERABLES Fin al Result Performing Organization Address City/[facility] Co de Phone Number [facility] ([place]) 1 [facility] [place] [address] * (ABNORMAL) Urinalysis, microscopic only (05/14/2024 8:30 AM SQUEAK RATTLE AND LEAK REPAIRER) WBC, ur 0-5 0 - 5 /HPF RBC, ur 3-5(A) 0 - 2 /HPF [facility] ([place]) Mucous, ur Present(A) [facility] ([place]) Urine 05/14/2024 8:30 AM SQUEAK [employer] LEAK REPAIRER 05/14/2024 1:43 PM SQUEAK [employer] LEAK REPAIRER Irving Saucedo MD LAB URINE ORDERABLES Fin al Result Performing Organization Address City/[facility]/ZIP Co de Phone Number [place] ([place]) 1 [facility] [place] [address] * (ABNORMAL) Renal function panel (05/14/2024 8:30 AM SQUEAK RATTLE AND LEAK REPAIRER) Sodium 136 135 - 145 mmol/L Potassium, pl 4.2 3.3 - 4.9 mmol/L [facility] ([place]) Chloride 102 97 - 110 mmol/L [facility] ([place]) CO2 22 22 - 32 mmol/L [facility] ([place]) Anion gap 12 2 - 15 mmol/L [facility] ([place]) BUN 28(H) 6 - 25 mg/dL [facility] ([place]) Creatinine 1.02 0.60 - 1.10 mg/dL [facility] ([place]) Glucose 106 70 - 199 mg/dL [facility] ([place]) Comment: Interpretive Data Fasting glucose >/= 126 mg/dl is diagnostic for diabetes. Fasting is defined as no caloric intake for at least 8 hours. Fasting glucose between 100 mg/dl to 125 mg/dl is diagnostic of prediabetes. In a patient with classic symptoms of hyperglycemia or hyperglycemic crisis, a random glucose >/= 200 mg/dl is diagnostic for diabetes. In the absence of unequivocal hyperglycemia, results should be confirmed by repeat testing. The classification and Diagnosis of Diabetes Diabetes Care 2021; 46: S19-S40. Current interpretive data was last revised 2022. Calcium 9.8 8.5 - 10.3 mg/dL [facility] ([place]) Phosphorus, pl 4.0 2.3 - 4.5 mg/dL [facility] ([place]) Albumin 4.1 3.5 - 5.0 g/dL [facility] ([place]) Blood 05/14/2024 8:30 AM SQUEAK RATTLE AND LEAK REPAIRER 05/14/2024 1:43 PM SQUEAK RATTLE AND LEAK REPAIRER us Irving Saucedo MD LAB BLOOD ORDERABLES Fin al Result [facility] ([place]) 1 [facility] [place] [address] * Differential, auto (04/29/2024 8:40 AM SQUEAK RATTLE AND LEAK REPAIRER) Neutrophil abs 2.5 1.5 - 6.5 K/cumm Comment:Testing performed by : [facility], One [facility], [place], [address] Imm gran abs 0.0 0.0 - 0.1 K/cumm [facility] ([place]) Comment:Testing performed by : [facility], [facility], [place], [address] Lymphocyte abs 0.8 0.8 - 3.3 K/cumm [facility] ([place]) Comment:Testing performed by : [facility], [facility], [place], [address] Monocyte abs 0.2 0.2 - 0.8 K/cumm [facility] ([place]) Comment:Testing performed by : [facility], [facility], [place], [address] Eosinophil abs 0.1 0.0 - 0.5 K/cumm [facility] ([place]) Comment:Testing performed by : [facility], [facility], [place], [address] Basophil abs 0.1 0.0 - 0.1 K/cumm [facility] ([place]) Comment:Testing performed by : [facility], [place], [address] Neutrophil pct 67.5 % [facility] ([place]) Comment: Interpretive Data Percent cell count reference ranges are not reported, since discordance with absolute values may lead to misinterpretation of CBC data. Current Interpretive Data was last revised on 2017. Testing performed by: [facility], [place], [address] Imm gran pct 0.3 % [facility] ([place]) Comment: Interpretive Data Percent cell count reference ranges are not reported, since discordance with absolute values may lead to misinterpretation of CBC data. Current Interpretive Data was last revised on 2017. Testing performed by: [place], [address] Lymphocyte pct 21.8 % [facility] ([place]) Comment: Interpretive Data Percent cell count reference ranges are not reported, since discordance with absolute values may lead to misinterpretation of CBC data. Current Interpretive Data was last revised on 2017. Testing performed by: [place], [address] Monocyte pct 6.4 % [facility] ([place]) Comment: Interpretive Data Percent cell count reference ranges are not reported, since discordance with absolute values may lead to misinterpretation of CBC data. Current Interpretive Data was last revised on 2017. Testing performed by: [facility], [place], [address] Eosinophil pct 2.4 % [facility] ([place]) Comment: Interpretive Data Percent cell count reference ranges are not reported, since discordance with absolute values may lead to misinterpretation of CBC data. Current Interpretive Data was last revised on 2017. Testing performed by: [facility], [place], [address] Basophil pct 1.6 % [facility] ([place]) Comment: Interpretive Data Percent cell count reference ranges are not reported, since discordance with absolute values may lead to misinterpretation of CBC data. Current Interpretive Data was last revised on 2017. Testing performed by: [facility], [place], [address] Blood 04/29/2024 8:40 AM SQUEAK RATTLE AND LEAK REPAIRER 04/29/2024 9:08 AM SQUEAK RATTLE AND LEAK REPAIRER us Nicole Menendez MD LAB BLOOD ORDERABLES Final Resul t [place] ([place]) 1 [facility] Department [place] [address] * (ABNORMAL) CBC with auto differential (04/29/2024 8:40 AM SQUEAK RATTLE AND LEAK REPAIRER) WBC 3.8 3.8 - 9.9 K/cumm Comment:Testing performed by : [facility], [place], [address] Hgb 12.3 11.9 - 15.5 g/dL [place] [place] ([place]) Comment:Testing performed by : [facility], [place], [address] Hct 35.0(L) 35.6 - 45.5 % [facility] ([place]) Comment:Testing performed by : [facility], [place], [address] Plt 226 150 - 400 K/cumm [place] ([place]) Comment:Testing performed by : [facility], [place], [address] MPV 10.5 9.1 - 12.3 fL [facility] ([place]) Comment:Testing performed by : [facility], [place], [address] RBC 3.26(L) 3.90 - 5.20 M/cumm [facility] ([place]) Comment:Testing performed by : [place], MCV 107.4(H) 81.3 - 96.4 fL [facility] ([place]) Comment:Testing performed by : [place], MCH 37.7(H) 27.1 - 33.3 pg [facility] ([place]) Comment:Testing performed by : [place], MCHC 35.1 32.3 - 35.7 g/dL [facility] ([place]) Comment:Testing performed by : [place], RDW CV 15.3(H) 11.1 - 14.9 % [facility] ([place]) Comment:Testing performed by : [facility], [place], RDW SD 60.9(H) 35.7 - 48.1 fL [facility] ([place]) Comment:Testing performed by : [facility], [place], [address] NRBC abs 0.00 0.00 - 0.01 K/cumm [facility] ([place]) Comment:Testing performed by : [facility], [place], [address] Blood 04/29/2024 8:40 AM SQUEAK RATTLE AND LEAK REPAIRER 04/29/2024 9:08 AM SQUEAK RATTLE AND LEAK REPAIRER us Nicole Menendez MD LAB BLOOD ORDERABLES Final Resul t [facility] ([place]) [address] [place] [address] [place] [address] * (ABNORMAL) Erythrocyte sedimentation rate (04/29/2024 8:40 AM SQUEAK RATTLE AND LEAK REPAIRER) Erythrocyte sedimentation rate 61(H) 1 - 30 mm/hr Comment:Testing performed by : [facility], [place], [address] Blood 04/29/2024 8:40 AM SQUEAK RATTLE AND LEAK REPAIRER 04/29/2024 9:08 AM SQUEAK RATTLE AND LEAK REPAIRER Nicole Menendez MD LAB BLOOD ORDERABLES Final Resul t ROSE GentileNORMAN) 1 [facility] [place] [address] * CRP (acute phase) (04/29/2024 8:40 AM SQUEAK RATTLE AND LEAK REPAIRER) CRP <3.0 <=10.0 mg/L Comment:Testing performed by : [facility], [facility], [place], [address] Blood 04/29/2024 8:40 AM SQUEAK RATTLE AND LEAK REPAIRER 04/29/2024 9:08 AM SQUEAK RATTLE AND LEAK REPAIRER Nicole Menendez MD LAB BLOOD ORDERABLES Final Resul t Performing Organization Address City/[facility] Co de Phone Number [place] ([place]) 1 [facility] [place] [address] * eGFR (04/15/2024 8:40 AM SQUEAK RATTLE AND LEAK REPAIRER) eGFR 71 >=60 mL/min/1. 73 m2 Comment: Interpretive Data Reference Interval Normal >/= 90 mL/min/1.73m2 Mildly decreased* 60 - 89 mL/min/1.73m2 Mildly to moderately decreased 45 - 59 mL/min/1.73m2 Moderately to severely decreased 30 - 44 mL/min/1.73m2 Severely decreased 15 - 29 mL/min/1.73m2 Kidney Failure < 15 mL/min/1.73m2 *Relative to young adult level Estimated glomerular filtration rate is determined by the 2020 CKD-EPI equation recommended by the National Kidney Foundation (A Unifying Approach to GFR Estimation: Recommendations of the NKF-ASK Task Force on Reassessing the Inclusion of Race in Diagnosing Kidney Disease, JASN 2020). The CKD-EPI equation should not be used for patients with unstable renal function and has not been validated in children and those over 70. Current interpretive data was last reviewed 2021. Blood 04/15/2024 8:40 AM SQUEAK RATTLE AND LEAK REPAIRER 04/15/2024 10:46 AM SQUEAK RATTLE AND LEAK REPAIRER us Nicole Menendez MD LAB BLOOD ORDERABLES Final Resul t [facility] ([place]) 1 [facility] [place] [address] * (ABNORMAL) Differential, auto (04/15/2024 8:40 AM SQUEAK RATTLE AND LEAK REPAIRER) Neutrophil abs 2.6 1.5 - 6.5 K/cumm Imm gran abs 0.0 0.0 - 0.1 K/cumm [facility] ([place]) Lymphocyte abs 0.7(L) 0.8 - 3.3 K/cumm [facility] ([place]) Monocyte abs 0.3 0.2 - 0.8 K/cumm [facility] ([place]) Eosinophil abs 0.1 0.0 - 0.5 K/cumm [facility] ([place]) Basophil abs 0.1 0.0 - 0.1 K/cumm [facility] ([place]) Neutrophil pct 69.7 % [facility] ([place]) Comment: Interpretive Data Percent cell count reference ranges are not reported, since discordance with absolute values may lead to misinterpretation of CBC data. Current Interpretive Data was last revised on 2017. Imm gran pct 0.3 % [facility] ([place]) Comment: Interpretive Data Percent cell count reference ranges are not reported, since discordance with absolute values may lead to misinterpretation of CBC data. Current Interpretive Data was last revised on 2017. Lymphocyte pct 19.2 % [facility] ([place]) Comment: Interpretive Data Percent cell count reference ranges are not reported, since discordance with absolute values may lead to misinterpretation of CBC data. Current Interpretive Data was last revised on 2017. Monocyte pct 7.0 % [facility] ([place]) Comment: Interpretive Data Percent cell count reference ranges are not reported, since discordance with absolute values may lead to misinterpretation of CBC data. Current Interpretive Data was last revised on 2017. Eosinophil pct 2.4 % [facility] ([place]) Comment: Interpretive Data Percent cell count reference ranges are not reported, since discordance with absolute values may lead to misinterpretation of CBC data. Current Interpretive Data was last revised on 2017. Basophil pct 1.4 % [facility] ([place]) Comment: Interpretive Data Percent cell count reference ranges are not reported, since discordance with absolute values may lead to misinterpretation of CBC data. Current Interpretive Data was last revised on 2017. Blood 04/15/2024 8:40 AM SQUEAK RATTLE AND LEAK REPAIRER 04/15/2024 10:46 AM SQUEAK RATTLE AND LEAK REPAIRER us Nicole Menendez MD LAB BLOOD ORDERABLES Final Resul t [facility] ([place]) 1 [facility] [place] [address] * (ABNORMAL) CBC with auto differential (04/15/2024 8:40 AM SQUEAK RATTLE AND LEAK REPAIRER) WBC 3.7(L) 3.8 - 9.9 K/cumm Hgb 12.0 11.9 - 15.5 g/dL [facility] ([place]) Hct 34.9(L) 35.6 - 45.5 % [facility] ([place]) Plt 264 150 - 400 K/cumm [facility] ([place]) MPV 11.1 9.1 - 12.3 fL [facility] ([place]) RBC 3.29(L) 3.90 - 5.20 M/cumm [facility] ([place]) MCV 106.1(H) 81.3 - 96.4 fL [facility] ([place]) MCH 36.5(H) 27.1 - 33.3 pg [facility] ([place]) MCHC 34.4 32.3 - 35.7 g/dL [facility] ([place]) RDW CV 15.4(H) 11.1 - 14.9 % [facility] ([place]) RDW SD 60.1(H) 35.7 - 48.1 fL [facility] ([place]) NRBC abs 0.00 0.00 - 0.01 K/cumm [facility] ([place]) Blood 04/15/2024 8:40 AM SQUEAK RATTLE AND LEAK REPAIRER 04/15/2024 10:46 AM SQUEAK RATTLE AND LEAK REPAIRER Nicole Menendez MD LAB BLOOD ORDERABLES Final Resul t Performing Organization Address City/[facility]/ZIP Co de Phone Number [place] ([place]) 1 [facility] [place] [address] * (ABNORMAL) Erythrocyte sedimentation rate (04/15/2024 8:40 AM SQUEAK RATTLE AND LEAK REPAIRER) Pathologist [facility] Erythrocyte sedimentation rate 107(H) 1 - 30 mm/hr Blood 04/15/2024 8:40 AM SQUEAK RATTLE AND LEAK REPAIRER 04/15/2024 10:46 AM SQUEAK RATTLE AND LEAK REPAIRER Nicole Menendez MD LAB BLOOD ORDERABLES Final Resul t Performing Organization Address [facility] de Phone Number [place] ([place]) 1 [facility] [place] [address] * CRP (acute phase) (04/15/2024 8:40 AM SQUEAK RATTLE AND LEAK REPAIRER) Pathologist [facility] CRP <3.0 <=10.0 mg/L Blood 04/15/2024 8:40 AM SQUEAK RATTLE AND LEAK REPAIRER 04/15/2024 10:46 AM SQUEAK RATTLE AND LEAK REPAIRER Nicole Menendez MD LAB BLOOD ORDERABLES Final Resul t Performing Organization Address [facility] de Phone Number [place] ([place]) 1 [facility] [place] [address] * (ABNORMAL) Comprehensive metabolic panel (04/15/2024 8:40 AM SQUEAK RATTLE AND LEAK REPAIRER) Sodium 135 135 - 145 mmol/L Potassium, pl 4.3 3.3 - 4.9 mmol/L [facility] ([place]) Chloride 101 97 - 110 mmol/L [facility] ([place]) CO2 21(L) 22 - 32 mmol/L [facility] ([place]) Anion gap 13 2 - 15 mmol/L [facility] ([place]) BUN 28(H) 6 - 25 mg/dL [facility] ([place]) Creatinine 0.90 0.60 - 1.10 mg/dL [facility] ([place]) Glucose 100 70 - 199 mg/dL [facility] ([place]) Comment: Interpretive Data Fasting glucose >/= 126 mg/dl is diagnostic for diabetes. Fasting is defined as no caloric intake for at least 8 hours. Fasting glucose between 100 mg/dl to 125 mg/dl is diagnostic of prediabetes. In a patient with classic symptoms of hyperglycemia or hyperglycemic crisis, a random glucose >/= 200 mg/dl is diagnostic for diabetes. In the absence of unequivocal hyperglycemia, results should be confirmed by repeat testing. The classification and Diagnosis of Diabetes Diabetes Care 2021; 46: S19-S40. Current interpretive data was last revised 2022. Calcium 9.5 8.5 - 10.3 mg/dL [facility] ([place]) Bilirubin, total 0.7 0.1 - 1.2 mg/dL [facility] ([place]) Protein, pl 7.0 6.5 - 8.5 g/dL [facility] ([place]) Albumin 4.1 3.5 - 5.0 g/dL [facility] ([place]) Alk phos 127 40 - 130 Units/L [facility] ([place]) ALT 34 7 - 45 Units/L [facility] ([place]) AST 35 10 - 45 Units/L [facility] ([place]) Blood 04/15/2024 8:40 AM SQUEAK RATTLE AND LEAK REPAIRER 04/15/2024 10:46 AM SQUEAK RATTLE AND LEAK REPAIRER us Nicole Menendez MD LAB BLOOD ORDERABLES Final Resul t [facility] ([place]) 1 [facility] [place] [address] * (ABNORMAL) Screening Mammogram Bilateral W Jeferson (11/14/2022 3:24 PM CDT) Anatomical Region Laterality Modality Breast Bilateral Mammography 11/14/2022 4:50 PM CDT Impressions 11/14/2022 4:50 PM CDT 1. Left breast asymmetry on the MLO view. Recommend diagnostic left mammogram with possible ultrasound. 2. No evidence of malignancy in the right breast. Recommend screening right mammogram in one year. BI-RADS: 0 - Additional imaging evaluation is necessary. The patient will be contacted. Electronically signed by: Kong Barker M.D. Narrative 11/14/2022 4:50 PM CDT EXAMINATION: SCREENING MAMMOGRAM BILATERAL W JEFERSON ORDERING HEALTHCARE PROVIDER: SELF SCREENING MAMMOGRAM HISTORY: Routine screening mammography. COMPARISON: 08/19/2020, 07/20/2016, 08/04/2014, 04/22/2012, 10/24/2010 TECHNIQUE: CC and MLO views of the bilateral breasts were obtained with digital technique using breast tomosynthesis with C view. Computer aided detection was utilized. FINDINGS: DENSITY: The tissue of the bilateral breasts is heterogeneously dense, which may obscure small masses. BREASTS: A right sided port catheter and left-sided pacemaker obscure small portions of the axillae . There is an asymmetry on the MLO view just superior to the posterior nipple line at middle depth. There are no suspicious masses, suspicious calcifications, or other suspicious findings in the right breast. us Self Screening Mammogram IMG MAMMO PROCEDURES Fi nal Result * Dexa Axial Skeleton Bone Density 1 or 2 Site (03/23/2022 8:26 AM SQUEAK RATTLE AND LEAK REPAIRER) Anatomical Region Laterality Modality Body N/A Other 03/24/2022 2:35 PM SQUEAK RATTLE AND LEAK REPAIRER Narrative 03/24/2022 2:37 PM SQUEAK RATTLE AND LEAK REPAIRER EXAM DESCRIPTION: DEXA AXIAL SKELETON BONE DENSITY 1 OR MORE SITES REASON FOR STUDY: 61 y/o year old F with given history of screening. 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 COMPARISON: None available. FINDINGS: AP LUMBAR SPINE L2-L4: Total BMD is 0.839 g/cm2 T-score is -2.2 LEFT HIP: Total BMD is 0.697 g/cm2 T-score is -2.0 Femoral neck BMD is 0.668 g/cm2 T-score is -1.6 FRAX: FRAX tool cannot be utilized due to prior hip/vertebral fracture. IMPRESSION: Based on the lumbar spine bone mineral density (T-score -2.2 ) the patient has low bone mass . REFERENCE: Bone mineral density: Normal (T-score above or = -1.0) Low bone mass (T-score between -1.0 and -2.5) replaces the previously used term osteopenia Osteoporosis (T-score = or below -2.5) Medical evaluation for secondary causes of low bone mineral density may be appropriate. FRAX is a World Health Organization validated fracture risk assessment tool that calculates a person's 10 year probability of a major osteoporosis related fracture and hip fracture. According to the National Osteoporosis Foundation guidelines, postmenopausal women and men age 50 or older with low bone mass and a 10 year probability of a major osteoporosis related fracture = or greater than 20% or a 10 year probability of a hip fracture = or greater than 3% should be considered for treatment. For further information, including treatment recommendations, please refer to the 2013 ISCD Official Positions (http://www.iscd.org) and the NOF's Clinician's Guide to Prevention and Treatment of Osteoporosis (http://www.nof.org/professionals/clinical-guidelines) THIS IS AN ELECTRONICALLY VERIFIED FINAL REPORT 03/24/2022 2:37 PM - Electronically signed by Ben Taylor M.D. MF: BLAIR Report ID: [id number] Reading Location: [place] [address] Procedure Note Ben Taylor MD - 03/24/2022 EXAM DESCRIPTION: DEXA AXIAL SKELETON BONE DENSITY 1 OR MORE SITES REASON FOR STUDY: 61 y/o year old F with given history ofscreening. 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 COMPARISON: None available. FINDINGS: AP LUMBAR SPINE L2-L4: Total BMD is 0.839 g/cm2 T-score is -2.2 LEFT HIP: Total BMD is 0.697 g/cm2 T-score is -2.0 Femoral neck BMD is 0.668 g/cm2 T-score is -1.6 FRAX: FRAX tool cannot be utilized due to prior hip/vertebral fracture. IMPRESSION: Based on the lumbar spine bone mineral density (T-score -2.2 ) the patient has low bone mass . REFERENCE: Bone mineral density: Normal (T-score above or = -1.0) Low bone mass (T-score between -1.0 and -2.5) replaces thepreviously used term osteopenia Osteoporosis (T-score = or below -2.5) Medical evaluation for secondary causes of low bone mineral density may be appropriate. FRAX is a World Health Organization validated fracture risk assessmenttool that calculates a person's 10 year probability of a major osteoporosisrelated fracture and hip fracture. According to the National OsteoporosisFoundation guidelines, postmenopausal women and men age 50 or older with low bonemass and a 10 year probability of a major osteoporosis related fracture = or greater than 20% or a 10 year probability of a hip fracture = or greaterthan 3% should be considered for treatment. For further information, including treatment recommendations, please referto the 2013 ISCD Official Positions (http://www.iscd.org) and the NOF's Clinician's Guide to Prevention and Treatment of Osteoporosis (http://www.nof.org/professionals/clinical-guidelines) THIS IS AN ELECTRONICALLY VERIFIED FINAL REPORT 03/24/2022 2:37 PM - Electronically signed by Ben Taylor M.D. MF: BLAIR Report ID: [id number] Reading Location: [place] [address] Addis Argueta MD IM DXA PROCEDURES Final Resul t * Hepatitis panel, acute (02/10/2021 9:15 AM CDT) Hep A IgM Nonreactive Nonreactive [facility] [place] ([place]) Comment: Interpretive Data: If Hep A IgM Ab is reported as Equivocal, a new sample should be drawn in two weeks for testing. Current interpretive data was last revised on 19. Testing performed by: [facility], [address] [place] [address]., [id number] Hep B core IgM Nonreactive Nonreactive C [facility] [place] ([place]) Comment: Interpretive Data If HepB Core IgM Ab is reported as Equivocal, a new sample should be drawn in two weeks for testing. Current interpretive data was last revised on 19. Testing performed by: [facility], [address] [place] [address]., [id number] Hep C Ab Nonreactive Nonreactive [facility] [place] ([place]) Comment: Interpretive Data Nonreactive: Antibodies to HCV not detected. Does NOT exclude the possibility of recent exposure to HCV. Equivocal: Equivocal for HCV antibodies. Supplemental molecular testing will be automatically performed to determine infection status in accordance with current CDC screening recommendations. Reactive: Positive for HCV antibodies. This may represent current or past HCV infection. Supplemental molecular testing will be automatically performed to determine current infection status in accordance with current CDC screening recommendations. Interpretive data was last revised on 2019. Testing performed by: [facility], [address] [place] [address]., [id number] HepBsAg Nonreactive Nonreactive [facility] [place] ([place]) Comment:Testing performed by : [facility], [address] [place] [address]., [address] Blood 02/10/2021 9:15 AM CDT 02/10/2021 5:26 PM CDT Nicki Mahoney MD LAB MICROBIOLOGY - [facility] ORDERABLES Final Result [place] (TRIP) 1 [facility] [place] [address] from Last 3 Months or Most Recently Relevant to Health Maintenance Insurance [employer] H[employer] GENERIC COPAY ASSIST [id number] [place] [address] MEDICARE [facility] MEDICARE SUPPLEMENT [facility]IC[facility] MEDICARE Address: [address] [place] [address] MEDICARE [facility] MEDICARE SUPPLEMENT Advance Directives For more information, please contact: [phone] * Full Code (Latest Code Status on File) Date Activated Date Inactivated Comments 12/29/2022 1:53 AM 01/02/2023 10:41 PM * Full Code Date Activated Date Inactivated Comments 10/25/2021 8:49 AM 10/31/2021 7:28 PM * Full Code Date Activated Date Inactivated Comments 07/11/2021 1:11 PM 07/11/2021 7:53 PM * Full Code Date Activated Date Inactivated Comments 12/20/2020 3:33 AM 12/22/2020 5:19 PM * Full Code Date Activated Date Inactivated Comments 11/21/2020 6:08 PM 11/23/2020 10:17 PM Care Teams Cemetery Counselor Relationship Specialty Start Date End Date Celio Cosby MD [address] [place] [address] PCP - General Family Medicine 11/22/21 Ita Stanley MD Consulting Physician Gastroenterology 11/23/20
--- OUTSIDE RECORDS SUMMARY | 2024-06-29 13:25 | XMS_ITS | Encounter Summary ---
Author Organization [facility] Address [address] [place] [address] Phone Care Team Providers Care Punch Press Feeder Name Role Phone Keisha Roach MD Primary Care Provider [phone] Encounter Details Date Type Department Care Team (Late st Contact Info) Description 06/25/2016 Abstract [email or web address] Historical [address] [place] [address] ProviderHolly MD [address] [place], [place] [id number] Social History Tobacco Use Types Packs/Day Years Used Date Smoking Tobacco: Never Assessed Sex and Gender Information Value Date Recorded Sex Assigned at Not on file Gender Identity Not on file Sexual Orientation Not on file documented as of this encounter Plan of Treatment Not on file documented as of this encounter Visit Diagnoses Not on filedocumented in this encounter Care Teams Punch Press Feeder Relationship Specialty Start Date End Date Keisha Roach MD [address] [place] [address] PCP - General 09/18/23 documented as of this encounter
--- OUTSIDE RECORDS SUMMARY | 2024-06-29 13:25 | XMS_ITS | Encounter Summary ---
Author Organization [facility] Address [address] [place] [address] Phone Care Team Providers Care Products Mechanical Design Engineer Name Role Phone Keisha Roach MD Primary Care Provider [phone] Encounter Details Date Type Department Care Team (Late st Contact Info) Description 06/25/2017 Abstract [email or web address] Historical [address] [place] [address] ProviderHolly MD [address] [place], [place] [id number] Social History Tobacco Use Types Packs/Day Years Used Date Smoking Tobacco: Never Assessed Sex and Gender Information Value Date Recorded Sex Assigned at Not on file Gender Identity Not on file Sexual Orientation Not on file documented as of this encounter Plan of Treatment Not on file documented as of this encounter Visit Diagnoses Not on filedocumented in this encounter Care Teams Products Mechanical Design Engineer Relationship Specialty Start Date End Date Keisha Roach MD [address] [place] [address] PCP - General 09/18/23 documented as of this encounter
--- OUTSIDE RECORDS SUMMARY | 2024-06-29 13:25 | XMS_ITS | Encounter Summary ---
Author Organization [facility] Address [address] [place] [address] Phone Care Team Providers Care Guide Name Role Phone Keisha Roach MD Primary Care Provider [phone] Encounter Details Date Type Department Care Team (Late st Contact Info) Description 06/14/2016 Abstract [facility] Historical [address] [place] [address] ProviderHolly MD [address] [place], [place] [id number] Social History Tobacco Use Types Packs/Day Years Used Date Smoking Tobacco: Never Assessed Sex and Gender Information Value Date Recorded Sex Assigned at Not on file Gender Identity Not on file Sexual Orientation Not on file documented as of this encounter Plan of Treatment Not on file documented as of this encounter Visit Diagnoses Not on filedocumented in this encounter Care Teams Guide Relationship Specialty Start Date End Date Keisha Roach MD [address] [place] [address] PCP - General 09/18/23 documented as of this encounter
--- OUTSIDE RECORDS SUMMARY | 2024-06-29 13:25 | XMS_ITS | Encounter Summary ---
Author Organization [facility] Address [address] [place] [address] Phone Care Team Providers Care Chief Arson Division Name Role Phone Keisha Roach MD Primary Care Provider Encounter Details Date Type Department Care Team (Late st Contact Info) Description 07/08/2017 Legacy Encounter - Labs [email or web address] Historical [address] [place] [address] ProviderHolly MD [address] [place], [place] [address] Social History Tobacco Use Types Packs/Day Years Used Date Smoking Tobacco: Never Assessed Sex and Gender Information Value Date Recorded Sex Assigned at Not on file Gender Identity Not on file Sexual Orientation Not on file documented as of this encounter Plan of Treatment Not on file documented as of this encounter Procedures Procedure Name Priority Date/Time Associated Diagnosis Comments DPS CONVERSION - LAB RESULT SCAN PROCEDURE 07/08/2017 documented in this encounter Results * Conversion - Lab Result Scan Procedure (07/08/2017) Narrative 07/08/2017 Ordered by an unspecified provider. Historical Provider LAB BLOOD ORDERAB LES documented in this encounter Visit Diagnoses Not on filedocumented in this encounter Care Teams Chief Arson Division Relationship Specialty Start Date End Date Keisha Roach MD [address] [place] [address] PCP - General 09/18/23 documented as of this encounter
--- OUTSIDE RECORDS SUMMARY | 2024-06-29 13:25 | XMS_ITS | Encounter Summary ---
Author Organization [facility] Address [address] [place] [address] Phone Care Team Providers Care Machine Washer Name Role Phone Keisha Roach MD Primary Care Provider [phone] Encounter Details Date Type Department Care Team (Late st Contact Info) Description 07/18/2017 Abstract [email or web address] Historical [address] [place] [address] ProviderHloly MD [address] [place], [place] [id number] Social History Tobacco Use Types Packs/Day Years Used Date Smoking Tobacco: Never Assessed Sex and Gender Information Value Date Recorded Sex Assigned at Not on file Gender Identity Not on file Sexual Orientation Not on file documented as of this encounter Plan of Treatment Not on file documented as of this encounter Visit Diagnoses Not on filedocumented in this encounter Care Teams Machine Washer Relationship Specialty Start Date End Date Keisha Roach MD [address] [place] [address] PCP - General 09/18/23 documented as of this encounter
--- OUTSIDE RECORDS SUMMARY | 2024-06-29 13:25 | XMS_ITS | Encounter Summary ---
Author Organization [facility] Address [address] [place] [address] Phone Care Team Providers Care Resin Shaver Name Role Phone Keisha Roach MD Primary Care Provider [phone] Encounter Details Date Type Department Care Team (Late st Contact Info) Description 06/06/2016 Abstract [email or web address] Historical [address] [place] [address] ProviderHolly MD [address] [place], [place] [phone] Social History Tobacco Use Types Packs/Day Years Used Date Smoking Tobacco: Never Assessed Sex and Gender Information Value Date Recorded Sex Assigned at Not on file Gender Identity Not on file Sexual Orientation Not on file documented as of this encounter Plan of Treatment Not on file documented as of this encounter Visit Diagnoses Not on filedocumented in this encounter Care Teams Resin Shaver Relationship Specialty Start Date End Date Keisha Roach MD [address] [place] [address] PCP - General 09/18/23 documented as of this encounter
--- OUTSIDE RECORDS SUMMARY | 2024-06-29 13:25 | XMS_ITS | Encounter Summary ---
Author Organization [facility] Address [address] [place] [address] Phone Care Team Providers Care Carton Forming Machine Operator Name Role Phone Keisha Roach MD Primary Care Provider [phone] Encounter Details Date Type Department Care Team (Late st Contact Info) Description 06/25/2016 Abstract [facility] Historical [address] [place] [address] ProviderHolly MD [address] [place], [place] [phone] Social History Tobacco Use Types Packs/Day Years Used Date Smoking Tobacco: Never Assessed Sex and Gender Information Value Date Recorded Sex Assigned at Not on file Gender Identity Not on file Sexual Orientation Not on file documented as of this encounter Plan of Treatment Not on file documented as of this encounter Visit Diagnoses Not on filedocumented in this encounter Care Teams Carton Forming Machine Operator Relationship Specialty Start Date End Date Keisha Roach MD [address] [place] [address] PCP - General 09/18/23 documented as of this encounter
--- OUTSIDE RECORDS SUMMARY | 2024-06-29 13:25 | XMS_ITS | Encounter Summary ---
Author Organization [facility] Address [address] [place] [address] Phone Care Team Providers Care Fondant Cooker Name Role Phone Keisha Roach MD Primary Care Provider [phone] Encounter Details Date Type Department Care Team (Late st Contact Info) Description 07/18/2017 Abstract [email or web address] Historical [address] [place] [address] ProviderHolly MD [address] [place], [place] [phone] Social History Tobacco Use Types Packs/Day Years Used Date Smoking Tobacco: Never Assessed Sex and Gender Information Value Date Recorded Sex Assigned at Not on file Gender Identity Not on file Sexual Orientation Not on file documented as of this encounter Plan of Treatment Not on file documented as of this encounter Visit Diagnoses Not on filedocumented in this encounter Care Teams Fondant Cooker Relationship Specialty Start Date End Date Keisha Roach MD [address] [place] [address] PCP - General 09/18/23 documented as of this encounter
--- OUTSIDE RECORDS SUMMARY | 2024-06-29 13:25 | XMS_ITS | Encounter Summary ---
Author Organization [facility] Address [address] [place] [address] Phone Care Team Providers Care Die Cast Patternmaker Name Role Phone Keisha Roach MD Primary Care Provider [phone] Encounter Details Date Type Department Care Team (Late st Contact Info) Description 06/14/2016 Abstract [facility] Historical [address] [place] [address] ProviderHolly MD [address] [place], [place] [phone] Social History Tobacco Use Types Packs/Day Years Used Date Smoking Tobacco: Never Assessed Sex and Gender Information Value Date Recorded Sex Assigned at Not on file Gender Identity Not on file Sexual Orientation Not on file documented as of this encounter Plan of Treatment Not on file documented as of this encounter Visit Diagnoses Not on filedocumented in this encounter Care Teams Die Cast Patternmaker Relationship Specialty Start Date End Date Keisha Roach MD [address] [place] [address] PCP - General 09/18/23 documented as of this encounter
--- OUTSIDE RECORDS SUMMARY | 2024-06-29 13:25 | XMS_ITS | Clinical Summary ---
Author Organization [facility] Address [address] [address] Phone Care Team Providers Care Bi Developer Name Role Phone Ita Stanley MD Unavailable [phone] Celio Cosby MD Primary Care Provider [phone] Allergies Active Allergy Reactions Criticality Noted Date [...] mental status requiring hospitalization. Follow-up with her logging equipment mechanic as they direct. Call back if blood [...] Hospital discharge follow-up 07/07/2021 Paroxysmal atrial fibrillation ([facility]) 022 Assessment & Plan (07/07/2021 4:41 PM AUTISM TEACHER): Continue current medication regimen follow up with logging equipment mechanic as they direct. Encounter for adjustment and [...] is deliberate. She thinks she is at [facility] but no she is in [place]. She is aware of year and president. Will check cosyntropin test to rule out adrenal crisis as the causes patient also having abdominal pain with nausea and vomiting. Blood pressures are low normal but appears to be at patient's baseline. Will hold prednisone pending cosyntropin test as patient may need Solu-Cortef instead. Sinus node dysfunction ([facility]/HCC) 11/02/2020 Overview (11/02/2020): Last Assessment & Plan: Status post pacemaker Normal function per EP History of endocarditis 09/26/2020 Systolic dysfunction 09/19/2020 Assessment & Plan (07/07/2021 4:41 PM AUTISM TEACHER): Continue current medication regimen follow up with logging equipment mechanic as they direct. Osteopenia of lumbar spine [...] the hip Patient was on Prolia in 2020- till the end of 2020 Then denied [...] on the hip Patient started Prolia in 2020- Plan : Continue calcium with vitamin D [...] month. Assessment & Plan (06/30/2020 12:21 PM AUTISM TEACHER): Patient with history of multiple bone fractures in last 5 years which happened when she had seizures. Bone density on 02/13/19 -2.4 on the spine -1.9 on the hip Patient started Prolia in 2019- had one dose Plan : We will check labs Continue calcium with vitamin D We will resume Prolia every 6 month. CVID (common variable immunodeficiency) ([facility] ) 06/22/2020 Assessment & Plan (11/21/2020 10:11 PM CDT): Patient receives IVIG every 2 weeks. She last received IVIG on Saturday. Assessment & Plan (09/06/2020 5:19 PM CDT): Follow-up with restorative coordinator as they direct. Healthcare maintenance 06/08/2020 Assessment & Plan (07/07/2021 4:41 PM AUTISM TEACHER): Flu shot each February. COVID vaccine completed. Repeat Pneumovax age 63. Shingrix recommended. Check on status of Tetanus booster. Mammogram yearly. Colonoscopy due 2025 per patient. Will see her back in 6 months with lab sooner if needed. Assessment & Plan (06/08/2020 12:12 PM AUTISM TEACHER): Flu shot each February. Tetanus booster every 10 years. Shingrix recommended. COVID-19 vaccine recommended when available. Mammogram yearly. Follow-up the salesperson burial plots for breast exam and pelvic exam as [...] injections of Prolia during the year of [id number] Currently not on any osteoporotic medication Continue current calcium plus vitamin-D supplementation Recommend to take at least 2-3 servings of calcium intake in diet Fall precautions Reorder bone density scan March 2024 and further plans based on it Assessment & Plan (06/08/2020 12:08 PM AUTISM TEACHER): Continue calcium, vitamin-D, weight-bearing exercise and has had Prolia given by her engraver tire mold in the past and will request this [...] stress test but can do this in [place] after she has established care there Assessment [...] her about this. She was seen at [facility], records are not available for review. She does not remember undergoing echocardiogram at [facility]. Additionally, there is no record of an echocardiogram in her chart for review. Will refer per patient for echocardiogram to assess structure and LV function. If indicated will refer to cardiology as needed for follow-up. Partial obstruction of small intestine (CMS/HCC) 12/22/2019 Discoid lupus 07/16/2017 Assessment & Plan (07/07/2021 4:38 PM AUTISM TEACHER): I do not see any absolute contraindication to her azathioprine and can restart and should discuss further with her engraver tire mold. Assessment & Plan (02/08/2021 3:10 PM CDT): Continue current medications and follow-up with engraver tire mold as they direct. Assessment & Plan (11/21/2020 10:08 PM CDT): Continue Plaquenil and azathioprine Assessment & Plan (09/06/2020 5:20 PM CDT): Follow-up with engraver tire mold as they direct. Assessment & Plan (06/08/2020 12:11 PM AUTISM TEACHER): Continue Plaquenil and get yearly eye exams and follow-up with her new engraver tire mold as they direct. Port-A-Cath in place 09/27/2016 Mixed hyperlipidemia 08/10/2015 Assessment & Plan (01/21/2024 11:51 AM CDT): Stable on the current regimen and will follow response. NO new myalgias with pravastatin and will continue to follow response. Assessment & Plan (07/07/2021 4:40 PM AUTISM TEACHER): Well controlled on current therapy and will check a lipid panel and LFTs in 6 months. Assessment & Plan (02/08/2021 3:11 PM CDT): Well controlled on current therapy and will check a lipid panel and LFTs in 6 months. Assessment & Plan (09/06/2020 5:19 PM CDT): Continue her pravastatin and check lipids and LFTs before next visit. Assessment & Plan (06/08/2020 12:08 PM AUTISM TEACHER): Continue pravastatin and check lipids and LFTs before next visit. Major depression, recurrent, chronic 03/22/2015 Recurrent UTI 10/14/2014 Assessment & Plan (07/07/2021 4:40 PM AUTISM TEACHER): Continue her D mannose and return to Infectious Disease if continues to be an issue. Presence of cardiac pacemaker 05/04/2014 Overview (11/23/2021): Medtronic Dilshad Dual Pacemaker. Dx; Sinus Node Dysfunction, PAF. Gen change 07/26/2021-[facility], chronic leads 07/05/2011-[place]. [facility] remote monitoring. Assessment & Plan (01/21/2024 11:51 AM CDT): No afib detected and continues off DOAC. Assessment & Plan (06/08/2020 12:10 PM AUTISM TEACHER): Sick sinus syndrome status post pacemaker placement and will refer to cardiology for management. Continue metoprolol for now. Urinary retention 02/16/2014 Overview (06/07/2020): Intermittent self-catheterization, Dr. Hernadez Complex partial seizures aguilar lving to generalized tonic-clonic seizures (CMS/HCC) 01/12/2014 Overview (06/07/2020): Mri BRAIN OK 2013. Managed by Dr. Price. Assessment & Plan (01/21/2024 11:50 AM CDT): COntinue f/u with Dr. Koo. Dual AEDS with keppra and zonegran. Follows with Dr. Koo, neurology. 2 breakthrough seizures in last 6 months. Assessment & Plan (07/07/2021 4:39 PM AUTISM TEACHER): Continue current medication regimen follow up with [...] specialist. Assessment & Plan (06/08/2020 12:11 PM AUTISM TEACHER): Continue current medication regimen and follow-up with her new neurologist as they direct. Insomnia 06/19/2013 Immune deficiency disorder 05/01/2013 Overview (06/07/2020): Hypogammaglobulinemia, treated with immunoglobulins Rx by Dr Fisher Assessment & Plan (07/07/2021 4:39 PM AUTISM TEACHER): Follow-up with her restorative coordinator as they direct. Assessment & Plan (02/08/2021 3:11 PM CDT): Continue treatment as directed by her restorative coordinator. Assessment & Plan (06/08/2020 12:09 PM AUTISM TEACHER): Will request records and orders from her previous managing physician and order immunoglobulins through our infusion center until she can establish with a new restorative coordinator. Referral placed today. Kidney disease, chronic, sta ge III (moderate, EGFR 30-59 ml/min) 05/01/2013 Overview (06/07/2020): Managed by Dr. Haines Assessment & Plan (01/21/2024 11:50 AM CDT): Continues f/u with nephrology. WIll monitor response. Secondary to SLE. Reivewed bp and hydration status while DMARDS for SLE. Assessment & Plan (07/07/2021 4:39 PM AUTISM TEACHER): Follow-up with her cryptography teacher as they direct. Assessment & Plan (02/08/2021 3:11 PM CDT): Renal function stable and should follow-up with her cryptography teacher as they direct. Assessment & Plan (09/06/2020 5:19 PM CDT): Follow-up with her cryptography teacher as they direct. At this point I am assuming her elevated intact PTH is due to her kidney disease and she should follow-up with her cryptography teacher regarding discussion of this level as well as her hypocalcemia. Myasthenia gravis 05/01/2013 Overview (09/06/2020): DR green Assessment & Plan (01/21/2024 11:51 AM CDT): Mestinon and IVIG. Assessment & Plan (07/07/2021 4:40 PM AUTISM TEACHER): Follow-up with her neurologist as they direct. Assessment & Plan (02/08/2021 3:11 PM CDT): Follow-up with neurologist and continue current management. Assessment & Plan (11/21/2020 10:10 PM CDT): Continue Mestinon Assessment & Plan (09/06/2020 5:19 PM CDT): Follow-up with her neurologist as he directs. Assessment & Plan (06/08/2020 12:08 PM AUTISM TEACHER): Continue current medication regimen and refer to neurology for management. Gastroparesis 03/31/2013 Overview (06/07/2020): Managed by Dr. Monson, last note recommended Botox. Anxiety state 09/10/2012 Overview (06/07/2020): Seen by a counselor Floyd golden Assessment & Plan (06/08/2020 12:11 PM AUTISM TEACHER): Counseling and exercise recommended and use lorazepam [...] bracelet. Assessment & Plan (07/07/2021 4:39 PM AUTISM TEACHER): Follow-up with her rolling machine operator as they direct. Assessment & Plan (02/13/2021 [...] (02/08/2021 3:10 PM CDT): Follow-up with her rolling machine operator as they direct. Assessment & Plan (11/21/2020 [...] Argueta. Assessment & Plan (06/30/2020 12:18 PM AUTISM TEACHER): Diagnosed years ago after chronic steroid use for different diseases. Patient clinically stable on maintenance dose of prednisone Plan: Obtain copy of records from her Repairer [employer]creational [employer] in [place]. Continue 5 mg Prednisone /day Discussed use of steroids during sick days. Discussed situations when emergency care is needed , if vomiting or having low blood pressure. Patient confirmed wearing medical alert bracelet. Assessment & Plan (06/08/2020 12:10 PM AUTISM TEACHER): Continue current dose of prednisone and refer to Dr. Argueta for management. Chronic migraine without aur a without status migrainosus, not intractable 09/10/2012 Assessment & Plan (06/08/2020 12:10 PM AUTISM TEACHER): Stable on current medication regimen and should follow-up with her new neurologist as they direct. Hypertension 09/10/2012 Overview (06/07/2020): Last Assessment & Plan: Controlled Assessment & Plan (07/07/2021 4:39 PM AUTISM TEACHER): No issues with control currently. Assessment & [...] recommended. Assessment & Plan (06/08/2020 12:10 PM AUTISM TEACHER): Blood pressure currently within her normal range will continue metoprolol for now but consider decreasing if she becomes symptomatic from low blood pressure. Infection due to urethral catheter Resolved Problems Problem Noted Date Diagnosed Date Resolved Date Seizure disorder (CMS/HCC) 10/25/2021 1 05/22/2023 Acute cystitis with hematuria [...] gravis, uses Trilogy ventilator for sleep, Dr. Shaw Assessment & Plan (09/06/2020 5:18 PM CDT): Referral to pulmonary as requested for management of her chronic respiratory failure and trilogy ventilator. Encounters Date Type Department Care Team Description 06/25/2024 8:00 AM AUTISM TEACHER Infusion [facility] [address] [facility] [address] [place] [address] CVID (common variable immunodeficiency) (HCC) (Primary Dx) 06/25/2024 Orders Only [facility] [address] [facility] [address] [place] [address] Mary Argueta RN 06/19/2024 Orders Only [facility] [address] [facility] [address] [place] [phone] Lawrence Coker MD Age-related osteoporosis without current pathological fracture (Primary Dx) 06/11/2024 8:00 AM AUTISM TEACHER Infusion [address] [place] [phone] CVID (common variable immunodeficiency) (HCC) (Primary Dx); Encounter for adjustment and management of vascular access device 05/29/2024 Orders Only [facility] [address] [place] [address] [place] [phone] Mary Argueta, RN 05/29/2024 Telephone [facility] [address] [place] [address] [place] [phone] Mary Argueta RN 05/28/2024 8:00 AM AUTISM TEACHER Infusion [address] [place] [phone] CVID (common variable immunodeficiency) (HCC) (Primary Dx) 05/28/[address] [place] [phone] Elena Dickson RN 05/28/2024 Orders Only [facility] [address] [place] [address] [place] [phone] Xander Bernal MD 05/15/2024 Orders Only [facility] [address] [facility] [address] [place] [phone] Chetna Mace MD Paroxysmal atrial fibrillation (CMS/HCC) (HCC) (Primary Dx); Sinus node dysfunction (CMS/HCC) (HCC); Presence of cardiac pacemaker 05/14/2024 8:30 AM AUTISM TEACHER - 05/14/2024 11:59 PM AUTISM TEACHER Hospital Encounter [address] Discharge Disposition: Discharge to home or self care 05/14/2024 8:00 AM AUTISM TEACHER Infusion [address] [place] [phone] CVID (common variable immunodeficiency) (HCC) (Primary Dx) 04/29/2024 8:00 AM AUTISM TEACHER Infusion [address] [place] [phone] CVID (common variable immunodeficiency) (HCC) (Primary Dx); High risk medication use; Systemic lupus erythematosus, unspecified SLE type, unspecified organ involvement status (HCC); Leukopenia, unspecified type 04/28/2024 10:00 AM AUTISM TEACHER Office Visit [facility] Rheumatology [address] [place] [address] Medicine 5th [place] [address] [place] [address] Nicole Menendez MD High risk medication use (Primary Dx); Systemic lupus erythematosus, unspecified SLE type, unspecified organ involvement status (HCC) 04/28/2024 7:00 AM AUTISM TEACHER Ancillary Procedure [facility] [address] [facility] [address], [place] [phone] Paroxysmal atrial fibrillation (CMS/HCC) (HCC); Presence of cardiac pacemaker; Sinus node dysfunction (CMS/HCC) (HCC) 04/23/2024 Telephone [facility] [address] [place] [address] [address], [place] [phone] Lawrence Coker MD 04/15/2024 8:40 AM AUTISM TEACHER - 04/15/2024 11:59 PM AUTISM TEACHER Hospital Encounter [address] High risk medication use Discharge Disposition: Discharge to home or self care 04/15/2024 8:30 AM AUTISM TEACHER [address] [place] [phone] CVID (common variable immunodeficiency) (HCC) (Primary Dx) 04/01/2024 8:00 AM AUTISM TEACHER Infusion [address] [place] [phone] CVID (common variable immunodeficiency) (HCC) (Primary Dx) from Last 3 Months Immunizations Immunization Administration Dates Next Due Influenza, Quadrivalent, Rec ombinant, Egg Free, Preservative Free, Intramuscular 02/03/2020,03/03/2019 Influenza, Quadrivalent, Spl it, Intramuscular 03/25/2018,02/22/2016,02/10/2015,02/10 Influenza, Quadrivalent, Spl it, Preservative Free, Intramuscular 03/05/2022,01/06/2021 Influenza, Trivalent, IM (MDV) 02/10/2014,2012 Influenza, Trivalent, Preser vative Free, Intramuscular 04/01/2013,06/16/2009 Influenza, Unspecified 01/21/2024(Deferr ed: Patient Refused),05/13/2023(Deferred: Patient Refused),01/16/2023,01/01/2023(Deferre d: Patient Refused),05/13/2022(Deferred: Patient Refused),05/13/2021(Deferred: Patient Refused),12/26/2020(Deferred: Patient Refused) PFSweb (J&J) SARS-CoV-2 Vaccination 07/21/2020 Meningococcal MCV4P (Menactra) 05/01/2013 Pfizer SARS-CoV-2 Monovalent Vaccination (12+ Yrs) PURPLE 01/31/2022,03/13/2021 Pneumococcal Conjugate PCV 13 05/01/2013, 013 Pneumococcal Polysaccharide PPV23 03/22/2015 Tdap 07/30/2022 Surgical History Surgery Date Site/Laterality Comments INSERT / REPLACE / REMOVE PACEMAKER PORTACATH PLACEMENT APPENDECTOMY SECTION 2 HYSTERECTOMY BOWEL RESECTION small KNEE ARTHROSCOPY W/ LATERAL RELEASE Left knee COLON SURGERY Small bowel resection 2006 CHOLECYSTECTOMY 05/13/1989 - 05/12/1990 SMALL INTESTINE SURGERY Resection 07 CARDIAC PACEMAKER PLACEMENT 07/11/2021 ABDOMINAL SURGERY Medical History Medical History Date Comments CVID (common variable immunodeficiency) (HCC) Lupus Kidney failure Arrhythmia Asthma Anemia Back pain Visual impairment right eye >>L eye Rash Hypertension Migraines High cholesterol Epilepsy (HCC) Myasthenia gravis (HCC) Ileus (CMS/HCC) (HCC) Osteoporosis Ruben's disease (HCC) Depression Anxiety 2 years ago Arthritis 6 years ago 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 Heart disease Pacemaker, sick sinus syndrome Infection Frequently Kidney stone 3-4 since 1984 Encounter for adjustment and management of vascular access device 07/07/2021 Abnormal echocardiogram Cardiomyopathy (HCC) Atrial fibrillation (CMS/HCC) (HCC) Ventricular flutter (CMS/HCC) (HCC) 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) GERD (gastroesophageal reflu x disease) Nausea and vomiting 12/01/2020 Covid-19 Family History Medical History Relation Name Comments Lung cancer Brother 1 chronic leukemia Brother 1 Arthritis Brother 2 Raheel Elder Cancer Brother 2 Raheel Elder Cancer Brother 3 Rosalio Elder Cancer Brother 4 DouglassElder Alcohol abuse Father Pawan Elder Cancer Father Pawan Elder Kidney disease Father Pawan Elder Lung cancer Father Pawan Elder Arthritis Mother Judi Elder Brain cancer Mother Judi Elder Breast cancer Mother Judi Elder Cancer Mother Judi Elder Early Mother Judi Elder Hypertension Mother Judi Elder Cancer Mother's Sister 1 Lima Kreke Cancer Mother's Sister 2 Maikel Rich Cancer Mother's Sister 3 Ros Macias Arthritis Sister Festus Elder Hypertension Sister Festus Elder Rashes / Skin problems Son Evan Durant Relation Name Status Comments Brother 1 Brother 2 Raheel Elder Brother 3 Rosalio Elder Brother 4 DouglassElder Father Pawan Elder Mother Judi Elder Mother's Sister 1 Lima Kreke Mother's Sister 2 Maikel Rich Mother's Sister 3 Ros Macias Sister Festus Elder Son Evan Durant Social History Tobacco Use Types Packs/Day Years [...] declined 01/03/2023 How often do you attend caodaism or judaism serv ices? Patient declined 01/03/2023 Do you belong to any clubs o r organizations such as caodaism groups, unions, fraternal or athletic groups, or [...] place to sleep or slept in a [place] facility (including now)? Patient refused 01/03/2023 Personal Safety Answer Date Recorded Have you ever been in or are you currently in a harmful physical or emotional relationship or is someone making you feel afraid or unsafe? Denies 12/29/2022 Comments No Sex and Gender Information Value Date Recorded Sex Assigned at Not on file Legal Sex Female 3:19 PM AUTISM TEACHER Gender Identity Female 09/13/2020 9:35 AM CDT Sexual Orientation Straight 09/13/2020 9: 35 AM CDT Obstetrics History Para Term AB IAB SAB Ectopic Multiple Livin g Live Births 2 2 2 Date Outcome GA Total Labor Labor/2nd/3rd Weight Sex Type Anes PTL Juanis A1 A5 Name Clin Term Term Last Filed Vital Signs Vital Sign Reading Time Taken Comments Blood Pressure 110/63 06/25/2024 11:45 AM AUTISM TEACHER Pulse 62 06/25/2024 11:45 AM AUTISM TEACHER Temperature 36.2 C (97.1 F) 06/25/2024 11:45 AM AUTISM TEACHER Respiratory Rate 16 06/25/2024 11:4 5 AM AUTISM TEACHER Oxygen Saturation 100% 06/25/2024 11: 45 AM AUTISM TEACHER Inhaled Oxygen Concentration - - Weight 73.8 kg (162 lb 12.8 oz) 04/28/2024 9:55 AM AUTISM TEACHER Height 162.6 cm (5' 4 ) 04/28/2024 9:55 AM AUTISM TEACHER Body Mass Index 27.94 04/28/2024 9:55 AM AUTISM TEACHER Plan of Treatment Upcoming Encounters Date Type Department Care Team (Late st Contact Info) Description 11/17/2024 8:25 AM CDT Hospital Encounter [address] [phone] Ita Stanley MD [address] [place] [address] DR MORALES [address] [place] [phone] 11/17/2024 8:25 AM CDT - 11/17/2024 8:55 AM CDT Surgery [address] [phone] Ita Stanley MD [address] [place] [address] DR MORALES [address] [place] [phone] COLONOSCOPY Scheduled Procedures Name Priority Associated Diagnoses Date/Ti me COLONOSCOPY Colon cancer screening 11/17/2024 8:25 AM CDT Health Maintenance Due Date Last Done Comments Colon Cancer Screening-Colonoscopy 1958 Hepatitis B Screening 1976 Zoster Vaccine (1 of 2) 1977 Pneumococcal vaccine 65+ (3 of 3 - PPSV23, PCV20 or PCV21) 03/22/2020 03/22/2015, 05/01/2013, 05/23/2012 Well Visit 65+ 08/09/2023 07/07/2021, 06/07/2020 Breast Cancer Screening-Mammogram 11/15/2023 023, 08/19/2020 Covid-19 Vaccine (2023-06 5 season) 2024 01/31/2022, 01/31/2022, 08/21/2021, Additional history exists Osteoporosis Screening-Bone Density Scan 03/23/2024 03/23/2022, 02/13/2019 Depression Screening 01/20/2025 01/21/2024, 07/16/2023, 01/07/2023, Additional history exists Fall Risk Assessment 03/18/2025 03/18/2024, 01/21/2024, 11/18/2023, Additional history exists DTaP/Tdap/Td Vaccine (2 - Td or Tdap) 07/30/2032 07/30/2022 Hepatitis C Screening Completed 02/10/2021 , 09/09/2020, 08/12/2020 Influenza Vaccine Completed 02/26/2024, , 03/05/2022, Additional history exists Medical Devices Implanted Type Area Nozzle And Sleeve Worker Device Identifier Shelf Expiration Date Model / Serial / Lot Lead (Ra)-07/05/2011 Implanted:06/14 by Chetna Mace MD (Quantity not on file) Lead Heart Medtronic Cardiac Rhythm Mgmt [id number]/[id number] / / Lead (Rv)-07/05/2011 Implanted:06/14 by Chetna Mace MD (Quantity not on file) Lead Heart Medtronic Cardiac Rhythm Mgmt 5086/52 / / Pacemaker-07/26 Implanted:07/11 by Chetna Mace MD (Quantity not on file) Pacemaker Chest Medtronic Cardiac Rhythm Mgmt DILSHAD [id number] / / Angio-Seal Vip 6fr Closere Device - [id number] Implanted:Qty: 1 on 07/11/2021 by Chetna Mace MD at [facility] 04/11/2022 [id number] / / [id number] Procedures Procedure Name Priority Date/Time Associated Diagnosis Comments DEVICE CHECK - REMOTE Routine 05/15/2024 12:35 PM AUTISM TEACHER Paroxysmal atrial fibrillation (CMS/HCC) (HCC) Presence of cardiac pacemaker Sinus node dysfunction (CMS/HCC) (HCC) CALCITRIOL 1,25-DIHYDROXYVITAMI N D Routine 05/14/2024 11:18 AM AUTISM TEACHER PTH Routine 05/14/2024 11:18 AM AUTISM TEACHER EGFR Routine 05/14/2024 8:30 AM AUTISM TEACHER URINALYSIS, MICROSCOPIC ONLY Routine 05/14/2024 8:30 AM AUTISM TEACHER DIFFERENTIAL AUTO Routine 05/14/2024 8:3 0 AM AUTISM TEACHER ALBUMIN CREATININE RATIO, URINE Routine 05/14/2024 8:30 AM AUTISM TEACHER URINALYSIS AND REFLEX TO MICROSCOPIC Routine 05/14/2024 8:30 AM AUTISM TEACHER IRON PROFILE W/ IBC Routine 05/14/2024 8 :30 AM AUTISM TEACHER RENAL FUNCTION PANEL Routine 05/14/2024 8:30 AM AUTISM TEACHER CBC WITH AUTO DIFFERENTIAL Routine 05/14/2024 8:30 AM AUTISM TEACHER DIFFERENTIAL AUTO Routine 04/29/2024 8:4 0 AM AUTISM TEACHER Leukopenia, unspecified type CRP (ACUTE PHASE) Routine 04/29/2024 8:4 0 AM AUTISM TEACHER High risk medication use Systemic lupus erythematosus, unspecified SLE type, unspecified organ involvement status (HCC) CBC WITH AUTO DIFFERENTIAL Routine 04/29/2024 8:40 AM AUTISM TEACHER Leukopenia, unspecified type ERYTHROCYTE SEDIMENTATION RATE Routine 04/29/2024 8:40 AM AUTISM TEACHER High risk medication use Systemic lupus erythematosus, unspecified SLE type, unspecified organ involvement status (HCC) EGFR Routine 04/15/2024 8:40 AM AUTISM TEACHER High risk medication use DIFFERENTIAL AUTO Routine 04/15/2024 8:4 0 AM AUTISM TEACHER High risk medication use CBC WITH AUTO DIFFERENTIAL Routine 04/15/2024 8:40 AM AUTISM TEACHER High risk medication use COMPREHENSIVE METABOLIC PANEL Routine 04/15/2024 8:40 AM AUTISM TEACHER High risk medication use ERYTHROCYTE SEDIMENTATION RATE Routine 04/15/2024 8:40 AM AUTISM TEACHER High risk medication use CRP (ACUTE PHASE) Routine 04/15/2024 8:4 0 AM AUTISM TEACHER High risk medication use SCREENING MAMMOGRAM BILATERAL W JEFERSON Schedule Routine, Read Routine (OP Routine) 11/14/2022 3:24 PM CDT Screening mammogram, encounter for DEXA AXIAL SKELETON BONE DENSITY 1 OR MORE SITES Schedule Routine, Read Routine (OP Routine) 03/23/2022 8:26 AM AUTISM TEACHER Osteopenia of lumbar spine HEPATITIS PANEL, ACUTE Routine 02/10/2021 9:15 AM CDT from Last 3 Months or Most Recently Relevant to Health Maintenance Results * DEVICE CHECK - REMOTE (05/15/2024 12:35 PM AUTISM TEACHER) Anatomical Region Laterality Modality Other Narrative 06/19/2024 2:21 PM AUTISM TEACHER [employer] [place] Dual Pacemaker. Dx; Sinus Node Dysfunction, PAF. Gen change 07/26/2021-[facility], chronic leads 07/05/2011-[place]. [facility] remote monitoring. Routine AAIR <> DDDR Pacemaker Remote. Transmission attached. Battery status: 3.03 V, 11.8 years remaining battery life to TUSHAR. Stable lead impedances, pacing and sensing thresholds. Presenting rhythm: A paced/V sensed AP-38.3%, BAND BOOKER-< 0.1% No AT/AF episodes noted. 2 Ventricular high rate episodes detected, available IEGM demonstrates NSVT for 1 second. Medications: No anticoagulation or cardiac meds See scanned report. Office pacemaker follow up: 01/27/25 [facility] remote f/u 08/05/24. Manjinder Goldstein RN Chetna Mace MD [facility] CARDIAC SERVICES PROCEDURES Final Result * Calcitriol 1,25 Dihydroxyvitamin D (05/14/2024 11:18 AM AUTISM TEACHER) [facility] Vit D3 1, 25 26 NO REFERENCE RANGE pg/mL [facility] Vit D2 1, 25 <8 NO REFERENCE RANGE pg/mL [facility] ([facility]) Comment: This test was developed and its analytical performance characteristics have been determined by [facility]. It has not been cleared or approved by FDA. This assay has been validated pursuant to the CLIA regulations and is used for clinical purposes. For additional information, please refer to http://education.EVERYWARE/faq/ZIP799 (This link is being provided for informational/educational purposes only.) Test Performed by: [facility]/[address] [id number] Vit D 1, 25 total 26 18 - 72 pg/mL [facility] ([place]) Comment: Reference Ranges for Vitamin [...] (OH)2, Total. Blood 05/14/2024 11:1 8 AM AUTISM TEACHER 05/14/2024 1:43 PM AUTISM TEACHER Narrative [facility] ([facility]) - 05/18/2024 10:28 PM AUTISM TEACHER fax to 05/14/2024 10:02:23 AUTISM TEACHER Irving Saucedo MD LAB BLOOD ORDERABLES Fin al Result [facility]) 1 [facility] [place] [address] [facility] ref [facility] * PTH (05/14/2024 11:18 AM AUTISM TEACHER) PTH 27 15 - 65 pg/mL Blood 05/14/2024 11:1 8 AM AUTISM TEACHER 05/14/2024 1:43 PM AUTISM TEACHER Narrative [facility]) - 05/14/2024 2:39 PM AUTISM TEACHER fax to 05/14/2024 10:02:11 AUTISM TEACHER Irving Saucedo MD LAB BLOOD ORDERABLES Fin al Result Performing Organization Address City/[facility] Co de Phone Number [facility]) 1 [facility] [place] [address] * eGFR (05/14/2024 8:30 AM AUTISM TEACHER) eGFR 61 >=60 mL/min/1. 73 m2 Comment: [...] last reviewed 2021. Blood 05/14/2024 8:30 AM AUTISM TEACHER 05/14/2024 1:43 PM AUTISM TEACHER us Irving Saucedo MD LAB BLOOD ORDERABLES Fin al Result [facility] ([place]) 1 [facility] Department [place] [address] * (ABNORMAL) Differential, auto (05/14/2024 8:30 AM AUTISM TEACHER) Neutrophil abs 2.3 1.5 - 6.5 K/cumm Imm gran abs 0.0 0.0 - 0.1 K/cumm [facility] ([place]) Lymphocyte abs 0.7(L) 0.8 - 3.3 K/cumm [facility] ([place]) Monocyte abs 0.3 0.2 - 0.8 K/cumm [...] revised on 2017. Basophil pct 1.4 % [facility] ([place]) Comment: Interpretive Data Percent cell count reference ranges are not reported, since discordance with absolute values may lead to misinterpretation of CBC data. Current Interpretive Data was last revised on 2017. Blood 05/14/2024 8:30 AM AUTISM TEACHER 05/14/2024 1:43 PM AUTISM TEACHER Irving Saucedo MD LAB BLOOD ORDERABLES Fin al Result Performing Organization Address City/[facility]/ZIP Co de Phone Number [facility] ([place]) [address] [place] [address] [place] [address] * (ABNORMAL) Iron profile w/ IBC (05/14/2024 8:30 AM AUTISM TEACHER) Iron 161(H) 35 - 145 mcg/dL TIBC 310 250 - 400 mcg/dL [facility] ([place]) Transferrin saturation 52(H) 20 - 50 % [facility] ([place]) Blood 05/14/2024 8:30 AM AUTISM TEACHER 05/14/2024 1:43 PM AUTISM TEACHER Irving Saucedo MD LAB BLOOD ORDERABLES Fin al Result Performing Organization Address City/[facility] Co de Phone Number [facility] ([place]) [address] [place] [address] [place] [address] * (ABNORMAL) Urinalysis reflex to microscopic (05/14/2024 8:30 AM AUTISM TEACHER) Color, ur Yellow Yellow Clarity, ur Clear Clear [facility] A ([place]) Specific gravity, ur 1.026 1.003 - 1.030 [facility] ([place]) pH, urine 7.0 [facility] ([place]) Comment: Interpretive Data U rine pH is affected by diet, medications, systemic acid-base disturbances, and renal tubular function. pH may affect urinary stone formation. For example, urine pH below 6.0 may help reduce the tendency for calcium phosphate stones and pH greater than 6.0 may reduce the tendency for uric acid stone formation. Source: [facility] [place] Current Interpretive Data was last revised on 2017 Protein, ur ql 1+(A) Negative [facility] ([place]) Glucose, ur ql Negative Negative [facility] ([place]) Ketones, ur Negative Negative [facility] ([place]) Bilirubin, ur Negative Negative [facility] ([place]) Blood, ur Negative Negative [facility] ([place]) Urobilinogen, ur 2.0(A) <2.0 mg/dL [facility] ([place]) Nitrite, ur Negative Negative [facility] ([place]) Leukocyte esterase, ur Negative Negative [facility] ([place]) UA reflex comment Reflex to microscopic UA will be performed. [facility] ([place]) Urine 05/14/2024 8:30 AM AUTISM TEACHER 05/14/2024 1:43 PM AUTISM TEACHER Narrative [facility] ([place]) - 05/14/2024 1:50 PM AUTISM TEACHER fax to 05/14/2024 10:02:35 AUTISM TEACHER us Irving Saucedo MD LAB URINE ORDERABLES Fin al Result [facility] ([place]) 1 [facility] Department [place] [address] * (ABNORMAL) CBC with auto differential (05/14/2024 8:30 AM AUTISM TEACHER) WBC 3.5(L) 3.8 - 9.9 K/cumm Hgb 12.6 11.9 - 15.5 g/dL [facility] ([place]) Hct 36.6 35.6 - 45.5 % [facility] ([place]) Plt 246 150 - 400 K/cumm [facility] ([place]) MPV 10.9 9.1 - 12.3 fL [facility] ([place]) RBC 3.37(L) 3.90 - 5.20 M/cumm [facility] ([place]) MCV 108.6(H) 81.3 - 96.4 fL [facility] ([place]) MCH 37.4(H) 27.1 - 33.3 pg [facility] ([place]) MCHC 34.4 32.3 - 35.7 g/dL [facility] ([place]) RDW CV 15.3(H) 11.1 - 14.9 % [facility] ([place]) RDW SD 61.6(H) 35.7 - 48.1 fL [facility] ([place]) NRBC abs 0.00 0.00 - 0.01 K/cumm [facility] ([place]) Blood 05/14/2024 8:30 AM AUTISM TEACHER 05/14/2024 1:43 PM AUTISM TEACHER Narrative [facility] ([place]) - 05/14/2024 1:49 PM AUTISM TEACHER fax to 05/14/2024 10:01:58 AUTISM TEACHER Irving Saucedo MD LAB BLOOD ORDERABLES Fin al Result [facility] ([place]) 1 [facility] Department [place] [address] * Albumin Creatinine Ratio, Urine (05/14/2024 8:30 AM AUTISM TEACHER) Albumin Ur <12.0 mg/L Comment: Interpretive Data No reference range established. Current interpretive data was last revised 2018. Testing performed by: [address] [place]., [address] Creatinine Ur 168.1 mg/dL [facility] ([place]) Comment: Interpretive Data No reference range established. Current interpretive data was last revised 2018. Testing performed by: [address] [address] Albumin Creatinine Ratio, Ur <7 1 - 29 mg/g [facility] ([place]) Comment:Testing performed by : [address] [address] Urine 05/14/2024 8:30 AM AUTISM TEACHER 05/14/2024 6:32 PM AUTISM TEACHER Narrative [facility] ([place]) - 05/14/2024 8:57 PM AUTISM TEACHER fax to 05/14/2024 10:02:51 AUTISM TEACHER Irving Saucedo MD LAB URINE ORDERABLES Fin al Result Performing Organization Address [facility] Co de Phone Number [facility] ([place]) 1 [place] [address] * (ABNORMAL) Urinalysis, microscopic only (05/14/2024 8:30 AM AUTISM TEACHER) WBC, ur 0-5 0 - 5 /HPF RBC, ur 3-5(A) 0 - 2 /HPF [facility] ([place]) Mucous, ur Present(A) [facility] ([place]) Urine 05/14/2024 8:30 AM AUTISM TEACHER 05/14/2024 1:43 PM AUTISM TEACHER Irving Saucedo MD LAB URINE ORDERABLES Fin al Result Performing Organization Address [facility] de Phone Number [facility] ([place]) 1 [place] [address] * (ABNORMAL) Renal function panel (05/14/2024 8:30 AM AUTISM TEACHER) Sodium 136 135 - 145 mmol/L Potassium, pl 4.2 3.3 - 4.9 mmol/L [facility] ([place]) Chloride 102 97 - 110 mmol/L [facility] ([place]) CO2 22 22 - 32 mmol/L [facility] ([place]) Anion gap 12 2 - 15 mmol/L [facility] ([place]) BUN 28(H) 6 - 25 mg/dL [facility] ([place]) Creatinine 1.02 0.60 - 1.10 mg/dL [facility] ([place]) Glucose 106 70 - 199 mg/dL [facility] ([place]) Comment: Interpretive Data Fasting glucose [...] 2022. Calcium 9.8 8.5 - 10.3 mg/dL [facility] ([place]) Phosphorus, pl 4.0 2.3 - 4.5 mg/dL [facility] ([place]) Albumin 4.1 3.5 - 5.0 g/dL [facility] ([place]) Blood 05/14/2024 8:30 AM AUTISM TEACHER 05/14/2024 1:43 PM AUTISM TEACHER us Irving Saucedo MD LAB BLOOD ORDERABLES Fin al Result [facility] ([place]) [address] [place] [address] Department [place] [address] * Differential, auto (04/29/2024 8:40 AM AUTISM TEACHER) Neutrophil abs 2.5 1.5 - 6.5 K/cumm Comment:Testing performed by : [place], [address] Imm gran abs 0.0 0.0 - 0.1 K/cumm [facility] ([place]) Comment:Testing performed by : [place], [address] Lymphocyte abs 0.8 0.8 - 3.3 K/cumm [facility] ([place]) Comment:Testing performed by : [place], [address] Monocyte abs 0.2 0.2 - 0.8 K/cumm [facility] ([place]) Comment:Testing performed by : [place], [address] Eosinophil abs 0.1 0.0 - 0.5 K/cumm [facility] ([place]) Comment:Testing performed by : [place], [address] Basophil abs 0.1 0.0 - 0.1 K/cumm [facility] ([place]) Comment:Testing performed by : [place], [address] Neutrophil pct 67.5 % [facility] ([place]) Comment: Interpretive Data Percent cell count reference ranges are not reported, since discordance with absolute values may lead to misinterpretation of CBC data. Current Interpretive Data was last revised on 2017. Testing performed by: [place], [address] Imm gran pct 0.3 % [facility] ([place]) Comment: Interpretive Data Percent cell count reference ranges are not reported, since discordance with absolute values may lead to misinterpretation of CBC data. Current Interpretive Data was last revised on 2017. Testing performed by: [place], [address] Lymphocyte pct 21.8 % [facility] ([place]) Comment: Interpretive Data Percent cell count reference ranges are not reported, since discordance with absolute values may lead to misinterpretation of CBC data. Current Interpretive Data was last revised on 2017. Testing performed by: [place], [address] Monocyte pct 6.4 % [facility] ([place]) Comment: Interpretive Data Percent cell count reference ranges are not reported, since discordance with absolute values may lead to misinterpretation of CBC data. Current Interpretive Data was last revised on 2017. Testing performed by: [place], [address] Eosinophil pct 2.4 % [facility] ([place]) Comment: Interpretive Data Percent cell count reference ranges are not reported, since discordance with absolute values may lead to misinterpretation of CBC data. Current Interpretive Data was last revised on 2017. Testing performed by: [place], [address] Basophil pct 1.6 % [facility] ([place]) Comment: Interpretive Data Percent cell count reference ranges are not reported, since discordance with absolute values may lead to misinterpretation of CBC data. Current Interpretive Data was last revised on 2017. Testing performed by: [facility], [address] Blood 04/29/2024 8:40 AM AUTISM TEACHER 04/29/2024 9:08 AM AUTISM TEACHER us Nicole Menendez MD LAB BLOOD ORDERABLES Final Resul t [facility] ([place]) 1 [facility] Department [place] [address] * (ABNORMAL) CBC with auto differential (04/29/2024 8:40 AM AUTISM TEACHER) WBC 3.8 3.8 - 9.9 K/cumm Comment:Testing performed by : [place], [address] Hgb 12.3 11.9 - 15.5 g/dL [facility] ([place]) Comment:Testing performed by : [place], [address] Hct 35.0(L) 35.6 - 45.5 % [facility] ([place]) Comment:Testing performed by : [place], [address] Plt 226 150 - 400 K/cumm [facility] ([place]) Comment:Testing performed by : [place], [address] MPV 10.5 9.1 - 12.3 fL [facility] ([place]) Comment:Testing performed by : [place], [address] RBC 3.26(L) 3.90 - 5.20 M/cumm [facility] ([place]) Comment:Testing performed by : [place], [address] MCV 107.4(H) 81.3 - 96.4 fL [facility] ([place]) Comment:Testing performed by : [place], [address] MCH 37.7(H) 27.1 - 33.3 pg [facility] ([place]) Comment:Testing performed by : [place], [address] MCHC 35.1 32.3 - 35.7 g/dL [facility] ([place]) Comment:Testing performed by : [facility], [facility], [place], [address] RDW CV 15.3(H) 11.1 - 14.9 % [facility] ([place]) Comment:Testing performed by : [facility], [facility], [place], [address] RDW SD 60.9(H) 35.7 - 48.1 fL [facility] ([place]) Comment:Testing performed by : [facility], [facility], [place], [address] NRBC abs 0.00 0.00 - 0.01 K/cumm [facility] ([place]) Comment:Testing performed by : [place], [address] Blood 04/29/2024 8:40 AM AUTISM TEACHER 04/29/2024 9:08 AM AUTISM TEACHER us Nicole Menendez MD LAB BLOOD ORDERABLES Final Resul t Performing Organization Address City/[facility]/ZIP Co de Phone Number [facility] ([place]) [address] [place] [address] Department [place] [address] * (ABNORMAL) Erythrocyte sedimentation rate (04/29/2024 8:40 AM AUTISM TEACHER) Erythrocyte sedimentation rate 61(H) 1 - 30 mm/hr Comment:Testing performed by : [place], [address] Blood 04/29/2024 8:40 AM AUTISM TEACHER 04/29/2024 9:08 AM AUTISM TEACHER Nicole Menendez MD LAB BLOOD ORDERABLES Final Resul t [facility] ([place]) [address] [place] [address] Department [place] [address] * CRP (acute phase) (04/29/2024 8:40 AM AUTISM TEACHER) CRP <3.0 <=10.0 mg/L Comment:Testing performed by : [facility], [place], [address] Blood 04/29/2024 8:40 AM AUTISM TEACHER 04/29/2024 9:08 AM AUTISM TEACHER Nicole Menendez MD LAB BLOOD ORDERABLES Final Resul t [facility] ([place]) [address] [facility] [place] [address] * eGFR (04/15/2024 8:40 AM AUTISM TEACHER) eGFR 71 >=60 mL/min/1. 73 m2 Comment: [...] last reviewed 2021. Blood 04/15/2024 8:40 AM AUTISM TEACHER 04/15/2024 10:46 AM AUTISM TEACHER Nicole Menendez MD LAB BLOOD ORDERABLES Final Resul t [facility] ([place]) 1 [facility] [place] [address] * (ABNORMAL) Differential, auto (04/15/2024 8:40 AM AUTISM TEACHER) Neutrophil abs 2.6 1.5 - 6.5 K/cumm [...] revised on 2017. Blood 04/15/2024 8:40 AM AUTISM TEACHER 04/15/2024 10:46 AM AUTISM TEACHER us Nicole Menendez MD LAB BLOOD ORDERABLES Final Resul t [facility] ([place]) 1 [facility] [employer] [place] [address] * (ABNORMAL) CBC with auto differential (04/15/2024 8:40 AM AUTISM TEACHER) WBC 3.7(L) 3.8 - 9.9 K/cumm Hgb [...] [facility] ([place]) Blood 04/15/2024 8:40 AM AUTISM TEACHER 04/15/2024 10:46 AM AUTISM TEACHER us Nicole Menendez MD LAB BLOOD ORDERABLES Final Resul t [facility] ([place]) 1 [facility] [place] [address] * (ABNORMAL) Erythrocyte sedimentation rate (04/15/2024 8:40 AM AUTISM TEACHER) Erythrocyte sedimentation rate 107(H) 1 - 30 mm/hr Blood 04/15/2024 8:40 AM AUTISM TEACHER 04/15/2024 10:46 AM AUTISM TEACHER Nicole Menendez MD LAB BLOOD ORDERABLES Final Resul t [facility] ([place]) 1 [facility] [place] [address] * CRP (acute phase) (04/15/2024 8:40 AM AUTISM TEACHER) CRP <3.0 <=10.0 mg/L Blood 04/15/2024 8:40 AM AUTISM TEACHER 04/15/2024 10:46 AM AUTISM TEACHER Nicole Menendez MD LAB BLOOD ORDERABLES Final Resul t Performing Organization Address [facility] Co de Phone Number [facility] ([place]) 1 [facility] [place] [address] * (ABNORMAL) Comprehensive metabolic panel (04/15/2024 8:40 AM AUTISM TEACHER) Sodium 135 135 - 145 mmol/L Potassium, pl 4.3 3.3 - 4.9 mmol/L [facility] ([place]) Chloride 101 97 - 110 mmol/L [facility] ([place]) CO2 21(L) 22 - 32 mmol/L [facility] ([place]) Anion gap 13 2 - 15 mmol/L [facility] ([place]) BUN 28(H) 6 - 25 mg/dL [facility] ([place]) Creatinine 0.90 0.60 - 1.10 mg/dL [facility] ([place]) Glucose 100 70 - 199 mg/dL [facility] ([place]) Comment: Interpretive Data Fasting glucose [...] [facility] ([place]) Blood 04/15/2024 8:40 AM AUTISM TEACHER 04/15/2024 10:46 AM AUTISM TEACHER us Nicole Menendez MD LAB BLOOD ORDERABLES Final Resul t [facility] ([place]) 1 [facility] Department [place] [address] * (ABNORMAL) Screening Mammogram Bilateral W Jeferson [...] 1 or 2 Site (03/23/2022 8:26 AM AUTISM TEACHER) Anatomical Region Laterality Modality Body N/A Other 03/24/2022 2:35 PM AUTISM TEACHER Narrative 03/24/2022 2:37 PM AUTISM TEACHER EXAM DESCRIPTION: DEXA AXIAL SKELETON BONE DENSITY 1 OR MORE SITES REASON FOR STUDY: 61 y/o year old F with given history of screening. Postmenopausal Nozzle And Sleeve Worker/Model: Joota SL (S/N [id number]) CLINICAL INFORMATION: Current height: 63.2 inches Maximum [...] Ben Taylor M.D. MF: BLAIR Report ID: [id number] Reading Location: [place] [address] Procedure Note Ben Taylor MD - 03/24/2022 EXAM DESCRIPTION: DEXA AXIAL SKELETON BONE DENSITY 1 OR MORE SITES REASON FOR STUDY: 61 y/o year old F with given history ofscreening. Postmenopausal Nozzle And Sleeve Worker/Model: Joota SL (S/N [id number]) CLINICAL INFORMATION: Current height: 63.2 inches Maximum [...] Ben Taylor M.D. MF: BLAIR Report ID: [id number] Reading Location: [place] [address] Addis Argueta MD IM DXA PROCEDURES Final Resul t * Hepatitis panel, acute (02/10/2021 9:15 AM CDT) Hep A IgM Nonreactive Nonreactive [facility] ([place]) Comment: Interpretive Data: If Hep A IgM Ab is reported as Equivocal, a new sample should be drawn in two weeks for testing. Current interpretive data was last revised on 19. Testing performed by: [facility], [address] [place] [address], [place] [address] Hep B core IgM Nonreactive Nonreactive [facility] ([place]) Comment: Interpretive Data If HepB Core IgM Ab is reported as Equivocal, a new sample should be drawn in two weeks for testing. Current interpretive data was last revised on 19. Testing performed by: [facility], [address] [place] [address], [place] [address] Hep C Ab Nonreactive Nonreactive [facility] [...] last revised on 2019. Testing performed by: [facility], [address] [place] [address]., [address] HepBsAg Nonreactive Nonreactive [facility] ([place]) Comment:Testing performed by : [facility], [address] [place] [address]., [address] Blood 02/10/2021 9:15 AM CDT 02/10/2021 5:26 PM CDT Nicki Mahoney MD LAB MICROBIOLOGY - GENE RAL ORDERABLES Final Result [facility] ([place]) 1 [facility] Department [place] [address] from Last 3 Months or Most Recently Relevant to Health Maintenance Insurance [facility] GENERIC COPAY ASSIST [id number] [place] [address] MEDICARE [facility] Address: [facility] [address] [place] [address] [facility] MEDICARE SUPPLEMENT [employer] MEDICARE MEDICARE [facility] Address: [address] [address] [place] [address] [facility] MEDICARE SUPPLEMENT Advance Directives For more information, please contact: [phone] * Full Code (Latest Code Status on [...] 6:08 PM 11/23/2020 10:17 PM Care Teams Bi Developer Relationship Specialty Start Date End [place] [address] PCP - General Family Medicine 11/22/21 Ita Stanley MD Consulting Physician Gastroenterology 11/23/20
--- OUTSIDE RECORDS SUMMARY | 2024-06-29 13:25 | XMS_ITS | Encounter Summary ---
Author Organization [facility] Address [address] [place] [address] Phone Care Team Providers Care Store Operations Specialist Name Role Phone Keisha Roach MD Primary Care Provider [phone] Encounter Details Date Type Department Care Team (Late st Contact Info) Description 07/18/2017 Clinical Support [facility] Historical [address] [place] [address] ProviderHolly MD [address] [place], [place] [id number] Social History Tobacco Use Types Packs/Day Years Used Date Smoking Tobacco: Never Assessed Sex and Gender Information Value Date Recorded Sex Assigned at Not on file Gender Identity Not on file Sexual Orientation Not on file documented as of this encounter Plan of Treatment Not on file documented as of this encounter Visit Diagnoses Not on filedocumented in this encounter Care Teams Store Operations Specialist Relationship Specialty Start Date End Date Keisha Roach MD [address] [place] [address] PCP - General 09/18/23 documented as of this encounter
--- OUTSIDE RECORDS SUMMARY | 2024-06-29 13:25 | XMS_ITS | Encounter Summary ---
Author Organization [facility] Address [address] [place] [address] Phone Care Team Providers Care Manufacturers Representative Name Role Phone Keisha Roach MD Primary Care Provider [phone] Encounter Details Date Type Department Care Team (Late st Contact Info) Description 07/08/2017 Abstract [id number] Historical [address] [place] [address] ProviderHolly MD [address] [place], [place] [id number] Social History Tobacco Use Types Packs/Day Years Used Date Smoking Tobacco: Never Assessed Sex and Gender Information Value Date Recorded Sex Assigned at Not on file Gender Identity Not on file Sexual Orientation Not on file documented as of this encounter Plan of Treatment Not on file documented as of this encounter Visit Diagnoses Not on filedocumented in this encounter Care Teams Manufacturers Representative Relationship Specialty Start Date End Date Keisha Roach MD [address] [place] [address] PCP - General 09/18/23 documented as of this encounter
--- OUTSIDE RECORDS SUMMARY | 2024-06-29 13:25 | XMS_ITS | Encounter Summary ---
Author Organization [facility] Address [address] [place] [address] Phone Care Team Providers Care Temperature Logging Operator Name Role Phone Keisha Roach MD Primary Care Provider [phone] Encounter Details Date Type Department Care Team (Late st Contact Info) Description 07/08/2016 Abstract [email or web address] Historical [address] [place] [address] ProviderHolly MD [address] [place], [place] [id number] Social History Tobacco Use Types Packs/Day Years Used Date Smoking Tobacco: Never Assessed Sex and Gender Information Value Date Recorded Sex Assigned at Not on file Gender Identity Not on file Sexual Orientation Not on file documented as of this encounter Plan of Treatment Not on file documented as of this encounter Visit Diagnoses Not on filedocumented in this encounter Care Teams Temperature Logging Operator Relationship Specialty Start Date End Date Keisha Roach MD [address] [place] [address] PCP - General 09/18/23 documented as of this encounter
--- OUTSIDE RECORDS SUMMARY | 2024-06-29 13:25 | XMS_ITS | Encounter Summary ---
Author Organization [facility] Address [address] [place] [address] Phone Care Team Providers Care Central Sterile Tech Name Role Phone Keisha Roach MD Primary Care Provider [phone] Encounter Details Date Type Department Care Team (Late st Contact Info) Description 07/08/2016 Abstract [facility] Historical [address] [place] [address] ProviderHolly MD [address] [place], [place] [id number] Social History Tobacco Use Types Packs/Day Years Used Date Smoking Tobacco: Never Assessed Sex and Gender Information Value Date Recorded Sex Assigned at Not on file Gender Identity Not on file Sexual Orientation Not on file documented as of this encounter Plan of Treatment Not on file documented as of this encounter Visit Diagnoses Not on filedocumented in this encounter Care Teams Central Sterile Tech Relationship Specialty Start Date End Date Keisha Roach MD [address] [place] [address] PCP - General 09/18/23 documented as of this encounter
--- OUTSIDE RECORDS SUMMARY | 2024-06-29 13:25 | XMS_ITS | Encounter Summary ---
Author Organization [facility] Address [address] [place] [address] Phone Care Team Providers Care Auto Slip Cover Installer Name Role Phone Keisha Roach MD Primary Care Provider [phone] Encounter Details Date Type Department Care Team (Late st Contact Info) Description 09/01/2018 Abstract [email or web address] Historical [address] [place] [address] ProviderHolly MD [address] [place], [place] [id number] Social History Tobacco Use Types Packs/Day Years Used Date Smoking Tobacco: Never Assessed Sex and Gender Information Value Date Recorded Sex Assigned at Not on file Gender Identity Not on file Sexual Orientation Not on file documented as of this encounter Plan of Treatment Not on file documented as of this encounter Visit Diagnoses Not on filedocumented in this encounter Care Teams Auto Slip Cover Installer Relationship Specialty Start Date End Date Keisha Roach MD [address] [place] [address] PCP - General 09/18/23 documented as of this encounter
--- OUTSIDE RECORDS SUMMARY | 2024-06-29 13:25 | XMS_ITS | Encounter Summary ---
Author Organization [facility] Address [address] [place] [address] Phone Care Team Providers Care Check Pilot Name Role Phone Keisha Roach MD Primary Care Provider [phone] Encounter Details Date Type Department Care Team (Late st Contact Info) Description 08/20/2018 Abstract [email or web address] Historical [address] [place] [address] ProviderHolly MD [address] [place], [place] [id number] Social History Tobacco Use Types Packs/Day Years Used Date Smoking Tobacco: Never Assessed Sex and Gender Information Value Date Recorded Sex Assigned at Not on file Gender Identity Not on file Sexual Orientation Not on file documented as of this encounter Plan of Treatment Not on file documented as of this encounter Visit Diagnoses Not on filedocumented in this encounter Care Teams Check Pilot Relationship Specialty Start Date End Date Keisha Roach MD [address] [place] [address] PCP - General 09/18/23 documented as of this encounter
--- OUTSIDE RECORDS SUMMARY | 2024-06-29 13:25 | XMS_ITS | Encounter Summary ---
Author Organization [facility] Address [address] [place] [address] Phone Care Team Providers Care Physical Therapy Director Name Role Phone Ita Stanley MD Unavailable [phone] Celio Cosby MD Primary Care Provider [phone] Encounter Details Date Type Department Care Team (Latest Contact Info) Description 07/08/2023 Orders Only [facility] Scanning, Provider Social History Tobacco Use Types Packs/Day Years [...] declined 01/03/2023 How often do you attend zoroastrian or yazidism serv ices? Patient declined 01/03/2023 Do you belong to any clubs o r organizations such as zoroastrian groups, unions, fraternal or athletic groups, or school groups? Patient declined 01/03/2023 How often do you attend meet ings of the clubs or organizations you belong to? Patient declined 01/03/2023 Are you , , di vorced, , never , or living with a partner? Patient declined 01/03/2023 AUDIT-C Answer Date Recorded Q1: How often do you have a drink containing alcohol? Never 01/07/2023 Q2: How many drinks containi ng alcohol do you have on a typical day when you are drinking? Patient does not drink Q3: How often do you have si x or more drinks on one occasion? Never 01/07/2023 Overall Financial Resource Strain (CARDIA) Answe r Date Recorded How hard is it for you to pa y for the very basics like food, housing, medical care, and heating? Patient declined 01/03/2023 PHQ-2 Answer Date Recorded PHQ-2 Total Score (If total score is 3 or more points, staff should administer the PHQ-9) 0 01/07/2023 Hunger Vital Sign Answer Date Recorded Within [...] place to sleep or slept in a long term (including now)? Patient refused 01/03/2023 Personal Safety Answer Date Recorded Have you ever been in or are you currently in a harmful physical or emotional relationship or is someone making you feel afraid or unsafe? 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 Gender Identity Female 09/13/2020 9:35 AM CDT Sexual Orientation Straight 09/13/2020 9: 35 AM CDT documented as of this encounter Plan of Treatment Upcoming Encounters Date Type Department Care Team (Nargis cochran Contact Info) Description 11/17/2024 8:25 AM CDT Hospital Encounter [facility] [address] [place] [address] Ita Stanley MD [address] [place] [address] 11/17/2024 8:25 AM CDT - 11/17/2024 8:55 AM CDT Surgery [address] [address] Ita Stanley MD [address] [place] [address] COLONOSCOPY Scheduled Procedures Name Priority Associated Diagnoses Date/Ti me COLONOSCOPY Colon cancer screening 11/17/2024 8:25 AM CDT documented as of this encounter Procedures Procedure Name Priority Date/Time Associated Diagnosis Comments SCAN - LABS 07/08/2023 documented in this encounter Results * SCAN - LABS (07/08/2023) us Provider Scanning Edited Result - Final documented in this encounter Visit Diagnoses Not on filedocumented in this encounter Care Teams Physical Therapy Director Relationship Specialty Start Date End Date Celio Cosby MD [address] [place] [address] PCP - General Family Medicine 11/22/21 Ita Stanley MD Consulting Physician Gastroenterology 11/23/20 documented as of this encounter
--- OUTSIDE RECORDS SUMMARY | 2024-06-29 13:25 | XMS_ITS | Encounter Summary ---
Author Organization [facility] Address [address] [place] [address] Phone Care Team Providers Care Steel Pickler Name Role Phone Keisha Roach MD Primary Care Provider [phone] Encounter Details Date Type Department Care Team (Late st Contact Info) Description 12/31/2017 Abstract [email or web address] Historical [address] [place] [address] ProviderHolly MD [address] [place], [place] [id number] Social History Tobacco Use Types Packs/Day Years Used Date Smoking Tobacco: Never Assessed Sex and Gender Information Value Date Recorded Sex Assigned at Not on file Gender Identity Not on file Sexual Orientation Not on file documented as of this encounter Plan of Treatment Not on file documented as of this encounter Visit Diagnoses Not on filedocumented in this encounter Care Teams Steel Pickler Relationship Specialty Start Date End Date Keisha Roach MD [address] [place] [address] PCP - General 09/18/23 documented as of this encounter
--- OUTSIDE RECORDS SUMMARY | 2024-06-29 13:25 | XMS_ITS | Encounter Summary ---
Author Organization [facility] Address [address] [place] [address] Phone Care Team Providers Care Hardboard Press Operator Name Role Phone Keisha Roach MD Primary Care Provider [phone] Encounter Details Date Type Department Care Team (Late st Contact Info) Description 09/01/2018 Abstract [email or web address] Historical [address] [place] [address] ProviderHolly MD [address] [place], [place] [id number] Social History Tobacco Use Types Packs/Day Years Used Date Smoking Tobacco: Never Assessed Sex and Gender Information Value Date Recorded Sex Assigned at Not on file Gender Identity Not on file Sexual Orientation Not on file documented as of this encounter Plan of Treatment Not on file documented as of this encounter Visit Diagnoses Not on filedocumented in this encounter Care Teams Hardboard Press Operator Relationship Specialty Start Date End Date Keisha Roach MD [address] [place] [address] PCP - General 09/18/23 documented as of this encounter
--- OUTSIDE RECORDS SUMMARY | 2024-06-29 13:26 | XMS_ITS | Encounter Summary ---
Author Organization [facility] Address [address] [place] [address] Phone Care Team Providers Care Nail Kegger Name Role Phone Keisha Roach MD Primary Care Provider [phone] Encounter Details Date Type Department Care Team (Late st Contact Info) Description 12/17/2019 Legacy Encounter - Labs [facility] Historical [address] [place] [address] ProviderHolly MD [address] [place], [place] [address] Social History Tobacco Use Types Packs/Day Years [...] DPS CONVERSION - LAB RESULT SCAN PROCEDURE 12/17/2019 documented in this encounter Results * Conversion - Lab Result Scan Procedure (12/17/2019) Narrative 12/17/2019 Ordered by an unspecified provider. Historical Provider LAB BLOOD ORDERAB LES documented in this encounter Visit Diagnoses Not on filedocumented in this encounter Care Teams Nail Kegger Relationship Specialty Start Date End Date Keisha Roach MD [address] [place] [address] PCP - General 09/18/23 documented as of this encounter
--- OUTSIDE RECORDS SUMMARY | 2024-06-29 13:26 | XMS_ITS | Encounter Summary ---
Author Organization [facility] Address [address] [place] [address] Phone Care Team Providers Care Middle School Professional Name Role Phone Keisha Roach MD Primary Care Provider [phone] Encounter Details Date Type Department Care Team (Late st Contact Info) Description 09/07/2019 Legacy Encounter - Labs [email or web address] Historical [address] [place] [address] ProviderHolly MD [address] [place], [place] [address] Social History Tobacco Use Types Packs/Day Years [...] DPS CONVERSION - LAB RESULT SCAN PROCEDURE 09/07/2019 documented in this encounter Results * Conversion - Lab Result Scan Procedure (09/07/2019) Narrative 09/07/2019 Ordered by an unspecified provider. Historical Provider LAB BLOOD ORDERAB LES documented in this encounter Visit Diagnoses Not on filedocumented in this encounter Care Teams Middle School Professional Relationship Specialty Start Date End Date Keisha Roach MD [address] [place] [address] PCP - General 09/18/23 documented as of this encounter
--- OUTSIDE RECORDS SUMMARY | 2024-06-29 13:26 | XMS_ITS | CCD ---
Author Name Interface, [id number] Address [place] [address] Organization [facility] Address [address] [place] [address] Care Team Providers Care Machine Cementer Name Role Phone Aroldo Elliott Unavailable Unavailable Reason for Visit Functional Status Date Name Score 01/11/2020 Karnofsky performance status 80 Medications Date Name Route Dose Frequency Instructions Start Date End Date Status 2019 Levetiracetam Oral (Keppra) PO 2.0 TABLET(S) BID 2019 active 2019 Pravastatin Sodium Oral PO 1.0 TABLET(S) daily 2019 active 2019 Lacosamide Oral PO 1.0 TABLET(S) daily 2019 active 2019 Clobazam Oral PO 1.5 TABLET(S) daily 2019 active 2019 Eslicarbazepine Oral PO 2.0 TABLET(S) QHS 2019 active 2019 Topiramate Oral PO 1.0 TABLET(S) daily 2019 active 2019 Escitalopram Oral PO 1.0 TABLET(S) QHS 2019 active 2019 Promethazine Oral PO 1.0 TABLET(S) Q4H PRN nausea 2019 active 2019 Miscellaneous Drug PO 1.0 CAPSULE(S) as directed Propulsid- 40mg 1 PO Daily 2019 active 2019 Furosemide Oral PO 1.0 TABLET(S) BID 2019 active 2019 Hydroxychloroquine Oral PO 1.0 TABLET(S) as directed 2019 active 2019 Lorazepam Oral PO 1.0 TABLET(S) BID 2019 active 2019 Tramadol Oral PO 1.0 TABLET(S) BID PRN 2019 active 2019 Baclofen Oral PO 1.0 TABLET(S) BID 2019 active 2019 Prednisone Oral PO 2.0 TABLET(S) as directed 2019 active 2019 Pyridostigmine Oral PO 1.0 TABLET(S) daily 2019 active 2019 Cyanocobalamin Oral PO 1.0 TABLET(S) daily 2019 active 2019 Miscellaneous Drug PO 1.0 TABLET(S), CHEWABLE daily 2019 active Problems Diagnosis Status Date of Diagnosi s Body mass index [BMI] 28.0-28.9, adult Inactive Social History Date Name Value Sex Female
--- OUTSIDE RECORDS SUMMARY | 2024-06-29 13:26 | XMS_ITS | Encounter Summary ---
Author Organization [facility] Address [address] [place] [address] Phone Care Team Providers Care Resource Paraprofessional Name Role Phone Keisha Roach MD Primary Care Provider [phone] Encounter Details Date Type Department Care Team (Late st Contact Info) Description 04/17/2020 Abstract [email or web address] Historical [address] [place] [address] ProviderHolly MD [address] [place] [address] Social History Tobacco Use Types Packs/Day Years Used Date Smoking Tobacco: Never Assessed Sex and Gender Information Value Date Recorded Sex Assigned at Not on file Gender Identity Not on file Sexual Orientation Not on file documented as of this encounter Plan of Treatment Not on file documented as of this encounter Visit Diagnoses Not on filedocumented in this encounter Care Teams Resource Paraprofessional Relationship Specialty Start Date End Date Keisha Roach MD [address] [place] [address] PCP - General 09/18/23 documented as of this encounter
--- OUTSIDE RECORDS SUMMARY | 2024-06-29 13:26 | XMS_ITS | Encounter Summary ---
Author Organization [facility] Address [address] [place] [address] Phone Care Team Providers Care Farm Advisor Name Role Phone Keisha Roach MD Primary Care Provider [phone] Encounter Details Date Type Department Care Team (Late st Contact Info) Description 09/01/2018 Legacy Encounter - Labs [facility] Historical [address] [place] [address] ProviderHolly MD [address] [place], [place] [address] Social History Tobacco Use Types Packs/Day Years [...] DPS CONVERSION - LAB RESULT SCAN PROCEDURE 09/01/2018 documented in this encounter Results * Conversion - Lab Result Scan Procedure (09/01/2018) Narrative 09/01/2018 Ordered by an unspecified provider. Historical Provider LAB BLOOD ORDERAB LES documented in this encounter Visit Diagnoses Not on filedocumented in this encounter Care Teams Farm Advisor Relationship Specialty Start Date End Date Keisha Roach MD [address] [place] [address] PCP - General 09/18/23 documented as of this encounter
--- OUTSIDE RECORDS SUMMARY | 2024-06-29 13:26 | XMS_ITS | Clinical Summary ---
Author Organization [facility] Address [address] [place] [address] Phone Care Team Providers Care Mail Handlers Supervisor Name Role Phone Keisha Roach MD Primary Care Provider [phone] Medications Medication Sig Dispensed Refills Start Date End Date Status methylPREDNISolone sodium succinate (SOLU-Medrol) 2000 MG injection as needed incase of emergency 01/22/2013 Active LORazepam (ATIVAN) 1 MG tablet 1 po twice daily 1 06/14/2016 Active baclofen (LIORESAL) 20 MG tablet 1 tab by mouth twice daily 1 01/22/2013 Active cyanocobalamin (VITAMIN B-12) 2500 MCG tablet 1 by mouth every day 02/02/2020 Active cloBAZam (ONFI) 20 MG tablet 1 1/2 po at bedtime 1.5 02/02/2020 Active levETIRAcetam (Keppra) 1000 MG tablet 2 tabs by mouth twice daily 2 01/22/2013 Active escitalopram (Lexapro) 20 MG tablet 1 po at bedtime 1 09/18/2018 Active metoprolol tartrate (LOPRESSOR) 25 MG tablet 1 by mouth twice daily as needed 1 09/17/2018 Active Magnesium 250 MG tablet 1 by mouth every day 1 02/02/2020 Active pyridostigmine (Mestinon) 60 MG tablet 1 1/2 tab in morning and at noon and 1 po at bedtime 0 01/22/2013 Active hydroxychloroquine (Plaquenil) 200 MG tablet 1 by mouth twice daily 1 07/18/2017 Active potassium chloride (K-Tab) 20 MEQ CR tablet take one tablet daily 1 04/13/2014 Active pravastatin (PRAVACHOL) 10 MG tablet 1 by mouth every day 1 01/22/2013 Active predniSONE (DELTASONE) 5 MG tablet 1 by mouth every day 1 04/13/2014 Active topiramate (Topamax) 100 MG tablet 1 by mouth every day 1 09/18/2018 Active Denosumab (Prolia) 60 MG/ML solution prefilled syringe every 6 months 02/02/2020 Act shola Eslicarbazepine Acetate (Aptiom) 600 MG tablet 1.5 tab po at bedtime 1.5 09/18/2018 Active Cenobamate (Xcopri) 100 MG tablet 1 tab po at night 1 04/06/2020 Active furosemide (LASIX) 20 MG tablet take 1 to 2 tablets by mouth twice a day as directed for leg swelling 0 05/17/2020 Active promethazine (PHENERGAN) 25 MG tablet prn 01/22/2013 Active Active Problems Problem Noted Date Diagnosed Date Proteinuria 09/18/2018 Chronic kidney disease, stage 2 (mild) 9 Essential (primary) hypertension 09/18/2018 Anemia 06/14/2016 Vitamin D deficiency 07/07/2015 Chronic kidney disease, stage 3 (moderate) 04/13 Hypokalemia 07/16/2013 Acute kidney failure 03/23/2013 Hyperkalemia 03/23/2013 Anemia in chronic kidney disease 03/23/2013 Hypertensive chronic kidney disease with stage 1 through stage 4 chronic kidney disease, or unspecified chronic kidney disease 03/23/2013 Social History Tobacco Use Types Packs/Day Years Used Date Smoking Tobacco: Never Assessed Sex and Gender Information Value Date Recorded Sex Assigned at Not on file Gender Identity Not on file Sexual Orientation Not on file Last Filed Vital Signs Vital Sign Reading Time Taken Comments Blood Pressure 120/80 04/14/2020 12:42 PM DIGITAL ARCHIVIST Pulse - - Temperature - - Respiratory Rate - - Oxygen Saturation - - Inhaled Oxygen Concentration - - Weight 72.6 kg (160 lb) 04/14/2020 12:42 PM DIGITAL ARCHIVIST Height 165.7 cm (5' 5.25 ) 04/14/2020 12:[address] Body Mass Index 26.42 04/14/2020 12:42 PM DIGITAL ARCHIVIST Plan of Treatment Not on file Care Teams Mail Handlers Supervisor Relationship Specialty Start Date End Date Keisha Roach MD [address] [place] [address] PCP - General 09/18/23
--- OUTSIDE RECORDS SUMMARY | 2024-06-29 13:26 | XMS_ITS | Encounter Summary ---
Author Organization [facility] Address [address] [place] [address] Phone Care Team Providers Care Clinical Team Lead Name Role Phone Keisha Roach MD Primary Care Provider [phone] Encounter Details Date Type Department Care Team (Late st Contact Info) Description 12/03/2019 Abstract [email or web address] Historical [address] [place] [address] ProviderHolly MD [address] [place], [place] [id number] Social History Tobacco Use Types Packs/Day Years Used Date Smoking Tobacco: Never Assessed Sex and Gender Information Value Date Recorded Sex Assigned at Not on file Gender Identity Not on file Sexual Orientation Not on file documented as of this encounter Plan of Treatment Not on file documented as of this encounter Visit Diagnoses Not on filedocumented in this encounter Care Teams Clinical Team Lead Relationship Specialty Start Date End Date Keisha Roach MD [address] [place] [address] PCP - General 09/18/23 documented as of this encounter
--- OUTSIDE RECORDS SUMMARY | 2024-06-29 13:26 | XMS_ITS | Encounter Summary ---
Author Organization [facility] Address [address] [place] [address] Phone Care Team Providers Care Production Finisher Name Role Phone Keisha Roach MD Primary Care Provider [phone] Encounter Details Date Type Department Care Team (Late st Contact Info) Description 04/11/2020 Abstract [facility] Historical [address] [place] [address] ProviderHolly MD [address] [place], [place] [id number] Social History Tobacco Use Types Packs/Day Years Used Date Smoking Tobacco: Never Assessed Sex and Gender Information Value Date Recorded Sex Assigned at Not on file Gender Identity Not on file Sexual Orientation Not on file documented as of this encounter Plan of Treatment Not on file documented as of this encounter Visit Diagnoses Not on filedocumented in this encounter Care Teams Production Finisher Relationship Specialty Start Date End Date Keisha Roach MD [address] [place] [address] PCP - General 09/18/23 documented as of this encounter
--- OUTSIDE RECORDS SUMMARY | 2024-06-29 13:26 | XMS_ITS | Encounter Summary ---
Author Organization [facility] Address [address] [place] [address] Phone Care Team Providers Care Buckshot Swage Operator Name Role Phone Keisha Roach MD Primary Care Provider [phone] Encounter Details Date Type Department Care Team (Late st Contact Info) Description 09/01/2019 Abstract [facility] Historical [address] [place] [address] ProviderHolly MD [address] [place] [address] Social History Tobacco Use Types [...] on filedocumented in this encounter Care Teams Buckshot Swage Operator Relationship Specialty Start Date End Date Keisha Roach MD [address] [place] [address] PCP - General 09/18/23 documented as of this encounter
--- OUTSIDE RECORDS SUMMARY | 2024-06-29 13:26 | XMS_ITS | Encounter Summary ---
Author Organization [facility] Address [address] [place] [address] Phone Care Team Providers Care Program Director Group Work Name Role Phone Keisha Roach MD Primary Care Provider Encounter Details Date Type Department Care Team (Late st Contact Info) Description 09/21/2019 Legacy Encounter - Labs [facility] Historical [address] [place] [address] ProviderHolly MD [address] [place], [place] [address] Social History Tobacco Use Types Packs/Day Years [...] DPS CONVERSION - LAB RESULT SCAN PROCEDURE 09/21/2019 documented in this encounter Results * Conversion - Lab Result Scan Procedure (09/21/2019) Narrative 09/21/2019 Ordered by an unspecified provider. Historical Provider LAB BLOOD ORDERAB LES documented in this encounter Visit Diagnoses Not on filedocumented in this encounter Care Teams Program Director Group Work Relationship Specialty Start Date End Date Keisha Roach MD [address] [place] [address] PCP - General 09/18/23 documented as of this encounter
--- OUTSIDE RECORDS SUMMARY | 2024-06-29 13:26 | XMS_ITS | Encounter Summary ---
Author Organization [facility] Address [address] [place] [address] Phone Care Team Providers Care Gas Technician Name Role Phone Keisha Roach MD Primary Care Provider [phone] Encounter Details Date Type Department Care Team (Late st Contact Info) Description 11/23/2019 Abstract [facility] Historical [address] [place] [address] ProviderHolly MD [address] [place], [place] [id number] Social History Tobacco Use Types Packs/Day Years Used Date Smoking Tobacco: Never Assessed Sex and Gender Information Value Date Recorded Sex Assigned at Not on file Gender Identity Not on file Sexual Orientation Not on file documented as of this encounter Plan of Treatment Not on file documented as of this encounter Visit Diagnoses Not on filedocumented in this encounter Care Teams Gas Technician Relationship Specialty Start Date End Date Keisha Roach MD [address] [place] [address] PCP - General 09/18/23 documented as of this encounter
--- OUTSIDE RECORDS SUMMARY | 2024-06-29 13:26 | XMS_ITS | Encounter Summary ---
Author Organization [facility] Address [address] [place] [address] Phone Care Team Providers Care Skiver Heel Tap Name Role Phone Keisha Roach MD Primary Care Provider [phone] Encounter Details Date Type Department Care Team (Late st Contact Info) Description 11/30/2019 Legacy Encounter - Labs [facility] Historical [address] [place] [address] ProviderHolly MD [address] [place], [place] [address]641 Social History Tobacco Use Types Packs/Day Years [...] DPS CONVERSION - LAB RESULT SCAN PROCEDURE 11/30/2019 documented in this encounter Results * Conversion - Lab Result Scan Procedure (11/30/2019) Narrative 11/30/2019 Ordered by an unspecified provider. Historical Provider LAB BLOOD ORDERAB LES documented in this encounter Visit Diagnoses Not on filedocumented in this encounter Care Teams Skiver Heel Tap Relationship Specialty Start Date End Date Keisha Roach MD [address] [place] [address] PCP - General 09/18/23 documented as of this encounter
--- OUTSIDE RECORDS SUMMARY | 2024-06-29 13:26 | XMS_ITS | Encounter Summary ---
Author Organization [facility] Address [address] [place] [address] Phone Care Team Providers Care Medical Delivery Technician Name Role Phone Ita Stanley MD Unavailable Celio Cosby MD Primary Care Provider [phone] Viki Gomez RN Unavailable [phone] Encounter Details Date Type Department Care Team (Latest Contact Info) Description 12/13/2022 Orders Only [facility] Scanning, Provider Social History Tobacco Use Types Packs/Day Years Used Date Smoking Tobacco: Never Smokeless Tobacco: Never Alcohol Use Standard Drinks/Week Comments Not Currently 0 (1 standard drink = 0.6 oz pur e alcohol) AUDIT-C Answer Date Recorded Frequency of Alcohol Consumption Not on file 07/24/2022 Q2: How many drinks containi ng alcohol do you have on a typical day when you are drinking? Patient does not drink Frequency of Binge Drinking Not on file 07/11 PHQ-2 Answer Date Recorded PHQ-2 Total Score (If total score is 3 or more points, staff should administer the PHQ-9) 0 06/26/2022 Comments No Sex and Gender Information Value Date Recorded Sex Assigned at Not on file Legal Sex Female 3:19 PM SNOW MAKER Gender Identity Female 09/13/2020 9:35 AM CDT Sexual Orientation Straight 09/13/2020 9: 35 AM CDT documented as of this encounter Plan of Treatment Upcoming Encounters Date Type Department Care Team (Late st Contact Info) Description 11/17/2024 8:25 AM CDT Hospital Encounter [facility] [address] [place] [address] Ita Stanley MD [address] [place] [address] 11/17/2024 8:25 AM CDT - 11/17/2024 8:55 AM CDT Surgery [address] [address] Ita Stanley MD [address] [place] [address] COLONOSCOPY Scheduled Procedures Name Priority Associated Diagnoses Date/Ti me COLONOSCOPY Colon cancer screening 11/17/2024 8:25 AM CDT documented as of this encounter Procedures Procedure Name Priority Date/Time Associated Diagnosis Comments SCAN - PATHOLOGY 12/13/2022 documented in this encounter Results * SCAN - PATHOLOGY (12/13/2022) us Provider Scanning Final Result documented in this encounter Visit Diagnoses Not on filedocumented in this encounter Additional Health Concerns Infection Onset Date Last Indicated Resolved Time COVID: Suspected 12/28/2022 12/28/2022 12/28/2022 9:53 PM CDT COVID: Suspected 12/28/2022 12/28/2022 12/28/2022 11:30 PM CDT COVID: Suspected 03/01/2023 03/01/2023 03/01/2023 2:33 PM CDT COVID19 03/01/2023 03/01/2023 03/11/2023 3:05 AM CDT COVID: Recovered Comment:Added based on recent COVID infection. 03/11/2023 03/11/2023 06/09/2023 3:[address] documented as of this encounter Care Teams Medical Delivery Technician Relationship Specialty Start Date End Date Celio Cosby MD [address] [place] [address] PCP - General Family Medicine 11/22/21 Ita Stanley MD Consulting Physician Gastroenterology 11/23/20 Viki Gomez, RN [address] [address] [facility] Outpatient Lead Ramp Agent 01/03/23 01/03/23 documented as of this encounter
--- OUTSIDE RECORDS SUMMARY | 2024-06-29 13:26 | XMS_ITS | Encounter Summary ---
Author Organization [facility] Address [address] [place] [address] Phone Care Team Providers Care Ammunition Storekeeper Name Role Phone Keisha Roach MD Primary Care Provider [phone] Encounter Details Date Type Department Care Team (Late st Contact Info) Description 10/02/2019 Legacy Encounter - Labs [facility] Historical [address] [place] [address] ProviderHolly MD [address] [place], [place] [address]991 Social History Tobacco Use Types Packs/Day Years [...] DPS CONVERSION - LAB RESULT SCAN PROCEDURE 10/02/2019 documented in this encounter Results * Conversion - Lab Result Scan Procedure (10/02/2019) Narrative 10/02/2019 Ordered by an unspecified provider. Historical Provider LAB BLOOD ORDERAB LES documented in this encounter Visit Diagnoses Not on filedocumented in this encounter Care Teams Ammunition Storekeeper Relationship Specialty Start Date End Date Keisha Roach MD [address] [place] [address] PCP - General 09/18/23 documented as of this encounter
--- OUTSIDE RECORDS SUMMARY | 2024-06-29 13:26 | XMS_ITS | Encounter Summary ---
Author Organization [facility] Address [address] [place] [address] Phone Care Team Providers Care Single Stroke Preformer Name Role Phone Keisha Roach MD Primary Care Provider [phone] Encounter Details Date Type Department Care Team (Late st Contact Info) Description 02/02/2020 Abstract [facility] Historical [address] [place] [address] ProviderHolly MD [address] [place], [place] [id number] Social History Tobacco Use Types Packs/Day Years Used Date Smoking Tobacco: Never Assessed Sex and Gender Information Value Date Recorded Sex Assigned at Not on file Gender Identity Not on file Sexual Orientation Not on file documented as of this encounter Plan of Treatment Not on file documented as of this encounter Visit Diagnoses Not on filedocumented in this encounter Care Teams Single Stroke Preformer Relationship Specialty Start Date End Date Keisha Roach MD [address] [place] [address] PCP - General 09/18/23 documented as of this encounter
--- OUTSIDE RECORDS SUMMARY | 2024-06-29 13:26 | XMS_ITS | Encounter Summary ---
Author Organization [facility] Address [address] [place] [address] Phone Care Team Providers Care Instructor Private Name Role Phone Keisha Roach MD Primary Care Provider [phone] Encounter Details Date Type Department Care Team (Late st Contact Info) Description 04/11/2020 Abstract [facility] Historical [address] [place] [address] ProviderHolly MD [address] [place], [place] [id number] Social History Tobacco Use Types Packs/Day Years Used Date Smoking Tobacco: Never Assessed Sex and Gender Information Value Date Recorded Sex Assigned at Not on file Gender Identity Not on file Sexual Orientation Not on file documented as of this encounter Plan of Treatment Not on file documented as of this encounter Visit Diagnoses Not on filedocumented in this encounter Care Teams Instructor Private Relationship Specialty Start Date End Date Keisha Roach MD [address] [place] [address] PCP - General 09/18/23 documented as of this encounter
--- OUTSIDE RECORDS SUMMARY | 2024-06-29 13:26 | XMS_ITS | Encounter Summary ---
Author Organization [facility] Address [address] [place] [address] Phone Care Team Providers Care Games Dealer Name Role Phone Keisha Roach MD Primary Care Provider [phone] Encounter Details Date Type Department Care Team (Late st Contact Info) Description 12/04/2019 Legacy Encounter - Labs [facility] Historical [address] [place] [address] ProviderHolly MD [address] [place], [place] [address] Social History Tobacco Use Types Packs/Day Years [...] DPS CONVERSION - LAB RESULT SCAN PROCEDURE 12/04/2019 documented in this encounter Results * Conversion - Lab Result Scan Procedure (12/04/2019) Narrative 12/04/2019 Ordered by an unspecified provider. Historical Provider LAB BLOOD ORDERAB LES documented in this encounter Visit Diagnoses Not on filedocumented in this encounter Care Teams Games Dealer Relationship Specialty Start Date End Date Keisha Roach MD [address] [place] [address] PCP - General 09/18/23 documented as of this encounter
--- OUTSIDE RECORDS SUMMARY | 2024-06-29 13:26 | XMS_ITS | Encounter Summary ---
Author Organization [facility] Address [address] [place] [address] Phone Care Team Providers Care Apparel Pattern Maker Name Role Phone Keisha Roach MD Primary Care Provider [phone] Encounter Details Date Type Department Care Team (Late st Contact Info) Description 10/19/2019 Legacy Encounter - Labs [facility] Historical [address] [place] [address] ProviderHolly MD [address] [place], [place] [address]471 Social History Tobacco Use Types Packs/Day Years [...] DPS CONVERSION - LAB RESULT SCAN PROCEDURE 10/19/2019 documented in this encounter Results * Conversion - Lab Result Scan Procedure (10/19/2019) Narrative 10/19/2019 Ordered by an unspecified provider. Historical Provider LAB BLOOD ORDERAB LES documented in this encounter Visit Diagnoses Not on filedocumented in this encounter Care Teams Apparel Pattern Maker Relationship Specialty Start Date End Date Keisha Roach MD [address] [place] [address] PCP - General 09/18/23 documented as of this encounter
--- OUTSIDE RECORDS SUMMARY | 2024-06-29 13:26 | XMS_ITS | Encounter Summary ---
Author Organization [facility] Address [address] [place] [address] Phone Care Team Providers Care Chief Security And Safety Officer Name Role Phone Keisha Roach MD Primary Care Provider [phone] Encounter Details Date Type Department Care Team (Late st Contact Info) Description 04/11/2020 Legacy Encounter - Labs [facility] Historical [address] [place] [address] ProviderHolly MD [address] [place], [place] [address]771 Social History Tobacco Use Types Packs/Day Years [...] DPS CONVERSION - LAB RESULT SCAN PROCEDURE 04/11/2020 documented in this encounter Results * Conversion - Lab Result Scan Procedure (04/11/2020) Narrative 04/11/2020 Ordered by an unspecified provider. Historical Provider LAB BLOOD ORDERAB LES documented in this encounter Visit Diagnoses Not on filedocumented in this encounter Care Teams Chief Security And Safety Officer Relationship Specialty Start Date End Date Keisha Roach MD [address] [place] [address] PCP - General 09/18/23 documented as of this encounter
--- OUTSIDE RECORDS SUMMARY | 2024-06-29 13:26 | XMS_ITS | Encounter Summary ---
Author Organization [facility] Address [address] [place] [address] Phone Care Team Providers Care Radiology Therapist Name Role Phone Keisha Roach MD Primary Care Provider [phone] Encounter Details Date Type Department Care Team (Late st Contact Info) Description 11/17/2019 Legacy Encounter - Labs [facility] Historical [address] [place] [address] ProviderHolly MD [address] [place], [place] [address]131 Social History Tobacco Use Types Packs/Day Years [...] DPS CONVERSION - LAB RESULT SCAN PROCEDURE 11/17/2019 documented in this encounter Results * Conversion - Lab Result Scan Procedure (11/17/2019) Narrative 11/17/2019 Ordered by an unspecified provider. Historical Provider LAB BLOOD ORDERAB LES documented in this encounter Visit Diagnoses Not on filedocumented in this encounter Care Teams Radiology Therapist Relationship Specialty Start Date End Date Keisha Roach MD [address] [place] [address] PCP - General 09/18/23 documented as of this encounter
--- OUTSIDE RECORDS SUMMARY | 2024-06-29 13:26 | XMS_ITS | Encounter Summary ---
Author Organization [facility] Address [address] [place] [address] Phone Care Team Providers Care Rehabilitation Case Coordinator Name Role Phone Keisha Roach MD Primary Care Provider [phone] Encounter Details Date Type Department Care Team (Late st Contact Info) Description 12/04/2019 Abstract [facility] Historical [address] [place] [address] ProviderHolly MD [address] [place], [place] [phone] Social History Tobacco Use Types Packs/Day Years Used Date Smoking Tobacco: Never Assessed Sex and Gender Information Value Date Recorded Sex Assigned at Not on file Gender Identity Not on file Sexual Orientation Not on file documented as of this encounter Plan of Treatment Not on file documented as of this encounter Visit Diagnoses Not on filedocumented in this encounter Care Teams Rehabilitation Case Coordinator Relationship Specialty Start Date End Date Keisha Roach MD [address] [place] [address] PCP - General 09/18/23 documented as of this encounter
--- OUTSIDE RECORDS SUMMARY | 2024-06-29 13:26 | XMS_ITS | Encounter Summary ---
Author Organization [facility] Address [address] [place] [address] Phone Care Team Providers Care Customer Service Cashier Name Role Phone Keisha Roach MD Primary Care Provider Encounter Details Date Type Department Care Team (Late st Contact Info) Description 01/04/2020 Legacy Encounter - Labs [facility] Historical [address] [place] [address] ProviderHolly MD [address] [place], [place] [address] Social History Tobacco Use Types Packs/Day Years [...] DPS CONVERSION - LAB RESULT SCAN PROCEDURE 01/04/2020 documented in this encounter Results * Conversion - Lab Result Scan Procedure (01/04/2020) Narrative 01/04/2020 Ordered by an unspecified provider. Historical Provider LAB BLOOD ORDERAB LES documented in this encounter Visit Diagnoses Not on filedocumented in this encounter Care Teams Customer Service Cashier Relationship Specialty Start Date End Date Keisha Roach MD [address] [place] [address] PCP - General 09/18/23 documented as of this encounter
--- OUTSIDE RECORDS SUMMARY | 2024-06-29 13:26 | XMS_ITS | Encounter Summary ---
Author Organization [facility] Address [address] [place] [address] Phone Care Team Providers Care Bass String Winder Name Role Phone Keisha Roach MD Primary Care Provider [phone] Encounter Details Date Type Department Care Team (Late st Contact Info) Description 11/16/2019 Legacy Encounter - Labs [facility] Historical [address] [place] [address] ProviderHolly MD [address] [place], [place] [address]111 Social History Tobacco Use Types Packs/Day Years [...] DPS CONVERSION - LAB RESULT SCAN PROCEDURE 11/16/2019 documented in this encounter Results * Conversion - Lab Result Scan Procedure (11/16/2019) Narrative 11/16/2019 Ordered by an unspecified provider. Historical Provider LAB BLOOD ORDERAB LES documented in this encounter Visit Diagnoses Not on filedocumented in this encounter Care Teams Bass String Winder Relationship Specialty Start Date End Date Keisha Roach MD [address] [place] [address] PCP - General 09/18/23 documented as of this encounter
--- OUTSIDE RECORDS SUMMARY | 2024-06-29 13:26 | XMS_ITS | Encounter Summary ---
Author Organization [facility] Address [address] [place] [address] Phone Care Team Providers Care Trainer Name Role Phone Keisha Roach MD Primary Care Provider [phone] Encounter Details Date Type Department Care Team (Late st Contact Info) Description 11/02/2019 Legacy Encounter - Labs [facility] Historical [address] [place] [address] ProviderHolly MD [address] [place], [place] [address] Social History Tobacco Use Types Packs/Day Years [...] DPS CONVERSION - LAB RESULT SCAN PROCEDURE 11/02/2019 documented in this encounter Results * Conversion - Lab Result Scan Procedure (11/02/2019) Narrative 11/02/2019 Ordered by an unspecified provider. Historical Provider LAB BLOOD ORDERAB LES documented in this encounter Visit Diagnoses Not on filedocumented in this encounter Care Teams Trainer Relationship Specialty Start Date End Date Keisha Roach MD [address] [place] [address] PCP - General 09/18/23 documented as of this encounter
--- OUTSIDE RECORDS SUMMARY | 2024-06-29 13:26 | XMS_ITS | Encounter Summary ---
Author Organization [facility] Address [address] [place] [address] Phone Care Team Providers Care Customer Service Representative Teller Name Role Phone Keisha Roach MD Primary Care Provider Encounter Details Date Type Department Care Team (Late st Contact Info) Description 01/08/2020 Legacy Encounter - Labs [facility] Historical [address] [place] [address] ProviderHolly MD [address] [place], [place] [address] Social History Tobacco Use Types Packs/Day Years [...] DPS CONVERSION - LAB RESULT SCAN PROCEDURE 01/08/2020 documented in this encounter Results * Conversion - Lab Result Scan Procedure (01/08/2020) Narrative 01/08/2020 Ordered by an unspecified provider. Historical Provider LAB BLOOD ORDERAB LES documented in this encounter Visit Diagnoses Not on filedocumented in this encounter Care Teams Customer Service Representative Teller Relationship Specialty Start Date End Date Keisha Roach MD [address] [place] [address] PCP - General 09/18/23 documented as of this encounter
--- OUTSIDE RECORDS SUMMARY | 2024-06-29 13:26 | XMS_ITS | Encounter Summary ---
Author Organization [facility] Address [address] [place] [address] Phone Care Team Providers Care Research Program Assistant Name Role Phone Keisha Roach MD Primary Care Provider [phone] Encounter Details Date Type Department Care Team (Late st Contact Info) Description 04/11/2020 Abstract [facility] Historical [address] [place] [address] ProviderHolly MD [address] [place], [place] [phone] Social History Tobacco Use Types Packs/Day Years Used Date Smoking Tobacco: Never Assessed Sex and Gender Information Value Date Recorded Sex Assigned at Not on file Gender Identity Not on file Sexual Orientation Not on file documented as of this encounter Plan of Treatment Not on file documented as of this encounter Visit Diagnoses Not on filedocumented in this encounter Care Teams Research Program Assistant Relationship Specialty Start Date End Date Keisha Roach MD [address] [place] [address] PCP - General 09/18/23 documented as of this encounter
--- OUTSIDE RECORDS SUMMARY | 2024-06-29 13:26 | XMS_ITS | Encounter Summary ---
Author Organization [facility] Address [address] [place] [address] Phone Care Team Providers Care Tearoom Hostess Name Role Phone Keisha Roach MD Primary Care Provider [phone] Encounter Details Date Type Department Care Team (Late st Contact Info) Description 01/04/2020 Hospital/ED/SNF/HH Visit [facility] Historical [address] [place] [address] ProviderHolly MD [address] [place] [address] Social History Tobacco Use Types [...] on filedocumented in this encounter Care Teams Tearoom Hostess Relationship Specialty Start Date End Date Keisha Roach MD [address] [place] [address] PCP - General 09/18/23 documented as of this encounter
--- OUTSIDE RECORDS SUMMARY | 2024-06-29 13:26 | XMS_ITS | Encounter Summary ---
Author Organization [facility] Address [address] [place] [address] Phone Care Team Providers Care Bottle Sorter Name Role Phone Keisha Roach MD Primary Care Provider [phone] Encounter Details Date Type Department Care Team (Late st Contact Info) Description 12/31/2019 Abstract [facility] Historical [address] [place] [address] ProviderHolly MD [address] [place], [place] [id number] Social History Tobacco Use Types Packs/Day Years Used Date Smoking Tobacco: Never Assessed Sex and Gender Information Value Date Recorded Sex Assigned at Not on file Gender Identity Not on file Sexual Orientation Not on file documented as of this encounter Plan of Treatment Not on file documented as of this encounter Visit Diagnoses Not on filedocumented in this encounter Care Teams Bottle Sorter Relationship Specialty Start Date End Date Keisha Roach MD [address] [place] [address] PCP - General 09/18/23 documented as of this encounter
--- OUTSIDE RECORDS SUMMARY | 2024-06-29 13:26 | XMS_ITS | Encounter Summary ---
Author Organization [facility] Address [address] [place] [address] Phone Care Team Providers Care Malt Loader Name Role Phone Keisha Roach MD Primary Care Provider [phone] Encounter Details Date Type Department Care Team (Late st Contact Info) Description 12/28/2019 Legacy Encounter - Labs [facility] Historical [address] [place] [address] ProviderHolly MD [address] [place], [place] [address] Social History Tobacco Use Types Packs/Day Years [...] DPS CONVERSION - LAB RESULT SCAN PROCEDURE 12/28/2019 documented in this encounter Results * Conversion - Lab Result Scan Procedure (12/28/2019) Narrative 12/28/2019 Ordered by an unspecified provider. Historical Provider LAB BLOOD ORDERAB LES documented in this encounter Visit Diagnoses Not on filedocumented in this encounter Care Teams Malt Loader Relationship Specialty Start Date End Date Keisha Roach MD [address] [place] [address] PCP - General 09/18/23 documented as of this encounter
--- OUTSIDE RECORDS SUMMARY | 2024-06-29 13:26 | XMS_ITS | Encounter Summary ---
Author Organization [facility] Address [address] [place] [address] Phone Care Team Providers Care Copyman Name Role Phone Keisha Roach MD Primary Care Provider [phone] Encounter Details Date Type Department Care Team (Late st Contact Info) Description 04/11/2020 Abstract [facility] Historical [address] [place] [address] ProviderHolly MD [address] [place], [place] [id number] Social History Tobacco Use Types Packs/Day Years Used Date Smoking Tobacco: Never Assessed Sex and Gender Information Value Date Recorded Sex Assigned at Not on file Gender Identity Not on file Sexual Orientation Not on file documented as of this encounter Plan of Treatment Not on file documented as of this encounter Visit Diagnoses Not on filedocumented in this encounter Care Teams Copyman Relationship Specialty Start Date End Date Keisha Roach MD [address] [place] [address] PCP - General 09/18/23 documented as of this encounter
--- OUTSIDE RECORDS SUMMARY | 2024-06-29 13:26 | XMS_ITS | Encounter Summary ---
Author Organization [facility] Address [address] [place] [address] Phone Care Team Providers Care Science Liaison Name Role Phone Keisha Roach MD Primary Care Provider [phone] Encounter Details Date Type Department Care Team (Late st Contact Info) Description 04/12/2020 Legacy Encounter - Labs [email or web address] Historical [address] [place] [address] ProviderHolly MD [address] [place], [place] [address] Social History Tobacco Use Types Packs/Day Years [...] DPS CONVERSION - LAB RESULT SCAN PROCEDURE 04/12/2020 documented in this encounter Results * Conversion - Lab Result Scan Procedure (04/12/2020) Narrative 04/12/2020 Ordered by an unspecified provider. Historical Provider LAB BLOOD ORDERAB LES documented in this encounter Visit Diagnoses Not on filedocumented in this encounter Care Teams Science Liaison Relationship Specialty Start Date End Date Keisha Roach MD [address] [place] [address] PCP - General 09/18/23 documented as of this encounter
--- OUTSIDE RECORDS SUMMARY | 2024-06-29 13:27 | XMS_ITS | Encounter Summary ---
Author Organization [facility] Address [address] [place] [address] Phone Care Team Providers Care Director Distribution Name Role Phone Keisha Roach MD Primary Care Provider [phone] Encounter Details Date Type Department Care Team (Late st Contact Info) Description 08/05/2019 Abstract [email or web address] Historical [address] [place] [address] ProviderHolly MD [address] [place], [place] [id number] Social History Tobacco Use Types Packs/Day Years Used Date Smoking Tobacco: Never Assessed Sex and Gender Information Value Date Recorded Sex Assigned at Not on file Gender Identity Not on file Sexual Orientation Not on file documented as of this encounter Plan of Treatment Not on file documented as of this encounter Visit Diagnoses Not on filedocumented in this encounter Care Teams Director Distribution Relationship Specialty Start Date End Date Keisha Roach MD [address] [place] [address] PCP - General 09/18/23 documented as of this encounter
--- OUTSIDE RECORDS SUMMARY | 2024-06-29 13:27 | XMS_ITS | Encounter Summary ---
Author Organization [facility] Address [address] [place] [address] Phone Care Team Providers Care Automobile Upholsterer Name Role Phone Keisha Roach MD Primary Care Provider [phone] Encounter Details Date Type Department Care Team (Late st Contact Info) Description 09/18/2018 Clinical Support [facility] Historical [address] [place] [address] ProviderHolly MD [address] [place], [place] [id number] Social History Tobacco Use Types Packs/Day Years Used Date Smoking Tobacco: Never Assessed Sex and Gender Information Value Date Recorded Sex Assigned at Not on file Gender Identity Not on file Sexual Orientation Not on file documented as of this encounter Plan of Treatment Not on file documented as of this encounter Visit Diagnoses Not on filedocumented in this encounter Care Teams Automobile Upholsterer Relationship Specialty Start Date End Date Keisha Roach MD [address] [place] [address] PCP - General 09/18/23 documented as of this encounter
--- OUTSIDE RECORDS SUMMARY | 2024-06-29 13:27 | XMS_ITS | Clinical Summary ---
Author Organization [facility] Address [address] [place] [address] Phone Care Team Providers Care Warper Fixer Name Role Phone Unavailable Primary Care Provider Unavailabl e Social History Tobacco Use Types Packs/Day Years Used Date Smoking Tobacco: Never Assessed Comments Unknown Sex and Gender Information Value Date Recorded Sex Assigned at Not on file Legal Sex Female 7:46 AM CDT Gender Identity Not on file Sexual Orientation Not on file Plan of Treatment Health Maintenance Due Date Last Done Comments DEXA Bone Density 1958 Hepatitis C Virus (HCV) Screening 1958 TdaP Immunization 1958 Pap Smear 08/09/1979 Cervical Cancer Screening (CCS) 1988 HPV/Cotest 1988 Colonoscopy 08/09/2003 Colorectal Cancer Screening 08/09/2003 Cologuard 2008 Immunochemical Fecal Occult Blood 2008 Mammogram 2008 Pneumococcal Immunization (5 0+ years) (1 of 1 - PCV) 2008 Zoster Immunization (1 of 2) 2008 Influenza Immunization (#1) 2024 SARS-COV-2 Immunization ( season) 2024 Respiratory Syncytial Virus (RSV) Immunization (Adult) (1 - 1-dose 75+ series) 2033 Hepatitis B Immunization Aged Out No longer eligible based on patient's age to complete this topic Meningococcal Immunization (ACWY) Aged Out No longer eligible based on patient's age to complete this topic Rotavirus Immunization Aged Out No lo nger eligible based on patient's age to complete this topic
--- OUTSIDE RECORDS SUMMARY | 2024-06-29 13:27 | XMS_ITS | Encounter Summary ---
Author Organization [facility] Address [address] [place] [address] Phone Care Team Providers Care Pin Attacher Name Role Phone Keisha Roach MD Primary Care Provider [phone] Encounter Details Date Type Department Care Team (Late st Contact Info) Description 01/14/2020 Hospital/ED/SNF/HH Visit [facility] Historical [address] [place] [address] ProviderHolly MD [address] [place] [address] Social History Tobacco Use Types [...] on filedocumented in this encounter Care Teams Pin Attacher Relationship Specialty Start Date End Date Keisha Roach MD [address] [place] [address] PCP - General 09/18/23 documented as of this encounter
--- OUTSIDE RECORDS SUMMARY | 2024-06-29 13:27 | XMS_ITS | Encounter Summary ---
Author Organization [facility] Address [address] [place] [address] Phone Care Team Providers Care Senior Net Application Developer Name Role Phone Keisha Roahc MD Primary Care Provider [phone] Encounter Details Date Type Department Care Team (Late st Contact Info) Description 07/27/2019 Legacy Encounter - Labs [email or web address] Historical [address] [place] [address] ProviderHolly MD [address] [place], [place] [address] Social History Tobacco Use Types Packs/Day Years [...] DPS CONVERSION - LAB RESULT SCAN PROCEDURE 07/27/2019 documented in this encounter Results * Conversion - Lab Result Scan Procedure (07/27/2019) Narrative 07/27/2019 Ordered by an unspecified provider. Historical Provider LAB BLOOD ORDERAB LES documented in this encounter Visit Diagnoses Not on filedocumented in this encounter Care Teams Senior Net Application Developer Relationship Specialty Start Date End Date Keisha Roach MD [address] [place] [address] PCP - General 09/18/23 documented as of this encounter
--- OUTSIDE RECORDS SUMMARY | 2024-06-29 13:27 | XMS_ITS | Encounter Summary ---
Author Organization [facility] Address [address] [place] [address] Phone Care Team Providers Care Montessori Lead Teacher Name Role Phone Keisha Roach MD Primary Care Provider [phone] Encounter Details Date Type Department Care Team (Late st Contact Info) Description 01/25/2020 Legacy Encounter - Labs [email or web address] Historical [address] [place] [address] ProviderHolly MD [address] [place], [place] [address] Social History Tobacco Use Types Packs/Day Years [...] DPS CONVERSION - LAB RESULT SCAN PROCEDURE 01/25/2020 documented in this encounter Results * Conversion - Lab Result Scan Procedure (01/25/2020) Narrative 01/25/2020 Ordered by an unspecified provider. Historical Provider LAB BLOOD ORDERAB LES documented in this encounter Visit Diagnoses Not on filedocumented in this encounter Care Teams Montessori Lead Teacher Relationship Specialty Start Date End Date Keisha Roach MD [address] [place] [address] PCP - General 09/18/23 documented as of this encounter
--- OUTSIDE RECORDS SUMMARY | 2024-06-29 13:27 | XMS_ITS | Encounter Summary ---
Author Organization [facility] Address [address] [place] [address] Phone Care Team Providers Care Precision Agriculture Specialist Name Role Phone Keisha Roach MD Primary Care Provider [phone] Encounter Details Date Type Department Care Team (Late st Contact Info) Description 09/18/2018 Abstract [email or web address] Historical [address] [place] [address] ProviderHolly MD [address] [place], [place] [id number] Social History Tobacco Use Types Packs/Day Years Used Date Smoking Tobacco: Never Assessed Sex and Gender Information Value Date Recorded Sex Assigned at Not on file Gender Identity Not on file Sexual Orientation Not on file documented as of this encounter Plan of Treatment Not on file documented as of this encounter Visit Diagnoses Not on filedocumented in this encounter Care Teams Precision Agriculture Specialist Relationship Specialty Start Date End Date Keisha Roach MD [address] [place] [address] PCP - General 09/18/23 documented as of this encounter
--- OUTSIDE RECORDS SUMMARY | 2024-06-29 13:27 | XMS_ITS | Encounter Summary ---
Author Organization [facility] Address [address] [place] [address] Phone Care Team Providers Care Search Director Name Role Phone Keisha Roach MD Primary Care Provider [phone] Encounter Details Date Type Department Care Team (Late st Contact Info) Description 01/12/2020 Abstract [facility] Historical [address] [place] [address] ProviderHolly MD [address] [place] [address] Social History Tobacco Use Types [...] on filedocumented in this encounter Care Teams Search Director Relationship Specialty Start Date End Date Keisha Roach MD [address] [place] [address] PCP - General 09/18/23 documented as of this encounter
--- OUTSIDE RECORDS SUMMARY | 2024-06-29 13:27 | XMS_ITS | Encounter Summary ---
Author Organization [facility] Address [address] [place] [address] Phone Care Team Providers Care Phototypesetting Equipment Monitor Name Role Phone Keisha Roach MD Primary Care Provider [phone] Encounter Details Date Type Department Care Team (Late st Contact Info) Description 01/13/2019 Abstract [facility] Historical [address] [place] [address] ProviderHolly MD [address] [place] [address] Social History Tobacco Use Types [...] on filedocumented in this encounter Care Teams Phototypesetting Equipment Monitor Relationship Specialty Start Date End Date Keisha Roach MD [address] [place] [address] PCP - General 09/18/23 documented as of this encounter
--- OUTSIDE RECORDS SUMMARY | 2024-06-29 13:27 | XMS_ITS | Encounter Summary ---
Author Organization [facility] Address [address] [place] [address] Phone Care Team Providers Care Manager Consumer Name Role Phone Keisha Roach MD Primary Care Provider [phone] Encounter Details Date Type Department Care Team (Late st Contact Info) Description 09/29/2018 Legacy Encounter - Labs [email or web address] Historical [address] [place] [address] ProviderHolly MD [address] [place], [place] [address] Social History Tobacco Use Types Packs/Day Years [...] DPS CONVERSION - LAB RESULT SCAN PROCEDURE 09/29/2018 documented in this encounter Results * Conversion - Lab Result Scan Procedure (09/29/2018) Narrative 09/29/2018 Ordered by an unspecified provider. Historical Provider LAB BLOOD ORDERAB LES documented in this encounter Visit Diagnoses Not on filedocumented in this encounter Care Teams Manager Consumer Relationship Specialty Start Date End Date Keisha Roach MD [address] [place] [address] PCP - General 09/18/23 documented as of this encounter
--- OUTSIDE RECORDS SUMMARY | 2024-06-29 13:27 | XMS_ITS | Encounter Summary ---
Author Organization [facility] Address [address] [place] [address] Phone Care Team Providers Care Body Art Technician Name Role Phone Keisha Roach MD Primary Care Provider [phone] Encounter Details Date Type Department Care Team (Late st Contact Info) Description 08/10/2019 Legacy Encounter - Labs [email or web address] Historical [address] [place] [address] ProviderHolly MD [address] [place], [place] [address] Social History Tobacco Use Types Packs/Day Years [...] DPS CONVERSION - LAB RESULT SCAN PROCEDURE 08/10/2019 documented in this encounter Results * Conversion - Lab Result Scan Procedure (08/10/2019) Narrative 08/10/2019 Ordered by an unspecified provider. Historical Provider LAB BLOOD ORDERAB LES documented in this encounter Visit Diagnoses Not on filedocumented in this encounter Care Teams Body Art Technician Relationship Specialty Start Date End Date Keisha Roach MD [address] [place] [address] PCP - General 09/18/23 documented as of this encounter
--- OUTSIDE RECORDS SUMMARY | 2024-06-29 13:27 | XMS_ITS | Encounter Summary ---
Author Organization [facility] Address [address] [place] [address] Phone Care Team Providers Care Car Wrecker Name Role Phone Keisha Roach MD Primary Care Provider Encounter Details Date Type Department Care Team (Late st Contact Info) Description 09/18/2018 Abstract [facility] Historical [address] [place] [address] ProviderHolly MD [address] [place], [place] [phone] Social History Tobacco Use Types Packs/Day Years Used Date Smoking Tobacco: Never Assessed Sex and Gender Information Value Date Recorded Sex Assigned at Not on file Gender Identity Not on file Sexual Orientation Not on file documented as of this encounter Plan of Treatment Not on file documented as of this encounter Visit Diagnoses Not on filedocumented in this encounter Care Teams Car Wrecker Relationship Specialty Start Date End Date Keisha Roach MD [address] [place] [address] PCP - General 09/18/23 documented as of this encounter
--- OUTSIDE RECORDS SUMMARY | 2024-06-29 13:27 | XMS_ITS | Encounter Summary ---
Author Organization [facility] Address [address] [place] [address] Phone Care Team Providers Care Counselor Manager Name Role Phone Keisha Roach MD Primary Care Provider [phone] Encounter Details Date Type Department Care Team (Late st Contact Info) Description 01/13/2019 Abstract [facility] Historical [address] [place] [address] ProviderHolly MD [address] [place] [address] Social History Tobacco Use Types [...] on filedocumented in this encounter Care Teams Counselor Manager Relationship Specialty Start Date End Date Keisha Roach MD [address] [place] [address] PCP - General 09/18/23 documented as of this encounter
--- OUTSIDE RECORDS SUMMARY | 2024-06-29 13:27 | XMS_ITS | Encounter Summary ---
Author Organization [facility] Address [address] [place] [address] Phone Care Team Providers Care Remelt Sugar Boiler Name Role Phone Keisha Roach MD Primary Care Provider [phone] Encounter Details Date Type Department Care Team (Late st Contact Info) Description 01/11/2020 Legacy Encounter - Labs [facility] Historical [address] [place] [address] ProviderHolly MD [address] [place], [place] [address] Social History Tobacco Use Types Packs/Day Years [...] DPS CONVERSION - LAB RESULT SCAN PROCEDURE 01/11/2020 documented in this encounter Results * Conversion - Lab Result Scan Procedure (01/11/2020) Narrative 01/11/2020 Ordered by an unspecified provider. Historical Provider LAB BLOOD ORDERAB LES documented in this encounter Visit Diagnoses Not on filedocumented in this encounter Care Teams Remelt Sugar Boiler Relationship Specialty Start Date End Date Keisha Roach MD [address] [place] [address] PCP - General 09/18/23 documented as of this encounter
--- OUTSIDE RECORDS SUMMARY | 2024-06-29 13:27 | XMS_ITS | Encounter Summary ---
Author Organization [facility] Address [address] [place] [address] Phone Care Team Providers Care Locks Inspector Name Role Phone Keisha Roach MD Primary Care Provider [phone] Encounter Details Date Type Department Care Team (Late st Contact Info) Description 01/13/2020 Abstract [facility] Historical [address] [place] [address] ProviderHolly MD [address] [place] [address] Social History Tobacco Use Types [...] on filedocumented in this encounter Care Teams Locks Inspector Relationship Specialty Start Date End Date Keisha Roach MD [address] [place] [address] PCP - General 09/18/23 documented as of this encounter
--- OUTSIDE RECORDS SUMMARY | 2024-06-29 13:27 | XMS_ITS | Encounter Summary ---
Author Organization [facility] Address [address] [place] [address] Phone Care Team Providers Care Broadcast Journalist Name Role Phone Keisha Roach MD Primary Care Provider [phone] Encounter Details Date Type Department Care Team (Late st Contact Info) Description 08/24/2019 Legacy Encounter - Labs [facility] Historical [address] [place] [address] ProviderHolly MD [address] [place], [place] [address] Social History Tobacco Use Types Packs/Day Years [...] DPS CONVERSION - LAB RESULT SCAN PROCEDURE 08/24/2019 documented in this encounter Results * Conversion - Lab Result Scan Procedure (08/24/2019) Narrative 08/24/2019 Ordered by an unspecified provider. Historical Provider LAB BLOOD ORDERAB LES documented in this encounter Visit Diagnoses Not on filedocumented in this encounter Care Teams Broadcast Journalist Relationship Specialty Start Date End Date Keisha Roach MD [address] [place] [address] PCP - General 09/18/23 documented as of this encounter
--- OUTSIDE RECORDS SUMMARY | 2024-06-29 13:27 | XMS_ITS | Encounter Summary ---
Author Organization [facility] Address [address] [place] [address] Phone Care Team Providers Care Fuel Quality Tech Name Role Phone Keisha Roach MD Primary Care Provider [phone] Encounter Details Date Type Department Care Team (Late st Contact Info) Description 04/27/2019 Abstract [facility] Historical [address] [place] [address] ProviderHolly MD [address] [place], [place] [id number] Social History Tobacco Use Types Packs/Day Years Used Date Smoking Tobacco: Never Assessed Sex and Gender Information Value Date Recorded Sex Assigned at Not on file Gender Identity Not on file Sexual Orientation Not on file documented as of this encounter Plan of Treatment Not on file documented as of this encounter Visit Diagnoses Not on filedocumented in this encounter Care Teams Fuel Quality Tech Relationship Specialty Start Date End Date Keisha Roach MD [address] [place] [address] PCP - General 09/18/23 documented as of this encounter
--- OUTSIDE RECORDS SUMMARY | 2024-06-29 13:27 | XMS_ITS | Encounter Summary ---
Author Organization [facility] Address [address] [place] [address] Phone Care Team Providers Care Outdoor Guide Name Role Phone Keisha Roach MD Primary Care Provider [phone] Encounter Details Date Type Department Care Team (Late st Contact Info) Description 08/24/2019 Abstract [facility] Historical [address] [place] [address] ProviderHolly MD [address] [place], [place] [id number] Social History Tobacco Use Types Packs/Day Years Used Date Smoking Tobacco: Never Assessed Sex and Gender Information Value Date Recorded Sex Assigned at Not on file Gender Identity Not on file Sexual Orientation Not on file documented as of this encounter Plan of Treatment Not on file documented as of this encounter Visit Diagnoses Not on filedocumented in this encounter Care Teams Outdoor Guide Relationship Specialty Start Date End Date Keisha Roach MD [address] [place] [address] PCP - General 09/18/23 documented as of this encounter
--- OUTSIDE RECORDS SUMMARY | 2024-06-29 13:27 | XMS_ITS | Patient Health Record ---
Author Organization [facility] Address [address] [address] Care Team Providers Care Group Tester Name Role Phone Darrel Donis Primary Care Provider Henry Rodney MD, Alex Unavailable ALLERGIES Allergen (clinical drug ingredient) Drug/Non Drug Allergy documented on EMR Reaction Allergy Type Onset Date Status phenytoin Dilantin Unknown Drug Allergy Active erythromycin Erythromycin Unknown Drug Allergy A ctive nitrofurantoin Macrodantin Unknown Drug Allergy Active nitrofurantoin Nitrofurantoin Unknown Drug Allergy Active carbamazepine Tegretol Unknown Drug Allergy Act shola Sulfa Unknown Drug Allergy Active Penicillin Unknown Drug Allergy Active Levaquin Unknown Drug Allergy Active REASON FOR REFERRAL No Information MEDICATIONS Medication SIG (Take, Route, Frequency, Duration) Notes Start Date End Date Status Mestinon 60 MG 1 tablet Orally Five times a day for 30 day(s) Active Multivitamins as directed Orally Daily Active Vitamin B12 100 MCG 1 tablet Orally Once a day for 30 day(s) Active Vitamin D3 Super Strength 2000 UNIT as directed Orally Daily Active Calcium 600 MG 1 tablet with meals Orally Twice a day for 30 day(s) Active Promethazine HCl 25 MG 1 tablet at bedti me Orally twice a day Active Baclofen 20 MG 1 tablet with food o r milk Orally Twice daily for 30 day(s) Active Metoprolol Tartrate 25 MG 1 tablet Orall y Twice a day for 30 day(s) Active Nebulizer as needed Active Lasix 20 MG 1 tablet Orally Once a day Active Potassium Chloride 20 MEQ 1 capsule Oral ly Once a day Active Vimpat 150 MG 1 tablet Orally 1 ta b am 2 tab pm Active Keppra 1000 MG 2 tablets Orally enedelia ry 12 hrs Active Gammagard 30 GM/300ML Intravenous Every two weeks Active predniSONE 20 MG 1 tablet with food o r milk Orally Once a day Active Ativan 1 MG 1 tablet as needed Orally bid Active hydrALAZINE HCl 50 MG 1 tablet Orally th ree times a day Active Norvasc 10 MG 1 tablet Orally Once a day for 30 day(s) Active cloNIDine HCl 0.1 MG 2 tablet Orally twi ce a day Active Lopressor 10 1 tablet Orally Twic e a day Active SOLU-Medrol 1000 MG as directed Injectio n As Needed Active Ventolin HFA 90 MCG/ACT 2 puffs as neede d Inhalation every 4 hrs for as needed Active [place] 5-325 MG 1 tablet as needed Orally As needed Not-Taking Toradol 50 1 vtab oral as needed Not-Taking Lomotil 0.025-2.5 MG/5ML 5 ml as needed Orally Four times a day Not-Taking Folic Acid 400 MCG 1 tablet Orally Once a day Active hydrOXYzine HCl 25 MG 1 tablet Orally th ree times a day Not-Taking Vancomycin HCl 250 MG/5ML Orally 24 Hour s Infusion Not-Taking Neurontin 300 MG 1 capsule Orally Thr ee times a day Not-Taking Domperidone 10 MG as directed PO three times a day Not-Taking PROBLEMS Problem Type ICD Code Onset Dates Problem Status W/U Status Risk SNOMED Code Notes Problem 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 (914560806) Problem Cardiac pacemaker in situ (V45.01) Active confirmed Cardiac pacemaker in situ (706254124) Problem Hypertension, essential unspecified (401.9) Active confirmed Essential hypertension (02141073) Problem Sinus bradycardia (427.89) Active confirmed Sinus bradycardia (76163757) Problem Bradycardia, unspecified (R00.1) Active confirmed Bradycardia (36510636) Problem Presence of cardiac pacemaker (Z95.0) Active confirmed Cardiac pacemaker in situ (858152461) PLAN OF TREATMENT Pending Test Test Name Order Date Electrocardiogram (EKG) 03/13/2013 EKG ECG 03/13/2013 EKG ECG 09/11/2013 EKG ECG 02/12/2014 EKG ECG 01/21/2015 EKG ECG 07/22/2015 EKG ECG 02/03/2016 PM DEVICE PROGR EVAL, DUAL PC 01/21/2015 PM DEVICE PROGR EVAL, DUAL PC 07/22/2015 PM DEVICE PROGR EVAL, DUAL PC 02/12/2014 PM DEVICE PROGR EVAL, DUAL PC 09/11/2013 PM DEVICE PROGR EVAL, DUAL PC 03/13/2013 PM DEVICE PROGR EVAL, MULTI PC 4 PM DEVICE PROGR EVAL, MULTI PC 5 PM DEVICE PROGR EVAL, MULTI PC 6 PM DEVICE PROGR EVAL, MULTI PC 6 Insurance Providers Payer Name Payer Address Payer Phone Subscriber Number Group Number Insured Name Patient Relationship to Insured Coverage Start Date Coverage End Date [facility] [employer] [address] [address] [place], [place] [id number] Aysha Anderson Self - patient is the insured MEDICAL (GENERAL) HISTORY Medical History History ICD Code Sinus node dysfunction Bradycardia Dual chamber Pacemaker [employer], implan kashif June 2011 Multiple sclerosis Hypogammaglobunemia Myasthenia gravis Hypogammaglobulinemia Hypertension Secondary Adrenal Insuffiency Stege 3 Chronic Renal Disease Gastro Paresis seizures bacteremia, port-a-cath site Surgical History Surgery Date(Month/Year) Implantation of Pacemaker Leopoldo Caths X 4 X 2 Colocystectomy Hystorectomy Appendectomy Small Bowel Ressection Hospitalization History Reason Date(Month/Year) Numerous Hospilization since May 3 X 8 Bacterania[facility] 07/2013 Acute renal failure-[facility] 08/2013 Multiple Visits to ER and [facility] for Sepsis and Myasthenia Crisis May to present
--- OUTSIDE RECORDS SUMMARY | 2024-06-29 13:27 | XMS_ITS | Encounter Summary ---
Author Organization [facility] Address [address] [place] [address] Phone Care Team Providers Care Warranty Coordinator Name Role Phone Keisha Roach MD Primary Care Provider [phone] Encounter Details Date Type Department Care Team (Late st Contact Info) Description 01/18/2020 Legacy Encounter - [id number] Historical [address] [place] [address] ProviderHolly MD [address] [place], [place] [id number] Social History Tobacco Use Types Packs/Day Years [...] DPS CONVERSION - LAB RESULT SCAN PROCEDURE 01/18/2020 documented in this encounter Results * Conversion - Lab Result Scan Procedure (01/18/2020) Narrative 01/18/2020 Ordered by an unspecified provider. Historical Provider LAB BLOOD ORDERAB LES documented in this encounter Visit Diagnoses Not on filedocumented in this encounter Care Teams Warranty Coordinator Relationship Specialty Start Date End Date Keisha Roach MD [address] [place] [address] PCP - General 09/18/23 documented as of this encounter
== END 2024-06-29 10:20 | disposition home or self-care (01) ==
LOC: CHSIMG 10:22
PROVIDERS: PCP Internal Medicine; Visit Provider Internal Medicine Endocrinology, Diabetes & Metabolism
DX: Z78.0 Asymptomatic menopausal state (principal); M85.89 Other specified disorders of bone density and structure, multiple sites
CPT/HCPCS: 77080